=== PATIENT | female | born 1960 | race Caucasian/White ===

== ENCOUNTER 2020-02-14 14:48 | Outpatient (REF) | payer MEDICARE, MEDICAID, SELFPAY | END 2020-02-14 14:49 | disposition home or self-care (01) | LOC: HO.LAB 14:48 | PROVIDERS: PCP Internal Medicine; Visit Provider Internal Medicine | DX: Z20.828 Contact with and (suspected) exposure to other viral communicable diseases (principal) | CPT/HCPCS: C9803; U0003 ==

== ENCOUNTER 2020-03-26 11:23 | Outpatient (REF) | payer MEDICARE, MEDICAID, SELFPAY | END 2020-03-26 11:24 | disposition home or self-care (01) | LOC: HO.CT 11:23 | PROVIDERS: PCP Internal Medicine; Visit Provider Physician Assistant Medical | DX: Z13.89 Encounter for screening for other disorder (principal) ==

== ENCOUNTER 2020-04-05 12:55 | Outpatient (REF) | payer OTHER, SELFPAY ==
[2020-04-05 14:00] LABS: MANUAL DIFF FLAG NO
[2020-04-05 14:08] LABS: Basophils Percent Auto 0.9 % (0-2); Eosinophils Absolute Auto 0.2 X10*3/uL (0.0-0.4); Eosinophils Percent Auto 3.5 % (0-4); Hematocrit 41.8 % (37-47); Hemoglobin 13.7 g/dl (12.0-16.0); Imm Gran Abs Auto 0.02 X10*3/uL (0.00-0.03); Imm Gran Pct Auto 0.4 % (0.0-0.4); Lymphocytes Absolute Auto 1.9 X10*3/uL (1.2-4.9); Lymphocytes Percent Auto 42.1 % (20-40); Mean Corpuscular HGB Conc 32.8 g/dl (31.0-35.0); Mean Corpuscular Hemoglobin 30.5 pg (27.0-33.0); Mean Corpuscular Volume 93.1 fL (80-98); Mean Platelet Volume 9.4 fL (9.4-12.3); Monocytes Absolute Auto 0.3 X10*3/uL (0.1-1.2); Monocytes Percent Auto 6.6 % (2-11); Neutrophils Absolute Auto 2.1 X10*3/uL (2.0-8.3); Neutrophils Percent Auto 46.5 % (45-73); Platelet Count 302 X10*3/uL (160-400); Red Blood Count 4.49 X10*6/uL (4.20-5.50); Red Cell Distribution Width 12.2 % (11.0-16.0); White Blood Count 4.5 X10*3/uL (4.8-10.8)
[2020-04-05 14:20] LABS: Glucose Urine UA NEG (NEG); Leukocyte Esterase Urine NEG (NEG); Nitrite Urine NEG (NEG); Specific Gravity - Urine 1.015 (1.005-1.025); Urine Blood NEG (NEG); Urine Ketones NEG (NEG); Urine Protein NEG (NEG-TRACE)
[2020-04-05 14:22] LABS: Appearance Urine CLEAR; Color Urine YELLOW
[2020-04-05 14:37] LABS: Alanine Aminotransferase 24 U/L (0-31); Albumin Level 4.1 g/dL (3.5-5.0); Alkaline Phosphatase 58 U/L (39-117); Anion Gap 9 (12-20); Aspartate Amino Transferase 15 U/L (5-31); Bilirubin Direct 0.2 mg/dL (0.0-0.5); Bilirubin Total 0.4 mg/dL (0.0-1.0); Blood Urea Nitrogen 14 mg/dL (9-16); Calcium 9.3 mg/dL (8.4-10.2); Carbon Dioxide 36 mmol/L (22-29); Chloride 101 mmol/L (96-108); Estimated Glomerular Filt Rate > 60; Glucose Random 80 mg/dL (60-115); Potassium 4.3 mmol/l (3.3-5.1); Sodium 142 mmol/L (135-145); Total Protein 6.6 g/dL (6.5-8.0)
[2020-04-05 14:54] LABS: SARS COV2 IgG Negative (Negative)
[2020-04-05 14:58] LABS: Ferritin 34 ng/mL (10-250); TSH reflex Free T4 1.69 mIU/mL (0.32-4.0)
[2020-04-05 15:10] LABS: Erythrocyte Sedimentation Rate 3 MM/HR (0-20)
[2020-04-06 14:43] LABS: LDL Cholesterol Direct 155 mg/dL (<100)
== END 2020-04-05 12:56 | disposition home or self-care (01) ==
LOC: HO.HMGCLDS 12:55
PROVIDERS: PCP Internal Medicine; Visit Provider Internal Medicine
DX: R53.83 Other fatigue (principal); M25.50 Pain in unspecified joint; E03.2 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 exogenous substances; T50.905A Adverse effect of unspecified drugs, medicaments and biological substances, initial encounter; Y92.9 Unspecified place or not applicable; N32.9 Bladder disorder, unspecified; J44.9 Chronic obstructive pulmonary disease, unspecified; Z01.84 Encounter for antibody response examination
CPT/HCPCS: 36415; 80048; 80076; 81003; 82728; 83721; 84443; 85025; 85652; 86769

== ENCOUNTER 2020-05-01 14:22 | Outpatient (REF) | payer OTHER, SELFPAY ==
--- NOTE | ~2020-05-01 | CT_ITS ---
EXAMINATION: CT CHEST SCREENING CLINICAL INFORMATION: Nicotine dependence. COMPARISON: CT chest of March 30, 2019 TECHNIQUE: Multidetector volumetric CT imaging of the chest is performed without contrast using low dose technique. Additional 2D coronal and sagittal reformatted images and axial 3D maximum intensity projection (MIP) images are generated on the CT workstation. This CT examination was performed using dose optimization techniques as appropriate, variously including the following: *Automated exposure control *Adjustment of mA and/or kV according to patient size (this includes techniques or standardized protocols for targeted exams where dose is matched to indication/reason for exam; i.e. extremities or head) *Use of iterative reconstruction technique DLP: 50 mGy-cm FINDINGS: LUNGS: Central airways are patent. No significant bronchial wall thickening is seen. No bronchiectasis. No confluent parenchymal disease. No significant changes of emphysema appreciated. There are a few scattered sub-4 mm densities seen bilaterally. Within the right lower lobe there is a subpleural noncalcified 5 mm density on image 193 of 501. This is stable Within the lingula abutting the major fissure there is a noncalcified 5 mm nodule on image 291 of 501. This is stable. Within the left lower lobe there is a subpleural 4 mm noncalcified density on image 354 of 501. This is stable. Within the right upper lobe there is a 4 mm noncalcified density on image 283 of 501. This is stable. MEDIASTINUM: Heart normal size. Coronary artery calcification present. No significant pericardial effusion. No thoracic aortic aneurysm. No mediastinal or hilar lymphadenopathy. Thyroid gland is not well evaluated. PLEURA: There is no pleural effusion. No pleural mass or thickening. AXILLA: No lymphadenopathy. UPPER ABDOMEN: Unremarkable OSSEOUS STRUCTURES: No destructive bony lesions identified. CT/CT lung screening IMPRESSION: Stable appearance of the chest as described above. ASSESSMENT: Lung-RADS category 2: Benign RECOMMENDATION: Routine annual low-dose CT screening in 12 months.
== END 2020-05-01 14:23 | disposition home or self-care (01) ==
LOC: HO.CT 14:22
PROVIDERS: Visit Provider Physician Assistant Medical
DX: Z12.2 Encounter for screening for malignant neoplasm of respiratory organs (principal); F17.210 Nicotine dependence, cigarettes, uncomplicated
CPT/HCPCS: 71271

== ENCOUNTER 2020-08-30 12:18 | Outpatient (REF) | payer OTHER, SELFPAY ==
[2020-08-30 13:48] LABS: MANUAL DIFF FLAG NO
[2020-08-30 13:53] LABS: Basophils Percent Auto 0.5 % (0-2); Eosinophils Absolute Auto 0.1 X10*3/uL (0.0-0.4); Eosinophils Percent Auto 1.9 % (0-4); Imm Gran Abs Auto 0.04 X10*3/uL (0.00-0.03); Imm Gran Pct Auto 0.6 % (0.0-0.4); Lymphocytes Absolute Auto 2.3 X10*3/uL (1.2-4.9); Lymphocytes Percent Auto 36.1 % (20-40); Mean Corpuscular HGB Conc 32.6 g/dl (31.0-35.0); Mean Corpuscular Hemoglobin 29.4 pg (27.0-33.0); Mean Corpuscular Volume 90.3 fL (80-98); Mean Platelet Volume 9.9 fL (9.4-12.3); Monocytes Absolute Auto 0.6 X10*3/uL (0.1-1.2); Monocytes Percent Auto 8.6 % (2-11); Neutrophils Absolute Auto 3.3 X10*3/uL (2.0-8.3); Neutrophils Percent Auto 52.3 % (45-73); Platelet Count 294 X10*3/uL (160-400); Red Blood Count 4.76 X10*6/uL (4.20-5.50); Red Cell Distribution Width 13.2 % (11.0-16.0); White Blood Count 6.4 X10*3/uL (4.8-10.8)
[2020-08-30 14:23] LABS: Alanine Aminotransferase 43 U/L (0-31); Albumin Level 4.1 g/dL (3.5-5.0); Alkaline Phosphatase 63 U/L (39-117); Anion Gap 12 (12-20); Aspartate Amino Transferase 26 U/L (5-31); Bilirubin Total 0.6 mg/dL (0.0-1.0); Blood Urea Nitrogen 16 mg/dL (9-16); Calcium 9.8 mg/dL (8.4-10.2); Carbon Dioxide 31 mmol/L (22-29); Chloride 106 mmol/L (96-108); Estimated Glomerular Filt Rate > 60; Glucose Random 87 mg/dL (60-115); Potassium 4.4 mmol/L (3.3-5.1); Sodium 145 mmol/L (135-145); Total Protein 6.4 g/dL (6.5-8.0)
[2020-08-30 14:37] LABS: Valproate 78.5 mcg/mL (50.0-100.0)
== END 2020-08-30 12:19 | disposition home or self-care (01) ==
LOC: HO.HMGCLDS 12:18
PROVIDERS: PCP Internal Medicine; Visit Provider Psychiatry & Neurology Psychiatry
DX: F31.9 Bipolar disorder, unspecified (principal); Z79.899 Other long term (current) drug therapy
CPT/HCPCS: 36415; 80053; 80164; 85025

== ENCOUNTER 2020-08-31 11:48 | Outpatient (REF) | payer OTHER, SELFPAY ==
--- NOTE | ~2020-08-31 | MM_ITS ---
EXAMINATION: MM SCREENING DIGITAL BREAST TOMOSYNTHESIS, BILATERAL CLINICAL INFORMATION: Screening. Asymptomatic. The lifetime risk of breast cancer based on the Tyrer-Cuzick Model is 18%. COMPARISON: Mammography: 05/25/2018, 03/25/2017, 12/18/2015 TECHNIQUE: Digital breast tomosynthesis is performed in both the craniocaudal and mediolateral oblique views along with computer-aided detection (CAD). Synthesized 2D images are generated from the tomosynthesis. Additional right MLO view is provided. FINDINGS: There are scattered areas of fibroglandular density (ACR BI-RADS breast composition Category b). There are no significant masses, abnormal calcifications, or other abnormalities. Parenchymal pattern is similar to prior studies. The axilla and skin contours are unremarkable. MM/MM tomosynthesis screening BI IMPRESSION: No mammographic evidence of malignancy. ASSESSMENT: BI-RADS 1: Negative RECOMMENDATION: Routine annual mammography screening. This patient's information was entered into a reminder system with a target due date for their next mammogram.
== END 2020-08-31 11:49 | disposition home or self-care (01) ==
LOC: HO.MAMMO 11:48
PROVIDERS: PCP Internal Medicine; Visit Provider Internal Medicine
DX: Z12.31 Encounter for screening mammogram for malignant neoplasm of breast (principal)
CPT/HCPCS: 77063; 77067

== ENCOUNTER 2020-12-12 16:42 | Outpatient (REF) | payer OTHER, SELFPAY | END 2020-12-12 16:43 | disposition home or self-care (01) | LOC: HO.LNP 16:42 | PROVIDERS: Visit Provider Internal Medicine | DX: R21 Rash and other nonspecific skin eruption (principal) | CPT/HCPCS: 87101; 87106 ==

== ENCOUNTER 2021-01-18 13:55 | Outpatient (REF) | payer OTHER, SELFPAY ==
[2021-01-18 16:04] LABS: Alanine Aminotransferase 30 U/L (0-31); Alkaline Phosphatase 69 U/L (39-117); Aspartate Amino Transferase 23 U/L (5-31); Bilirubin Direct < 0.2 mg/dL (0.0-0.5); Bilirubin Total 0.4 mg/dL (0.0-1.0); Total Protein 6.2 g/dL (6.5-8.0)
[2021-01-18 16:23] LABS: Vitamin B12 602 pg/mL (200-900)
[2021-01-18 16:24] LABS: TSH reflex Free T4 2.37 uIU/mL (0.32-4.0)
[2021-01-22 16:21] LABS: Vitamin D 25-OH, D2 <4 ng/mL; Vitamin D 25-OH, D3 46 ng/mL; Vitamin D 25-OH, Total 46 ng/mL (30-100)
== END 2021-01-18 13:56 | disposition home or self-care (01) ==
LOC: HO.HMGCLDS 13:55
PROVIDERS: PCP Internal Medicine; Visit Provider Internal Medicine
DX: B35.3 Tinea pedis (principal); E03.8 Other specified hypothyroidism; R53.83 Other fatigue
CPT/HCPCS: 36415; 80076; 82306; 82607; 84443

== ENCOUNTER 2021-02-13 18:05 | Emergency (ER) | payer OTHER, SELFPAY ==
--- NOTE | ~2021-02-13 | XR_ITS ---
EXAMINATION: XR CHEST CLINICAL INFORMATION: Palpitations COMPARISON: Chest CT on 03/30/2019 TECHNIQUE: Frontal view of the chest was obtained. FINDINGS: No significant abnormality is noted involving the heart, lungs, mediastinum, bony thorax or soft tissues. XR/XR chest 1V IMPRESSION: Unremarkable examination.
--- NOTE | 2021-02-13 18:08 | ECG_ITS ---
Test Reason : PALPITATIONS Blood Pressure : / mmHG Vent. Rate : 100 BPM Atrial Rate : 100 BPM P-R Int : 176 ms QRS Dur : 070 ms QT Int : 328 ms P-R-T Axes : 079 063 065 degrees QTc Int : 423 ms Normal sinus rhythm Possible Left atrial enlargement Borderline ECG When compared with ECG of 12-APR-2018 21:37, No significant change was found Referred By: Generic ED Physician Electronically Signed By:TRINA CASANOVA
[2021-02-13 18:32] VITALS: BP 155/88; PULSE 100; RESP 18; TEMP 36.9; O2SAT 94; BMI 27.4
[2021-02-13 19:59] LABS: Hematocrit 41.5 % (37.0-47.0); Hemoglobin 13.9 g/dl (12.0-16.0); Mean Corpuscular HGB Conc 33.5 g/dl (31.0-35.0); Mean Corpuscular Hemoglobin 30.5 pg (27.0-33.0); Mean Corpuscular Volume 91.2 fL (80.0-98.0); Mean Platelet Volume 9.4 fL (9.4-12.3); Platelet Count 235 X10*3/uL (160-400); Red Blood Count 4.55 X10*6/uL (4.20-5.50); Red Cell Distribution Width 13.4 % (11.0-16.0); White Blood Count 5.5 X10*3/uL (4.8-10.8)
[2021-02-13 20:16] LABS: Anion Gap 12 (12-20); Blood Urea Nitrogen 14 mg/dL (9-16); Calcium 9.7 mg/dL (8.4-10.2); Carbon Dioxide 29 mmol/L (22-29); Chloride 107 mmol/L (96-108); Creatinine Clr Calc Pharmacy 67.6; Estimated Glomerular Filt Rate > 60; Glucose Random 102 mg/dL (60-115); Potassium 4.4 mmol/L (3.3-5.1); Sodium 144 mmol/L (135-145)
[2021-02-13 20:22] LABS: Troponin-I High Sensitivity < 3.5 ng/L (<3.5-17.0)
--- NOTE | 2021-02-13 20:24 | ED.ARRPALP ---
HPI - Arrhythmia/Palpitations General Chief Complaint: Arrhythmia/Palpitations Stated Complaint: cough, palpitations Time Seen by Provider: 02/13/21 20:15 Source: patient Mode of arrival: ambulatory Limitations: no limitations History of Present Illness HPI narrative: Patient comes to the emergency room complaining of palpitations and coughing for 1 month. Patient denies any fever, complaining of occasional chills. Patient states that she stop taking her levothyroxine about a month ago because she did not like taking it on an empty stomach. Then she started retaking her medication 1 week ago. Patient also reports productive cough for 1 month. Patient known to be a COPD patient, non O2 dependent. Related Data Home Medications Medication Instructions Recorded Confirmed albuterol sulfate 90 mcg/actuation 2 puff INHALATION Q4-6H PRN 03/29/20 01/15/21 aerosol inhaler (ProAir HFA) bupropion HCl 150 mg tablet,12 hr 300 mg PO QAM tab 03/29/20 01/15/21 sustained-release (Wellbutrin SR) clonazepam 0.5 mg tablet 0.5 mg PO DAILY 03/29/20 01/15/21 divalproex 500 mg tablet,delayed 1,000 mg PO BID tab 11/09/20 01/15/21 release (Depakote) Previous Rx's Medication Instructions Recorded tiotropium bromide 18 mcg capsule 1 cap INHALATION DAILY 30 Days #30 11/09/20 with inhalation device (Spiriva inh with HandiHaler) Poies Pads # 3 #90 ea 11/16/20 oxybutynin chloride 15 mg 15 mg PO DAILY 90 Days #90 tab 01/15/21 tablet,extended release 24 hr terbinafine HCl 250 mg tablet 250 mg PO DAILY 15 Days #15 tab 01/25/21 levothyroxine 50 mcg tablet 50 mcg PO DAILY #90 tab 02/04/21 albuterol sulfate 90 mcg/actuation 1 inh INHALATION QID PRN 30 Days 02/13/21 aerosol inhaler (ProAir HFA) #18 g azithromycin 250 mg tablet 250 mg PO DAILY 4 Days #4 tab 02/13/21 dextromethorphan-guaifenesin 20 1 tab PO Q4-6H PRN #14 tab 02/13/21 mg-400 mg tablet prednisone 50 mg tablet 50 mg PO DAILY #4 tab 02/13/21 Allergies Allergy/AdvReac Type Severity Reaction Status Date / Time codeine [CODEINE] Allergy Unknown ITCH Verified 01/15/21 14:40 epinephrine [EPINEPHRINE] Allergy Unknown PALPATATIONS Verified 01/15/21 14:40 FROM DENTAL WORK Review of Systems Review of Systems: Constitutional : No Weight loss, No Fever, complaining of Chills, No Night Sweats, No Fatigue, No Malaise ENT/Mouth : No Hearing loss, No Ear Pain, No Nasal Congestion, No Sinus Pain, No Hoarseness, No sore throat, No Rhinorrhea, No Swallowing Difficulty Eyes: No Eye Pain, No Swelling, No Redness, No Foreign Body, No Discharge, No Vision Changes Cardiovascular : No Chest Pain, No SOB, No Dyspnea on Exertion, No Orthopnea, No Edema, complaining of intermittent Palpitations Respiratory : Complaining of productive Cough, No Sputum, No Wheezing, No Smoke Exposure, No Dyspnea Gastrointestinal : No Nausea, No Vomiting, No Diarrhea, No Constipation, No abdominal Pain, No Hematochezia, No Melena Genitourinary : no irregular bleeding, No Dysuria, No Urinary Frequency, No Hematuria, No Urinary Incontinence, No Urgency, No Flank Pain, No Urinary Flow Changes, No Hesitancy Musculoskeletal : No joint pain, No Myalgias, No Joint Swelling Skin : No Skin Lesions, No rash Neuro : No Weakness, No Numbness, No Paresthesias, No Loss of Consciousness, No Dizziness, No Headache Psych : No Anxiety/Panic, No Depression, No SI/HI/AH/VH, No Social Issues, Heme/Lymph: No Bruising, No Bleeding,No Lymphadenopathy Endocrine : No Polyuria, No Polydipsia, No Temperature Intolerance [facility] Past Medical History Surgical History No pertinent past surgical history Family History Family History Other Mental health disorder Substance use disorder Social History Social History Housing: House Patient Tobacco Use Status: Current everyday Tobacco user Tobacco use type: Cigarette Cigarettes Per Day: 10 e-Cigarette/Vaping Use: Currently Using Advance Directives: No Advance Directives Information Provided: Yes Patient : No Current occupational status: disabled Physical Exam Vital Signs: Vital Signs: Last Vital Signs Temp 98.5 F 02/13/21 18:32 Pulse 100 02/13/21 18:32 Resp 18 02/13/21 18:32 BP 155/88 H 02/13/21 18:32 Pulse Ox 94 02/13/21 18:32 BMI result Body Mass Index 27.4 Const: Other: Appearance: Alert. Oriented X3. No acute distress. Eyes: Pupils equal, round and reactive to light. ENT: Pharynx normal. Neck: Normal inspection. Neck supple. No lymph nodes noted. No crepitus CVS: Normal heart rate and rhythm. Pulses normal. Normal S1 and S2 Respiratory: No respiratory distress. Mild occasional bilateral wheezing, good air movement Abdomen: Soft and nontender. No rigidity. No distention Skin: Skin warm and dry. Normal skin color. Normal skin turgor. Extremities: No lower extremity edema. No Lacerations. No Rash Neuro: Oriented X 3. No motor deficit. No sensory deficit. Moving all extermities. No slurred speech. Course Course Course Narrative: Patient tested positive for COVID-19. Reason why patient is coughing. Patient has no shortness of breath, no chest pain. Patient's oxygen saturation 94% on room air. Chest x-ray do not show any signs of pneumonia. Patient will be discharged home. Given the patient's COPD history, she would likely benefit from antibiotics. MDM - Arrhythmia/Palpitations Lab Data Result diagrams: 02/13/21 19:53 02/13/21 19:53 Labs: Lab Results 02/13/21 02/13/21 02/13/21 Range/Units 19:53 19:53 19:53 WBC 5.5 (4.8-10.8) X10*3/uL RBC 4.55 (4.20-5.50) X10*6/uL Hgb 13.9 (12.0-16.0) g/dl Hct 41.5 (37.0-47.0) % MCV 91.2 (80.0-98.0) fL MCH 30.5 (27.0-33.0) pg MCHC 33.5 (31.0-35.0) g/dl RDW 13.4 (11.0-16.0) % Plt Count 235 (160-400) X10*3/uL MPV 9.4 (9.4-12.3) fL Absolute Nucleated RBC 0.000 (0.0-0.012) X10*3/uL Nucleated RBC % (auto) 0.0 (0.0-0.2) /100WBC Sodium 144 (135-145) mmol/L Potassium 4.4 (3.3-5.1) mmol/L Chloride 107 (96-108) mmol/L Carbon Dioxide 29 (22-29) mmol/L Anion Gap 12 (12-20) BUN 14 (9-16) mg/dL Creatinine 0.78 (0.5-1.4) mg/dL Estim Creat Clear Calc 67.6 Estimated GFR > 60 Random Glucose 102 (60-115) mg/dL Calcium 9.7 (8.4-10.2) mg/dL Troponin I High Sens < 3.5 (<3.5-17.0) ng/L TSH 1.32 (0.32-4.0) uIU/mL COVID-19 ([facility]) (Negative) COVID-19 Clin Com 02/13/21 Range/Units 20:08 WBC (4.8-10.8) X10*3/uL RBC (4.20-5.50) X10*6/uL Hgb (12.0-16.0) g/dl Hct (37.0-47.0) % MCV (80.0-98.0) fL MCH (27.0-33.0) pg MCHC (31.0-35.0) g/dl RDW (11.0-16.0) % Plt Count (160-400) X10*3/uL MPV (9.4-12.3) fL Absolute Nucleated RBC (0.0-0.012) X10*3/uL Nucleated RBC % (auto) (0.0-0.2) /100WBC Sodium (135-145) mmol/L Potassium (3.3-5.1) mmol/L Chloride (96-108) mmol/L Carbon Dioxide (22-29) mmol/L Anion Gap (12-20) BUN (9-16) mg/dL Creatinine (0.5-1.4) mg/dL Estim Creat Clear Calc Estimated GFR Random Glucose (60-115) mg/dL Calcium (8.4-10.2) mg/dL Troponin I High Sens (<3.5-17.0) ng/L TSH (0.32-4.0) uIU/mL COVID-19 ([facility]) Positive A (Negative) COVID-19 Clin Com See Note Imaging Data Chest x-ray: Radiologist's impression: No significant abnormality is noted involving the heart, lungs, mediastinum, bony thorax or soft tissues. XR/XR chest 1V IMPRESSION: Unremarkable examination. Discharge Plan Discharge Clinical Impression: COPD (chronic obstructive pulmonary disease), COVID-19 Patient Disposition: Home, Self-Care Instructions: COVID-19 (Coronavirus Disease 2019) (ED) Additional Instructions: Please follow-up with your primary care physician tomorrow. If you have any worsening or new symptoms, please return to the emergency room or call 911 Prescriptions: New azithromycin 250 mg tablet 250 mg PO DAILY 4 Days Qty: 4 RF: 0 prednisone 50 mg tablet 50 mg PO DAILY Qty: 4 RF: 0 dextromethorphan-guaifenesin 20-400 mg tablet 1 tab PO Q4-6H PRN (Reason: cough) Qty: 14 RF: 0 No Action (DME) Poies Pads # 3 Long See Rx Instructions .Route .MEDSUPPLY Qty: 90 RF: 11 terbinafine HCl 250 mg tablet 250 mg PO DAILY 15 Days Qty: 15 RF: 0 levothyroxine 50 mcg tablet 50 mcg PO DAILY Qty: 90 RF: 0 albuterol sulfate [ProAir HFA] 90 mcg/actuation HFA aerosol inhaler 1 inh inhalation QID PRN (Reason: shortness of breath or wheezing) 30 Days Qty: 18 RF: 4 clonazepam 0.5 mg tablet 0.5 mg PO DAILY RF: 0 bupropion HCl [Wellbutrin SR] 150 mg tablet sustained-release 12 hr 300 mg PO QAM RF: 0 albuterol sulfate [ProAir HFA] 90 mcg/actuation HFA aerosol inhaler 2 puff inhalation Q4-6H PRNRF: 0 divalproex [Depakote] 500 mg tablet,delayed release (DR/EC) 1,000 mg PO BID RF: 0 Spiriva with HandiHaler 18 mcg capsule, w/inhalation device 1 cap inhalation DAILY 30 Days Qty: 30 RF: 5 oxybutynin chloride 15 mg tablet extended release 24hr 15 mg PO DAILY 90 Days Qty: 90 RF: 0
[2021-02-13 20:31] LABS: COVID-19 Test Positive (Negative)
[2021-02-13 20:49] LABS: Thyroid Stimulating Hormone 1.32 uIU/mL (0.32-4.0)
[2021-02-13] MEDS: Azithromycin 500 MG TABLET PO (21:45)
[2021-02-13] MEDS: predniSONE 20 MG TABLET 60 MG PO (21:45)
== END 2021-02-13 21:52 | disposition home or self-care (01) ==
PROVIDERS: Emergency Provider Emergency Medicine; PCP Internal Medicine
DX: U07.1 COVID-19 (principal); J44.9 Chronic obstructive pulmonary disease, unspecified; I49.9 Cardiac arrhythmia, unspecified; R05.9 Cough, unspecified; R00.2 Palpitations; F17.210 Nicotine dependence, cigarettes, uncomplicated; Z79.899 Other long term (current) drug therapy; Z71.6 Tobacco abuse counseling
CPT/HCPCS: 36415; 71045; 80048; 84443; 84484; 85027; 87635; 93005; 99283

== ENCOUNTER 2021-09-02 12:20 | Outpatient (REF) | payer OTHER, SELFPAY ==
--- NOTE | ~2021-09-02 | MM_ITS ---
EXAMINATION: MM SCREENING DIGITAL BREAST TOMOSYNTHESIS, BILATERAL CLINICAL INFORMATION: Screening. Asymptomatic. Family history breast cancer mother, age 80 and sister, age 50. The lifetime risk of breast cancer based on the Tyrer-Cuzick Model is 19%. COMPARISON: Mammography: 08/31/2020, 07/25/2018, 03/25/2017 TECHNIQUE: Digital breast tomosynthesis is performed in both the craniocaudal and mediolateral oblique views along with computer-aided detection (CAD). Synthesized 2D images are generated from the tomosynthesis. Additional right MLO view is provided. FINDINGS: There are scattered areas of fibroglandular density (ACR BI-RADS breast composition Category b). There are no significant masses, abnormal calcifications, or other abnormalities. Parenchymal pattern is similar to prior exams and there is no architectural abnormality or developing density. No significant changes. MM/MM tomosynthesis screening BI IMPRESSION: No mammographic evidence of malignancy. ASSESSMENT: BI-RADS 1: Negative RECOMMENDATION: Routine annual mammography screening. This patient's information was entered into a reminder system with a target due date for their next mammogram.
== END 2021-09-02 12:21 | disposition home or self-care (01) ==
LOC: HO.MAMMO 12:20
PROVIDERS: Visit Provider Internal Medicine
DX: Z12.31 Encounter for screening mammogram for malignant neoplasm of breast (principal)
CPT/HCPCS: 77063; 77067

== ENCOUNTER 2021-10-17 05:53 | Outpatient (REF) | payer OTHER, SELFPAY ==
--- NOTE | ~2021-10-17 | XR_ITS ---
EXAMINATION: XR HIP, LEFT CLINICAL INFORMATION: Pain COMPARISON: Right hip x-ray August 2019 TECHNIQUE: Two views of the left hip and 1 view of the pelvis. FINDINGS: Bone alignment is normal. No fracture or dislocation is seen. There is mild degenerative change of the left hip joint with small osteophytes. There is a sclerotic density that projects over the left acetabulum measuring 7 mm. This may represent a bone island. There is soft tissue ossification adjacent to the left greater trochanter. There is soft tissue calcification or ossification adjacent to the right greater trochanter and the right inferior pubic ramus. Bones of the pelvis are otherwise unremarkable. There are degenerative changes of the lower lumbar spine. XR/XR hip LT w PEL1V IMPRESSION: Small osteophytes at the left hip joint. Soft tissue calcification or ossification adjacent to the greater trochanter probably representing trochanteric tendinitis or bursitis. 7 mm sclerotic density that projects over the left acetabulum, question representing a bone island.
== END 2021-10-17 05:54 | disposition home or self-care (01) ==
LOC: HO.HOSX 05:53
PROVIDERS: Visit Provider Physician Assistant
DX: M53.3 Sacrococcygeal disorders, not elsewhere classified (principal)
CPT/HCPCS: 73502; 99202

== ENCOUNTER 2022-01-29 14:44 | Outpatient (REF) | payer OTHER, SELFPAY ==
[2022-01-29 16:34] LABS: MANUAL DIFF FLAG NO
[2022-01-29 16:42] LABS: Basophils Absolute Auto 0.1 X10*3/uL (0.0-0.2); Basophils Percent Auto 0.8 % (0-2); Eosinophils Absolute Auto 0.1 X10*3/uL (0.0-0.4); Eosinophils Percent Auto 1.8 % (0-4); Hemoglobin 14.2 g/dl (12.0-16.0); Imm Gran Abs Auto 0.03 X10*3/uL (0.00-0.03); Imm Gran Pct Auto 0.4 % (0.0-0.4); Lymphocytes Absolute Auto 2.4 X10*3/uL (1.2-4.9); Lymphocytes Percent Auto 32.8 % (20-40); Mean Corpuscular Hemoglobin 30.5 pg (27.0-33.0); Mean Corpuscular Volume 92.3 fL (80.0-98.0); Mean Platelet Volume 10.2 fL (9.4-12.3); Monocytes Absolute Auto 0.5 X10*3/uL (0.1-1.2); Neutrophils Absolute Auto 4.2 x10*3/uL (2.0-8.3); Neutrophils Percent Auto 57.2 % (45-73); Platelet Count 303 X10*3/uL (160-400); Red Blood Count 4.66 X10*6/uL (4.20-5.50); Red Cell Distribution Width 13.6 % (11.0-16.0); White Blood Count 7.4 X10*3/uL (4.8-10.8)
[2022-01-29 17:25] LABS: Alanine Aminotransferase 13 U/L (0-31); Albumin Level 4.1 g/dL (3.5-5.0); Alkaline Phosphatase 58 U/L (39-117); Anion Gap 12 (12-20); Aspartate Amino Transferase 12 U/L (5-31); Bilirubin Total 0.3 mg/dL (0.0-1.0); Blood Urea Nitrogen 12 mg/dL (9-16); Calcium 9.6 mg/dL (8.4-10.2); Carbon Dioxide 30 mmol/L (22-29); Chloride 104 mmol/L (96-108); Estimated Glomerular Filt Rate > 60; Ferritin 55 ng/mL (10-250); Glucose Random 86 mg/dL (60-115); Potassium 4.5 mmol/L (3.3-5.1); Sodium 141 mmol/L (135-145); TSH reflex Free T4 2.66 uIU/mL (0.32-4.0); Total Protein 6.2 g/dL (6.5-8.0)
[2022-01-29 17:38] LABS: Folate 19.1 ng/mL (> or = 4.0); Vitamin B12 608 pg/mL (200-900)
[2022-01-31 01:26] LABS: LDL Cholesterol Direct 151 mg/dL (<100)
[2022-02-03 16:36] LABS: Vitamin D 25-OH, D2 <4 ng/mL; Vitamin D 25-OH, D3 54 ng/mL; Vitamin D 25-OH, Total 54 ng/mL (30-100)
== END 2022-01-29 14:45 | disposition home or self-care (01) ==
LOC: HO.HMGCLDS 14:44
PROVIDERS: PCP Internal Medicine; Visit Provider Internal Medicine
DX: E03.8 Other specified hypothyroidism (principal); F33.9 Major depressive disorder, recurrent, unspecified; J44.9 Chronic obstructive pulmonary disease, unspecified; Z72.0 Tobacco use
CPT/HCPCS: 36415; 80053; 82306; 82607; 82728; 82746; 83721; 84443; 85025

== ENCOUNTER 2022-03-19 15:00 | Outpatient (RCR) | payer OTHER, SELFPAY ==
--- NOTE | 2022-02-20 15:22 | MHC.PT.EP ---
[facility] [place] [facility] [place] [facility] [place] [facility] [address] [phone] F: [phone] F: [phone] F: [phone] F: [phone] Physical Therapy Plan of Care Date of Evaluation: Date of Surgery: Diagnosis: L shoulder pain Assessment: Pt is a 61 y/o RHD female referred to PT for eval and treat of L shoulder pain which results in decreased tolerance and ability for dressing pullovers, reaching high shelves, Reaching her back and neck for hygiene and dressing, and lifting objects of weight as well as laying on her L side secondary to decreased L shoulder ROM and strength, TTP of lateral and superior shoulder, decreased scapular posture, and pain. Pt is deemed an appropriate candidate to receive skilled PT services to address their physical impairments in order to improve their functional ability. Frequency and Duration: The patient will be seen 2 x / wk x 4 wks Short Term Goals: Initiate HEP. Symmetrical shoulder flexion AROM achieved. Jail Goals: I with HEP. Pt will be able to reach high shelves with managed Sx. Pt will be able to reach her neck and back for hygiene and dressing with managed Sx. Improve L shoulder ER strength by at least 1/2 MMT. Treatment Plan: Modalities to reduce pain, spasms and effusion. Manual therapy to restore motion and function. Therapeutic exercise to improve strength and flexibility. Neuromuscular re-education for posture and balance. Therapeutic activities to return to functional activities of daily living. Electronically signed by: Zach Griffin PT Please sign and return to therapist. Thank you for your referral.
--- NOTE | 2022-03-19 16:23 | MHC.PT.DC ---
[facility] [place] [facility] [place] [facility] [place] [facility] [address] Schilling 140 [facility] [phone] F: [phone] F: [phone] F: [phone] F: [phone] Physical Therapy Discharge Report Diagnosis: L shoulder pain Date of Surgery: Date of Evaluation: 02/20/22 Date of Discharge: 03/19/22 Treatments to Date: 7 Cancellations to Date: No Shows to Date: Discharge Status: Achieved Goals Improved Function Independent with HEP Discharge Summary: Lela has been an active and motivated participant in her therapy in and out of the clinic, she is manage of her Sx, I with her home program, she has met her therapeutic goals and she is in agreement with DC at this time. Electronically signed by: Zach Griffin PT Please sign and return to therapist. Thank you for your referral.
== END 2022-03-19 16:24 | disposition home or self-care (01) ==
LOC: HO.PTCHIC 15:00
PROVIDERS: PCP Internal Medicine; Visit Provider Internal Medicine
DX: M67.912 Unspecified disorder of synovium and tendon, left shoulder (principal)
CPT/HCPCS: 97110; 97140; 97161

== ENCOUNTER 2022-05-21 14:36 | Outpatient (REF) | payer OTHER, SELFPAY ==
[2022-05-21 16:27] LABS: MANUAL DIFF FLAG NO
[2022-05-21 16:30] LABS: Basophils Absolute Auto 0.1 X10*3/uL (0.0-0.2); Basophils Percent Auto 0.8 % (0-2); Eosinophils Absolute Auto 0.1 X10*3/uL (0.0-0.4); Eosinophils Percent Auto 1.6 % (0-4); Hematocrit 44.2 % (37.0-47.0); Hemoglobin 14.7 g/dl (12.0-16.0); Imm Gran Abs Auto 0.07 X10*3/uL (0.00-0.03); Imm Gran Pct Auto 0.9 % (0.0-0.4); Lymphocytes Absolute Auto 2.6 X10*3/uL (1.2-4.9); Lymphocytes Percent Auto 34.4 % (20-40); Mean Corpuscular HGB Conc 33.3 g/dl (31.0-35.0); Mean Corpuscular Hemoglobin 30.4 pg (27.0-33.0); Mean Corpuscular Volume 91.5 fL (80.0-98.0); Mean Platelet Volume 10.5 fL (9.4-12.3); Monocytes Absolute Auto 0.5 X10*3/uL (0.1-1.2); Neutrophils Absolute Auto 4.2 x10*3/uL (2.0-8.3); Neutrophils Percent Auto 56.3 % (45-73); Platelet Count 279 X10*3/uL (160-400); Red Blood Count 4.83 X10*6/uL (4.20-5.50); Red Cell Distribution Width 12.9 % (11.0-16.0); White Blood Count 7.4 X10*3/uL (4.8-10.8)
[2022-05-21 16:59] LABS: Alanine Aminotransferase 10 U/L (0-31); Albumin Level 3.9 g/dL (3.5-5.0); Alkaline Phosphatase 53 U/L (39-117); Anion Gap 9 (12-20); Aspartate Amino Transferase 11 U/L (5-31); Bilirubin Total 0.4 mg/dL (0.0-1.0); Blood Urea Nitrogen 12 mg/dL (9-16); Calcium 9.6 mg/dL (8.4-10.2); Carbon Dioxide 35 mmol/L (22-29); Chloride 103 mmol/L (96-108); Estimated Glomerular Filt Rate > 60; Glucose Random 87 mg/dL (60-115); Potassium 4.7 mmol/L (3.3-5.1); Sodium 142 mmol/L (135-145)
[2022-05-21 19:30] LABS: Valproate 83.4 mcg/mL (50.0-100.0)
== END 2022-05-21 14:37 | disposition home or self-care (01) ==
LOC: HO.HMGCLDS 14:36
PROVIDERS: PCP Internal Medicine; Visit Provider Psychiatry & Neurology Psychiatry
DX: F31.9 Bipolar disorder, unspecified (principal); Z79.899 Other long term (current) drug therapy
CPT/HCPCS: 36415; 80053; 80164; 85025

== ENCOUNTER → 2022-07-29 08:57 | Outpatient (BNVA) | payer OTHER, SELFPAY | PROVIDERS: PCP Internal Medicine; Visit Provider Nurse Practitioner Family | DX: G47.10 Hypersomnia, unspecified (principal); R06.83 Snoring; R53.83 Other fatigue | CPT/HCPCS: 99202 ==

== ENCOUNTER 2022-08-04 16:25 | Emergency (ER) | payer OTHER, SELFPAY ==
--- NOTE | ~2022-08-04 | XR_ITS ---
EXAMINATION: XR CHEST CLINICAL INFORMATION: Chest pain COMPARISON: Chest radiograph 02/13/2021 TECHNIQUE: 2 views of the chest were obtained. FINDINGS: No significant abnormality is noted involving the heart, lungs, mediastinum, bony thorax or soft tissues. XR/XR chest 2V IMPRESSION: Unremarkable examination.
--- NOTE | 2022-08-04 16:27 | ECG_ITS ---
Test Reason : chest pain Blood Pressure : / mmHG Vent. Rate : 111 BPM Atrial Rate : 111 BPM P-R Int : 168 ms QRS Dur : 080 ms QT Int : 334 ms P-R-T Axes : 073 041 072 degrees QTc Int : 454 ms Sinus tachycardia Possible Left atrial enlargement Borderline ECG When compared with ECG of 13-FEB-2021 18:10, No significant change was found Referred By: Generic ED Physician Electronically Signed By:TRINA CASANOVA
[2022-08-04 17:03] VITALS: BP 149/81; PULSE 103; RESP 20; TEMP 36.9; O2SAT 97; BMI 31.1
--- NOTE | 2022-08-04 17:03 | ED_ITS ---
HPI - Arrhythmia/Palpitations General Chief Complaint: General Medical Stated Complaint: body tremors, heart racing Time Seen by Provider: 08/04/22 20:35 Source: patient Mode of arrival: ambulatory History of Present Illness HPI narrative: 62-year-old female who reports that she has baseline tremors and developed some chest tightness yesterday and then again today. Patient states that she was seen at urgent care for increased tremors over the past couple of days and that they instructed her to come to the emergency room. She denies any visual/auditory/speech difficulties but states that she has been having more tremors than usual and denies any recent changes to her home medications. At this time she denies any chest pain or difficulty breathing. Related Data Home Medications Medication Instructions Recorded Confirmed bupropion HCl 150 mg tablet,12 hr 300 mg PO QAM 03/29/20 07/30/22 sustained-release (Wellbutrin SR) clonazepam 0.5 mg tablet 0.5 mg PO DAILY 03/29/20 07/30/22 divalproex 500 mg tablet,delayed 1,000 mg PO BID 11/09/20 07/30/22 release (Depakote) aspirin 81 mg tablet,delayed 81 mg PO DAILY 05/07/21 07/30/22 release (Adult Aspirin Regimen) citalopram 40 mg tablet 40 mg PO QAM 05/07/21 07/30/22 melatonin 10 mg tablet 10 mg PO BEDTIME PRN Insomnia 05/07/21 07/30/22 Previous Rx's Medication Instructions Recorded albuterol sulfate 90 mcg/actuation 1 inh inhalation QID PRN shortness 02/13/21 aerosol inhaler (ProAir HFA) of breath or wheezing 30 days #18 grams diclofenac sodium 75 mg 75 mg PO BID pain 10 days #20 tabs 01/02/22 tablet,delayed release levothyroxine 50 mcg tablet 50 mcg PO DAILY #90 tabs 02/04/22 oxybutynin chloride 15 mg 15 mg PO DAILY 90 days #90 tabs 07/14/22 tablet,extended release 24 hr nitrofurantoin 100 mg PO Q12H 5 days #10 caps 08/04/22 monohydrate/macrocrystals 100 mg capsule (Macrobid) Allergies Allergy/AdvReac Type Severity Reaction Status Date / Time codeine [CODEINE] Allergy Unknown ITCH Verified 08/04/22 15:47 epinephrine [EPINEPHRINE] Allergy Unknown PALPATATIONS Verified 08/04/22 15:47 FROM DENTAL WORK Review of Systems 2 Review of Systems: Pertinent positives and negative as stated in HPI [facility] Past Medical History Source: nursing notes reviewed Surgical History H/O brain surgery No pertinent past surgical history Family History Family History Maternal Grandmother Breast cancer Mother Breast cancer Sister Breast cancer Family/Other Breast cancer Father Bladder cancer Other Mental health disorder Substance use disorder Social History Social History Household Members: Friend(s) Housing: House Alcohol intake: current Alcohol intake frequency: holidays/special occasions only Patient Tobacco Use Status: Current everyday Tobacco user Tobacco use type: Cigarette Smoked in Last 30 Days: Yes e-Cigarette/Vaping Use: Currently Using Second Hand Smoke Exposure: Yes Use of substances other than those prescribed or required for medical reasons: Yes Substance Use Type: Marijuana Substance Use Frequency: Socially Any prior treatment program specific to substance use: No Advance Directives: No Advance Directives Information Provided: Yes service: No Current occupational status: disabled Cognitive needs: No Hearing needs: No Vision needs: Yes Physical Exam Vital Signs: Vital Signs: Last Vital Signs Temp 98.6 F 08/04/22 21:12 Pulse 88 08/04/22 21:12 Resp 18 08/04/22 21:12 BP 140/78 H 08/04/22 21:12 Pulse Ox 100 08/04/22 21:12 O2 Del Method Room Air 08/04/22 21:12 BMI result Body Mass Index 31.1 VITAL SIGNS: Reviewed. GENERAL: Well developed, well nourished, in no acute distress. HEAD: Normocephalic/atraumatic EYES: PERRLA, EOMI EARS: Ext canals without abnormality NOSE: Nares patent bilateral OROPHARYNX: no oral lesions noted, posterior pharynx clear NECK: Supple, no adenopathy LUNGS: Normal breath sounds. No adventitious sounds or accessory muscle use. SpO2<100> CARDIOVASCULAR: Regular rate and rhythm without noted murmurs ABDOMEN: Soft, non-tender, non-distended with bowel sounds. MUSCULOSKELETAL: No tenderness, deformities, or effusions noted on gross inspection. EXTREMITIES: No cyanosis, clubbing or edema. SKIN: Inspection of the skin reveals no rashes NEUROLOGIC: Alert and oriented x 4. Strength and sensation to light touch were grossly intact x 4, significant tremulousness. Course Course Course Narrative: This is a rapid medical exam. deferred additional HPI, ROS, PE to primary provider. 62 yo female with a history of asthma, hypothyroidism, tobacco dependence and anxiety here with complaints of intermittent chest pain since last evening with tremors. Seen at walk in clinic and referred here to the ER. VSS Will obtain ekg, labs, CXR Medications Administered Discontinued Medications Generic Name Dose Route Start Last Admin Trade Name Freq PRN Reason Stop Dose Admin Propranolol HCl 5 mg 08/04/22 21:19 08/04/22 21:37 Propranolol Hcl 10 Mg Tablet PO 08/04/22 21:20 5 mg ONCE ONE Administration Protocol Medical Decision Making Medical Decision Making MDM Narrative: 62-year-old female with complaints of chest discomfort since yesterday, troponins are negative today and EKG demonstrates mild tachycardia -111 but on my interview patient's heart rate is in the 80s. D-dimer-152 no acute findings on chest x-ray. I reviewed all investigations, my interpretation is patient has a UTI, there is blood noted in the urinalysis however there is no history or clinical findings to suggest renal colic. Will provide a referral for Urology for hematuria Differential Diagnosis Please see the discussion above Lab Data Please see the discussion above 08/04/22 17:44 08/04/22 17:44 Labs: Lab Results 08/04/22 08/04/22 08/04/22 Range/Units 17:44 17:44 17:44 WBC 7.9 (4.8-10.8) X10*3/uL RBC 4.90 (4.20-5.50) X10*6/uL Hgb 14.8 (12.0-16.0) g/dl Hct 44.6 (37.0-47.0) % MCV 91.0 (80.0-98.0) fL MCH 30.2 (27.0-33.0) pg MCHC 33.2 (31.0-35.0) g/dl RDW 13.2 (11.0-16.0) % Plt Count 248 (160-400) X10*3/uL MPV 9.2 L (9.4-12.3) fL Immature Gran % (Auto) 0.5 H (0.0-0.4) % Neut % (Auto) 57.0 (45-73) % Lymph % (Auto) 31.9 (20-40) % [place]oca % (Auto) 8.5 (2-11) % Eos % (Auto) 1.3 (0-4) % Baso % (Auto) 0.8 (0-2) % Lymph # (Auto) 2.5 (1.2-4.9) X10*3/uL [place]oca # (Auto) 0.7 (0.1-1.2) X10*3/uL Eos # (Auto) 0.1 (0.0-0.4) X10*3/uL Baso # (Auto) 0.1 (0.0-0.2) X10*3/uL Abs Immat Gran (auto) 0.04 H (0.00-0.03) X10*3/uL Absolute Neuts (auto) 4.5 (2.0-8.3) x10*3/uL Absolute Nucleated RBC 0.000 (0.0-0.012) X10*3/uL Nucleated RBC % (auto) 0.0 (0.0-0.2) /100WBC PT 10.6 (10.0-13.1) SEC INR 0.9 (0.9-1.1) D-Dimer High Sensitivty 152 NG/ML Sodium 141 (135-145) mmol/L Potassium 4.1 (3.3-5.1) mmol/L Chloride 105 (96-108) mmol/L Carbon Dioxide 28 (22-29) mmol/L Anion Gap 12 (12-20) BUN 16 (9-16) mg/dL Creatinine 0.75 (0.5-1.4) mg/dL Estim Creat Clear Calc 72.8 Estimated GFR > 60 Random Glucose 104 (60-115) mg/dL Calcium 9.6 (8.4-10.2) mg/dL Magnesium 1.8 (1.6-2.6) mg/dL Total Bilirubin 0.3 (0.0-1.0) mg/dL Direct Bilirubin 0.1 (0.0-0.5) mg/dL AST 13 (5-31) U/L ALT 16 (0-31) U/L Alkaline Phosphatase 68 (39-117) U/L Troponin I High Sens (<3.5-17.0) ng/L Total Protein 6.6 (6.5-8.0) g/dL Albumin 4.1 (3.5-5.0) g/dL TSH 1.19 (0.32-4.0) uIU/mL Urine Color Urine Appearance Urine pH (5.0-9.0) Ur Specific [place] (1.005-1.025) Urine Protein (Neg-Trace) mg/dL Urine Glucose (UA) (Negative) mg/dL Urine Ketones (Negative) mg/dL Urine Blood (Negative) Urine Nitrite (Negative) Ur Leukocyte Esterase (Negative) Urine RBC (0-2) /HPF Urine WBC (0-5) /HPF Ur Squamous Epith Cells (0-2) /HPF Urine Bacteria (None Seen) Hyaline Casts (0-2) /LPF Urine Yeast 08/04/22 08/04/22 Range/Units 17:44 21:25 WBC (4.8-10.8) X10*3/uL RBC (4.20-5.50) X10*6/uL Hgb (12.0-16.0) g/dl Hct (37.0-47.0) % MCV (80.0-98.0) fL MCH (27.0-33.0) pg MCHC (31.0-35.0) g/dl RDW (11.0-16.0) % Plt Count (160-400) X10*3/uL MPV (9.4-12.3) fL Immature Gran % (Auto) (0.0-0.4) % Neut % (Auto) (45-73) % Lymph % (Auto) (20-40) % Moca % (Auto) (2-11) % Eos % (Auto) (0-4) % Baso % (Auto) (0-2) % Lymph # (Auto) (1.2-4.9) X10*3/uL [place]oca # (Auto) (0.1-1.2) X10*3/uL Eos # (Auto) (0.0-0.4) X10*3/uL Baso # (Auto) (0.0-0.2) X10*3/uL Abs Immat Gran (auto) (0.00-0.03) X10*3/uL Absolute Neuts (auto) (2.0-8.3) x10*3/uL Absolute Nucleated RBC (0.0-0.012) X10*3/uL Nucleated RBC % (auto) (0.0-0.2) /100WBC PT (10.0-13.1) SEC INR (0.9-1.1) D-Dimer High Sensitivty NG/ML Sodium (135-145) mmol/L Potassium (3.3-5.1) mmol/L Chloride (96-108) mmol/L Carbon Dioxide (22-29) mmol/L Anion Gap (12-20) BUN (9-16) mg/dL Creatinine (0.5-1.4) mg/dL Estim Creat Clear Calc Estimated GFR Random Glucose (60-115) mg/dL Calcium (8.4-10.2) mg/dL Magnesium (1.6-2.6) mg/dL Total Bilirubin (0.0-1.0) mg/dL Direct Bilirubin (0.0-0.5) mg/dL AST (5-31) U/L ALT (0-31) U/L Alkaline Phosphatase (39-117) U/L Troponin I High Sens < 2.7 (<3.5-17.0) ng/L Total Protein (6.5-8.0) g/dL Albumin (3.5-5.0) g/dL TSH (0.32-4.0) uIU/mL Urine Color Yellow Urine Appearance Clear Urine pH 6.5 (5.0-9.0) Ur Specific [place] 1.015 (1.005-1.025) Urine Protein Negative (Neg-Trace) mg/dL Urine Glucose (UA) Negative (Negative) mg/dL Urine Ketones Negative (Negative) mg/dL Urine Blood Negative (Negative) Urine Nitrite Negative (Negative) Ur Leukocyte Esterase Moderate (2+) H (Negative) Urine RBC >20 H (0-2) /HPF Urine WBC 11-20 H (0-5) /HPF Ur Squamous Epith Cells 0-2 (0-2) /HPF Urine Bacteria 1+ (None Seen) Hyaline Casts 0-2 (0-2) /LPF Urine Yeast Present Independent Interpretation I performed an independent interpretation of an: EKG Interpretation: Sinus tachycardia, HR-111, no STEMI, CT/QRS/QTC are within normal limits. Radiology Impression Radiologist Impression: My interpretation is in agreement with radiology's impression of the imaging studies. External Record Review External record reviewed: Prior outpatient labs Discharge Plan Discharge Clinical Impression: Heart palpitations, Atypical chest pain, Hematuria Patient Disposition: Home, Self-Care Instructions: Chest Pain (ED), Heart Palpitations (ED), Hematuria (ED) Additional Instructions: 1. Resume all home medications as prescribed. 2. I have provided you with a referral to see Urology regarding blood in your urine, please call the office in the morning to set up an appointment for evaluation. 3. You also appear to have an infection in your urine and will be prescribed antibiotics. 4. Please follow-up with primary care provider by calling the office in the morning. Return to the ER for any worsening symptoms. Prescriptions: New nitrofurantoin monohyd/m-cryst [Macrobid] 100 mg capsule 100 mg PO Q12H 5 Days Qty: 10 0RF Rx Instructions: must administer with a meal/food No Action albuterol sulfate [ProAir HFA] 90 mcg/actuation HFA aerosol inhaler 1 inh inhalation QID PRN (Reason: shortness of breath or wheezing) 30 Days Qty: 18 4RF levothyroxine 50 mcg tablet 50 mcg PO DAILY Qty: 90 1RF oxybutynin chloride 15 mg tablet extended release 24hr 15 mg PO DAILY 90 Days Qty: 90 0RF clonazepam 0.5 mg tablet 0.5 mg PO DAILY bupropion HCl [Wellbutrin SR] 150 mg tablet sustained-release 12 hr 300 mg PO QAM divalproex [Depakote] 500 mg tablet,delayed release (DR/EC) 1,000 mg PO BID citalopram 40 mg tablet 40 mg PO QAM aspirin [Adult Aspirin Regimen] 81 mg tablet,delayed release (DR/EC) 81 mg PO DAILY melatonin 10 mg tablet 10 mg PO BEDTIME PRN (Reason: Insomnia) diclofenac sodium 75 mg tablet,delayed release (DR/EC) 75 mg PO BID 10 Days Qty: 20 0RF Referrals: Go Tapia MD [Physician] - (Hematuria) Brian Zamora MD [Primary Care Provider] -
[2022-08-04 17:49] LABS: MANUAL DIFF FLAG NO
[2022-08-04 17:50] LABS: Basophils Absolute Auto 0.1 X10*3/uL (0.0-0.2); Basophils Percent Auto 0.8 % (0-2); Eosinophils Absolute Auto 0.1 X10*3/uL (0.0-0.4); Eosinophils Percent Auto 1.3 % (0-4); Hematocrit 44.6 % (37.0-47.0); Hemoglobin 14.8 g/dl (12.0-16.0); Imm Gran Abs Auto 0.04 X10*3/uL (0.00-0.03); Imm Gran Pct Auto 0.5 % (0.0-0.4); Lymphocytes Absolute Auto 2.5 X10*3/uL (1.2-4.9); Lymphocytes Percent Auto 31.9 % (20-40); Mean Corpuscular HGB Conc 33.2 g/dl (31.0-35.0); Mean Corpuscular Hemoglobin 30.2 pg (27.0-33.0); Mean Platelet Volume 9.2 fL (9.4-12.3); Monocytes Absolute Auto 0.7 X10*3/uL (0.1-1.2); Monocytes Percent Auto 8.5 % (2-11); Neutrophils Absolute Auto 4.5 x10*3/uL (2.0-8.3); Platelet Count 248 X10*3/uL (160-400); Red Cell Distribution Width 13.2 % (11.0-16.0); White Blood Count 7.9 X10*3/uL (4.8-10.8)
[2022-08-04 17:56] LABS: INTERNATIONAL NORM RATIO 0.9 (0.9-1.1); Prothrombin Time 10.6 SEC (10.0-13.1)
[2022-08-04 18:11] LABS: Alanine Aminotransferase 16 U/L (0-31); Albumin Level 4.1 g/dL (3.5-5.0); Alkaline Phosphatase 68 U/L (39-117); Anion Gap 12 (12-20); Aspartate Amino Transferase 13 U/L (5-31); Bilirubin Direct 0.1 mg/dL (0.0-0.5); Bilirubin Total 0.3 mg/dL (0.0-1.0); Blood Urea Nitrogen 16 mg/dL (9-16); Calcium 9.6 mg/dL (8.4-10.2); Carbon Dioxide 28 mmol/L (22-29); Chloride 105 mmol/L (96-108); Creatinine Clr Calc Pharmacy 72.8; Estimated Glomerular Filt Rate > 60; Glucose Random 104 mg/dL (60-115); Magnesium 1.8 mg/dL (1.6-2.6); Potassium 4.1 mmol/L (3.3-5.1); Sodium 141 mmol/L (135-145); Total Protein 6.6 g/dL (6.5-8.0)
[2022-08-04 18:14] LABS: Troponin-I High Sensitivity < 2.7 ng/L (<3.5-17.0)
[2022-08-04 18:26] LABS: Thyroid Stimulating Hormone 1.19 uIU/mL (0.32-4.0)
[2022-08-04 20:32] VITALS: BP 155/75; PULSE 88; RESP 20; TEMP 36.9; O2SAT 97
[2022-08-04 21:06] LABS: D Dimer High Sensitivity 152 NG/ML
[2022-08-04 21:12] VITALS: BP 140/78; PULSE 88; RESP 18; TEMP 37; O2SAT 100
[2022-08-04 21:31] LABS: Appearance Urine Clear; Color Urine Yellow; Glucose Urine UA Negative (Negative); Leukocyte Esterase Urine Moderate (2+) (Negative); Nitrite Urine Negative (Negative); PH 6.5 (5.0-9.0); Specific Gravity - Urine 1.015 (1.005-1.025); UMIC TRIGGER UACC YES; Urine Blood Negative (Negative); Urine Ketones Negative (Negative); Urine Protein Negative (Neg-Trace)
[2022-08-04] MEDS: Propranolol HCL 10 MG TABLET 5 MG PO (21:37)
[2022-08-04 21:43] LABS: Bacteria Urine 1+ (None Seen); Hyaline Casts Urine 0-2 /LPF (0-2); RBC Urine >20 /HPF (0-2); Squamous Epithelial Cell Urine 0-2 /HPF (0-2); UACC Culture Trigger YES
[2022-08-04] MEDS: Nitrofurantoin Monohyd/M-Cryst 100 MG CAPSULE PO (22:19)
== END 2022-08-04 22:20 | disposition home or self-care (01) ==
PROVIDERS: Nurse Practitioner Family; Emergency Provider Student in an Organized Health Care Education/Training Program; PCP Internal Medicine
DX: R00.2 Palpitations (principal); R07.89 Other chest pain; R31.9 Hematuria, unspecified
CPT/HCPCS: 36415; 71046; 80048; 80076; 81001; 83735; 84443; 84484; 85025; 85379; 85610; 87086; 93005; 99284

== ENCOUNTER 2022-08-05 15:06 | Outpatient (REF) | payer OTHER, SELFPAY ==
--- NOTE | ~2022-08-05 | XR_ITS ---
EXAMINATION: XR LUMBAR SPINE XR SACROILIAC JOINTS CLINICAL INFORMATION: Sacroiliitis. COMPARISON: Pelvis and hip study of 10/17/2021. TECHNIQUE: Three-view lumbosacral spine. Three-view sacroiliac joints. FINDINGS: SACROILIAC JOINTS: AP and oblique views of the sacroiliac joints demonstrate some sclerosis of the joints bilaterally with what appears to be some narrowing and regions and possible ankylosis. No destructive bony lesion is appreciated. There is degenerative disc disease seen at the L5-S1 level with facet arthropathy. The hip joint spaces appear maintained. LUMBAR SPINE: Three views of the lumbar spine do not demonstrate any evidence of acute fracture, spondylolisthesis, or spondylolysis. Pedicles appear intact. There is some mild narrowing of the L5-S1 disc space with facet arthropathy at L5-S1. XR/XR sacroiliac joint 1-2V IMPRESSION: Lumbar Spine: No acute lumbar spine fracture, spondylolisthesis, or spondylolysis. Degenerative disc disease and facet arthropathy at L5-S1. Sacroiliac Joints: Sclerosis with some degree of ankylosis of the sacroiliac joints bilaterally. This could be seen with sacroiliitis due to ankylosing spondylitis, seronegative spondylarthritis, or Crohn's disease.
--- NOTE | ~2022-08-05 | XR_ITS ---
EXAMINATION: XR LUMBAR SPINE XR SACROILIAC JOINTS CLINICAL INFORMATION: Sacroiliitis. COMPARISON: Pelvis and hip study of 10/17/2021. TECHNIQUE: Three-view lumbosacral spine. Three-view sacroiliac joints. FINDINGS: SACROILIAC JOINTS: AP and oblique views of the sacroiliac joints demonstrate some sclerosis of the joints bilaterally with what appears to be some narrowing and regions and possible ankylosis. No destructive bony lesion is appreciated. There is degenerative disc disease seen at the L5-S1 level with facet arthropathy. The hip joint spaces appear maintained. LUMBAR SPINE: Three views of the lumbar spine do not demonstrate any evidence of acute fracture, spondylolisthesis, or spondylolysis. Pedicles appear intact. There is some mild narrowing of the L5-S1 disc space with facet arthropathy at L5-S1. XR/XR lumbar spine 2-3V IMPRESSION: Lumbar Spine: No acute lumbar spine fracture, spondylolisthesis, or spondylolysis. Degenerative disc disease and facet arthropathy at L5-S1. Sacroiliac Joints: Sclerosis with some degree of ankylosis of the sacroiliac joints bilaterally. This could be seen with sacroiliitis due to ankylosing spondylitis, seronegative spondylarthritis, or Crohn's disease.
[2022-08-05 16:59] LABS: Alanine Aminotransferase 19 U/L (0-31); Alkaline Phosphatase 66 U/L (39-117); Anion Gap 11 (12-20); Aspartate Amino Transferase 14 U/L (5-31); Bilirubin Total 0.5 mg/dL (0.0-1.0); Blood Urea Nitrogen 13 mg/dL (9-16); Calcium 9.5 mg/dL (8.4-10.2); Carbon Dioxide 29 mmol/L (22-29); Chloride 104 mmol/L (96-108); Estimated Glomerular Filt Rate > 60; Glucose Random 87 mg/dL (60-115); Potassium 4.3 mmol/L (3.3-5.1); Sodium 140 mmol/L (135-145); Total Protein 6.3 g/dL (6.5-8.0)
[2022-08-05 17:13] LABS: TSH reflex Free T4 1.58 uIU/mL (0.32-4.0)
== END 2022-08-05 15:07 | disposition home or self-care (01) ==
LOC: HO.HMGCX 15:06
PROVIDERS: PCP Internal Medicine; Visit Provider Internal Medicine
DX: M54.50 Low back pain, unspecified (principal); M46.1 Sacroiliitis, not elsewhere classified; E03.8 Other specified hypothyroidism; N32.9 Bladder disorder, unspecified; Z72.0 Tobacco use
CPT/HCPCS: 36415; 72100; 72200; 80053; 84443

== ENCOUNTER 2022-08-13 13:28 | Outpatient (REF) | payer OTHER, SELFPAY ==
[2022-08-16 07:22] LABS: HPV mRNA E6/E7 rflx Not Detected (Not Detected)
== END 2022-08-13 13:29 | disposition home or self-care (01) ==
LOC: HO.LNP 13:28
PROVIDERS: Obstetrics & Gynecology; PCP Internal Medicine; Visit Provider Advanced Practice Midwife
DX: Z01.419 Encounter for gynecological examination (general) (routine) without abnormal findings (principal); Z11.51 Encounter for screening for human papillomavirus (HPV)
CPT/HCPCS: 87624; 88142

== ENCOUNTER 2022-09-03 13:08 | Outpatient (REF) | payer OTHER, SELFPAY ==
--- NOTE | ~2022-09-03 | MM_ITS ---
EXAMINATION: MM SCREENING DIGITAL BREAST TOMOSYNTHESIS, BILATERAL CLINICAL INFORMATION: Screening. Asymptomatic. Family history breast cancer, including mother and sister. The lifetime risk of breast cancer based on the Tyrer-Cuzick Model is 17%. COMPARISON: Mammography: 09/02/2021, 08/31/2020, 05/25/2018 TECHNIQUE: Digital breast tomosynthesis is performed in both the craniocaudal and mediolateral oblique views along with computer-aided detection (CAD). Synthesized 2D images are generated from the tomosynthesis. FINDINGS: There are scattered areas of fibroglandular density (ACR BI-RADS breast composition Category b). There are no significant masses, abnormal calcifications, or other abnormalities. Breast tissue composition borders on predominantly fatty. There is no developing density or architectural abnormality. There are scattered benign predominantly ductal secretory calcifications. The axilla and skin contours are unremarkable. MM/MM tomosynthesis screening BI IMPRESSION: No mammographic evidence of malignancy. ASSESSMENT: BI-RADS 2: Benign RECOMMENDATION: Routine annual mammography screening. This patient's information was entered into a reminder system with a target due date for their next mammogram.
== END 2022-09-03 13:09 | disposition home or self-care (01) ==
LOC: HO.MAMMO 13:08
PROVIDERS: PCP Internal Medicine; Visit Provider Internal Medicine
DX: Z12.31 Encounter for screening mammogram for malignant neoplasm of breast (principal)
CPT/HCPCS: 77063; 77067

== ENCOUNTER 2022-09-04 12:45 | Outpatient (REF) | payer OTHER, SELFPAY ==
[2022-09-04 14:32] LABS: Appearance Urine Clear; Color Urine Yellow; Glucose Urine UA Negative (Negative); Leukocyte Esterase Urine Trace (Negative); Nitrite Urine Negative (Negative); UMIC TRIGGER UACC YES; Urine Blood Trace (Negative); Urine Ketones Trace mg/dL (Negative); Urine Protein Negative (Neg-Trace)
[2022-09-04 14:37] LABS: Bacteria Urine None Seen (None Seen); Hyaline Casts Urine 0-2 /LPF (0-2); Squamous Epithelial Cell Urine 0-2 /HPF (0-2); WBC Urine 0-5 /HPF (0-5)
[2022-09-09 20:29] LABS: HLA B27 Negative (Negative)
== END 2022-09-04 12:46 | disposition home or self-care (01) ==
LOC: HO.HMGCLDS 12:45
PROVIDERS: PCP Internal Medicine; Visit Provider Internal Medicine
DX: M46.1 Sacroiliitis, not elsewhere classified (principal)
CPT/HCPCS: 36415; 81001; 86812

== ENCOUNTER → 2022-09-15 15:53 | Outpatient (REF) | payer OTHER, SELFPAY | LOC: HO.SL 15:53 | PROVIDERS: PCP Internal Medicine; Visit Provider Nurse Practitioner Family | DX: G47.33 Obstructive sleep apnea (adult) (pediatric) (principal); R06.83 Snoring | CPT/HCPCS: 95806 ==

== ENCOUNTER 2022-10-14 14:04 | Outpatient (AMB) | payer OTHER, SELFPAY ==
--- NOTE | 2022-10-14 14:06 | MHC.OFFVIS ---
Intake Vital Signs 10/14/22 14:09 BP 144/74 H Blood Pressure Location Rt brachial Position Sitting Pulse 93 Pulse Source Pulse Oximeter Pulse Oximetry (%) 96 Oxygen Delivery Method Room Air Intake Visit Reasons: 2 mnts f/u for sleep - Confirmed Intake Note: Patient presents for 2 month follow up.Patient states I havn't used it yet, I got it . Allergies codeine [CODEINE] Allergy (Unknown, Verified 10/14/22 14:08) ITCH epinephrine [EPINEPHRINE] Allergy (Unknown, Verified 10/14/22 14:08) PALPATATIONS FROM DENTAL WORK HPI HPI Comments History of Present Illness Details 62 y/o female patient presents for follow up of sleep study. The home sleep study result was significant for mild degree of sleep apnea. The AHI was 8/hr and oxygen abdon was 72%. The total duration of O2 <88% was 21 min. APAP [id number] ordered and patient had a CPAP. Pt reports that she did not start yet, having difficulty with mask. She still smokes cigarette 1 pack a day. [facility] Medical History Arthralgia Bipolar disorder COPD (chronic obstructive pulmonary disease) Depression, major, recurrent 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 exogenous substances Other specified hypothyroidism Tremors of nervous system Surgical History H/O brain surgery Hx of tonsillectomy Hx of tubal ligation Family History Maternal Grandmother Breast cancer Mother Breast cancer Sister Breast cancer Family/Other Breast cancer Father Bladder cancer Other Mental health disorder Substance use disorder Social History Household Members: Friend(s) Housing: House Alcohol intake: current Alcohol intake frequency: holidays/special occasions only Patient Tobacco Use Status: Current everyday Tobacco user Tobacco use type: Cigarette Cigarettes Per Day: 15 e-Cigarette/Vaping Use: Currently Using Second Hand Smoke Exposure: Yes Substance Use Type: Marijuana service: No Current occupational status: disabled Cognitive needs: No Hearing needs: No Vision needs: Yes Review of Systems Const All systems reviewed & are unremarkable except as noted in HPI and below ENT Reports Normal hearing present Neuro Reports Normal hearing present Physical Exam Vital Signs: Last Vital Signs Pulse 93 10/14/22 14:09 BP 144/74 H 10/14/22 14:09 Pulse Ox 96 10/14/22 14:09 Oxygen Delivery Method Room Air 10/14/22 14:09 Const General: cooperative Nutritional Appearance: obese Orientation/consciousness: patient oriented x3 Neck Neck: Yes full ROM and Yes supple Resp Effort & Inspection: normal respiratory effort and able to speak in complete sentences Neuro General: patient oriented x3, gait normal, moves all extremities and no focal motor deficits Cranial nerves: Yes Bilaterally intact EOM present, Yes Normal facial strength present, Yes Midline tongue present, Yes Symmetric palate elevation present, Yes Normal hearing present, Yes Ability to bilaterally rotate head present and Yes Ability to bilaterally elevate shoulders present Gait exam (Neuro): Normal gait present Motor exam (neuro): 5/5 motor strength present throughout, Pronator motor function not present and no tremor noted Psych Appearance: grossly normal Mental Status: mental status grossly normal Affect: normal affect Assessment & Plan Assessment & Plan (1) EMELIA (obstructive sleep apnea): Comment: Mild degree of sleep apnea. The AHI was 8/hr and oxygen abdon was 72%. Code(s): G47.33 - Obstructive sleep apnea (adult) (pediatric) Plan Start APAP [id number]. Stressed compliance, use CPAP nightly and more than 4 hours. Education regarding CPAP mask provided. Coding Level of Care Code Est Pt Level 3 (81261) Diagnoses EMELIA (obstructive sleep apnea) G47.33
[2022-10-14 14:09] VITALS: BP 144/74; PULSE 93; O2SAT 96
== END 2022-10-14 14:26 | disposition home or self-care (01) ==
LOC: HO.HSMC 14:04
PROVIDERS: PCP Internal Medicine; Visit Provider Nurse Practitioner Family
DX: G47.33 Obstructive sleep apnea (adult) (pediatric) (principal)
CPT/HCPCS: 99213

== ENCOUNTER → 2022-10-14 14:04 | Outpatient (BNVA) | payer OTHER, SELFPAY | PROVIDERS: PCP Internal Medicine; Visit Provider Nurse Practitioner Family | DX: G47.33 Obstructive sleep apnea (adult) (pediatric) (principal) | CPT/HCPCS: 99212 ==

== ENCOUNTER 2022-12-03 13:56 | Outpatient (AMB) | payer OTHER, SELFPAY ==
[2022-12-03 13:59] VITALS: BP 136/72; PULSE 85; O2SAT 95; BMI 30.6
--- NOTE | 2022-12-03 13:59 | MHC.PC.OV ---
Vital Signs 12/03/22 13:59 Height 5 ft 2 in Weight 167 lb 2 oz BMI 30.6 BP 136/72 Blood Pressure Location Lt brachial Position Sitting Pulse 85 Pulse Source Pulse Oximeter Pulse Oximetry (%) 95 Oxygen Delivery Method Room Air Intake Visit Reasons: 4m follow up Allergies codeine [CODEINE] Allergy (Unknown, Verified 10/14/22 14:08) ITCH epinephrine [EPINEPHRINE] Allergy (Unknown, Verified 10/14/22 14:08) PALPATATIONS FROM DENTAL WORK Medication List - Last Reconciled 12/03/22 by Brian Zamora MD albuterol sulfate 90 mcg/actuation (ProAir HFA) 1 inh inhalation QID PRN 30 days aspirin (Adult Aspirin Regimen) 81 mg PO DAILY bupropion HCl (Wellbutrin SR) 300 mg PO QAM citalopram 40 mg PO QAM clonazepam 0.5 mg PO DAILY diclofenac sodium 75 mg PO BID 10 days divalproex (Depakote) 1,000 mg PO BID levothyroxine 50 mcg PO DAILY lisinopril 5 mg PO DAILY melatonin 10 mg PO BEDTIME PRN oxybutynin chloride ER 15 mg PO DAILY 90 days [Poise Pads # 3 Change pad 3 times a day or as needed for urinary incontinence.] Tobacco use date assessed: 12/03/22 Fall risk assessment: 2 + Falls in past year Last assessed Fall Risk: 12/03/22 Dental Screening Dental Screen Date: 12/03/22 Did you have a dental visit in the last 12 months?: Yes Did you have a dental problem in the last 6 months where you did not have access to dental care?: No Was dental information given to patient?: Patient has dentist HPI 4m follow up HPI Details Patient is a 62-year-old female came in today for her regular follow-up appointment Tobacco abuse: Continue to smoke, she is wheezing today Patient says that she had a cold few days ago but she has recovered from it, she still have residual cough. Only inhaler she is using right now is ProAir, I wanted to prescribe maintenance inhaler which patient does not want at this time. She has developed dizziness since sent to cold I have sent meclizine for the patient she may take 1 every 8 hour as needed. She is due for labs She is complaining of back pain which is over the SI joints I have placed a referral for her to see [facility] for evaluation meanwhile I have ordered x-ray for her. Her blood pressure is elevated today at 154/88 it was 134/82 earlier this month. We will continue to observe. Meanwhile patient is to stop taking extra salt in the diet and stop drinking alcohol. The only medication coming from PCP office is levothyroxine for hypothyroidism and bladder medication for hyperactive bladder. As well as albuterol inhaler. Follow-up 4 months [facility] Medical History Tremors of nervous system Other specified hypothyroidism Arthralgia Bipolar disorder 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 exogenous substances Depression, major, recurrent COPD (chronic obstructive pulmonary disease) Surgical History Hx of tubal ligation Hx of tonsillectomy H/O brain surgery Family History Maternal Grandmother Breast cancer Mother Breast cancer Sister Breast cancer Family/Other Breast cancer Father Bladder cancer Other Mental health disorder Substance use disorder Social History Household Members: Friend(s) Housing: House Alcohol intake: current Alcohol intake frequency: holidays/special occasions only Patient Tobacco Use Status: Current everyday Tobacco user Tobacco use type: Cigarette Cigarettes Per Day: 15 e-Cigarette/Vaping Use: Currently Using Second Hand Smoke Exposure: Yes Substance Use Type: Marijuana service: No Current occupational status: disabled Cognitive needs: No Hearing needs: No Vision needs: Yes Questionnaire PHQ-9 Over the last 2 weeks, how often have you been bothered by any of the following problems? 1. Little interest or pleasure in doing things: more than half the days 2. Feeling down, depressed, or hopeless: more than half the days 3. Trouble falling or staying asleep, or sleeping too much: more than half the days 4. Feeling tired or having little energy: more than half the days 5. Poor appetite or overeating: several days 6. Feeling bad about yourself - or that you are a failure or have let yourself or your family down: several days 7. Trouble concentrating on things, such as reading the newspaper or watching television: not at all 8. Moving or speaking so slowly that other people could have noticed. Or the opposite - being so fidgety or restless that you have been moving around a lot more than usual: not at all 9. Thoughts that you would be better off or of hurting yourself in some way: several days Total score: 11 Depression Screening Interpretation: Negative 61575 - PHQ-9 Billing: Yes Source: Developed by Drs. Osmel Valdes, Naa Smith, Ze Garner and colleagues, with an educational amanda from [employer]. Thrive Questionnaire Date Thrive assessed: 05/07/21 I am a: Patient What is your living situation today?: I have a place to live, but I am worried about losing it in the future Within the past 12 months, did the food you bought not last and you didn't have the money to get more?: Sometimes True Within the past 12 months, did you worry whether your food would run out before you got money to buy more?: Sometimes True Do you have trouble paying for medicines?: No Do you have trouble getting transportation to medical appointments?: No Do you have trouble paying your heating and electricity bill?: No Do you have trouble taking care of your child, family member or friend?: No Do you have trouble with day-to-day activities such as bathing, preparing meals, shopping, managing finances, etc.?: No Are you currently unemployed and looking for a job?: No Are you interested in more education?: No Please select the resources that you would like help with: Housing/Halfway and Food AUDIT C Alcohol Use Questionnaire (AUDIT-C) 1. How often do you have a drink containing alcohol?: 2-4 times a month 2. How many drinks containing alcohol do you have on a typical day when you are drinking?: 1 or 2 3. How often do you have six or more drinks on one occasion?: Never Total Score: 2 GURWINDER-7 AMB Questionnaire GURWINDER-7 Date GURWINDER - 7 assessed: 12/03/22 Feeling nervous, anxious, or on edge: 2 = More than half the days Not being able to stop or control worryin = More than half the days Worrying too much about different things: 1 = Several days Trouble relaxin = Several days Being so restless that it is hard to sit still: 0 = Not at all Becoming easily annoyed or irritable: 1 = Several days Feeling afraid as if something awful might happen: 0 = Not at all Total GURWINDER-7 score (0-4 normal; 5-9 mild; 10-14 moderate; 15-21 severe): 7 Source: Developed by Drs. Osmel Valdes, Naa Smith, Ze Garner and colleagues, with an educational amanda from [employer]. GURWINDER-7 Assessment Billing GURWINDER-7 Assessment Tool: GURWINDER-7 Assessment 80629 Review of Systems Const Denies chills and Denies fever(s) ENT Denies epistaxis and Denies nasal discharge Card Denies chest pain Resp Denies chest congestion, Denies cough and Denies hemoptysis GI Denies diarrhea and Denies nausea Skin/Breast Denies rash Neuro Reports no additional complaints Psych Reports no additional complaints Endo Reports no additional complaints Physical exam (Primary Care) Vital Signs: Last Vital Signs Pulse 85 12/03/22 13:59 BP 136/72 12/03/22 13:59 Pulse Ox 95 12/03/22 13:59 Oxygen Delivery Method Room Air 12/03/22 13:59 BMI result Body Mass Index 30.6 Tobacco/Smoking Status: Tobacco use Status Tobacco use date assessed 12/03/22 12/03/22 14:02 Patient Tobacco Use Status Current everyday Tobacco 12/03/22 14:02 Tobacco use type Cigarette 12/03/22 14:02 e-Cigarette/Vaping Use Currently Using 12/03/22 14:02 PHQ-9: PHQ-9 Score PHQ-9: Total score 11 12/03/22 15:02 Depression Screening Interpretation: Negative Thrive Assessment: Date of Thrive Assessment Date Thrive assessed 05/07/21 12/03/22 14:02 Const General: cooperative, comfortable and no acute distress Orientation/consciousness: patient oriented x3 HENMT Head: Yes normocephalic Eyes General: appearance normal, both eyes and all related structures Neck Neck: Yes supple Resp Other: wheezing at the bases bilateral Effort & Inspection: normal respiratory effort, no cough and no stridor Cardio Rhythm: regular rhythm Heart sounds: S1 normal heart sound present and S2 normal heart sound present Skin General skin exam: turgor normal Neuro General: patient oriented x3, tone normal and moves all extremities Extrem Right lower extremity: no edema Left lower extremity: no edema Assessment and Plan Assessment & Plan (1) Wheezing: Code(s): R06.2 - Wheezing (2) COPD (chronic obstructive pulmonary disease): Code(s): J44.9 - Chronic obstructive pulmonary disease, unspecified Qualifiers: COPD type: emphysema Emphysema type: other Qualified Code(s): J43.8 - Other emphysema (3) Bladder disorder: Code(s): N32.9 - Bladder disorder, unspecified (4) Tobacco abuse: Code(s): Z72.0 - Tobacco use (5) Other specified hypothyroidism: Code(s): E03.8 - Other specified hypothyroidism (6) Bipolar disorder: Code(s): F31.9 - Bipolar disorder, unspecified Qualifiers: Active/Remission status: in full remission Most recent bipolar episode type: mixed Qualified Code(s): F31.78 - Bipolar disorder, in full remission, most recent episode mixed (7) Depression, major, recurrent: Code(s): F33.9 - Major depressive disorder, recurrent, unspecified Qualifiers: Active/Remission status: in partial remission Qualified Code(s): F33.41 - Major depressive disorder, recurrent, in partial remission (8) Vertigo: Code(s): R42 - Dizziness and giddiness Plan Patient is a 62-year-old female came in today for her regular follow-up appointment Tobacco abuse: Continue to smoke, she is wheezing today Patient says that she had a cold few days ago but she has recovered from it, she still have residual cough. Only inhaler she is using right now is ProAir, I wanted to prescribe maintenance inhaler which patient does not want at this time. She has developed dizziness since sent to cold I have sent meclizine for the patient she may take 1 every 8 hour as needed. She is due for labs She is complaining of back pain which is over the SI joints I have placed a referral for her to see [facility] for evaluation meanwhile I have ordered x-ray for her. Her blood pressure is elevated today at 154/88 it was 134/82 earlier this month. We will continue to observe. Meanwhile patient is to stop taking extra salt in the diet and stop drinking alcohol. The only medication coming from PCP office is levothyroxine for hypothyroidism and bladder medication for hyperactive bladder. As well as albuterol inhaler. Follow-up 4 months Coding Level of Care Code Est Pt Prev Care 40-64y(32071) Diagnoses Wheezing R06.2 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 Emphysema type: other Bladder disorder N32.9 Tobacco abuse Z72.0 Other specified hypothyroidism E03.8 Bipolar disorder, in full remission, most recent episode mixed F31.78 Active/Remission status: in full remission Most recent bipolar episode type: mixed Recurrent major depressive disorder, in partial remission F33.41 Active/Remission status: in partial remission Vertigo R42 Additional Codes GURWINDER-7 Assessment Billing - GURWINDER-7 Assessment Tool: GURWINDER-7 Assessment [id number] ([id number])
== END 2022-12-03 14:44 | disposition home or self-care (01) ==
PROVIDERS: PCP Internal Medicine; Visit Provider Internal Medicine
DX: R06.2 Wheezing (principal); J43.8 Other emphysema; E03.8 Other specified hypothyroidism; F31.78 Bipolar disorder, in full remission, most recent episode mixed; F33.41 Major depressive disorder, recurrent, in partial remission; N32.9 Bladder disorder, unspecified; Z72.0 Tobacco use; R42 Dizziness and giddiness
CPT/HCPCS: 99214

== ENCOUNTER 2022-12-10 13:11 | Outpatient (REF) | payer OTHER, SELFPAY ==
[2022-12-10 16:19] LABS: Appearance Urine Clear; Color Urine Yellow; Glucose Urine UA Negative (Negative); Leukocyte Esterase Urine Moderate (2+) (Negative); Nitrite Urine Negative (Negative); Specific Gravity - Urine 1.015 (1.005-1.025); UMIC TRIGGER UACC YES; Urine Blood Trace (Negative); Urine Ketones Trace mg/dL (Negative); Urine Protein Negative (Neg-Trace)
[2022-12-10 16:38] LABS: Bacteria Urine None Seen (None Seen); Hyaline Casts Urine 0-2 /LPF (0-2); Squamous Epithelial Cell Urine 0-2 /HPF (0-2); UACC Culture Trigger YES
== END 2022-12-10 13:12 | disposition home or self-care (01) ==
LOC: HO.HMGCLDS 13:11
PROVIDERS: PCP Internal Medicine; Visit Provider Internal Medicine
DX: R35.0 Frequency of micturition (principal)
CPT/HCPCS: 81001; 87086

== ENCOUNTER 2023-01-20 13:54 | Outpatient (AMB) | payer OTHER, SELFPAY ==
--- NOTE | 2023-01-20 14:00 | MHC.OFFVIS ---
Intake Vital Signs 01/20/23 14:02 Respiration 16 Pulse 78 Pulse Source Pulse Oximeter Pulse Oximetry (%) 96 Oxygen Delivery Method Room Air Intake Visit Reasons: 3 mnts f/u for sleep-LVM Intake Note: Pt presents to the office for a 3 month follow up for EMELIA. She reports she has been compliant with CPAP use and has noticed slight improvement in her symptoms. SHe c/o occasional daytime somnolence. Glass Products Inspector Required: No Allergies codeine [CODEINE] Allergy (Unknown, Verified 01/20/23 14:01) ITCH epinephrine [EPINEPHRINE] Allergy (Unknown, Verified 01/20/23 14:01) PALPATATIONS FROM DENTAL WORK HPI HPI Comments History of Present Illness Details 62 y/o female patient presents for follow up of EMELIA on CPAP. The home sleep study result was significant for mild degree of sleep apnea. The AHI was 8/hr and oxygen abdon was 72%. The total duration of O2 <88% was 21 min. Pt's CPAP had problem with the battery and had a new CPAP. She has been using CPAP since she had a new CPAP. She sleeps better with melatonin 10 mg, but still wakes up in the middle of night and smokes couple times at night. The CPAP compliance and therapy response (10/06/22-01/03/23) The usage days 35.6% and the average usage hours 4 hrs and 10 min. The max pressures was 9 and AHI was 2.5/hr. [facility] Medical History Tremors of nervous system Other specified hypothyroidism Arthralgia Bipolar disorder 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 exogenous substances Depression, major, recurrent COPD (chronic obstructive pulmonary disease) Surgical History Hx of tubal ligation Hx of tonsillectomy H/O brain surgery Family History Maternal Grandmother Breast cancer Mother Breast cancer Sister Breast cancer Family/Other Breast cancer Father Bladder cancer Other Mental health disorder Substance use disorder Social History Household Members: Friend(s) Housing: House Alcohol intake: current Alcohol intake frequency: holidays/special occasions only Patient Tobacco Use Status: Current everyday Tobacco user Tobacco use type: Cigarette Cigarettes Per Day: 15 e-Cigarette/Vaping Use: Currently Using Second Hand Smoke Exposure: Yes Substance Use Type: Marijuana service: No Current occupational status: disabled Cognitive needs: No Hearing needs: No Vision needs: Yes Review of Systems Const All systems reviewed & are unremarkable except as noted in HPI and below ENT Reports Normal hearing present Neuro Reports Normal hearing present Physical Exam Vital Signs: Last Vital Signs Pulse 78 01/20/23 14:02 Resp 16 01/20/23 14:02 Pulse Ox 96 01/20/23 14:02 Oxygen Delivery Method Room Air 01/20/23 14:02 Const General: cooperative Nutritional Appearance: obese Orientation/consciousness: patient oriented x3 Neck Neck: Yes full ROM and Yes supple Resp Effort & Inspection: normal respiratory effort and able to speak in complete sentences Neuro General: patient oriented x3, gait normal, moves all extremities and no focal motor deficits Cranial nerves: Yes Bilaterally intact EOM present, Yes Normal facial strength present, Yes Midline tongue present, Yes Symmetric palate elevation present, Yes Normal hearing present, Yes Ability to bilaterally rotate head present and Yes Ability to bilaterally elevate shoulders present Gait exam (Neuro): Normal gait present Motor exam (neuro): 5/5 motor strength present throughout, Pronator motor function not present and no tremor noted Psych Appearance: grossly normal Mental Status: mental status grossly normal Affect: normal affect Assessment & Plan Assessment & Plan (1) EMELIA (obstructive sleep apnea): Comment: Mild degree of sleep apnea. The AHI was 8/hr and oxygen abdon was 72%. Code(s): G47.33 - Obstructive sleep apnea (adult) (pediatric) Plan Continue to use APAP [id number]. Stressed compliance, use CPAP nightly and more than 4 hours. Continue to take melatonin 10 mg QHS and reduce smoking to have better quality sleep. Coding Level of Care Code Est Pt Level 3 (96016) Diagnoses EMELIA (obstructive sleep apnea) G47.33
[2023-01-20 14:02] VITALS: PULSE 78; RESP 16; O2SAT 96
== END 2023-01-20 14:21 | disposition home or self-care (01) ==
PROVIDERS: PCP Internal Medicine; Visit Provider Nurse Practitioner Family
DX: G47.33 Obstructive sleep apnea (adult) (pediatric) (principal)
CPT/HCPCS: 99213

== ENCOUNTER → 2023-01-20 13:54 | Outpatient (BNVA) | payer OTHER, SELFPAY | PROVIDERS: PCP Internal Medicine; Visit Provider Nurse Practitioner Family | DX: J44.9 Chronic obstructive pulmonary disease, unspecified (principal); G47.33 Obstructive sleep apnea (adult) (pediatric); R40.0 Somnolence; F17.210 Nicotine dependence, cigarettes, uncomplicated; Z99.89 Dependence on other enabling machines and devices | CPT/HCPCS: 99212 ==

== ENCOUNTER 2023-02-09 13:50 | Outpatient (AMB) | payer OTHER, SELFPAY ==
--- NOTE | 2023-02-09 13:56 | A.OFFVIS_ITS ---
Intake Intake Visit Reasons: Unspecified urinary incontinence Intake Note: New Patient presents for initial visit for urinary incontinence Urology Medications: oxybutynin Blood Thinner: aspirin PVR: 70ml's Head Doffer Required: No Accompanied by: Self / Same As Patient Allergies codeine [CODEINE] Allergy (Unknown, Verified 02/09/23 20:29) ITCH epinephrine [EPINEPHRINE] Allergy (Unknown, Verified 02/09/23 20:29) PALPATATIONS FROM DENTAL WORK Medication List - Last Reconciled 02/09/23 by KESHAWN Helm albuterol sulfate 90 mcg/actuation (ProAir HFA) 1 inh inhalation QID PRN 30 days aspirin (Adult Aspirin Regimen) 81 mg PO DAILY bupropion HCl 300 mg PO DAILY citalopram 40 mg PO QAM clonazepam 0.5 mg PO DAILY diclofenac sodium 75 mg PO BID 10 days divalproex (Depakote) 1,000 mg PO BID levothyroxine 50 mcg PO DAILY lisinopril 5 mg PO DAILY melatonin 10 mg PO BEDTIME PRN oxybutynin chloride ER 15 mg PO DAILY 90 days [Poise Pads # 3 Change pad 3 times a day or as needed for urinary incontinence.] HPI HPI Comments History of Present Illness Details Lela is a very pleasant 62-year-old female patient of . She has a past medical history of tremors, hypothyroidism, arthralgia, bipolar disorder, depression, and COPD. She presents to the office today as a new patient for lower urinary tract symptoms and microscopic hematuria. In discussion with the patient today she reports a longstanding history of lower urinary tract symptoms (urinary urgency, urinary frequency, and mixed urinary incontinence). She he otherwise denies dysuria, foul smelling urine, changes to urinary stream, flank pain, fever, and or chills. She reports to have been on oxybutynin 15 mg extended release for over 20 years however does not feel this is working for her anymore as she feels lower urinary tract symptoms are worsening. She reports a longstanding family history of prostate cancer, bladder cancer, and breast cancer. 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 In office urinalysis results with 2+ microscopic hematuria. When asked she does report a 40 plus year smoking history. She reports smoking approximately 1-1.5 packs of cigarettes per day. She denies any previous workplace chemical exposure. Discussed at length potential causes of microscopic hematuria and further microscopic hematuria workup with urine cytology, CT urogram, and in office cystoscopy for further assessment evaluation. Discussed at length potential causes for lower urinary tract symptoms patient is experiencing. PVR 70 mL. [facility] Medical History Tremors of nervous system Other specified hypothyroidism Arthralgia Bipolar disorder 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 exogenous substances Depression, major, recurrent COPD (chronic obstructive pulmonary disease) Surgical History Hx of tubal ligation Hx of tonsillectomy H/O brain surgery Family History Maternal Grandmother Breast cancer Mother Breast cancer Sister Breast cancer Family/Other Breast cancer Father Bladder cancer Other Mental health disorder Substance use disorder Household Members: Friend(s) Housing: House Alcohol intake: current Alcohol intake frequency: holidays/special occasions only Patient Tobacco Use Status: Current everyday Tobacco user Tobacco use type: Cigarette Cigarettes Per Day: 15 e-Cigarette/Vaping Use: Currently Using Second Hand Smoke Exposure: Yes Substance Use Type: Marijuana service: No Current occupational status: disabled Cognitive needs: No Hearing needs: No Vision needs: Yes Review of Systems Const Reports as per HPI Eyes Reports no additional complaints ENT Reports no additional complaints Card Reports as per [facility] Resp Reports as per HPI GI Reports no additional complaints Reports as per [facility] Musc Reports as per [facility] Neuro Reports as per [facility] Psych Reports as per [facility] Endo Reports as per HPI Valente/Lymph Reports no additional complaints Aller/Immun Reports no additional complaints Physical Exam Const General: cooperative, comfortable, no acute distress, well developed, alert and awake Orientation/consciousness: patient oriented x3 Limitations: no limitations HEENT Head: Yes normal to inspection, Yes normocephalic and Yes atraumatic Ears: hearing grossly normal bilaterally Eyes General: appearance normal, both eyes and all related structures Neck Neck: Yes normal visual inspection and Yes trachea midline Chest Chest palpation & inspection: normal inspection of the chest Resp Effort & Inspection: normal respiratory effort and able to speak in complete sentences Cardio Rate: regular rate GI Inspection: Yes normal to inspection General: Yes no CVA tenderness Back/Spine/Pelvis Back: no CVA tenderness Skin General skin exam: no rashes or lesions noted Neuro Other: tremors to Bilateral upper extremities General: patient oriented x3 Extrem General: Yes normal to inspection Psych Appearance: grossly normal and well kempt Mental Status: mental status grossly normal Speech and movement: Normal speech and movement present and Clear speech present Affect: normal affect Attitude: cooperative Thought process: Normal thought process present Thought content: Normal thought content present Insight: Fair insight present (Psych) Judgement: Fair judgement present (Psych) Office Procedures Post Void Residual Post Residual Void Post Void Residual (PVR): 70 [id number] Void Residual by ultrasound Results AMB Urinalysis, Automated UA Leukoctes 15 Ruby/uL Last Edit by [employer] on 02/09/23 14:17 UA Nitrite Negative Last Edit by [employer] on 02/09/23 14:17 UA Urobilinogen 0.2 mg/dL Last Edit by [employer] on 02/09/23 14:17 UA Protein 15 mg/dL Last Edit by [employer] on 02/09/23 14:17 UA pH 7.0 Last Edit by [employer] on 02/09/23 14:17 UA Blood 80 Thierry/uL Last Edit by [employer] on 02/09/23 14:17 UA Specific [place] 1.015 Last Edit by [employer] on 02/09/23 14:17 UA Ketone Negative Last Edit by [employer] on 02/09/23 14:17 UA Bilirubin 0 mg/dL Last Edit by [employer] on 02/09/23 14:17 UA Glucose 0 mg/dL Last Edit by [employer] on 02/09/23 14:17 Results Reviewed Results Reviewed: Laboratory Last Values Urine pH (Auto) 7.0 02/09/23 13:59 Specific [place] (Auto) 1.015 02/09/23 13:59 Urine Protein (Auto) 15 mg/dL 02/09/23 13:59 Glucose (UA)(Auto) 0 mg/dL 02/09/23 13:59 Urine Ketones (Auto) Negative 02/09/23 13:59 Urine Blood (Auto) 80 Thierry/uL 02/09/23 13:59 Urine Nitrite (Auto) Negative 02/09/23 13:59 Urine Bilirubin (Auto) 0 mg/dL 02/09/23 13:59 Urine Urobilinogen (Auto) 0.2 mg/dL 02/09/23 13:59 Leukocyte Esterase (Auto) 15 Ruby/uL 02/09/23 13:59 Assessment & Plan Assessment & Plan (1) Urine incontinence: Code(s): R32 - Unspecified urinary incontinence (2) Lower urinary tract symptoms: Code(s): R39.9 - Unspecified symptoms and signs involving the genitourinary system (3) Microhematuria: Code(s): R31.29 - Other microscopic hematuria (4) Nicotine dependence: Code(s): F17.200 - Nicotine dependence, unspecified, uncomplicated (5) Mixed stress and urge urinary incontinence: Code(s): N39.46 - Mixed incontinence Plan In office urinalysis results reviewed with the patient today; as noted above; will send for urine cytology. Discussed at length potential causes of microscopic hematuria. Discussed at length potential causes of lower urinary tract symptoms patient is experiencing. Stop oxybutynin. Start Myrbetriq 25 mg daily. Discussed further microscopic hematuria workup versus surveillance monitoring. Will obtain CT urogram for further assessment evaluation. BUN and creatinine ordered for imaging. Discussed and stressed the importance of limiting/quitting cigarette smoking for overall health and well-being. Follow-up in office cystoscopy with imaging to be completed prior; or sooner with any issues, concerns, and or questions. Orders: Orders AMB Urinalysis Automated Today Z13.9 - Encounter for screening, unspecified AMB Post Void Residual by ultrasound Today R32 - Unspecified urinary incontinence CT urogram Today R31.0 - Gross hematuria Blood Urea Nitrogen Today R39.15 - Urgency of urination Creatinine Today R39.15 - Urgency of urination Urine Cytology Today R35.0 - Frequency of micturition Medications: Discontinued oxybutynin chloride ER Discontinued Reason: Doctor's Order 15 mg PO DAILY 90 days 90 tabs 0RF Patient Instructions: The patient had an opportunity to ask questions regarding the treatment plan. All questions were answered. Physical exam, labs, and imaging were discussed and reviewed in detail. As well as risks, benefits, and discussion of treatment choices. No major barriers to understanding were identified. The patient expre ssed understanding and agreement with the above treatment plan. The patient was made aware they should contact our office by phone for worsening of their current condition, the appearance of new symptoms, or with any questions or concerns. Compliance is encouraged with any medications and follow up testing that is ordered. It is a privilege to be allowed the opportunity to participate in? your urological care.? Again, if you have any questions or concerns If you have any questions or concerns please do not hesitate to contact me. The office is [phone]. This note is constructed using voice recognition software. While every effort has been made to ensure accuracy community product specialist errors may have been included. Yours sincerely, KESHAWN Helm Coding Level of Care Code New Pt Level 4 (56631) Diagnoses Urine incontinence R32 Lower urinary tract symptoms R39.9 Microhematuria R31.29 Nicotine dependence F17.200 Mixed stress and urge urinary incontinence N39.46 CPT Codes Post Residual Void - PVR CPT Code: 83539-Hhwc Void Residual by ultrasound ([id number])
== END 2023-02-09 14:33 | disposition home or self-care (01) ==
PROVIDERS: PCP Internal Medicine; Referring Provider Internal Medicine; Visit Provider Nurse Practitioner Family
DX: R32 Unspecified urinary incontinence (principal); R39.9 Unspecified symptoms and signs involving the genitourinary system; R31.29 Other microscopic hematuria; F17.200 Nicotine dependence, unspecified, uncomplicated; N39.46 Mixed incontinence
CPT/HCPCS: 99204

== ENCOUNTER 2023-02-09 13:50 | Outpatient (REF) | payer OTHER, SELFPAY ==
[2023-02-09 16:06] LABS: Urine Cytology See Pathology rpt
== END 2023-02-09 13:51 | disposition home or self-care (01) ==
LOC: HO.LNP 13:50
PROVIDERS: PCP Internal Medicine; Referring Provider Internal Medicine; Visit Provider Nurse Practitioner Family
DX: R35.0 Frequency of micturition (principal); R31.29 Other microscopic hematuria; R31.0 Gross hematuria; R39.9 Unspecified symptoms and signs involving the genitourinary system; N39.46 Mixed incontinence; F17.210 Nicotine dependence, cigarettes, uncomplicated; Z79.899 Other long term (current) drug therapy
CPT/HCPCS: 51798; 81003; 88112; 99202

== ENCOUNTER 2023-02-11 13:53 | Outpatient (AMB) | payer OTHER, SELFPAY ==
--- NOTE | 2023-02-11 13:54 | MHC.PC.OV ---
Vital Signs 02/11/23 13:55 Height 5 ft 2 in Weight 166 lb 6 oz BMI 30.4 BP 130/60 Blood Pressure Location Rt brachial Position Sitting Pulse 94 Pulse Source Pulse Oximeter Pulse Oximetry (%) 96 Oxygen Delivery Method Room Air Intake Visit Reasons: 2m follow up/last seen 12/03 Allergies codeine [CODEINE] Allergy (Unknown, Verified 02/11/23 13:55) ITCH epinephrine [EPINEPHRINE] Allergy (Unknown, Verified 02/11/23 13:55) PALPATATIONS FROM DENTAL WORK Medication List - Last Reconciled 02/11/23 by Brian Zamora MD albuterol sulfate 90 mcg/actuation (ProAir HFA) 1 inh inhalation QID PRN 30 days aspirin (Adult Aspirin Regimen) 81 mg PO DAILY bupropion HCl 300 mg PO DAILY citalopram 40 mg PO QAM clonazepam 0.5 mg PO DAILY diclofenac sodium 75 mg PO BID 10 days divalproex (Depakote) 1,000 mg PO BID levothyroxine 50 mcg PO DAILY lisinopril 5 mg PO DAILY melatonin 10 mg PO BEDTIME PRN [Poise Pads # 3 Change pad 3 times a day or as needed for urinary incontinence.] Tobacco use date assessed: 02/11/23 Fall risk assessment: No Falls in past year Last assessed Fall Risk: 02/11/23 Dental Screening Dental Screen Date: 02/11/23 Did you have a dental visit in the last 12 months?: Yes Did you have a dental problem in the last 6 months where you did not have access to dental care?: No Was dental information given to patient?: Patient has dentist HPI 2m follow up/last seen 12/03 HPI Details Patient is a 62-year-old female came in today for her regular follow-up appointment Tobacco abuse: Continue to smoke, she is wheezing today again, patient says that she is always wheezing. Currently she is smoking 1 and half pack per day, patient is requesting help today that she would like to stop smoking She will meet with our behavioral health coordinator for assistance, meanwhile I have sent Nicoderm patch 21 mg for the patient. COPD: Patient have COPD but has not had any pulmonary function test recently. [place] here she is using is ProAir she does not want to take maintenance inhaler as well Currently patient is seeing urologist as well as psychiatrist Urology for bladder disorder and incontinence, patient says that CT scan was ordered for her she is still waiting for appointment She is taking number of medications through Psychiatry patient have a diagnosis of bipolar disorder and severe depression Currently she does not have her own place to stay, she is staying with friends. She is due for labs Hypertension: Continue lisinopril 5 mg blood pressure is 130/60 today The only medication coming from PCP office is levothyroxine for hypothyroidism and lisinopril 5 mg As well as albuterol inhaler. She has lost 9 lb since July, still have BMI 30.4 need to lose more Follow-up 6 months or earlier if needed [facility] Medical History Tremors of nervous system Other specified hypothyroidism Arthralgia Bipolar disorder 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 exogenous substances Depression, major, recurrent COPD (chronic obstructive pulmonary disease) Surgical History Hx of tubal ligation Hx of tonsillectomy H/O brain surgery Family History Maternal Grandmother Breast cancer Mother Breast cancer Sister Breast cancer Family/Other Breast cancer Father Bladder cancer Other Mental health disorder Substance use disorder Social History Household Members: Friend(s) Housing: House Alcohol intake: current Alcohol intake frequency: holidays/special occasions only Patient Tobacco Use Status: Current everyday Tobacco user Tobacco use type: Cigarette Cigarettes Per Day: 15 e-Cigarette/Vaping Use: Currently Using Second Hand Smoke Exposure: Yes Substance Use Type: Marijuana service: No Current occupational status: disabled Cognitive needs: No Hearing needs: No Vision needs: Yes Questionnaire PHQ-9 Over the last 2 weeks, how often have you been bothered by any of the following problems? 1. Little interest or pleasure in doing things: several days 2. Feeling down, depressed, or hopeless: several days 3. Trouble falling or staying asleep, or sleeping too much: several days 4. Feeling tired or having little energy: several days 5. Poor appetite or overeating: not at all 6. Feeling bad about yourself - or that you are a failure or have let yourself or your family down: not at all 7. Trouble concentrating on things, such as reading the newspaper or watching television: not at all 8. Moving or speaking so slowly that other people could have noticed. Or the opposite - being so fidgety or restless that you have been moving around a lot more than usual: not at all 9. Thoughts that you would be better off or of hurting yourself in some way: not at all Total score: 4 Depression Screening Interpretation: Negative Depression Screening Done: Yes 17658 - PHQ-9 Billing: Yes Source: Developed by Drs. Osmel Valdes, Naa Smith, Ze Garner and colleagues, with an educational amanda from [employer]. Thrive Questionnaire Date Thrive assessed: 05/07/21 GURWINDER-7 AMB Questionnaire GURWINDER-7 Date GURWINDER - 7 assessed: 12/03/22 Source: Developed by Drs. Osmel Valdes, Naa Smith, Ze Garner and colleagues, with an educational amanda from [employer]. Review of Systems Const Denies chills and Denies fever(s) ENT Denies epistaxis and Denies nasal discharge Card Denies chest pain Resp Denies chest congestion and Denies hemoptysis GI Denies diarrhea and Denies nausea Skin/Breast Denies rash Neuro Reports no additional complaints Psych Reports no additional complaints Endo Reports no additional complaints Physical exam (Primary Care) Vital Signs: Last Vital Signs Pulse 94 02/11/23 13:55 BP 130/60 02/11/23 13:55 Pulse Ox 96 02/11/23 13:55 Oxygen Delivery Method Room Air 02/11/23 13:55 BMI result Body Mass Index 30.4 Tobacco/Smoking Status: Tobacco use Status Tobacco use date assessed 02/11/23 02/11/23 13:57 Patient Tobacco Use Status Current everyday Tobacco 02/11/23 13:57 Tobacco use type Cigarette 02/11/23 13:57 e-Cigarette/Vaping Use Currently Using 02/11/23 13:57 Are you ready to quit: Yes Tobacco cessation counseling provided: Yes Relapse Prevention: discussed the importance of a supportive environment CPT code: 00298 - 4-10 Minutes PHQ-9: PHQ-9 Score PHQ-9: Total score 4 02/11/23 14:20 Depression Screening Interpretation: Negative Thrive Assessment: Date of Thrive Assessment Date Thrive assessed 05/07/21 02/11/23 13:57 Const General: cooperative, comfortable and no acute distress Orientation/consciousness: patient oriented x3 HENMT Head: Yes normocephalic Eyes General: appearance normal, both eyes and all related structures Neck Neck: Yes supple Resp Other: Mild wheezing right lower lung Effort & Inspection: normal respiratory effort, no cough and no stridor Cardio Rhythm: regular rhythm Heart sounds: S1 normal heart sound present and S2 normal heart sound present Skin General skin exam: turgor normal Neuro General: patient oriented x3, tone normal and moves all extremities Extrem Right lower extremity: no edema Left lower extremity: no edema Assessment and Plan Assessment & Plan (1) COPD (chronic obstructive pulmonary disease): Code(s): J44.9 - Chronic obstructive pulmonary disease, unspecified Qualifiers: COPD type: emphysema Emphysema type: other Qualified Code(s): J43.8 - Other emphysema (2) Depression, major, recurrent: Code(s): F33.9 - Major depressive disorder, recurrent, unspecified Qualifiers: Active/Remission status: in partial remission Qualified Code(s): F33.41 - Major depressive disorder, recurrent, in partial remission (3) 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 exogenous substances: Code(s): E03.2 - 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 exogenous substances (4) Homelessness: Code(s): Z59.00 - Homelessness unspecified (5) Bipolar disorder: Code(s): F31.9 - Bipolar disorder, unspecified Qualifiers: Active/Remission status: in full remission Most recent bipolar episode type: mixed Qualified Code(s): F31.78 - Bipolar disorder, in full remission, most recent episode mixed (6) Tobacco abuse: Code(s): Z72.0 - Tobacco use (7) Bladder disorder: Code(s): N32.9 - Bladder disorder, unspecified (8) Mixed stress and urge urinary incontinence: Code(s): N39.46 - Mixed incontinence (9) Wheezing: Code(s): R06.2 - Wheezing Plan Patient is a 62-year-old female came in today for her regular follow-up appointment Tobacco abuse: Continue to smoke, she is wheezing today again, patient says that she is always wheezing. Currently she is smoking 1 and half pack per day, patient is requesting help today that she would like to stop smoking She will meet with our behavioral health coordinator for assistance, meanwhile I have sent Nicoderm patch 21 mg for the patient. COPD: Patient have COPD but has not had any pulmonary function test recently. [place] here she is using is ProAir she does not want to take maintenance inhaler as well Currently patient is seeing urologist as well as psychiatrist Urology for bladder disorder and incontinence, patient says that CT scan was ordered for her she is still waiting for appointment She is taking number of medications through Psychiatry patient have a diagnosis of bipolar disorder and severe depression Currently she does not have her own place to stay, she is staying with friends. She is due for labs Hypertension: Continue lisinopril 5 mg blood pressure is 130/60 today The only medication coming from PCP office is levothyroxine for hypothyroidism and lisinopril 5 mg As well as albuterol inhaler. She has lost 9 lb since July, still have BMI 30.4 need to lose more Follow-up 6 months or earlier if needed Orders: Orders Comprehensive Met. Panel Today E03.2 - 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 exogenous substances, F31.9 - Bipolar disorder, unspecified, F33.9 - Major depressive disorder, recurrent, unspecified, J44.9 - Chronic obstructive pulmonary disease, unspecified, N32.9 - Bladder disorder, unspecified, Z72.0 - Tobacco use TSH reflex Free T4 Today E03.2 - 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 exogenous substances, F31.9 - Bipolar disorder, unspecified, F33.9 - Major depressive disorder, recurrent, unspecified, J44.9 - Chronic obstructive pulmonary disease, unspecified, N32.9 - Bladder disorder, unspecified, Z72.0 - Tobacco use Complete Blood Count Auto Diff Today E03.2 - 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 exogenous substances, F31.9 - Bipolar disorder, unspecified, F33.9 - Major depressive disorder, recurrent, unspecified, J44.9 - Chronic obstructive pulmonary disease, unspecified, N32.9 - Bladder disorder, unspecified, Z72.0 - Tobacco use LDL Cholesterol Direct Today E03.2 - 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 exogenous substances, F31.9 - Bipolar disorder, unspecified, F33.9 - Major depressive disorder, recurrent, unspecified, J44.9 - Chronic obstructive pulmonary disease, unspecified, N32.9 - Bladder disorder, unspecified, Z72.0 - Tobacco use Medications: New nicotine (Nicoderm CQ) 1 patch transdermal DAILY 28 ea 2RF Discontinued diclofenac sodium Discontinued Reason: Doctor's Order 75 mg PO BID 10 days 20 tabs 0RF pain Coding Level of Care Code Est Pt Level 4 (85183) Diagnoses 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 Emphysema type: other Recurrent major depressive disorder, in partial remission F33.41 Active/Remission status: in partial remission 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 exogenous substances E03.2 Homelessness Z59.00 Bipolar disorder, in full remission, most recent episode mixed F31.78 Active/Remission status: in full remission Most recent bipolar episode type: mixed Tobacco abuse Z72.0 Bladder disorder N32.9 Mixed stress and urge urinary incontinence N39.46 Wheezing R06.2 Additional Codes Vital Signs *Quality* - CPT code: 81014 - 4-10 Minutes ([id number])
[2023-02-11 13:55] VITALS: BP 130/60; PULSE 94; O2SAT 96; BMI 30.4
== END 2023-02-11 14:36 | disposition home or self-care (01) ==
PROVIDERS: PCP Internal Medicine; Visit Provider Internal Medicine
DX: J43.8 Other emphysema (principal); F31.78 Bipolar disorder, in full remission, most recent episode mixed; E03.2 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 exogenous substances; Z59.00 Homelessness unspecified; Z72.0 Tobacco use; N32.9 Bladder disorder, unspecified; N39.46 Mixed incontinence; R06.2 Wheezing
CPT/HCPCS: 99214

== ENCOUNTER 2023-02-11 14:47 | Outpatient (REF) | payer OTHER, SELFPAY ==
[2023-02-11 16:07] LABS: MANUAL DIFF FLAG NO
[2023-02-11 16:22] LABS: Basophils Absolute Auto 0.1 X10*3/uL (0.0-0.2); Basophils Percent Auto 1.1 % (0-2); Eosinophils Absolute Auto 0.1 X10*3/uL (0.0-0.4); Eosinophils Percent Auto 2.1 % (0-4); Hematocrit 44.5 % (37.0-47.0); Hemoglobin 14.9 g/dl (12.0-16.0); Imm Gran Abs Auto 0.05 X10*3/uL (0.00-0.03); Imm Gran Pct Auto 0.8 % (0.0-0.4); Lymphocytes Absolute Auto 2.2 X10*3/uL (1.2-4.9); Lymphocytes Percent Auto 35.1 % (20-40); Mean Corpuscular HGB Conc 33.5 g/dl (31.0-35.0); Mean Corpuscular Hemoglobin 30.9 pg (27.0-33.0); Mean Corpuscular Volume 92.3 fL (80.0-98.0); Monocytes Absolute Auto 0.5 X10*3/uL (0.1-1.2); Neutrophils Absolute Auto 3.3 x10*3/uL (2.0-8.3); Neutrophils Percent Auto 52.9 % (45-73); Platelet Count 300 X10*3/uL (160-400); Red Blood Count 4.82 X10*6/uL (4.20-5.50); Red Cell Distribution Width 13.1 % (11.0-16.0); White Blood Count 6.2 X10*3/uL (4.8-10.8)
[2023-02-11 16:50] LABS: Alanine Aminotransferase 16 U/L (0-31); Albumin Level 4.1 g/dL (3.5-5.0); Alkaline Phosphatase 52 U/L (39-117); Anion Gap 10 (12-20); Aspartate Amino Transferase 14 U/L (5-31); Bilirubin Total 0.5 mg/dL (0.0-1.0); Blood Urea Nitrogen 15 mg/dL (9-16); Calcium 9.7 mg/dL (8.4-10.2); Carbon Dioxide 32 mmol/L (22-29); Chloride 105 mmol/L (96-108); Estimated Glomerular Filt Rate > 60; Glucose Random 86 mg/dL (60-115); Potassium 4.4 mmol/L (3.3-5.1); Sodium 143 mmol/L (135-145); Total Protein 6.6 g/dL (6.5-8.0)
[2023-02-11 17:08] LABS: TSH reflex Free T4 1.62 uIU/mL (0.32-4.0)
[2023-02-13 08:49] LABS: LDL Cholesterol Direct 130 mg/dL (<100)
== END 2023-02-11 14:48 | disposition home or self-care (01) ==
LOC: HO.HMGCLDS 14:47
PROVIDERS: PCP Internal Medicine; Visit Provider Internal Medicine
DX: J44.9 Chronic obstructive pulmonary disease, unspecified (principal); F33.9 Major depressive disorder, recurrent, unspecified; E03.2 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 exogenous substances; N32.9 Bladder disorder, unspecified; Z72.0 Tobacco use
CPT/HCPCS: 36415; 80053; 83721; 84443; 85025

== ENCOUNTER 2023-03-13 13:59 | Outpatient (REF) | payer OTHER, SELFPAY ==
[2023-03-13] MEDS: iohexoL 350 MG/ML 75 ML INFUS..BTL 85 ML IV (14:55)
== END 2023-03-13 14:00 | disposition home or self-care (01) ==
LOC: HO.CT 13:59
PROVIDERS: PCP Internal Medicine; Visit Provider Nurse Practitioner Family
DX: R31.0 Gross hematuria (principal)
CPT/HCPCS: 74178; Q9967

== ENCOUNTER 2023-04-27 14:27 | Outpatient (AMB) | payer OTHER, SELFPAY ==
--- NOTE | 2023-04-27 14:27 | A.OFFVIS_ITS ---
Intake Intake Visit Reasons: cysto/CT/labs Intake Note: Patient presents today for a CYSTOSCOPY Procedure: Meds: None Allergies to Antibiotic: No Known Allergies Blood Thinner: Aspirin Urinalysis test clear for Cysto? 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: No Accompanied by: Self / Same As Patient Allergies codeine [CODEINE] Allergy (Unknown, Verified 04/28/23 11:19) ITCH epinephrine [EPINEPHRINE] Allergy (Unknown, Verified 04/28/23 11:19) PALPATATIONS FROM DENTAL WORK Medication List - Last Reconciled 04/27/23 by Betsy Patel MD albuterol sulfate 90 mcg/actuation (ProAir HFA) 1 inh inhalation QID PRN 30 days aspirin (Adult Aspirin Regimen) 81 mg PO DAILY bupropion HCl 300 mg PO DAILY citalopram 40 mg PO QAM clonazepam 0.5 mg PO DAILY divalproex (Depakote) 1,000 mg PO BID levothyroxine 50 mcg PO DAILY lisinopril 5 mg PO DAILY melatonin 10 mg PO BEDTIME PRN mirabegron ER (Myrbetriq) 50 mg PO DAILY nicotine 1 patch transdermal DAILY [Poise Pads # 3 Change pad 3 times a day or as needed for urinary incontinence.] HPI HPI Comments History of Present Illness Details 04/27/23--Lela is a 63 year old female who was initially evaluated by KASSANDRA Nassar on 02/10/23 and is here for office cystoscopy for evaluation for hematuria. CoMorbidity Nicotine dependency The patient was sent for CT UROgram and I have reviewed results with the patient. B/L non-enhancing renal cysts, irregular thickening in bladder which is not clearly evaluated. Cystoscopy findings: mild bladder wall thickening, no suspicious bladder lesions visualized Review of chart: LV--02/10/23--past medical history of tremors, hypothyroidism, arthralgia, bipolar disorder, depression, and COPD. She presents to the office today as a new patient for lower urinary tract symptoms and microscopic hematuria. In discussion with the patient today she reports a longstanding history of lower urinary tract symptoms (urinary urgency, urinary frequency, and mixed urinary incontinence). denies dysuria, foul smelling urine, changes to urinary stream, flank pain, fever, and or chills. She reports to have been on oxybutynin 15 mg extended release for over 20 years however does not feel this is working for her anymore as she feels lower urinary tract symptoms are worsening. She reports a longstanding family history of prostate cancer, bladder cancer, and breast cancer. 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 In office urinalysis results with 2+ microscopic hematuria. she does report a 40 plus year smoking history. She reports smoking approximately 1-1.5 packs of cigarettes per day. PVR 70 mL. 04/27/23: Plan- Trial of Myrbetriq 50 mg daily, FU with KASSANDRA Jackson regarding OAB symptoms Pt had genetic testing and is at risk for urinary tract cancer, CoMorbidity nicotine use - pt states she stopped 2 months ago, repeat cysto in one year, renal US prior [facility] Medical History Tremors of nervous system Other specified hypothyroidism Arthralgia Bipolar disorder 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 exogenous substances Depression, major, recurrent COPD (chronic obstructive pulmonary disease) Surgical History Hx of tubal ligation Hx of tonsillectomy H/O brain surgery Family History Maternal Grandmother Breast cancer Mother Breast cancer Sister Breast cancer Family/Other Breast cancer Father Bladder cancer Other Mental health disorder Substance use disorder Social History Household Members: Friend(s) Housing: House Alcohol intake: current Alcohol intake frequency: holidays/special occasions only Patient Tobacco Use Status: Current everyday Tobacco user Tobacco use type: Cigarette Cigarettes Per Day: 15 e-Cigarette/Vaping Use: Currently Using Second Hand Smoke Exposure: Yes Substance Use Type: Marijuana service: No Current occupational status: disabled Cognitive needs: No Hearing needs: No Vision needs: Yes Review of Systems Const All systems reviewed & are unremarkable except as noted in HPI and below Reports no additional complaints Eyes Reports no additional complaints ENT Reports no additional complaints Card Denies dyspnea Resp Denies cough and Denies dyspnea GI Reports no additional complaints Reports no additional complaints Musc Reports no additional complaints Skin/Breast Denies rash and Denies unusual bruising Neuro Reports no additional complaints Psych Reports no additional complaints Endo Reports no additional complaints Valente/Lymph Reports no additional complaints Aller/Immun Reports no additional complaints Office Procedures Cystoscopy Consent Discussed risk and benefit or proposed procedure with the patient. Information consent for procedure given to the patient. Discussed technical aspects, risks, benefits and alternatives in full. Addressed all of the patient's questions and concerns regarding the procedure. The patient demonstrated knowledge and understanding. They wish to proceed with this procedure. Preparation The patient was prepped in the usual manner. A service center supervisor was present and in the room. Genitalia was prepped with betadine solution in a sterile manner. Lidocaine Jelly 2% was placed into the urethra and 16Fr flexible Olympus c ystoscope was inserted into the meatus after adequate lubrication. Procedure Time out per protocol performed. Bladder Inspection Bladder Inspection: The bladder was inspected in its entirety with utilization retroflexion displaying: Tumor(s): none visualized Trabeculation: mild Mucosal Erthema: N/A Orifices: normal shape and position Urethra: normal Cystoscopy findings: mild bladder wall thickening, no suspicious bladder lesions visualized [id number] DISPOSABLE SCOPE URO-G FLEXIBLE SCOPE Procedure code (CPT) selection complete Office Meds lidocaine HCl 2 % mucosal jelly in applicator Performing Provider: Betsy Patel MD [facility] Administered by: Gregory Iglesias LPN on 04/27/23 14:54 Dose Route Admin Location Dispensed Lot Number Expiration Date [facility] Solution Sales Senior Executive 10 mL intra-urethral 20 mL naproxen 500 mg tablet Performing Provider: Betsy Patel MD Performing Location[facility] Administered by: Gregory Iglesias LPN on 04/27/23 14:54 Dose Route Admin Location Dispensed Lot Number Expiration Date [facility] Solution Sales Senior Executive 500 mg PO 1 tab ciprofloxacin HCl 500 mg tablet Performing Provider: Betsy Patel MD Performing Location: [facility] Administered by: Gregory Iglesias LPN on 04/27/23 14:54 Dose Route Admin Location Dispensed Lot Number Expiration Date [facility] Solution Sales Senior Executive 500 mg PO 1 tab Results AMB Urinalysis, Automated UA Leukoctes 0 Ruby/uL Last Edit by KAIA Arguello on 04/27/23 14:45 UA Nitrite Negative Last Edit by KAIA Arguello on 04/27/23 14:45 UA Urobilinogen 0.2 mg/dL Last Edit by KAIA Arguello on 04/27/23 14:4 5 UA Protein 0 mg/dL Last Edit by KAIA Arguello on 04/27/23 14:45 UA pH 7.0 Last Edit by KAIA Arguello on 04/27/23 14:45 UA Blood 10 Thierry/uL Last Edit by KAIA Arguello on 04/27/23 14:45 UA Specific [place] 1.010 Last Edit by KAIA Arguello on 04/27/23 14: 45 UA Ketone Negative Last Edit by KAIA Arguello on 04/27/23 14:45 UA Bilirubin 0 mg/dL Last Edit by KAIA Arguello on 04/27/23 14:45 UA Glucose 0 mg/dL Last Edit by KAIA Arguello on 04/27/23 14:45 Results Reviewed Results Reviewed: Laboratory Last Values Urine pH (Auto) 7.0 04/27/23 14:44 Specific [place] (Auto) 1.010 04/27/23 14:44 Urine Protein (Auto) 0 mg/dL 04/27/23 14:44 Glucose (UA)(Auto) 0 mg/dL 04/27/23 14:44 Urine Ketones (Auto) Negative 04/27/23 14:44 Urine Blood (Auto) 10 Thierry/uL 04/27/23 14:44 Urine Nitrite (Auto) Negative 04/27/23 14:44 Urine Bilirubin (Auto) 0 mg/dL 04/27/23 14:44 Urine Urobilinogen (Auto) 0.2 mg/dL 04/27/23 14:44 Leukocyte Esterase (Auto) 0 Ruby/uL 04/27/23 14:44 Date of Service: 03/13/23 EXAMINATION: CT ABDOMEN AND PELVIS WITHOUT AND WITH CONTRAST CLINICAL INFORMATION: Gross hematuria. COMPARISON: Lung cancer screening CT 05/01/2020. DLP: 815 mGy-cm FINDINGS: LUNG BASES: No suspicious lung nodules at the lung bases. Stable micronodules compared to prior lung cancer screening CT scan. These nodules do not require specific follow-up. The patient should be considered for ongoing screening. LIVER, GALLBLADDER, AND BILIARY TREE: The liver is normal in size, shape, and attenuation. No focal hepatic lesion or biliary ductal dilatation is present. The gallbladder is unremarkable with no evidence of radiopaque gallstones, gallbladder wall thickening, or obvious pericholecystic inflammatory changes. PANCREAS: No discrete mass. No ductal dilatation. SPLEEN: Unremarkable. ADRENAL GLANDS: Unremarkable. KIDNEYS AND URETERS: No nephrolithiasis. Symmetric nephrograms. Hyperdense, nonenhancing Bosniak 2 cyst lower pole right kidney. Nonenhancing simple Bosniak 1 mid to lower left kidney. No follow-up imaging is recommended. No hydroureteronephrosis. No discrete ureteral abnormality. BLADDER: The bladder is not distended which limits evaluation. Trabeculated pattern may be related to underdistention. No discrete bladder mass. No bladder calculus. GASTROINTESTINAL TRACT: The small and large bowel are normal in caliber. No discrete bowel mass or focal bowel wall thickening. ABDOMINAL WALL: No significant hernia is appreciated. LYMPH NODES: Normal. VASCULAR: Moderate aortoiliac atherosclerosis. Mild narrowing of the left renal vein as it passes between the aorta and superior mesenteric artery however no collateral vessels or delay in the left nephrogram to suggest that this is hemodynamically significant. PELVIC VISCERA: Unremarkable. OSSEUS STRUCTURES: Sclerotic lesion in the left iliac bone suggestive of a bone island. Degenerative changes in the spine. IMPRESSION: No explanation for hematuria. No nephrolithiasis or suspicious renal mass. The urinary bladder is inadequately distended for evaluation. The bladder wall is mildly trabeculated which may be related to underdistention. No discrete bladder mass. Cystoscopy should be considered as no explanation for hematuria is evident on this study. Assessment & Plan Assessment & Plan (1) Urine incontinence: Code(s): R32 - Unspecified urinary incontinence (2) Microhematuria: Code(s): R31.29 - Other microscopic hematuria (3) Nicotine dependence: Code(s): F17.200 - Nicotine dependence, unspecified, uncomplicated (4) OAB (overactive bladder): Code(s): N32.81 - Overactive bladder Plan Trial of Myrbetriq 50 mg daily, FU with HORSE SHOW JUDGE Renetta regarding OAB symptoms Pt had genetic testing and is at risk for urinary tract cancer, CoMorbidity nicotine use - pt states she stopped 2 months ago, repeat cysto in one year, renal US prior Orders: Orders AMB Cystoscopy 04/27/23 N39.46 - Mixed incontinence, R39.9 - Unspecified symptoms and signs involving the genitourinary system, R32 - Unspecified urinary incontinence, N32.9 - Bladder disorder, unspecified AMB Urinalysis Automated 04/27/23 Z13.9 - Encounter for screening, unspecified Medications: New mirabegron ER (Myrbetriq) 50 mg PO DAILY 30 tabs 1RF Patient Instructions: The patient had an opportunity to ask questions regarding treatment plan. All questions were answered. Imaging, Laboratory studies and physical exam results were discussed and reviewed in detail. No major barriers to understanding were identified. The patient expressed understanding and agreement with the above treatment plan. The patient is aware they should contact our office by phone for worsening of their current condition or the appearance of new symptoms. Compliance is encouraged with any medications and followup testing that is ordered. It is a privilege to be allowed the opportunity to participate in the urologic care of your patient. If you have any questions or concerns regarding treatment for the above conditions please do not hesitate to contact me. The office telephone contact is [phone]. This note is constructed in part using voice recognition software. While every effort has been made to ensure accuracy community pharmacist errors may have been included. Yours sincerely, Betsy Patel MD Coding Level of Care Code Est Pt Level 3 (16425) Diagnoses Urine incontinence R32 Microhematuria R31.29 Nicotine dependence F17.200 OAB (overactive bladder) N32.81 CPT Codes Cystoscopy - CPT: 22652-[id number] ([id number])
== END 2023-04-27 15:51 | disposition home or self-care (01) ==
PROVIDERS: PCP Internal Medicine; Visit Provider Urology
DX: R32 Unspecified urinary incontinence (principal); R31.29 Other microscopic hematuria; F17.200 Nicotine dependence, unspecified, uncomplicated; N32.81 Overactive bladder
CPT/HCPCS: 52000; 99213

== ENCOUNTER → 2023-04-27 14:27 | Outpatient (BNVA) | payer OTHER, SELFPAY | PROVIDERS: PCP Internal Medicine; Visit Provider Urology | DX: R32 Unspecified urinary incontinence (principal); R31.29 Other microscopic hematuria; N32.81 Overactive bladder; F17.210 Nicotine dependence, cigarettes, uncomplicated | CPT/HCPCS: 52000; 81003; 99212 ==

== ENCOUNTER 2023-04-28 11:15 | Outpatient (AMB) | payer OTHER, SELFPAY ==
[2023-04-28 11:18] VITALS: BP 124/60; PULSE 108; TEMP 36.6; O2SAT 98; BMI 32.4
--- NOTE | 2023-04-28 11:18 | MHC.OFFWIV ---
Intake Vital Signs 04/28/23 11:18 Height 5 ft 2 in Weight 177 lb BMI 32.4 BP 124/60 Blood Pressure Location Lt brachial Position Sitting Pulse 108 H Pulse Source Pulse Oximeter Temp 97.8 F Temp Source Temporal Artery Scan Pulse Oximetry (%) 98 Oxygen Delivery Method Room Air Intake Visit Reasons: EST/sore throat and ear pain (lobby masked) Intake Note: pt is here today for sore throat and ear pain started 2 weeks ago Patient Tobacco Use Status: Current everyday Tobacco user Allergies codeine [CODEINE] Allergy (Unknown, Verified 04/28/23 11:19) ITCH epinephrine [EPINEPHRINE] Allergy (Unknown, Verified 04/28/23 11:19) PALPATATIONS FROM DENTAL WORK Do you need a note to return to daycare/school/sports/work: No HPI EST/sore throat and ear pain (lobby masked) HPI Details Patient presents for a sick visit. Reporting symptoms of sinus congestion, sore throat and difficulty swallowing. Low-grade fever. No family member is sick. No recent travel. Patient reports symptoms of malaise and fatigue. [facility] Medical History Tremors of nervous system Other specified hypothyroidism Arthralgia Bipolar disorder 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 exogenous substances Depression, major, recurrent COPD (chronic obstructive pulmonary disease) Surgical History Hx of tubal ligation Hx of tonsillectomy H/O brain surgery Family History Maternal Grandmother Breast cancer Mother Breast cancer Sister Breast cancer Family/Other Breast cancer Father Bladder cancer Other Mental health disorder Substance use disorder Social History Household Members: Friend(s) Housing: House Alcohol intake: current Alcohol intake frequency: holidays/special occasions only Patient Tobacco Use Status: Current everyday Tobacco user Tobacco use type: Cigarette Cigarettes Per Day: 15 e-Cigarette/Vaping Use: Currently Using Second Hand Smoke Exposure: Yes Substance Use Type: Marijuana service: No Current occupational status: disabled Cognitive needs: No Hearing needs: No Vision needs: Yes Physical Exam Vital Signs: Last Vital Signs Temp 97.8 F 04/28/23 11:18 Pulse 108 H 04/28/23 11:18 BP 124/60 04/28/23 11:18 Pulse Ox 98 04/28/23 11:18 Oxygen Delivery Method Room Air 04/28/23 11:18 BMI result Body Mass Index 32.4 Const General: cooperative and healthy appearing Nutritional Appearance: well nourished Orientation/consciousness: patient oriented x3 Limitations: no limitations HEENT Head: Yes normal to inspection Eyes General: appearance normal, both eyes and all related structures Neck Neck: Yes normal visual inspection Chest Chest palpation & inspection: normal palpation of entire chest wall Resp Effort & Inspection: normal respiratory effort Neuro General: patient oriented x3 Results AMB Rapid Strep AMB Rapid Strep Negative Last Edit by Adrianne Ricks CMA on 04/28/23 11:52 Results Reviewed Results Reviewed: Laboratory Last Values Strep Scn Rapid Clinic Negative 04/28/23 11:51 Assessment & Plan Assessment & Plan (1) Upper respiratory tract infection: Code(s): J06.9 - Acute upper respiratory infection, unspecified Plan: Antibiotics ordered. Increase fluid intake. Tylenol for aches and pains. If symptoms worsen, follow-up here for a recheck. Orders: Orders AMB Rapid Strep Screen Today Z13.9 - Encounter for screening, unspecified Coding Level of Care Code Est Pt Level 3 (57346) Diagnoses Upper respiratory tract infection J06.9
== END 2023-04-28 12:12 | disposition home or self-care (01) ==
PROVIDERS: PCP Internal Medicine; Visit Provider Internal Medicine
DX: J06.9 Acute upper respiratory infection, unspecified (principal); J02.9 Acute pharyngitis, unspecified
CPT/HCPCS: 87880; 99213

== ENCOUNTER 2023-07-27 14:12 | Outpatient (AMB) | payer MEDICARE, MEDICAID, SELFPAY ==
--- NOTE | 2023-07-27 14:21 | MHC.OFFVIS ---
Intake Visit Reasons: 3m follow up Intake Note: Patient presents for follow up visit for urinary incontinence Urology Medications: myrbetriq Blood Thinner: aspirin PVR: 0ml's Car Washer Required: No Accompanied by: Self / Same As Patient Allergies codeine [CODEINE] Allergy (Unknown, Verified 07/27/23 19:35) ITCH epinephrine [EPINEPHRINE] Allergy (Unknown, Verified 07/27/23 19:35) PALPATATIONS FROM DENTAL WORK Medication List - Last Reconciled 07/27/23 by JESSICA Helm albuterol sulfate 90 mcg/actuation (ProAir HFA) 1 inh inhalation QID PRN 30 days aspirin (Adult Aspirin Regimen) 81 mg PO DAILY citalopram 40 mg PO QAM clonazepam 0.5 mg PO DAILY divalproex (Depakote) 1,000 mg PO BID divalproex ER 500 mg PO TID levothyroxine 50 mcg PO DAILY lisinopril 5 mg PO DAILY melatonin 10 mg PO BEDTIME PRN mirabegron ER (Myrbetriq) 50 mg PO DAILY nicotine 1 patch transdermal DAILY nicotine 1 patch topical DAILY [Poise Pads # 3 Change pad 3 times a day or as needed for urinary incontinence.] HPI Comments Details: Lela is a very pleasant 63-year-old female patient of . She has a past medical history of tremors, hypothyroidism, arthralgia, bipolar disorder, depression, and COPD. She presents to the office today for follow-up. Of note, patient underwent an office cystoscopy during last office visit here approximately [address] West for further assessment evaluation of microscopic hematuria in the setting of nicotine dependence. Cystoscopy findings: mild bladder wall thickening, no suspicious bladder lesions visualized. During last office visit she was started on Myrbetriq for reports of urinary urgency, urinary frequency, and mixed urinary incontinence. In discussion with the patient today she reports to be happy with her current voiding parameters on 50 mg of Myrbetriq. She reports urinary symptoms are significantly improved. She currently denies any bothersome urinary issues or concerns. In office urinalysis results reviewed with the patient today. PVR 0 mL. She otherwise denies nocturia, hematuria, dysuria, foul smelling urine, changes to urinary stream, flank pain, fever, and or chills. She had previously been on 15 mg of oxybutynin for over 20 years however felt this was not helpful. She reports a longstanding family history of prostate cancer, bladder cancer, and breast cancer. 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 Previous workup has included a CT urogram noting B/L non-enhancing renal cysts, irregular thickening in bladder which is not clearly evaluated. Patient reports to be smoke free for proximally 5 months now. She otherwise offers no other issues or concerns at this time. [facility] Medical History Tremors of nervous system Other specified hypothyroidism Arthralgia Bipolar disorder 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 exogenous substances Depression, major, recurrent COPD (chronic obstructive pulmonary disease) Surgical History Hx of tubal ligation Hx of tonsillectomy H/O brain surgery Family History Maternal Grandmother Breast cancer Mother Breast cancer Sister Breast cancer Family/Other Breast cancer Father Bladder cancer Other Mental health disorder Substance use disorder Social History Household Members: Friend(s) Housing: House Alcohol intake: current Alcohol intake frequency: holidays/special occasions only Patient Tobacco Use Status: Current everyday Tobacco user Tobacco use type: Cigarette Cigarettes Per Day: 15 e-Cigarette/Vaping Use: Currently Using Second Hand Smoke Exposure: Yes Substance Use Type: Marijuana service: No Current occupational status: disabled Cognitive needs: No Hearing needs: No Vision needs: Yes Review of Systems Const Reports as per HPI Eyes Reports no additional complaints ENT Reports no additional complaints Card Reports as per HPI Resp Reports as per HPI GI Reports no additional complaints Reports as per HPI Musc Reports as per HPI Neuro Reports as per HPI Psych Reports as per HPI Endo Reports as per HPI Valente/Lymph Reports no additional complaints Aller/Immun Reports no additional complaints Physical Exam Const General: cooperative, comfortable, no acute distress, well developed, alert and awake Orientation/consciousness: patient oriented x3 Limitations: no limitations HEENT Head: Yes normal to inspection, Yes normocephalic and Yes atraumatic Ears: hearing grossly normal bilaterally Eyes General: appearance normal, both eyes and all related structures Neck Neck: Yes normal visual inspection and Yes trachea midline Chest Chest palpation & inspection: normal inspection of the chest Resp Effort & Inspection: normal respiratory effort and able to speak in complete sentences Cardio Rate: regular rate GI Inspection: Yes normal to inspection General: Yes no CVA tenderness Back/Spine/Pelvis Back: no CVA tenderness Skin General skin exam: no rashes or lesions noted Neuro Other: tremors to Bilateral upper extremities General: patient oriented x3 Extrem General: Yes normal to inspection Psych Appearance: grossly normal and well kempt Mental Status: mental status grossly normal Speech and movement: Normal speech and movement present and Clear speech present Affect: normal affect Attitude: cooperative Thought process: Normal thought process present Thought content: Normal thought content present Insight: Fair insight present (Psych) Judgement: Fair judgement present (Psych) Results AMB Urinalysis, Automated UA Leukoctes 0 Ruby/uL Last Edit by [employer] on 07/27/23 14:43 UA Nitrite Negative Last Edit by [employer] on 07/27/23 14:43 UA Urobilinogen 0.2 mg/dL Last Edit by [employer] on 07/27/23 14:43 UA Protein 0 mg/dL Last Edit by [employer] on 07/27/23 14:43 UA pH 8.0 Last Edit by [employer] on 07/27/23 14:43 UA Blood 10 Thierry/uL Last Edit by [employer] on 07/27/23 14:43 UA Specific [place] 1.010 Last Edit by [employer] on 07/27/23 14:43 UA Ketone Negative Last Edit by [employer] on 07/27/23 14:43 UA Bilirubin 0 mg/dL Last Edit by [employer] on 07/27/23 14:43 UA Glucose 0 mg/dL Last Edit by [employer] on 07/27/23 14:43 Results Reviewed Results Reviewed: Laboratory Last Values Urine pH (Auto) 8.0 07/27/23 14:23 Specific [place] (Auto) 1.010 07/27/23 14:23 Urine Protein (Auto) 0 mg/dL 07/27/23 14:23 Glucose (UA)(Auto) 0 mg/dL 07/27/23 14:23 Urine Ketones (Auto) Negative 07/27/23 14:23 Urine Blood (Auto) 10 Thierry/uL 07/27/23 14:23 Urine Nitrite (Auto) Negative 07/27/23 14:23 Urine Bilirubin (Auto) 0 mg/dL 07/27/23 14:23 Urine Urobilinogen (Auto) 0.2 mg/dL 07/27/23 14:23 Leukocyte Esterase (Auto) 0 Ruby/uL 07/27/23 14:23 Assessment & Plan Assessment & Plan (1) Urine incontinence: Code(s): R32 - Unspecified urinary incontinence Category: Medical (2) Lower urinary tract symptoms: Code(s): R39.9 - Unspecified symptoms and signs involving the genitourinary system Category: Medical (3) Microhematuria: Code(s): R31.29 - Other microscopic hematuria Category: Medical (4) Nicotine dependence: Code(s): F17.200 - Nicotine dependence, unspecified, uncomplicated Category: Medical (5) Mixed stress and urge urinary incontinence: Code(s): N39.46 - Mixed incontinence Category: Medical Plan In office urinalysis results reviewed with the patient today; as noted above. PVR 0 mL. Continue Myrbetriq 50 mg daily as patient reports be happy with current voiding parameters. Patient currently denies any bothersome urinary issues or concerns. Discussed surveillance monitoring of microscopic hematuria in the setting of previous nicotine dependence; will obtain retroperitoneal ultrasound in 1 year as well as in office cystoscopy. 05/[address] West. Encouragement provided on continuing to maintain smoke-free environment. Follow-up in 6 months with PVR; or sooner with any issues, concerns, and or questions. Orders: Orders AMB Urinalysis Automated Today Z13.9 - Encounter for screening, unspecified Patient Instructions: The patient had an opportunity to ask questions regarding the treatment plan. All questions were answered. Physical exam, labs, and imaging were discussed and reviewed in detail. As well as risks, benefits, and discussion of treatment choices. No major barriers to understanding were identified. The patient expressed understanding and agreement with the above treatment plan. The patient was made aware they should contact our office by phone for worsening of their current condition, the appearance of new symptoms, or with any questions or concerns. Compliance is encouraged with any medications and follow up testing that is ordered. It is a privilege to be allowed the opportunity to participate in? your urological care.? Again, if you have any questions or concerns If you have any questions or concerns please do not hesitate to contact me. The office is [phone]. This note is constructed using voice recognition software. While every effort has been made to ensure accuracy glazing department supervisor errors may have been included. Yours sincerely, KESHAWN Helm Coding Level of Care Code Est Pt Level 3 (10064) Diagnoses Urine incontinence R32 Lower urinary tract symptoms R39.9 Microhematuria R31.29 Nicotine dependence F17.200 Mixed stress and urge urinary incontinence N39.46
== END 2023-07-27 15:05 | disposition home or self-care (01) ==
PROVIDERS: PCP Internal Medicine; Visit Provider Nurse Practitioner Family
DX: R32 Unspecified urinary incontinence (principal); R39.9 Unspecified symptoms and signs involving the genitourinary system; R31.29 Other microscopic hematuria; F17.200 Nicotine dependence, unspecified, uncomplicated; N39.46 Mixed incontinence; Z13.9 Encounter for screening, unspecified
CPT/HCPCS: 99213

== ENCOUNTER → 2023-07-27 14:12 | Outpatient (BNVA) | payer MEDICARE, MEDICAID, SELFPAY | PROVIDERS: PCP Internal Medicine; Visit Provider Nurse Practitioner Family | DX: N39.46 Mixed incontinence (principal); R39.9 Unspecified symptoms and signs involving the genitourinary system; R31.29 Other microscopic hematuria; F17.210 Nicotine dependence, cigarettes, uncomplicated | CPT/HCPCS: 81003; 99212 ==

== ENCOUNTER 2023-08-18 13:50 | Outpatient (AMB) | payer MEDICARE, MEDICAID, SELFPAY ==
--- NOTE | 2023-08-18 14:09 | A.OFFVIS_ITS ---
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 She is doing well with no concerns. Not eating a balanced diet, no exercise. Currently sexually active. Denies any vaginal dryness or irritation. STI testing offered; she declines. Last pap smear; 2022. Last mammogram; 2022. Colonoscopy not UTD. FH breast cancer-multiple relatives, she reports she and her family are positive for genetic screening, she is unsure of the name of it. She reports testing at [facility] two years ago, no results found today. [facility] Medical History Tremors of nervous system Other specified hypothyroidism Arthralgia Bipolar disorder 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 exogenous substances Depression, major, recurrent COPD (chronic obstructive pulmonary disease) Surgical History Hx of tubal ligation Hx of tonsillectomy H/O brain surgery Family History Maternal Grandmother Breast cancer Mother Breast cancer Sister Breast cancer Family/Other Breast cancer Father Bladder cancer Other Mental health disorder Substance use disorder Social History (Updated 08/18/23 @ 14:13 by KAIA Shepard) Household Members: Friend(s) Housing: House Alcohol intake: current Alcohol intake frequency: holidays/special occasions only Patient Tobacco Use Status: Current everyday Tobacco user Tobacco use type: Cigarette Cigarettes Per Day: 1 e-Cigarette/Vaping Use: Currently Using Second Hand Smoke Exposure: Yes Substance Use Type: Marijuana service: No Current occupational status: disabled Cognitive needs: No Hearing needs: No Vision needs: Yes Female Reproductive History Menstrual Age of Menarche: 8 control method: permanent sterilization Total pregnancies: 4 Full term: 2 Number of Living Children: 2 Ab induced: 2 Date of last pap smear: 08/14/22 (negative) History of abnormal pap smear: No Date of Mammogram: 09/03/22 Review of Systems Const All systems reviewed & are unremarkable except as noted in HPI and below Reports as per HPI Eyes Reports no additional complaints ENT Reports no additional complaints Card Reports no additional complaints Resp Reports no additional complaints GI Reports as per HPI and Reports no additional complaints Reports as per HPI Musc Reports no additional complaints Skin/Breast Reports as per HPI Neuro Reports no additional complaints Psych Reports no additional complaints Endo Reports no additional complaints Valente/Lymph Reports no additional complaints Aller/Immun Reports no additional complaints Physical Exam Vital Signs: BMI result Body Mass Index 32.2 Const General: cooperative, healthy appearing, no acute distress, well developed and alert Orientation/consciousness: patient oriented x3 HEENT Head: Yes normal to inspection Eyes General: appearance normal, both eyes and all related structures Neck Neck: Yes normal visual inspection Thyroid: Thyroid normal Chest Chest palpation & inspection: normal inspection of the chest and other (no puckering, dimpling, peau de orange, retraction, discharge, masses) Breast/axilla inspection: normal inspection of the breasts Breast/axilla palpation: normal palpation of the breasts Resp Effort & Inspection: normal respiratory effort GI Inspection: Yes normal to inspection Palpation (GI): Soft to palpation Rectal Exam - Female: deferred General: Yes bladder normal to palpation External Female Exam: normal external appearance and normal appearance of the urethra Speculum Exam - Vagina: normal appearance of the vagina, normal palpation, normal vaginal discharge and vagina atrophic Speculum Exam - Cervix: normal appearance of the cervix and normal palpation Bimanual exam- vagina & uterus: normal bimanual exam, normal palpation, uterine size normal, bladder normal to palpation, normal palpation and non-tender Bimanual Exam- Adnexa, other: no masses and Other (Fullness to the right side, nontender) Skin General skin exam: no rashes or lesions noted Rashes: no rashes Neuro General: patient oriented x3 Cognition (Neuro): normal cognition Extrem General: Yes normal to inspection Psych Attitude: cooperative Thought process: Normal thought process present Assessment & Plan Assessment & Plan (1) Encounter for well woman exam with routine gynecological exam: Code(s): Z01.419 - Encounter for gynecological examination (general) (routine) without abnormal findings Category: Medical (2) Pelvic fullness in female: Code(s): R19.00 - Intra-abdominal and pelvic swelling, mass and lump, unspecified site Category: Medical Plan Discussed: Current recommendations for pap smears per ASCCP guidelines. Breast awareness, periodic self breast exams and yearly mammogram. Maintain a healthy lifestyle, well balanced diet including Calcium 1,200 mg and Vitamin D 600 IU daily, and routine exercise. Use of condoms for STI if indicated. Contact the office with any postmenopausal bleeding. Advised to discuss plans for colonscopy or ColoGard w/her PCP. Encouraged tobacco cessation. Ultrasound planned to check the right adnexa, and a follow up in the office to discuss results. Orders placed. Sign a release of records for [facility] for genetic testing results. Patient verbalizes understanding and agrees to the plan of care. She was given opportunity to ask questions and all questions were answered to the best of my ability. RTO in 1 year for annual j2ee architect exam. This note is constructed using voice recognition software. While every effort has been made to ensure accuracy, biochemistry teacher errors may have been included. Orders: Orders US pelvic and transvaginal Today R19.00 - Intra-abdominal and pelvic swelling, mass and lump, unspecified site Coding Level of Care Code Est Pt Prev Care >65y(28731) Diagnoses Encounter for well woman exam with routine gynecological exam Z01.419 Pelvic fullness in female R19.00
[2023-08-18 14:10] VITALS: BP 140/78; BMI 32.2
== END 2023-08-18 14:46 | disposition home or self-care (01) ==
PROVIDERS: Visit Provider Advanced Practice Midwife
DX: R19.00 Intra-abdominal and pelvic swelling, mass and lump, unspecified site (principal); Z01.419 Encounter for gynecological examination (general) (routine) without abnormal findings
CPT/HCPCS: 99213; G0101

== ENCOUNTER → 2023-08-18 13:50 | Outpatient (BNVA) | payer MEDICARE, MEDICAID, SELFPAY | PROVIDERS: Visit Provider Advanced Practice Midwife | DX: Z01.411 Encounter for gynecological examination (general) (routine) with abnormal findings (principal); R19.00 Intra-abdominal and pelvic swelling, mass and lump, unspecified site | CPT/HCPCS: 99212; G0101 ==

== ENCOUNTER 2023-08-25 12:48 | Outpatient (REF) | payer MEDICARE, MEDICAID, SELFPAY ==
--- NOTE | ~2023-08-25 | US_ITS ---
EXAMINATION: US PELVIS CLINICAL INFORMATION: Intra-abdominal and pelvic swelling, mass, lump. Postmenopausal. COMPARISON: CT urogram of 03/13/2023. TECHNIQUE: Ultrasound of the pelvis is performed using both transabdominal and transvaginal transducers along with Doppler. Transvaginal imaging is performed due to inadequate visualization transabdominally. FINDINGS: The uterus is anteverted and measures 6.1 x 2.5 x 4.2 cm. Uterine volume is 33.5 mL. A small anechoic, cystic area measuring 0.6 x 0.3 x 0.7 cm is identified in the lower uterine segment. This is adjacent to a 0.5 x 0.4 x 0.5 cm hypoechoic lesion characteristic of a fibroid. Left fibroid measures 1.0 x 1.0 x 0.8 cm. Right echogenic lesion characteristic of a fibroid measures 1.2 x 1.0 x 0.9 cm. Trace amount of fluid within the endometrial cavity. Endometrial double wall thickness is approximately 2 mm exclusive of this fluid and 3 mm including fluid. Right ovary measures 1.9 x 1.0 x 1.1 cm, volume 1.1 mL. Left ovary measures 1.5 x 0.8 x 1.3 cm, volume 0.8 mL. Bilateral ovaries were seen only on transvaginal ultrasound images and are grossly unremarkable. Limited visualization due to bowel gas. No significant free fluid. US/US pelvic and transvaginal IMPRESSION: 1. Fibroid uterus. 0.7 cm anechoic, cystic collection in the lower uterine segment as detailed above. 2. Trace amount of fluid within the endometrial cavity. Endometrial double wall thickness is approximately 2 mm exclusive of this fluid and 3 mm including fluid. 3. Bilateral ovaries are grossly unremarkable, although visualization is limited.
== END 2023-08-25 12:49 | disposition home or self-care (01) ==
LOC: HO.US 12:48
PROVIDERS: PCP Internal Medicine; Visit Provider Advanced Practice Midwife
DX: R19.00 Intra-abdominal and pelvic swelling, mass and lump, unspecified site (principal)
CPT/HCPCS: 76830; 76856

== ENCOUNTER 2023-09-09 13:05 | Outpatient (REF) | payer MEDICARE, MEDICAID, SELFPAY | END 2023-09-09 13:06 | disposition home or self-care (01) | LOC: HO.MAMMO 13:05 | PROVIDERS: PCP Internal Medicine; Visit Provider Internal Medicine | DX: Z12.31 Encounter for screening mammogram for malignant neoplasm of breast (principal) | CPT/HCPCS: 77063; 77067 ==

== ENCOUNTER → 2023-09-09 13:15 | Outpatient (BNV) | payer MEDICARE, MEDICAID, SELFPAY | PROVIDERS: PCP Internal Medicine; Visit Provider Radiology Diagnostic Radiology | DX: Z12.31 Encounter for screening mammogram for malignant neoplasm of breast (principal) | CPT/HCPCS: 77063; 77067 ==

== ENCOUNTER 2023-09-30 10:31 | Outpatient (AMB) | payer MEDICARE, MEDICAID, SELFPAY ==
[2023-09-30 10:33] VITALS: BP 140/90; PULSE 72; O2SAT 97; BMI 32.2
--- NOTE | 2023-09-30 10:33 | AM.OFFVISMDC ---
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 Accompanied by: Self / Same As Patient Allergies codeine [CODEINE] Allergy (Unknown, Verified 09/30/23 10:34) ITCH epinephrine [EPINEPHRINE] Allergy (Unknown, Verified 09/30/23 10:34) PALPATATIONS FROM DENTAL WORK Medication List - Last Reconciled 09/30/23 by Brian Zamora MD albuterol sulfate 90 mcg/actuation 1 inh inhalation QID PRN 30 days aspirin (Adult Aspirin Regimen) 81 mg PO DAILY bupropion HCl XL 150 mg PO QAM citalopram 40 mg PO QAM clonazepam 0.5 mg PO DAILY divalproex ER 500 mg PO TID levothyroxine 50 mcg PO DAILY lisinopril 5 mg PO DAILY melatonin 10 mg PO BEDTIME PRN [Poise Pads # 3 Change pad 3 times a day or as needed for urinary incontinence.] vibegron (Gemtesa) 75 mg PO DAILY 30 days Do you need a note to return to daycare/school/sports/work: Yes HPI AWV G0438 HPI Details Patient is 63-year-old female came in today for her regular follow-up appointment and Medicare wellness visit She is due for labs order placed Due for colonoscopy referral created She also need an eye exam, I have placed a referral for that as well History of fall twice last year without any significant injuries Blood pressure is 140/90, she is currently taking lisinopril 5 mg I am increasing the dose to 10 mg Patient will continue to monitor her blood pressure at home. She needs script for urinary pads, patient have chronic urinary incontinence she has been evaluated by urologist She need 99 count box of pads per month. She also need a letter of necessity which was printed and handed to patient Continue levothyroxine 50 mcg due for labs She also sees psychiatrist for her psychiatric medications [facility] Mammogram and Pap smear up-to-date Follow-up 3 months HPI Comments History of Present Illness Details AWV Medical/social history reviewed Past medical history reviewed [place] of care / care team list updated Surgical/ hospitalization history reviewed Current medications including OTC and supplements reviewed Family history reviewed Tobacco controlled form updated Alcohol use form updated Illicit drug use in social history reviewed Current diagnosis of depression ?screening updated Appropriate PHQ 2/PHQ-9 completed . Vital signs reviewed Alcohol tobacco drug use reviewed and discussed . MMSE completed . ? Fall risk: ?Assessed Fall history: ?yes Have you had any falls with injury in the past year?? yes Have you had 2 or more falls in the past year?? yes Fall risk assessment completed Home safety discussed with the patient Functional ability assessed and discussed and documented Activities of daily living reviewed and appropriate actions taken . HRA filled out by the patient and reviewed by provider and scanned . Appropriate written screening schedule established . Any health advise needed provided . Advance care planning discussed with the patient , necessary paperwork filled Examination IPPE/AWE: Balance intact Romberg intact Tandem walk intact walk-in turn intact rise from sit to stand intact . ?Hearing ?whisper test failed . Medication list reviewed, patient is stable on medications All other providers patient is seeing discussed and noted . COUNT INCLUDES THE [facility] Medical History Tremors of nervous system Other specified hypothyroidism Arthralgia Bipolar disorder 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 exogenous substances Depression, major, recurrent COPD (chronic obstructive pulmonary disease) Surgical History Hx of tubal ligation Hx of tonsillectomy H/O brain surgery Family History Maternal Grandmother Breast cancer Mother Breast cancer Sister Breast cancer Family/Other Breast cancer Father Bladder cancer Other Mental health disorder Substance use disorder Social History Household Members: Friend(s) Housing: House Alcohol intake: current Alcohol intake frequency: holidays/special occasions only Patient Tobacco Use Status: Current everyday Tobacco user Tobacco use type: Cigarette Cigarettes Per Day: 1 e-Cigarette/Vaping Use: Currently Using Second Hand Smoke Exposure: Yes Substance Use Type: Marijuana service: No Current occupational status: disabled Cognitive needs: No Hearing needs: No Vision needs: Yes Female Reproductive History Menstrual Age of Menarche: 8 Questionnaire Medicare Wellness Checkup What [age] What gender do you identify with?: female During the past 4 weeks, how much have you been bothered by emotional problems such as feeling anxious, depressed, irritable, sad or downhearted, and blue?: moderately During the past 4 weeks, has your physical & emotional health limited your social activities with family, friends, neighbors, or groups?: moderately During the past 4 weeks, how much bodily pain have you generally had?: mild pain During the past 4 weeks, was someone available to help you if you needed & wanted help?: yes, as much as I wanted During the past 4 weeks, what was the hardest physical activity you could do for at least 2 minutes?: moderate Can you get to places out of walking distance without help? (For eg., can you travel alone on buses, taxis or drive your car?): Yes Can you go shopping for groceries or clothes without someone's help?: Yes Can you prepare your own meals?: Yes Can you do your housework without help?: Yes Because of any health problems, do you need the help of another person with your personal care needs such as eating, bathing, dressing or getting around the house?: No Can you handle your own money without help?: Yes During the past 4 weeks, how would you rate your health in general?: good During the past 4 weeks how have things been going for you?: good & bad parts about equal Are you having difficulties driving your car?: sometimes Do you always fasten your seat belt when you are in a car?: yes, usually During past 4 weeks, have you been bothered by the following: never: Sexual problems?, Teeth or denture problems? and Problems using the telephone?, sometimes: Falling or dizzy when standing up and Trouble eating well? and always: Tiredness or fatigue? Have you fallen 2 or more times in the past year?: Yes Are you afraid of falling?: No Are you a smoker?: yes, and I might quit During the past 4 weeks, how many drinks of wine, beer, or other alcoholic beverages did you have?: 1 drink or less per week Do you exercise for about 20 minutes 3 or more times a week?: no, I usually do not exercise this much Have you been given information to help with the following?: no: Hazards in your house that might hurt you? and no: Keeping track of your medications? How often do you have trouble taking medicines the way you have been told to take them?: I always take medicine as prescribed How confident are you that you can control & manage most of your health problems?: somewhat confident What is your race?: White Mini Mental State Exam (MMSE) Orientation What is the (year) (season) (date) (day) (month)?: year, season, date, day and month Where are we (state) (county) (town or city) (hospital) (floor)?: state, county, town or city, hospital/clinic and floor Score Score: 10 PHQ-9 Over the last 2 weeks, how often have you been bothered by any of the following problems? 1. Little interest or pleasure in doing things: more than half the days 2. Feeling down, depressed, or hopeless: several days 3. Trouble falling or staying asleep, or sleeping too much: more than half the days 4. Feeling tired or having little energy: more than half the days 5. Poor appetite or overeating: not at all 6. Feeling bad about yourself - or that you are a failure or have let yourself or your family down: not at all 7. Trouble concentrating on things, such as reading the newspaper or watching television: not at all 8. Moving or speaking so slowly that other people could have noticed. Or the opposite - being so fidgety or restless that you have been moving around a lot more than usual: not at all 9. Thoughts that you would be better off or of hurting yourself in some way: not at all Total score: 7 Depression Screening Interpretation: Negative Depression Screening Done: Yes 45174 - PHQ-9 Billing: Yes Source: Developed by Drs. Osmel Valdes, Naa Smith, Ze Garner and colleagues, with an educational amanda from [employer]. GURWINDER-7 AMB Questionnaire GURWINDER-7 Date GURWINDER - 7 assessed: 09/30/23 Feeling nervous, anxious, or on edge: 1 = Several days Not being able to stop or control worryin = Not at all Worrying too much about different things: 0 = Not at all Trouble relaxin = Not at all Being so restless that it is hard to sit still: 0 = Not at all Becoming easily annoyed or irritable: 1 = Several days Feeling afraid as if something awful might happen: 0 = Not at all Total GURWINDER-7 score (0-4 normal; 5-9 mild; 10-14 moderate; 15-21 severe): 2 Source: Developed by Drs. Osmel Valdes, Naa Smith, Ze Garner and colleagues, with an educational amanda from [employer] GURWINDER-7 Assessment Billing GURWINDER-7 Assessment Tool: GURWINDER-7 Assessment 37489 Review of Systems Const Denies chills and Denies fever(s) ENT Denies epistaxis and Denies nasal discharge Card Denies chest pain Resp Denies chest congestion, Denies cough and Denies hemoptysis GI Denies diarrhea and Denies nausea Skin/Breast Denies rash Neuro Reports no additional complaints Psych Reports no additional complaints Endo Reports no additional complaints Physical Exam Vital Signs: Last Vital Signs Pulse 72 09/30/23 10:33 BP 140/90 H 09/30/23 10:33 Pulse Ox 97 09/30/23 10:33 BMI result Body Mass Index 32.2 Const General: cooperative, comfortable and no acute distress Orientation/consciousness: patient oriented x3 HEENT Head: Yes normocephalic Eyes General: appearance normal, both eyes and all related structures Neck Other: Supple Neck: Yes supple Resp Effort & Inspection: normal respiratory effort, no cough and no stridor Cardio Rhythm: regular rhythm Heart sounds: S1 normal heart sound present and S2 normal heart sound present Skin General skin exam: turgor normal Neuro Other: Motor sensory intact General: patient oriented x3, tone normal and moves all extremities Extrem Other: No lower extremity swelling. Right lower extremity: no edema Left lower extremity: no edema Psych Other: Normal effect, speech clear Assessment & Plan Assessment & Plan (1) Medicare annual wellness visit, initial: Code(s): Z00.00 - Encounter for general adult medical examination without abnormal findings (2) Other specified hypothyroidism: Code(s): E03.8 - Other specified hypothyroidism (3) Hypertension, essential: Code(s): I10 - Essential (primary) hypertension (4) Vertigo: Code(s): R42 - Dizziness and giddiness (5) Colon cancer screening: Code(s): Z12.11 - Encounter for screening for malignant neoplasm of colon (6) Blurring of vision: Code(s): H53.8 - Other visual disturbances Plan Patient is 63-year-old female came in today for her regular follow-up appointment and Medicare wellness visit She is due for labs order placed Due for colonoscopy referral created She also need an eye exam, I have placed a referral for that as well History of fall twice last year without any significant injuries Blood pressure is 140/90, she is currently taking lisinopril 5 mg I am increasing the dose to 10 mg Patient will continue to monitor her blood pressure at home. She needs script for urinary pads, patient have chronic urinary incontinence she has been evaluated by urologist She need 99 count box of pads per month. She also need a letter of necessity which was printed and handed to patient Continue levothyroxine 50 mcg due for labs She also sees psychiatrist for her psychiatric medications [facility] Mammogram and Pap smear up-to-date Follow-up 3 months Orders: Orders Complete Blood Count Auto Diff Today E03.8 - Other specified hypothyroidism, I10 - Essential (primary) hypertension, R42 - Dizziness and giddiness Comprehensive Met. Panel Today E03.8 - Other specified hypothyroidism, I10 - Essential (primary) hypertension, R42 - Dizziness and giddiness TSH reflex Free T4 Today E03.8 - Other specified hypothyroidism, I10 - Essential (primary) hypertension, R42 - Dizziness and giddiness Referrals Ophthalmology Referral H53.8 - Other visual disturbances Gastroenterology Referral Z12.11 - Encounter for screening for malignant neoplasm of colon Medications: Changed From lisinopril 5 mg PO DAILY 90 tabs 0RF To lisinopril 10 mg PO DAILY 90 tabs 0RF Quality Reporting (2019) Depression/Bipolar (159/160/161/177) PHQ-9: Total score: 7 Coding Level of Care Code Medicare First (G0438) Est Pt Level 4 (18255) Diagnoses Medicare annual wellness visit, initial Z00.00 Other specified hypothyroidism E03.8 Hypertension, essential I10 Vertigo R42 Colon cancer screening Z12.11 Blurring of vision H53.8 Additional Codes GURWINDER-7 Assessment Billing - GURWINDER-7 Assessment Tool: GURWINDER-7 Assessment 42098 ([id number])
== END 2023-09-30 11:11 | disposition home or self-care (01) ==
PROVIDERS: PCP Internal Medicine; Visit Provider Internal Medicine
DX: Z00.00 Encounter for general adult medical examination without abnormal findings (principal); E03.8 Other specified hypothyroidism; I10 Essential (primary) hypertension; R42 Dizziness and giddiness; Z12.11 Encounter for screening for malignant neoplasm of colon; H53.8 Other visual disturbances
CPT/HCPCS: 99214; G0438

== ENCOUNTER 2023-09-30 11:13 | Outpatient (REF) | payer MEDICARE, MEDICAID, SELFPAY ==
[2023-09-30 13:02] LABS: MANUAL DIFF FLAG NO
[2023-09-30 13:07] LABS: Basophils Percent Auto 0.7 % (0-2); Eosinophils Absolute Auto 0.1 X10*3/uL (0.0-0.4); Eosinophils Percent Auto 1.4 % (0-4); Hematocrit 43.9 % (37.0-47.0); Hemoglobin 14.3 g/dl (12.0-16.0); Imm Gran Abs Auto 0.03 X10*3/uL (0.00-0.03); Imm Gran Pct Auto 0.5 % (0.0-0.4); Lymphocytes Absolute Auto 2.1 X10*3/uL (1.2-4.9); Lymphocytes Percent Auto 38.1 % (20-40); Mean Corpuscular HGB Conc 32.6 g/dl (31.0-35.0); Mean Corpuscular Hemoglobin 29.1 pg (27.0-33.0); Mean Corpuscular Volume 89.4 fL (80.0-98.0); Mean Platelet Volume 9.9 fL (9.4-12.3); Monocytes Absolute Auto 0.5 X10*3/uL (0.1-1.2); Monocytes Percent Auto 8.2 % (2-11); Neutrophils Absolute Auto 2.9 x10*3/uL (2.0-8.3); Neutrophils Percent Auto 51.1 % (45-73); Platelet Count 305 X10*3/uL (160-400); Red Blood Count 4.91 X10*6/uL (4.20-5.50); Red Cell Distribution Width 13.5 % (11.0-16.0); White Blood Count 5.6 X10*3/uL (4.8-10.8)
[2023-09-30 13:40] LABS: Alanine Aminotransferase 31 U/L (0-31); Albumin Level 4.3 g/dL (3.5-5.0); Alkaline Phosphatase 58 U/L (39-117); Anion Gap 11 (12-20); Aspartate Amino Transferase 20 U/L (5-31); Bilirubin Total 0.6 mg/dL (0.0-1.0); Blood Urea Nitrogen 12 mg/dL (9-16); Calcium 10.5 mg/dL (8.4-10.2); Carbon Dioxide 31 mmol/L (22-29); Chloride 104 mmol/L (96-108); Estimated Glomerular Filt Rate > 60; Glucose Random 99 mg/dL (60-115); Potassium 4.4 mmol/L (3.3-5.1); Sodium 142 mmol/L (135-145); Total Protein 6.7 g/dL (6.5-8.0)
[2023-09-30 14:34] LABS: TSH reflex Free T4 0.87 uIU/mL (0.32-4.0)
== END 2023-09-30 11:14 | disposition home or self-care (01) ==
LOC: HO.HMGCLDS 11:13
PROVIDERS: PCP Internal Medicine; Visit Provider Internal Medicine
DX: E03.8 Other specified hypothyroidism (principal); I10 Essential (primary) hypertension; R42 Dizziness and giddiness
CPT/HCPCS: 36415; 80053; 84443; 85025

== ENCOUNTER 2023-10-01 13:29 | Outpatient (AMB) | payer MEDICARE, MEDICAID, SELFPAY ==
--- NOTE | 2023-10-01 13:31 | A.OFFVIS_ITS ---
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 She denies any postmenopausal bleeding or any pelvic pain. [facility] Medical History (Updated 10/01/23 @ 14:02 by Daisha Daniel CNM) CHEK2 gene mutation positive Tremors of nervous system Other specified hypothyroidism Arthralgia Bipolar disorder 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 exogenous substances Depression, major, recurrent COPD (chronic obstructive pulmonary disease) Surgical History Hx of tubal ligation Hx of tonsillectomy H/O brain surgery Family History Maternal Grandmother Breast cancer Mother Breast cancer Sister Breast cancer Family/Other Breast cancer Father Bladder cancer Other Mental health disorder Substance use disorder Social History Household Members: Friend(s) Housing: House Alcohol intake: current Alcohol intake frequency: holidays/special occasions only Patient Tobacco Use Status: Current everyday Tobacco user Tobacco use type: Cigarette Cigarettes Per Day: 1 e-Cigarette/Vaping Use: Currently Using Second Hand Smoke Exposure: Yes Substance Use Type: Marijuana service: No Current occupational status: disabled Cognitive needs: No Hearing needs: No Vision needs: Yes Female Reproductive History Menstrual Age of Menarche: 8 Review of Systems Const All systems reviewed & are unremarkable except as noted in HPI and below Endo Reports no additional complaints Physical Exam Vital Signs: Last Vital Signs BP 128/62 10/01/23 13:32 BMI result Body Mass Index 32.2 Const General: cooperative, healthy appearing and no acute distress Psych Appearance: well kempt Attitude: cooperative Thought process: Normal thought process present Results Reviewed Results Reviewed: [address] [address] Ultrasound Report Signed Patient: Lela Long MR#: [id number] : 1960 Acct:[id number] Age/Sex: 63 / F ADM Date: 08/25/23 Loc: HO.US Attending Dr: Daisha Daniel CNM Ordering Physician: Daisha Daniel CNM Date of Service: 08/25/23 Procedure(s): US pelvic and transvaginal Accession Number(s): [id number] cc: Brian Zamora MD; Daisha Daniel CNM~ EXAMINATION: US PELVIS CLINICAL INFORMATION: Intra-abdominal and pelvic swelling, mass, lump. Postmenopausal. COMPARISON: CT urogram of 03/13/2023. TECHNIQUE: Ultrasound of the pelvis is performed using both transabdominal and transvaginal transducers along with Doppler. Transvaginal imaging is performed due to inadequate visualization transabdominally. FINDINGS: The uterus is anteverted and measures 6.1 x 2.5 x 4.2 cm. Uterine volume is 33.5 mL. A small anechoic, cystic area measuring 0.6 x 0.3 x 0.7 cm is identified in the lower uterine segment. This is adjacent to a 0.5 x 0.4 x 0.5 cm hypoechoic lesion characteristic of a fibroid. Left fibroid measures 1.0 x 1.0 x 0.8 cm. Right echogenic lesion characteristic of a fibroid measures 1.2 x 1.0 x 0.9 cm. Trace amount of fluid within the endometrial cavity. Endometrial double wall thickness is approximately 2 mm exclusive of this fluid and 3 mm including fluid. Right ovary measures 1.9 x 1.0 x 1.1 cm, volume 1.1 mL. Left ovary measures 1.5 x 0.8 x 1.3 cm, volume 0.8 mL. Bilateral ovaries were seen only on transvaginal ultrasound images and are grossly unremarkable. Limited visualization due to bowel gas. No significant free fluid. US/US pelvic and transvaginal IMPRESSION: 1. Fibroid uterus. 0.7 cm anechoic, cystic collection in the lower uterine segment as detailed above. 2. Trace amount of fluid within the endometrial cavity. Endometrial double wall thickness is approximately 2 mm exclusive of this fluid and 3 mm including fluid. 3. Bilateral ovaries are grossly unremarkable, although visualization is limited. 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 Counseled re: Leiomyoma: common pelvic neoplasm. Differential diagnosis-may include leiomyosarcoma which is a rare uterine sarcoma 3-7/100,000, difficult to distinguish from fibroids on ultrasound from uterine sarcoma's. Unlikely any single test will have a highly positive predictive value. Hysterectomy is not recommended for sole purpose of excluding malignant neoplasm. Report any PMB. Pelvic pressure, bloating, or pain. Expectant management follow up in 6 months, then yearly for stability. Referral to MD if indicated for level of care. [facility] records for genetic screening arrived and was reviewed today with patient. Patient has not done a follow up at [facility] or elsewhere for the CHEK2 positive results. I recommend that she see a specialist who can monitor and counseled her regarding the care plan of breast surveillance with MRI and mammogram, risk reduction surgery to be considered, she has unsure of the step and looks forward to talking to a specialist regarding surgery. Advised to report any breast lump or concerns with the breast soon as possible. All of her questions and concerns were addressed to the best of my ability and shared decision making. She is agreeable to the plan of care. This note is constructed using voice recognition software. While every effort has been made to ensure accuracy, bee worker errors may have been included. Orders: Orders US pelvic and transvaginal 5 Months D21.9 - Benign neoplasm of connective and other soft tissue, unspecified Referrals Breast Surgery Referral Z15.89 - Genetic susceptibility to other disease Coding Level of Care Code Est Pt Level 3 (90208) Diagnoses Leiomyoma D21.9 CHEK2 gene mutation positive Z. Encounter to discuss test results Z71.2
[2023-10-01 13:32] VITALS: BP 128/62; BMI 32.2
== END 2023-10-01 14:39 | disposition home or self-care (01) ==
LOC: HO.HWS 13:29
PROVIDERS: PCP Internal Medicine; Visit Provider Advanced Practice Midwife
DX: D21.9 Benign neoplasm of connective and other soft tissue, unspecified (principal); Z15.89 Genetic susceptibility to other disease; Z71.2 Person consulting for explanation of examination or test findings
CPT/HCPCS: 99213

== ENCOUNTER → 2023-10-01 13:29 | Outpatient (BNVA) | payer MEDICARE, MEDICAID, SELFPAY | PROVIDERS: PCP Internal Medicine; Visit Provider Advanced Practice Midwife | DX: D21.9 Benign neoplasm of connective and other soft tissue, unspecified (principal); Z15.89 Genetic susceptibility to other disease; Z71.2 Person consulting for explanation of examination or test findings | CPT/HCPCS: 99212 ==

== ENCOUNTER 2023-10-20 15:28 | Outpatient (AMB) | payer MEDICARE, SELFPAY ==
--- NOTE | 2023-10-20 15:37 | MHC.OFFVIS ---
Vital Signs 10/20/23 15:54 Height 5 ft 2 in Weight 168 lb BMI 30.7 BP 135/64 Blood Pressure Location Lt brachial Position Sitting Pulse 94 Intake Visit Reasons: Genetic susceptibility to other disease Intake Note: Patient is seen in office for genetic susceptibility to other disease. 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 Accompanied by: Self / Same As Patient Allergies codeine [CODEINE] Allergy (Unknown, Verified 10/20/23 15:40) ITCH epinephrine [EPINEPHRINE] Allergy (Unknown, Verified 10/20/23 15:40) PALPATATIONS FROM DENTAL WORK Medication List - Last Reconciled 10/22/23 by Timothy Christianson MD albuterol sulfate 90 mcg/actuation 1 inh inhalation QID PRN 30 days aspirin (Adult Aspirin Regimen) 81 mg PO DAILY bupropion HCl XL 150 mg PO QAM citalopram 40 mg PO QAM clonazepam 0.5 mg PO DAILY divalproex ER 500 mg PO TID levothyroxine 50 mcg PO DAILY lisinopril 10 mg PO DAILY melatonin 10 mg PO BEDTIME PRN [Poise Pads # 3 Change pad 3 times a day or as needed for urinary incontinence.] vibegron (Gemtesa) 75 mg PO DAILY 30 days HPI Comments Details: 63-year-old female patient presenting for a high risk breast examination. She reports a strong family history of breast cancer including her mother, maternal grandmother, sister and maternal cousin all with breast cancer. 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 She was determined to have a breast cancer risk of 15-40% she denies a previous history of breast problems or breast surgery. She is . Her daughter from a drug overdose but son is still alive. He has never been tested for genetic mutations. Her most recent mammogram of 09/09/2023 revealed no mammographic evidence of malignancy (BI-RADS 1). She is not previously undergone breast MRI evaluation. She denies any current breast symptoms, palpable lumps or nipple discharge. [facility] Medical History CHEK2 gene mutation positive Tremors of nervous system Other specified hypothyroidism Arthralgia Bipolar disorder 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 exogenous substances Depression, major, recurrent COPD (chronic obstructive pulmonary disease) Surgical History Hx of tubal ligation Hx of tonsillectomy H/O brain surgery Family History Maternal Grandmother Breast cancer Mother Breast cancer Sister Breast cancer Family/Other Breast cancer Father Bladder cancer Paternal Uncle Prostate CA Family/Other Breast cancer Family/Other Bladder cancer Other Mental health disorder Substance use disorder Social History Household Members: Friend(s) Housing: House Alcohol intake: current Alcohol intake frequency: holidays/special occasions only Patient Tobacco Use Status: Current everyday Tobacco user Tobacco use type: Cigarette Cigarettes Per Day: 1 e-Cigarette/Vaping Use: Currently Using Second Hand Smoke Exposure: Yes Substance Use Type: Marijuana service: No Current occupational status: disabled Cognitive needs: No Hearing needs: No Vision needs: Yes Female Reproductive History Menstrual Age of Menarche: 8 Total pregnancies: 2 Review of Systems Const All systems reviewed & are unremarkable except as noted in HPI and below Denies chills, Denies fever(s), Denies headache(s), Denies poor appetite and Denies weakness ENT Denies headache(s) Card Denies chest pain, Denies irregular heart rhythm, Denies palpitations and Denies dyspnea Resp Denies cough, Denies excessive phlegm production and Denies dyspnea GI Denies abdominal pain, Denies bloating, Denies change in bowel habits, Denies constipation, Denies heartburn, Denies diarrhea, Denies nausea and Denies vomiting Denies urinary frequency and Denies nipple discharge Musc Denies back pain, Denies muscle weakness and Denies numbness Skin/Breast Denies breast skin changes, Denies breast pain, Denies breast mass, Denies changing lesions, Denies nipple discharge and Denies unusual bruising Neuro Denies headache(s), Denies numbness, Denies paresthesias and Denies weakness Psych Denies anxiety and Denies depression Endo Denies palpitations Valente/Lymph Denies lymphadenopathy Physical Exam Vital Signs: Last Vital Signs Pulse 94 10/20/23 15:54 BP 135/64 10/20/23 15:54 BMI result Body Mass Index 30.7 Const General: cooperative and no acute distress Nutritional Appearance: well nourished Orientation/consciousness: patient oriented x3 Limitations: no limitations HEENT Head: Yes normocephalic and Yes atraumatic Ears: hearing grossly normal bilaterally Chest Other: Left breast: No skin change, no nipple retraction, no nipple discharge, no palpable mass, no enlarged lymph nodes. Right breast: No skin change, no nipple retraction, no nipple discharge, no palpable mass, no enlarged lymph nodes Resp Effort & Inspection: normal respiratory effort, no audible wheezes, no cough and no respiratory distress Cardio Jugular venous distension: no JVD GI Inspection: Yes normal to inspection Skin Other: Warm, dry, no rash Neuro General: patient oriented x3 Extrem General: Yes no clubbing, cyanosis or edema Assessment & Plan Assessment & Plan (1) At high risk for breast cancer: Code(s): Z91.89 - Other specified personal risk factors, not elsewhere classified Category: Medical (2) CHEK2 gene mutation positive: Code(s): Z15.89 - Genetic susceptibility to other disease Category: Medical (3) Family history of breast cancer in first degree relative: Code(s): Z80.3 - Family history of malignant neoplasm of breast Category: Medical Plan 63-year-old female patient with a strong family history of breast cancer as well as a genetic mutation which places her at high risk for breast cancer in the range of 15-45%. We discussed the options including prophylactic mastectomy versus close clinical follow-up. Close observation would include monthly self breast examinations, twice yearly clinical breast examination is, yearly mammograms alternating every 6 months with yearly breast MRI. As she has never undergone MRI evaluation, I have taken the liberty of ordering a baseline MRI. She agrees to the high risk evaluation and will follow-up in 6 months for clinical breast examination. She is welcome to call sooner for any new concerns. We discussed genetic testing for her family members as well. She expressed understanding and agrees with the plan. Orders: Orders MR christianson BI wo/w con 10/20/23 Z15.89 - Genetic susceptibility to other disease, Z80.3 - Family history of malignant neoplasm of breast, Z84.81 - Family history of carrier of genetic disease, Z91.89 - Other specified personal risk factors, not elsewhere classified Coding Level of Care Code New Pt Level 4 (27325) Diagnoses At high risk for breast cancer Z91.89 CHEK2 gene mutation positive Z15.89 Family history of breast cancer in first degree relative Z80.3
[2023-10-20 15:54] VITALS: BP 135/64; PULSE 94; BMI 30.7
== END 2023-10-20 15:57 | disposition home or self-care (01) ==
PROVIDERS: PCP Internal Medicine; Visit Provider Surgery
DX: Z80.3 Family history of malignant neoplasm of breast (principal); Z15.89 Genetic susceptibility to other disease; Z91.89 Other specified personal risk factors, not elsewhere classified
CPT/HCPCS: 99203

== ENCOUNTER → 2023-10-20 15:28 | Outpatient (BNVA) | payer MEDICARE, SELFPAY | PROVIDERS: PCP Internal Medicine; Visit Provider Surgery | DX: Z15.89 Genetic susceptibility to other disease (principal); Z80.3 Family history of malignant neoplasm of breast; Z91.89 Other specified personal risk factors, not elsewhere classified; Z84.81 Family history of carrier of genetic disease | CPT/HCPCS: 99202 ==

== ENCOUNTER 2023-12-29 12:15 | Outpatient (AMB) | payer MEDICARE, SELFPAY ==
[2023-12-29 12:20] VITALS: BP 128/66; PULSE 94; O2SAT 94
--- NOTE | 2023-12-29 12:20 | A.OFFPC_ITS ---
Vital Signs 12/29/23 12:20 Height 5 ft 2 in Weight 164 lb BMI 30.0 BP 128/66 Blood Pressure Location Rt brachial Position Sitting Pulse 94 Pulse Source Pulse Oximeter Pulse Oximetry (%) 94 Oxygen Delivery Method Room Air Intake Visit Reasons: 3 Month follow up Allergies codeine [CODEINE] Allergy (Unknown, Verified 12/29/23 12:23) ITCH epinephrine [EPINEPHRINE] Allergy (Unknown, Verified 12/29/23 12:23) PALPATATIONS FROM DENTAL WORK Medication List - Last Reconciled 12/29/23 by Brian Zamora MD albuterol sulfate 90 mcg/actuation 1 inh inhalation QID PRN 30 days aspirin (Adult Aspirin Regimen) 81 mg PO DAILY bupropion HCl XL 150 mg PO QAM citalopram 40 mg PO QAM clonazepam 0.5 mg PO DAILY divalproex ER 500 mg PO TID levothyroxine 50 mcg PO DAILY lisinopril 10 mg PO DAILY melatonin 10 mg PO BEDTIME PRN [Poise Pads # 3 Change pad 3 times a day or as needed for urinary incontinence.] vibegron (Gemtesa) 75 mg PO DAILY 30 days Tobacco use date assessed: 12/29/23 Fall risk assessment: 2 + Falls in past year Last assessed Fall Risk: 12/29/23 Dental Screening Dental Screen Date: 12/29/23 Did you have a dental visit in the last 12 months?: Yes Did you have a dental problem in the last 6 months where you did not have access to dental care?: No Was dental information given to patient?: Patient has dentist HPI 3 Month follow up HPI Details Patient is 63-year-old female came for her regular follow-up appointment Continued to smoke, half a pack per day, she also has lost some weight I have placed a referral for her to see a specialist for lung cancer screening Blood pressure is stable patient is on lisinopril 10 mg, tolerating medication no side effect Hypothyroidism: Continue levothyroxine 50 mcg Patient has physical exam appointment coming up in February Labs are needed before visit fasting order placed Psychiatric medication through Psychiatry patient have history of bipolar disorder Overactive bladder with urinary incontinence, failed medications. Uses urinary pads, she has been evaluated by urologist 99 count box of pads per month. [facility] Medical History CHEK2 gene mutation positive Tremors of nervous system Other specified hypothyroidism Arthralgia Bipolar disorder 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 exogenous substances Depression, major, recurrent COPD (chronic obstructive pulmonary disease) Surgical History Hx of tubal ligation Hx of tonsillectomy H/O brain surgery Family History Maternal Grandmother Breast cancer Mother Breast cancer Sister Breast cancer Family/Other Breast cancer Father Bladder cancer Paternal Uncle Prostate CA Family/Other Breast cancer Family/Other Bladder cancer Other Mental health disorder Substance use disorder Social History Household Members: Friend(s) Housing: House Alcohol intake: current Alcohol intake frequency: holidays/special occasions only Patient Tobacco Use Status: Current everyday Tobacco user Tobacco use type: Cigarette Cigarettes Per Day: 1 e-Cigarette/Vaping Use: Currently Using Second Hand Smoke Exposure: Yes Substance Use Type: Marijuana service: No Current occupational status: disabled Cognitive needs: No Hearing needs: No Vision needs: Yes Female Reproductive History Menstrual Age of Menarche: 8 Questionnaire Thrive Questionnaire Date Thrive assessed: 12/29/23 I am a: Patient What is your living situation today?: I have a place to live, but I am worried about losing it in the future Within the past 12 months, did the food you bought not last and you didn't have the money to get more?: Never true Within the past 12 months, did you worry whether your food would run out before you got money to buy more?: Never true Do you have trouble paying for medicines?: No Do you have trouble getting transportation to medical appointments?: No Do you have trouble paying your heating and electricity bill?: No Do you have trouble taking care of your child, family member or friend?: No Do you have trouble with day-to-day activities such as bathing, preparing meals, shopping, managing finances, etc.?: Yes Are you currently unemployed and looking for a job?: No Are you interested in more education?: No Please select the resources that you would like help with: None Currently or been in a relationship where the following occur: No concerns reported THRIVE Score: 1 AUDIT C Alcohol Use Questionnaire (AUDIT-C) 1. How often do you have a drink containing alcohol?: 2-4 times a month 2. How many drinks containing alcohol do you have on a typical day when you are drinking?: 1 or 2 3. How often do you have six or more drinks on one occasion?: Never Total Score: 2 Score Reviewed/Action Taken: Yes GURWINDER-7 AMB Questionnaire GURWINDER-7 Date GURWINDER - 7 assessed: 09/30/23 Source: Developed by Drs. Osmel Valdes, Naa Smith, Ze Garner and colleagues, with an educational amanda from [employer]. Review of Systems Const Denies chills and Denies fever(s) ENT Denies epistaxis and Denies nasal discharge Card Denies chest pain Resp Denies chest congestion, Denies cough and Denies hemoptysis GI Denies diarrhea and Denies nausea Skin/Breast Denies rash Neuro Reports no additional complaints Psych Reports no additional complaints Endo Reports no additional complaints Physical exam (Primary Care) Vital Signs: Last Vital Signs Pulse 94 12/29/23 12:20 BP 128/66 12/29/23 12:20 Pulse Ox 94 12/29/23 12:20 Oxygen Delivery Method Room Air 12/29/23 12:20 BMI result Body Mass Index 30.0 Tobacco/Smoking Status: Tobacco use Status Tobacco use date assessed 12/29/23 12/29/23 12:24 Patient Tobacco Use Status Current everyday Tobacco 12/29/23 12:20 Tobacco use type Cigarette 12/29/23 12:20 e-Cigarette/Vaping Use Currently Using 12/29/23 12:20 Thrive Assessment: Date of Thrive Assessment Date Thrive assessed 12/29/23 12/29/23 12:24 Currently or been in a relationship where the following occur: No concerns reported Const General: cooperative, comfortable and no acute distress Orientation/consciousness: patient oriented x3 HENMT Head: Yes normocephalic Eyes General: appearance normal, both eyes and all related structures Neck Neck: Yes supple Resp Effort & Inspection: normal respiratory effort, no cough and no stridor Cardio Rhythm: regular rhythm Heart sounds: S1 normal heart sound present and S2 normal heart sound present Skin General skin exam: turgor normal Neuro General: patient oriented x3, tone normal and moves all extremities Extrem Right lower extremity: no edema Left lower extremity: no edema Coding Level of Care Code Est Pt Level 4 (29697) Complex EM visit Add On G2211 Diagnoses Hypertension, essential I10 OAB (overactive bladder) N32.81 Cigarette nicotine dependence without complication F17.210 Nicotine product type: cigarettes Substance use status: uncomplicated Mixed stress and urge urinary incontinence N39.46 Urinary Incontinence type: mixed stress and urge incontinence Other specified hypothyroidism E03.8 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 Emphysema type: other Bipolar disorder, in full remission, most recent episode mixed F31.78 Active/Remission status: in full remission Most recent bipolar episode type: mixed Assessment & Plan Assessment & Plan (1) Hypertension, essential: Code(s): I10 - Essential (primary) hypertension Category: Medical (2) OAB (overactive bladder): Code(s): N32.81 - Overactive bladder Category: Medical (3) Nicotine dependence: Code(s): F17.200 - Nicotine dependence, unspecified, uncomplicated Category: Medical Qualifiers: Nicotine product type: cigarettes Substance use status: uncomplicated Qualified Code(s): F17.210 - Nicotine dependence, cigarettes, uncomplicated (4) Urine incontinence: Code(s): R32 - Unspecified urinary incontinence Category: Medical Qualifiers: Urinary Incontinence type: mixed stress and urge incontinence Qualified Code(s): N39.46 - Mixed incontinence (5) Other specified hypothyroidism: Code(s): E03.8 - Other specified hypothyroidism Category: Medical (6) COPD (chronic obstructive pulmonary disease): Code(s): J44.9 - Chronic obstructive pulmonary disease, unspecified Category: Medical Qualifiers: COPD type: emphysema Emphysema type: other Qualified Code(s): J43.8 - Other emphysema (7) Bipolar disorder: Code(s): F31.9 - Bipolar disorder, unspecified Category: Medical Qualifiers: Active/Remission status: in full remission Most recent bipolar episode type: mixed Qualified Code(s): F31.78 - Bipolar disorder, in full remission, most recent episode mixed Plan Patient is 63-year-old female came for her regular follow-up appointment Continued to smoke, half a pack per day, she also has lost some weight I have placed a referral for her to see a specialist for lung cancer screening Blood pressure is stable patient is on lisinopril 10 mg, tolerating medication no side effect Hypothyroidism: Continue levothyroxine 50 mcg Patient has physical exam appointment coming up in February Labs are needed before visit fasting order placed Psychiatric medication through Psychiatry patient have history of bipolar disorder Overactive bladder with urinary incontinence, failed medications. Uses urinary pads, she has been evaluated by urologist 99 count box of pads per month. Orders: Orders Complete Blood Count Auto Diff 2 Months E03.8 - Other specified hypothyroidism, F17.200 - Nicotine dependence, unspecified, uncomplicated, F31.78 - Bipolar disorder, in full remission, most recent episode mixed, J43.8 - Other emphysema, N32.81 - Overactive bladder, R32 - Unspecified urinary incontinence, Z72.0 - Tobacco use Comprehensive [place]. Panel Fast 2 Months E03.8 - Other specified hypothyroidism, F17.200 - Nicotine dependence, unspecified, uncomplicated, F31.78 - Bipolar disorder, in full remission, most recent episode mixed, J43.8 - Other emphysema, N32.81 - Overactive bladder, R32 - Unspecified urinary incontinence, Z72.0 - Tobacco use Lipid Panel 2 Months E03.8 - Other specified hypothyroidism, F17.200 - Nicotine dependence, unspecified, uncomplicated, F31.78 - Bipolar disorder, in full remission, most recent episode mixed, J43.8 - Other emphysema, N32.81 - Overactive bladder, R32 - Unspecified urinary incontinence, Z72.0 - Tobacco use TSH reflex Free T4 2 Months E03.8 - Other specified hypothyroidism, F17.200 - Nicotine dependence, unspecified, uncomplicated, F31.78 - Bipolar disorder, in full remission, most recent episode mixed, J43.8 - Other emphysema, N32.81 - Overactive bladder, R32 - Unspecified urinary incontinence, Z72.0 - Tobacco use Referrals Lung Cancer Screening Referral Z72.0 - Tobacco use Medications: New albuterol sulfate 90 mcg/actuation (Ventolin HFA) 2 inhalations inhalation QID 90 days PRN 3 multiple units 0RF shortness of breath or wheezing
== END 2023-12-29 13:03 | disposition home or self-care (01) ==
PROVIDERS: PCP Internal Medicine; Visit Provider Internal Medicine
DX: I10 Essential (primary) hypertension (principal); J43.8 Other emphysema; F31.78 Bipolar disorder, in full remission, most recent episode mixed; N32.81 Overactive bladder; F17.210 Nicotine dependence, cigarettes, uncomplicated; N39.46 Mixed incontinence; E03.8 Other specified hypothyroidism

== ENCOUNTER → 2023-12-29 12:15 | Outpatient (BNVA) | payer MEDICARE, SELFPAY | PROVIDERS: PCP Internal Medicine; Visit Provider Internal Medicine | DX: I10 Essential (primary) hypertension (principal); N32.81 Overactive bladder; N39.46 Mixed incontinence; E03.8 Other specified hypothyroidism; J43.8 Other emphysema; F31.78 Bipolar disorder, in full remission, most recent episode mixed; F17.210 Nicotine dependence, cigarettes, uncomplicated; Z71.6 Tobacco abuse counseling | CPT/HCPCS: 99212 ==

== ENCOUNTER 2024-01-06 11:23 | Outpatient (REF) | payer MEDICARE, SELFPAY ==
[2024-01-06 13:23] LABS: MANUAL DIFF FLAG NO
[2024-01-06 13:33] LABS: Basophils Absolute Auto 0.1 X10*3/uL (0.0-0.2); Basophils Percent Auto 0.8 % (0-2); Eosinophils Absolute Auto 0.1 X10*3/uL (0.0-0.4); Eosinophils Percent Auto 1.6 % (0-4); Hemoglobin 14.3 g/dl (12.0-16.0); Imm Gran Abs Auto 0.03 X10*3/uL (0.00-0.03); Imm Gran Pct Auto 0.5 % (0.0-0.4); Lymphocytes Absolute Auto 1.9 X10*3/uL (1.2-4.9); Lymphocytes Percent Auto 31.2 % (20-40); Mean Corpuscular HGB Conc 33.3 g/dl (31.0-35.0); Mean Corpuscular Hemoglobin 28.9 pg (27.0-33.0); Mean Corpuscular Volume 86.9 fL (80.0-98.0); Monocytes Absolute Auto 0.5 X10*3/uL (0.1-1.2); Monocytes Percent Auto 7.4 % (2-11); Neutrophils Absolute Auto 3.6 x10*3/uL (2.0-8.3); Neutrophils Percent Auto 58.5 % (45-73); Platelet Count 303 X10*3/uL (160-400); Red Blood Count 4.95 X10*6/uL (4.20-5.50); Red Cell Distribution Width 13.3 % (11.0-16.0); White Blood Count 6.2 X10*3/uL (4.8-10.8)
[2024-01-06 13:45] LABS: Alanine Aminotransferase 20 U/L (0-31); Alkaline Phosphatase 59 U/L (39-117); Anion Gap 12 (12-20); Aspartate Amino Transferase 21 U/L (5-31); Bilirubin Total 0.4 mg/dL (0.0-1.0); Blood Urea Nitrogen 17 mg/dL (9-16); Calcium 9.7 mg/dL (8.4-10.2); Carbon Dioxide 31 mmol/L (22-29); Chloride 104 mmol/L (96-108); Estimated Glomerular Filt Rate > 60; Glucose Random 104 mg/dL (60-115); Potassium 4.5 mmol/L (3.3-5.1); Sodium 142 mmol/L (135-145); Total Protein 6.5 g/dL (6.5-8.0)
[2024-01-06 14:12] LABS: Valproate 43.6 mcg/mL (50.0-100.0)
== END 2024-01-06 11:24 | disposition home or self-care (01) ==
LOC: HO.HMGCLDS 11:23
PROVIDERS: PCP Internal Medicine; Referring Provider Internal Medicine; Visit Provider Psychiatry & Neurology Psychiatry
DX: F31.9 Bipolar disorder, unspecified (principal)
CPT/HCPCS: 36415; 80053; 80164; 85025

== ENCOUNTER → 2024-01-08 12:46 | Outpatient (BNV) | payer MEDICARE, SELFPAY | PROVIDERS: PCP Internal Medicine; Visit Provider Internal Medicine | DX: Z80.3 Family history of malignant neoplasm of breast (principal) | CPT/HCPCS: 77049 ==

== ENCOUNTER 2024-01-08 12:47 | Outpatient (REF) | payer MEDICARE, SELFPAY ==
--- NOTE | ~2024-01-08 | MR_ITS ---
EXAMINATION: MR BREAST WITHOUT AND WITH CONTRAST, BILATERAL CLINICAL INFORMATION: Strong family history and family history of carrier of genetic disease. Breast MRI screening surveillance. COMPARISON: Mammography August 2023. TECHNIQUE: MR imaging of the breasts was performed using T1, T2 and fat saturated techniques. Dynamic multiphase imaging was also performed after administration of intravenous gadolinium contrast agent. Computer generated 3-D reconstruction was generated. FINDINGS: Motion artifact slightly obscures visualization of soft tissues. There is scattered fibroglandular breast tissue with minimal background enhancement. LEFT BREAST: No suspicious enhancing mass or nonmass enhancement. No axillary or internal mammary adenopathy. RIGHT BREAST: No suspicious enhancing mass or nonmass enhancement. No axillary or internal mammary adenopathy. Limited views of the chest and abdomen are unremarkable. MR/MR breast BI wo/w con IMPRESSION: No MRI evidence of malignancy bilateral breasts. ASSESSMENT: LEFT BREAST: BI-RADS 1-Negative RIGHT BREAST: BI-RADS 1-Negative RECOMMENDATIONS: Yearly MRI screening surveillance. Electronically signed by: Oxana Murray DO 01/26/2024 12:12 PM [facility]
[2024-01-08] MEDS: gadobutroL 7.5 ML VIAL IVPUSH (13:40)
== END 2024-01-08 12:48 | disposition home or self-care (01) ==
LOC: HO.MRI 12:47
PROVIDERS: PCP Internal Medicine; Visit Provider Surgery
DX: Z15.89 Genetic susceptibility to other disease (principal); Z91.89 Other specified personal risk factors, not elsewhere classified; Z84.81 Family history of carrier of genetic disease; Z80.3 Family history of malignant neoplasm of breast
CPT/HCPCS: 77049; A9585

== ENCOUNTER 2024-01-27 14:04 | Outpatient (AMB) | payer OTHER, SELFPAY ==
--- NOTE | 2024-01-27 14:26 | A.OFFVIS_ITS ---
Intake Visit Reasons: 6m follow up/PVR Intake Note: Patient presents today for follow up on: urinary incontinence Urology Medications: vesicare Blood Thinner: aspirin PVR: 0ml's Beam Warper Required: No Accompanied by: Self / Same As Patient Allergies codeine [CODEINE] Allergy (Unknown, Verified 01/27/24 23:43) ITCH epinephrine [EPINEPHRINE] Allergy (Unknown, Verified 01/27/24 23:43) PALPATATIONS FROM DENTAL WORK Medication List - Last Reconciled 01/27/24 by KESHAWN Helm albuterol sulfate 90 mcg/actuation 1 inh inhalation QID PRN 30 days albuterol sulfate 90 mcg/actuation (Ventolin HFA) 2 inhalations inhalation QID PRN 90 days aspirin (Adult Aspirin Regimen) 81 mg PO DAILY bupropion HCl XL 150 mg PO QAM citalopram 40 mg PO QAM clonazepam 0.5 mg PO DAILY divalproex ER 500 mg PO TID levothyroxine 50 mcg PO DAILY lisinopril 10 mg PO DAILY melatonin 10 mg PO BEDTIME PRN [Poise Pads # 3 Change pad 3 times a day or as needed for urinary incontinence.] solifenacin 10 mg PO DAILY HPI Comments Details: Lela is a very pleasant 63-year-old female patient of . She has a past medical history of tremors, hypothyroidism, arthralgia, bipolar disorder, depression, and COPD. She presents to the office today for follow-up of her microscopic hematuria in the setting of nicotine dependence as well as lower urinary tract symptoms. In discussion with the patient today she reports to be doing and feeling well. She reports no bothersome urinary issues or concerns since her last office visit here approximately 6 months ago. She reports feeling VESIcare has been helpful in episodes of urinary urgency and frequency she had been experiencing. Of note, patient underwent an office cystoscopy 08/[address] West for history of microscopic hematuria in the setting of nicotine dependence that noted mild bladder wall thickening, no suspicious bladder lesions visualized. She currently denies any bothersome urinary issues or concerns. In office urinalysis results reviewed with the patient today trace microscopic hematuria. She does continue to smoke approximately 1 pack of cigarettes per day. PVR 0 mL. She denies nocturia, hematuria, dysuria, foul smelling urine, changes to urinary stream, flank pain, fever, and or chills. She reports a longstanding family history of prostate cancer, bladder cancer, and breast cancer. 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 Previous workup has included a CT urogram noting B/L non-enhancing renal cysts, irregular thickening in bladder which is not clearly evaluated. She otherwise offers no other issues or concerns at this time. [facility] Medical History Nicotine dependence, cigarettes, uncomplicated CHEK2 gene mutation positive Tremors of nervous system Other specified hypothyroidism Arthralgia Bipolar disorder 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 exogenous substances Depression, major, recurrent COPD (chronic obstructive pulmonary disease) Surgical History Hx of tubal ligation Hx of tonsillectomy H/O brain surgery Family History Maternal Grandmother Breast cancer Mother Breast cancer Sister Breast cancer Family/Other Breast cancer Father Bladder cancer Paternal Uncle Prostate CA Family/Other Breast cancer Family/Other Bladder cancer Other Mental health disorder Substance use disorder Social History Household Members: Friend(s) Housing: House Alcohol intake: current Alcohol intake frequency: holidays/special occasions only Patient Tobacco Use Status: Current everyday Tobacco user Tobacco use type: Cigarette Cigarettes Per Day: 1 e-Cigarette/Vaping Use: Currently Using Second Hand Smoke Exposure: Yes Substance Use Type: Marijuana service: No Current occupational status: disabled Cognitive needs: No Hearing needs: No Vision needs: Yes Female Reproductive History Menstrual Age of Menarche: 8 Review of Systems Const Reports as per HPI Eyes Reports no additional complaints ENT Reports no additional complaints Card Reports as per HPI Resp Reports as per HPI GI Reports no additional complaints Reports as per HPI Musc Reports as per HPI Neuro Reports as per HPI Psych Reports as per HPI Endo Reports as per HPI Valente/Lymph Reports no additional complaints Aller/Immun Reports no additional complaints Physical Exam Const General: cooperative, healthy appearing, comfortable, no acute distress, well developed, alert and awake Orientation/consciousness: patient oriented x3 Limitations: no limitations HEENT Head: Yes normal to inspection, Yes normocephalic and Yes atraumatic Ears: hearing grossly normal bilaterally Eyes General: appearance normal, both eyes and all related structures Neck Neck: Yes normal visual inspection and Yes trachea midline Chest Chest palpation & inspection: normal inspection of the chest Resp Effort & Inspection: normal respiratory effort and able to speak in complete sentences Cardio Rate: regular rate GI Inspection: Yes normal to inspection General: Yes no CVA tenderness Back/Spine/Pelvis Back: no CVA tenderness Skin General skin exam: no rashes or lesions noted Neuro Other: tremors to Bilateral upper extremities General: patient oriented x3 Extrem General: Yes normal to inspection Psych Appearance: grossly normal and well kempt Mental Status: mental status grossly normal Speech and movement: Normal speech and movement present and Clear speech present Affect: normal affect Attitude: cooperative Thought process: Normal thought process present Thought content: Normal thought content present Insight: Fair insight present (Psych) Judgement: Fair judgement present (Psych) Office Procedures Post Void Residual Post Residual Void Post Void Residual (PVR): 0 79643-Igao Void Residual by ultrasound Results AMB Urinalysis, Automated UA Leukoctes 0 Ruby/uL Last Edit by [employer] on 01/27/24 14:53 UA Nitrite Last Edit by [employer] Meg on 01/27/24 14:53 UA Urobilinogen 0.2 mg/dL Last Edit by [employer] Meg on 01/27/24 14:53 UA Protein 30 mg/dL Last Edit by [employer] on 01/27/24 14:53 UA pH 6.0 Last Edit by [employer]irt[employer] Meg on 01/27/24 14:53 UA Blood 10 Thierry/uL Last Edit by Business Insiderpineda Weaver on 01/27/24 14:53 UA Specific Coram 1.025 Last Edit by [employer] on 01/27/24 14:53 UA Ketone Positive Last Edit by [employer] Insider[employer]a Weaver on 01/27/24 14:53 UA Bilirubin 0 mg/dL Last Edit by Harjinder Weaver on 01/27/24 14:53 UA Glucose 0 mg/dL Last Edit by Harjinder Weaver on 01/27/24 14:53 Results Reviewed Results Reviewed: Laboratory Last Values Urine pH (Auto) 6.0 01/27/24 14:52 Specific Coram (Auto) 1.025 01/27/24 14:52 Urine Protein (Auto) 30 mg/dL 01/27/24 14:52 Glucose (UA)(Auto) 0 mg/dL 01/27/24 14:52 Urine Ketones (Auto) Positive 01/27/24 14:52 Urine Blood (Auto) 10 Thierry/uL 01/27/24 14:52 Urine Bilirubin (Auto) 0 mg/dL 01/27/24 14:52 Urine Urobilinogen (Auto) 0.2 mg/dL 01/27/24 14:52 Leukocyte Esterase (Auto) 0 Ruby/uL 01/27/24 14:52 Assessment & Plan Assessment & Plan (1) Nicotine dependence, cigarettes, uncomplicated: Code(s): F17.210 - Nicotine dependence, cigarettes, uncomplicated Category: Medical (2) Mixed stress and urge urinary incontinence: Code(s): N39.46 - Mixed incontinence Category: Medical (3) Microhematuria: Code(s): R31.29 - Other microscopic hematuria Category: Medical (4) Lower urinary tract symptoms: Code(s): R39.9 - Unspecified symptoms and signs involving the genitourinary system Category: Medical (5) Urine incontinence: Code(s): R32 - Unspecified urinary incontinence Category: Medical Qualifiers: Urinary Incontinence type: mixed stress and urge incontinence Qualified Code(s): N39.46 - Mixed incontinence (6) Nicotine dependence: Code(s): F17.200 - Nicotine dependence, unspecified, uncomplicated Category: Medical Qualifiers: Nicotine product type: cigarettes Substance use status: uncomplicated Qualified Code(s): F17.210 - Nicotine dependence, cigarettes, uncomplicated Plan In office urinalysis results reviewed with the patient today; as noted above; will send for urine cytology. PVR 0 mL. Continue VESIcare 10 mg daily as patient reports be happy with current voiding parameters. Patient currently denies any bothersome urinary issues or concerns. Discussed surveillance monitoring of microscopic hematuria in the setting of previous nicotine dependence. Discussed, educated, and stressed the importance of limiting/quitting nicotine dependence for overall health and well-being. Follow-up in 6 months with PVR; or sooner with any issues, concerns, and or questions. Orders: Orders AMB Post Void Residual by ultrasound Today N39.46 - Mixed incontinence Urine Cytology Today R31.29 - Other microscopic hematuria AMB Urinalysis Automated Today Z13.9 - Encounter for screening, unspecified Patient Instructions: The patient had an opportunity to ask questions regarding the treatment plan. All questions were answered. Physical exam, labs, and imaging were discussed and reviewed in detail. As well as risks, benefits, and discussion of treatment choices. No major barriers to understanding were identified. The patient expressed understanding and agreement with the above treatment plan. The patient was made aware they should contact our office by phone for worsening of their current condition, the appearance of new symptoms, or with any questions or concerns. Compliance is encouraged with any medications and follow up testing that is ordered. It is a privilege to be allowed the opportunity to participate in? your urological care.? Again, if you have any questions or concerns If you have any questions or concerns please do not hesitate to contact me. The office is [phone]. This note is constructed using voice recognition software. While every effort has been made to ensure accuracy maintenance technician 3rd shift errors may have been included. Yours sincerely, KESHAWN Helm Coding Level of Care Code Est Pt Level 3 (55822) Complex EM visit Add On G2211 Diagnoses Nicotine dependence, cigarettes, uncomplicated F17.210 Mixed stress and urge urinary incontinence N39.46 Microhematuria R31.29 Lower urinary tract symptoms R39.9 Mixed stress and urge urinary incontinence N39.46 Urinary Incontinence type: mixed stress and urge incontinence Cigarette nicotine dependence without complication F17.210 Nicotine product type: cigarettes Substance use status: uncomplicated CPT Codes Post Residual Void - PVR CPT Code: 77268-Znps Void Residual by ultrasound ([id number])
== END 2024-01-27 14:59 | disposition home or self-care (01) ==
PROVIDERS: PCP Internal Medicine; Visit Provider Nurse Practitioner Family
DX: F17.210 Nicotine dependence, cigarettes, uncomplicated (principal); N39.46 Mixed incontinence; R31.29 Other microscopic hematuria; R39.9 Unspecified symptoms and signs involving the genitourinary system
CPT/HCPCS: 99213; G2211

== ENCOUNTER 2024-01-27 14:04 | Outpatient (REF) | payer MEDICARE, MEDICAID, SELFPAY ==
[2024-01-27 16:37] LABS: Urine Cytology See Pathology rpt
== END 2024-01-27 14:05 | disposition home or self-care (01) ==
LOC: HO.LNP 14:04
PROVIDERS: PCP Internal Medicine; Visit Provider Nurse Practitioner Family
DX: N39.46 Mixed incontinence (principal); R31.29 Other microscopic hematuria; F17.210 Nicotine dependence, cigarettes, uncomplicated; R39.9 Unspecified symptoms and signs involving the genitourinary system
CPT/HCPCS: 51798; 81003; 88112; 99212

== ENCOUNTER 2024-02-25 12:26 | Outpatient (AMB) | payer MEDICARE, SELFPAY ==
--- OUTSIDE RECORDS SUMMARY | 2024-02-25 12:28 | XMS_ITS | Data Portability ---
Author Organization [facility] Address [address] [place] [address] Assessment No assessment recorded. Plan of Treatment Reminders Order Date Submit Date Provider Last Modified By Organization Details Last Modified Time Details Appointments None recorded. Lab TSH + free T4, serum 2018 019 STEFAN Not available 9 08:10:37 CMP, serum or plasma 2018 STEFAN Not available 9 08:10:36 CBC 2018 019 STEFAN Not available 9 08:10:37 vitamin D, 25-hydroxy , total, serum 2018 019 STEFAN Not available 9 08:10:37 lipid panel, blood 2018 019 STEFAN Not available 9 08:10:36 hepatitis C panel, serum 2018 019 jvanasse Not available 9 11:17:45 Referral None recorded. Procedures None recorded. Surgeries None recorded. Imaging None recorded. Medication Orders oxybutynin chloride ER 10 mg tablet,ext ended release 24 hr 2018 019 INTERFACE [id number], [address] [facility], [place], [address], 9 11:33:37 Patient TargetsNo targets recorded. Patient Instructions Encounter Date Encounter Id Patient Instructions Last Modified By Organization Details Last Modified Time 06/08/2018 [id number] smoking cessatio n counseling, greater than 3 minutes up to 10 minutes* [email or web address] Not available 06/15/2018 08:20:51 Reason for Referral None Reported. Results Created Date Observation Date Name Description Value Unit Range Abnormal Flag Note LastModifiedBy Organization Detail LastModifiedTime 05/27/19 19 05/25/2018 MAMMO , nike yelena, bilat eral No observ ation record ed. [facility] (Medical Records) [address] [place], [address], 06/08/2018 11:03:24 Result Notes None recorded. Problems Name Problem SNOMED Code Status Onset Date Resolution Date Notes Provider Name and Address Organization Details Recorded Time Depressive disorder 24588392 Active 2018 Felicitas carbajal [facility] 9 16:08:22 Anxiety 33955042 Active 2018 Felicitas carbajal [facility] 9 16:08:29 Bladder muscle dysfunction - overactive Active 2018 Felicitas carbajal [facility] 9 16:08:40 [facility] 31221201 [facility] Chronic obstructive pulmonary disease 15403825 Active 2018 Felicitasmargo Ramachandran [facility] 9 16:11:28 Problem Notes None recorded. Procedures Surgical History None recorded. Imaging Results Imaging Date Name Status LastModified by Organiz ation Details LastModified Time 05/25/2018 MAMMO, screening, bilateral completed [facility] (Medical Records) [address] [place], [address], 06/08/2018 11:03:24 Procedure Notes None recorded. Medical Equipment None Reported. Allergies Allergen ID Allergen Name Allergen Category Reaction Reaction Severity Criticality Documentation Date Start Date Code Code System Note Provider Name and Address Organization Details Recorded Time 9392 codeine medicatio n Not available Not available Not available 05/18/2018 2670 RxNorm Felicitas carbajal [facility] 9 16:08:14 Medications Name Sig Start Date Stop Date Status Note LastModified by Organization Details LastModified Time prednisone 10 mg tablet active Not Available Not Available Not Available citalopram 40 mg tablet active Not Available Not Available Not Available oxybutynin chloride ER 10 mg tablet,exten ded release 24 hr Take 1 tablet every day by oral route. active Not Available Not Available No t Available azithromycin 250 mg tablet active Not Available Not Available Not Available tolterodine ER 4 mg capsule,exte nded release 24 hr 1 capsule daily 06/08 completed Not Available Not Available Not Available ondansetron HCl 4 mg tablet 06/08 completed Not Available Not Available Not Available clonazepam 0.5 mg tablet active Not Available Not Available Not Available methylpredni solone 4 mg tablet active Not Available Not Available Not Available triamcinolon e acetonide 0.1 % topical cream active Not Available Not Available Not Available meclizine 25 mg tablet active Not Available Not Available No t Available levothyroxin e 50 mcg tablet TAKE 1 TABLET BY MOUTH EVERY DAY- NEEDS OFFICE VISIT FOR FURTHER REFILLS active Not Available Not Available No t Available prednisone 50 mg tablet active Not Available Not Available Not Available divalproex ER 500 mg tablet,exten ded release 24 hr active Not Available Not Available Not Available levofloxacin 500 mg tablet active Not Available Not Available Not Available Ventolin HFA 90 mcg/actuatio n aerosol inhaler 2 puffs TID prn active Not Available Not Available No t Available bupropion HCl XL 300 mg 24 hr tablet, extended release active Not Available Not Available Not Available bupropion HCl XL 150 mg 24 hr tablet, extended release active Not Available Not Available Not Available Spiriva with HandiHaler 18 mcg and inhalation capsules active Not Available Not Available Not Available Narcan 4 mg/actuation nasal spray active Not Available Not Available Not Available Shingrix (PF) 50 mcg/0.5 mL intramuscula r suspension, kit active Not Available Not Available Not Available Vitals Date Recorded Body weight Heart rate Oxygen saturation Oxygen saturation in Arterial blood by Pulse oximetry Systolic blood pressure Diastolic blood pressure Provider Name and Address Organization Details Last Updated DateTime 9 94550.8 3 g 84 /min 94 % 94 % 120 mm[Hg] 78 mm[Hg] [facility] 9 11:00:12 Social History Question Answer Notes LastModified by Organizat ion Details LastModified Time Tobacco Smoking Status Current Every Day Smoker 1 ppd Not Available [facility] 01/17/2020 03:36:24 What Was The Date Of Your Most Recent Tobacco Screening? 06/08/2018 [id number] Information not available 01/17/2020 Sex: Unknown Functional Status None recorded. Mental Status None recorded. Family History Nothing Reported. Medical History No medical history recorded. Gynecological HistoryNo gynecological history recorded. Obstetrics History GPAL:G 0 P 0 0 0 0 Immunizations Vaccine Type Date Status Note Provider Nam e and Address Organization Details Recorded Time Influenza, split virus, quadrivalent, preservative 8 completed [facility] 06/08/2018 10:59:24 Past Encounters Encounter ID Performer Location Encounter Start Date Encounter Closed Date Diagnosis/Indication Diagnosis SNOMED-CT Code Diagnosis ICD10 Code [id number] Shilpa De Los Santos NP, [address] [facility] [address] [place] [address] 06/08/2018 10:47:08 06/08/2018 11:19:56 Chronic obstructive pulmonary disease 21526015 J44.9 Bladder mu scle dysfunction - overactive 654462641 N32.81 Depressive disorder 3548 9007 F33.8 Hypothyroidism 96006122 E03.9 Anxiety 20734137 F41.9 Screening procedure 2012 5006 Z13.9 Tobacco de pendence syndrome 63107282 F17.200 Health Concerns Section Related Observation LastModified by Organization Detai ls LastModified Time None Recorded Concern Status LastModified by Organization Details LastModified Time None Recorded Advance Directives Directive None Recorded Payers Encounter Date Sequence Insurance Name Policy Number Policy Bone Covered Member ID Bone Member ID Guarantor Name 06/08/2018 1 [place] [employer] Lela Long [id number] Lela Long 06/08/2018 2 [place] [facility] L[facility] Long [id number] Lela Long Notes Date Note Type Note Provider Name and Address Organization Details Recorded Time 06/08/2018 text/html Here per our request, recent med refill Overall feeling much better, life seems to be going well 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 had cortizone inj. right shoulder 1 week ago, much improved ROM, no further pain had MRI-f/u with [facility] next week Had quit smoking, reduced w/vape-then lots life stressors-restar pro-want to quit again Shilpa De Los Santos, KASSANDRA, [address] [facility] [place], [address], [facility] 06/08/2018 11:34:42 OBGyn Episode No OBEpisode recorded.
--- NOTE | 2024-02-25 12:29 | A.OFFVIS_ITS ---
Vital Signs 02/25/24 12:34 Height 5 ft 2 in Weight 167 lb 8.821 oz BMI 30.6 BP 118/56 L Blood Pressure Location Lt brachial Position Sitting Pulse 80 Pulse Source Pulse Oximeter Pulse Oximetry (%) 96 Oxygen Delivery Method Room Air Intake Visit Reasons: pre colonoscopy Intake Note: NEW PATIENT Lela presents in office today for a scheduled colo scrn Prior hx of colo/egd? 2012 w/ Dr. Noel Meds and Allergies reviewed? Y Any significant concerns or questions? No significant concerns or questions at this time. Pharmacy verified? [facility] [address] [facility] Required: No Allergies codeine [CODEINE] Allergy (Unknown, Verified 02/25/24 12:33) ITCH epinephrine [EPINEPHRINE] Allergy (Unknown, Verified 02/25/24 12:33) PALPATATIONS FROM DENTAL WORK HPI HPI pre colonoscopy: Details: 63-year-old female here for preprocedural meeting to discuss a screening colonoscopy. She is referred by Brian Zamora. PMX EMELIA COPD Smoker Hypertension Hypothyroid Overactive bladder Vertigo Depression/bipolar disorder Tremors * SURGICAL HISTORY TUBAL LIGATION TONSILLECTOMY BRAIN SURGERY * ALLERGIES Codeine Epinephrine * [employer] LABS: Laboratory Tests 01/06/24 11:30 WBC 6.2 Hgb 14.3 Hct 43.0 Plt Count 303 Estimated GFR > 60 Total Bilirubin 0.4 AST 21 ALT 20 Alkaline Phosphatase 59 2012 COLONOSCOPY DESCRIPTION OF PROCEDURE: The digital rectal exam revealed no specific lesion. The video colonoscope was introduced without difficulty. It was navigated into the rectosigmoid/sigmoid area, on up through descending, transverse, and ascending colon. In the region of the ascending colon, there was loop reduction. With extrinsic abdominal pressure, we were able to navigate down into the cecal cap. Appendiceal orifice was seen. Ileocecal valve was seen. Good mucosal detail was had throughout. The prep was excellent. The scope was withdrawn with good rotational views. No abnormalities were appreciated. Anorectal verge was clear. The patient tolerated the procedure well. ? GENERAL IMPRESSION: Normal colonoscopy. ? CURRENT RECOMMENDATIONS: Repeat asymptomatic colonoscopy in 7 to 10 years. ? Cammie Noel M.D. ? cc: Cory Syed M.D. ? Report #: [id number] Status: Signed Electronically Signed Dict: 06/15/12/ Trans: 06/16/12 /NTS TODAY'S VISIT She denies any bowel problems. She denies any cardiac or respiratory problems except for her COPD which she feels is well controlled. There are no infectious disease problems. She denies any trouble with anesthesia or sedation. She has never had colon polyps and she denies any knowledge of any family history of colon cancer or polyps. [facility] Medical History (Updated 02/25/24 @ 12:40 by CARLA Smith) Homelessness Bladder disorder Rash of foot Tinea pedis COVID-19 Trochanteric bursitis, left hip Snoring Pain of left sacroiliac joint Tendinopathy of left rotator cuff Fatigue Family history of breast cancer in first degree relative Excessive sleep Lumbar pain Chest pain Other specified hypothyroidism Arthralgia Frequency of urination Wheezing Urine incontinence Lower urinary tract symptoms Colon cancer screening At high risk for breast cancer Nicotine dependence, cigarettes, uncomplicated CHEK2 gene mutation positive Tremors of nervous system Bipolar disorder 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 exogenous substances Depression, major, recurrent COPD (chronic obstructive pulmonary disease) Surgical History Hx of tubal ligation Hx of tonsillectomy H/O brain surgery Family History Maternal Grandmother Breast cancer Mother Breast cancer Sister Breast cancer Family/Other Breast cancer Father Bladder cancer Paternal Uncle Prostate CA Family/Other Breast cancer Family/Other Bladder cancer Other Mental health disorder Substance use disorder Social History Household Members: Friend(s) Housing: House Alcohol intake: current Alcohol intake frequency: holidays/special occasions only Patient Tobacco Use Status: Current everyday Tobacco user Tobacco use type: Cigarette Cigarettes Per Day: 1 e-Cigarette/Vaping Use: Currently Using Second Hand Smoke Exposure: Yes Substance Use Type: Marijuana service: No Current occupational status: disabled Cognitive needs: No Hearing needs: No Vision needs: Yes Female Reproductive History Menstrual Age of Menarche: 8 Review of Systems Const Denies fatigue, Denies fever(s), Denies night sweats, Denies poor appetite and Denies weight loss ENT Reports Normal hearing present, Denies dental pain, Denies dysphagia, Denies hearing loss, Denies mouth pain, Denies odynophagia, Denies throat swelling, Denies tongue swelling and Reports other (Dentition adequate) Card Reports no additional complaints Resp Reports no additional complaints GI Details: Denies abdominal pain, Denies melena, Denies bloating, Denies hematochezia, Denies constipation, Denies GI cramping, Denies dysphagia, Denies excessive flatus, Denies early satiety, Denies heartburn, Denies diarrhea, Denies nausea, Denies odynophagia, Denies vomiting and Denies hematemesis Skin/Breast Denies pruritus, Denies lesions, Denies rash and Denies jaundice Neuro Reports Normal hearing present and Denies Abnormal speech present Endo Denies fatigue Aller/Immun Denies throat swelling and Denies tongue swelling Physical Exam Vital Signs: Last Vital Signs Pulse 80 02/25/24 12:34 BP 118/56 L 02/25/24 12:34 Pulse Ox 96 02/25/24 12:34 Oxygen Delivery Method Room Air 02/25/24 12:34 BMI result Body Mass Index 30.6 Const General: cooperative, no acute distress, well developed and well groomed Nutritional Appearance: well nourished and obese Orientation/consciousness: oriented to person, oriented to place and oriented to time Limitations: No language barrier HEENT Head: Yes normocephalic and Yes atraumatic Eyes General: appearance normal, both eyes and all related structures Pupils: Equal, round and reactive pupils present Neck Neck: Yes normal visual inspection and Yes no lymphadenopathy Thyroid: Thyroid normal Resp Effort & Inspection: normal respiratory effort and able to speak in complete sentences Auscultation: wheezes inspiratory wheezes and right lower Cardio Rate: regular rate Rhythm: regular rhythm Heart sounds: Normal, physiologic split S2 sound present Peripheral pulses: radial pulses present and posterior tibial pulses present GI Inspection: No distended, No Abdominal panniculus present and Yes obesity Palpation (GI): Soft to palpation, nontender, no guarding, not rigid and No hep atosplenomegaly present Percussion: Yes normal to percussion Auscultation: normal bowel sounds Rectal Exam - Female: deferred Skin General skin exam: no rashes or lesions noted, turgor normal, skin not dry, no jaundice, No spider nevi and no striae Rashes: no rashes Nails: normal Neuro General: oriented to person, oriented to place and oriented to time Cranial nerves: Yes Equal, round and reactive pupils present and Yes Normal hearing present Speech: No Abnormal speech present Extrem General: Yes normal to inspection, No clubbing, No cyanosis and No edema Psych Appearance: grossly normal and well kempt Mental Status: mental status grossly normal Speech and movement: Normal speech and movement present Affect: normal affect Attitude: cooperative Thought process: Normal thought process present and not confabulating Thought content: Normal thought content present Insight: Fair insight present (Psych) Judgement: Fair judgement present (Psych) Assessment & Plan Assessment & Plan (1) Pre-op examination: Code(s): Z01.818 - Encounter for other preprocedural examination Category: Medical (2) COPD (chronic obstructive pulmonary disease): Code(s): J44.9 - Chronic obstructive pulmonary disease, unspecified Category: Medical Qualifiers: COPD type: emphysema Emphysema type: other Qualified Code(s): J43.8 - Other emphysema (3) EMELIA (obstructive sleep apnea): Comment: Mild degree of sleep apnea. The AHI was 8/hr and oxygen abdon was 72%. Code(s): G47.33 - Obstructive sleep apnea (adult) (pediatric) Category: Medical (4) Nicotine dependence, cigarettes, uncomplicated: Code(s): F17.210 - Nicotine dependence, cigarettes, uncomplicated Category: Medical Plan She denies any bowel problems. She denies any cardiac or respiratory problems except for her COPD which she feels is well controlled. There are no infectious disease problems. She denies any trouble with anesthesia or sedation. She has never had colon polyps and she denies any knowledge of any family history of colon cancer or polyps. Orders: Orders Colonoscopy - GI Use Only Today F17.210 - Nicotine dependence, cigarettes, uncomplicated, G47.33 - Obstructive sleep apnea (adult) (pediatric), J43.8 - Other emphysema, Z01.818 - Encounter for other preprocedural examination Medications: New bisacodyl (Dulcolax (bisacodyl)) 10 mg (2 x 5 mg) PO BEDTIME 4 tabs 0RF 2 days peg 3350-electrolytes 236-22.74-6.74 -5.86 gram (Golytely) until fecal effluent is clear; do not exceed a total volume of 2,000 mL 240 mL PO Q10M 4,000 mL 0RF 1 day Z12.11 - Encounter for screening for malignant neoplasm of colon Coding Level of Care Code New Pt Level 3 (71015) Diagnoses Pre-op examination Z01.818 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 Emphysema type: other EMELIA (obstructive sleep apnea) G47.33 Nicotine dependence, cigarettes, uncomplicated F17.210
[2024-02-25 12:34] VITALS: BP 118/56; PULSE 80; O2SAT 96; BMI 30.6
== END 2024-02-25 13:09 | disposition home or self-care (01) ==
PROVIDERS: PCP Internal Medicine; Visit Provider Nurse Practitioner
DX: Z01.818 Encounter for other preprocedural examination (principal); Z12.11 Encounter for screening for malignant neoplasm of colon; J43.8 Other emphysema; G47.33 Obstructive sleep apnea (adult) (pediatric); F17.210 Nicotine dependence, cigarettes, uncomplicated
CPT/HCPCS: 99024

== ENCOUNTER → 2024-02-25 12:26 | Outpatient (BNVA) | payer MEDICARE, SELFPAY | PROVIDERS: PCP Internal Medicine; Visit Provider Nurse Practitioner | DX: Z01.818 Encounter for other preprocedural examination (principal); J43.8 Other emphysema; G47.33 Obstructive sleep apnea (adult) (pediatric); F17.210 Nicotine dependence, cigarettes, uncomplicated | CPT/HCPCS: 99212 ==

== ENCOUNTER 2024-02-26 11:00 | Outpatient (AMB) | payer MEDICARE, SELFPAY ==
--- NOTE | 2024-02-26 07:50 | MHC.OFFVIS ---
Intake Visit Reasons: Current Smoker Allergies codeine [CODEINE] Allergy (Unknown, Verified 02/25/24 12:33) ITCH epinephrine [EPINEPHRINE] Allergy (Unknown, Verified 02/25/24 12:33) PALPATATIONS FROM DENTAL WORK HPI HPI Current Smoker: Details: Initial visit for this 63yo smoker with a 50PYH. Patient started smoking at age 11 for 52 years at 1ppd. . Denies marijuana use. Denies second hand smoke exposure. Denies exposure to chemicals or substances like asbestos. . Denies known family history of lung cancer. Denies personal history of cancers. Denies chest CT in last year. . Denies recent travel outside the [place]. Denies recent respiratory illness or recent hospitalization for respiratory issues. Reports testing positive for COVID. Admits receiving COVID Vaccine. . Denies fever, chills, new/worsening cough, hemoptysis, hoarseness or dysphagia. Denies significant chest pain, significant dyspnea or unintentional weight loss. Patient Lung Cancer Screening Questionnaire reviewed with patient by provider. . Shared Decision Making Completed. Patient meets criteria. Discussed in detail with patient, the risk vs benefit of LDCT screening. Patient consents to proceed with scan. Discussed smoking cessation. [facility] Medical History (Updated 02/26/24 @ 11:15 by Valentina Carvajal PA-C) Homelessness Bladder disorder Rash of foot Tinea pedis COVID-19 Trochanteric bursitis, left hip Snoring Pain of left sacroiliac joint Tendinopathy of left rotator cuff Fatigue Family history of breast cancer in first degree relative Excessive sleep Lumbar pain Chest pain Other specified hypothyroidism Arthralgia Frequency of urination Wheezing Urine incontinence Lower urinary tract symptoms Colon cancer screening At high risk for breast cancer Nicotine dependence, cigarettes, uncomplicated CHEK2 gene mutation positive Tremors of nervous system Bipolar disorder 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 exogenous substances Depression, major, recurrent COPD (chronic obstructive pulmonary disease) Surgical History (Updated 02/26/24 @ 11:21 by Valentina Carvajal PA-C) Hx of tubal ligation Hx of tonsillectomy H/O brain surgery Family History Maternal Grandmother Breast cancer Mother Breast cancer Sister Breast cancer Family/Other Breast cancer Father Bladder cancer Paternal Uncle Prostate CA Family/Other Breast cancer Family/Other Bladder cancer Other Mental health disorder Substance use disorder Social History (Updated 02/26/24 @ 11:15 by Valentina Carvajal PA-C) Household Members: Friend(s) Housing: House Alcohol intake: current Alcohol intake frequency: holidays/special occasions only Patient Tobacco Use Status: Current everyday Tobacco user Tobacco use type: Cigarette Years Smoked: (onset 11yo, 1ppd x 52yrs, 50pyh) e-Cigarette/Vaping Use: Currently Using Second Hand Smoke Exposure: Yes Substance Use Type: Marijuana service: No Current occupational status: disabled Cognitive needs: No Hearing needs: No Vision needs: Yes Female Reproductive History Menstrual Age of Menarche: 8 Assessment & Plan Assessment & Plan (1) Nicotine dependence, cigarettes, uncomplicated: Comment: (onset 11yo, 1ppd x 52yrs, 50pyh) Code(s): F17.210 - Nicotine dependence, cigarettes, uncomplicated Category: Medical Plan: - SDM visit completed today in office. - Patient meets criteria for LDCT for lung cancer screening purposes and is asymptomatic. - Smoking cessation counseling offered. Patients can always call [phone]. - Will arrange for a LDCT scan of the chest for screening purposes at [facility]. - Risks, benefits, and alternatives were discussed in detail and the patient agrees to proceed. - Risks discussed include but are not limited to: radiation exposure, anxiety during testing and while awaiting results, false negatives, false positives and possibility of additional intervention such as further imaging or surgical procedures for benign disease. - Benefits are obviously detection of lung cancer at an early stage which can lead to improved outcomes. - Discussed the importance of screening program compliance with adherence to yearly LDCT scan as scheduled - or sooner interval scans for personalized screening regimen. - Discussed follow up plan. Our office will send a letter discussing results and if needed set up phone call and office visit based on CT findings. - Patient educated on results categorization and the management decisions for suspicious findings potentially found on the screening LDCT scan. Any patient with a Lung RADS score of 3 or 4 will be reviewed by a multidisciplinary team at [facility] to form a plan of action in regards to scan findings. - If further work up is warranted for a suspicious lung finding this will be followed by the Lung Cancer Screening program in conjunction with the Thoracic Surgery Department at [facility]. - A copy of the office note and LDCT will be sent to the patient's PCP - as well as documentation on any associated further plans of care. - Incidental findings on LDCT are the PCP's responsibility. These findings are indicated with an S finding on the LDCT Assessment. A note discussing the findings will be sent to the PCP who is then responsible for further management. - All questions answered.? Coding Level of Care Code Lung Cancer Screening G0296 Diagnoses Nicotine dependence, cigarettes, uncomplicated F17.210
== END 2024-02-26 12:55 | disposition home or self-care (01) ==
PROVIDERS: PCP Internal Medicine; Visit Provider Physician Assistant Medical
DX: F17.210 Nicotine dependence, cigarettes, uncomplicated (principal)
CPT/HCPCS: G0296

== ENCOUNTER 2024-02-26 11:22 | Outpatient (REF) | payer MEDICARE, SELFPAY | END 2024-02-26 11:23 | disposition home or self-care (01) | LOC: HO.CT 11:22 | PROVIDERS: PCP Internal Medicine; Visit Provider Physician Assistant Medical | DX: Z12.2 Encounter for screening for malignant neoplasm of respiratory organs (principal); F17.210 Nicotine dependence, cigarettes, uncomplicated | CPT/HCPCS: 71271; G0296 ==

== ENCOUNTER 2024-03-02 12:45 | Outpatient (REF) | payer MEDICARE, SELFPAY | END 2024-03-02 12:46 | disposition home or self-care (01) | LOC: HO.US 12:45 | PROVIDERS: PCP Internal Medicine; Visit Provider Advanced Practice Midwife | DX: D21.9 Benign neoplasm of connective and other soft tissue, unspecified (principal) | CPT/HCPCS: 76830; 76856 ==

== ENCOUNTER 2024-04-11 09:59 | Outpatient (REF) | payer MEDICARE, SELFPAY ==
[2024-04-11 13:14] LABS: MANUAL DIFF FLAG NO
[2024-04-11 13:28] LABS: Basophils Absolute Auto 0.1 X10*3/uL (0.0-0.2); Basophils Percent Auto 0.7 % (0-2); Eosinophils Absolute Auto 0.1 X10*3/uL (0.0-0.4); Eosinophils Percent Auto 1.9 % (0-4); Hemoglobin 14.3 g/dl (12.0-16.0); Imm Gran Abs Auto 0.03 X10*3/uL (0.00-0.03); Imm Gran Pct Auto 0.4 % (0.0-0.4); Lymphocytes Absolute Auto 2.4 X10*3/uL (1.2-4.9); Lymphocytes Percent Auto 32.4 % (20-40); Mean Corpuscular HGB Conc 32.5 g/dl (31.0-35.0); Mean Corpuscular Hemoglobin 29.2 pg (27.0-33.0); Mean Corpuscular Volume 89.8 fL (80.0-98.0); Monocytes Absolute Auto 0.6 X10*3/uL (0.1-1.2); Neutrophils Absolute Auto 4.2 x10*3/uL (2.0-8.3); Neutrophils Percent Auto 56.6 % (45-73); Platelet Count 310 X10*3/uL (160-400); Red Cell Distribution Width 13.3 % (11.0-16.0); White Blood Count 7.4 X10*3/uL (4.8-10.8)
[2024-04-11 13:48] LABS: Alanine Aminotransferase 16 U/L (0-31); Albumin Level 4.1 g/dL (3.5-5.0); Alkaline Phosphatase 57 U/L (39-117); Anion Gap 9 (12-20); Aspartate Amino Transferase 15 U/L (5-31); Bilirubin Total 0.5 mg/dL (0.0-1.0); Blood Urea Nitrogen 19 mg/dL (9-16); Calcium 9.5 mg/dL (8.4-10.2); Carbon Dioxide 30 mmol/L (22-29); Chloride 106 mmol/L (96-108); Cholesterol 210 mg/dL (<200); Estimated Glomerular Filt Rate > 60; Glucose Fasting 96 mg/dL (60-99); HDL Cholesterol 50 mg/dL (>40); LDL Cholesterol Calculated 133 mg/dL (<100); Potassium 4.1 mmol/L (3.3-5.1); Sodium 141 mmol/L (135-145); Total Protein 6.8 g/dL (6.5-8.0); Triglycerides 135 mg/dL (<150)
[2024-04-11 13:53] LABS: TSH reflex Free T4 2.05 uIU/mL (0.32-4.0)
--- OUTSIDE RECORDS SUMMARY | 2024-04-11 14:35 | XMS_ITS | Data Portability ---
Author Organization [facility] Service Address [address] [place] [address] Assessment No assessment recorded. Plan of Treatment [...] release 24 hr 2018 019 INTERFACE [id number], [id number], [place], [address], 9 11:33:37 Patient TargetsNo targets recorded. Patient Instructions Encounter Date Encounter Id Patient Instructions Last Modified By Organization Details Last Modified Time 06/08/2018 [id number] smoking cessatio n counseling, greater than 3 minutes up to 10 minutes* [email or web address] Not available 06/15/2018 08:20:51 Reason for Referral None Reported. Results Created Date Observation Date Name Description Value Unit Range Abnormal Flag Note LastModifiedBy Organization Detail LastModifiedTime 05/27/19 19 05/25/2018 MAMMO , nike yelena, bilat eral No observ ation record ed. [facility] (Medical Records) [address] [place], [address], 06/08/2018 11:03:24 Result Notes None recorded. Problems Name Problem SNOMED Code Status Onset Date Resolution Date Notes Provider Name and Address Organization Details Recorded Time Depressive disorder 84591568 Active 2018 Felicitas carbajal [facility] 9 16:08:22 Anxiety 04060747 Active 2018 Felicitas carbajal [facility] 9 16:08:29 Bladder muscle dysfunction - overactive Active 2018 Felicitas carbajal [facility] 9 16:08:40 [facility]2884722 [facility] Chronic obstructive pulmonary disease 06773326 Active 2018 Felicitasmargo Ramachandran [facility] 9 16:11:28 Problem Notes None recorded. Procedures Surgical History None recorded. Imaging Results Imaging Date Name Status LastModified by Organiz ation Details LastModified Time 05/25/2018 MAMMO, screening, bilateral completed [facility] (Medical Records) [address] [place], [address], 06/08/2018 11:03:24 Procedure Notes None recorded. Medical Equipment None Reported. Allergies Allergen ID Allergen Name Allergen Category Reaction Reaction Severity Criticality Documentation Date Start Date Code Code System Note Provider Name and Address Organization Details Recorded Time 6590 codeine medicatio n Not available Not available Not available 05/18/2018 2670 RxNorm Felicitas carbajal [facility] 9 16:08:14 Medications Name Sig Start [...] Address Organization Details Last Updated DateTime 9 41037.8 3 g 84 /min 94 % 94 % 120 mm[Hg] 78 mm[Hg] [facility] 9 11:00:12 Social History Question Answer Notes LastModified by Organizat ion Details LastModified Time Tobacco Smoking Status Current Every Day Smoker 1 ppd Not Available [facility]/17[facility]2020 03:36:24 What Was The Date Of Your Most Recent Tobacco Screening? 06/08/2018 [id number] Information not available 01/17/2020 Sex: Unknown Functional Status None recorded. Mental Status None recorded. Family History Nothing Reported. Medical History No medical history recorded. Gynecological HistoryNo gynecological history recorded. Obstetrics History GPAL:G 0 P 0 0 0 0 Immunizations Vaccine Type Date Status Note Provider Nam e and Address Organization Details Recorded Time Influenza, split virus, quadrivalent, preservative 8 completed Delma carbajal [facility] 06/08/2018 10:59:24 Past Encounters Encounter ID Performer Location Encounter Start Date Encounter Closed Date Diagnosis/Indication Diagnosis SNOMED-CT Code Diagnosis ICD10 Code Diagnosis Note [id number] Shilpa De Los Santos NP, S [facility] [address],[place] [address] 06/08/2018 10:47:08 06/08/2018 11:19:56 Chronic obstructive pulmonary disease 89235453 J44.9 defers inhaler, wants to decrease smoking ( had spiriva in past ) Bladder mu scle dysfunction - overactive 181409211 N32.81 Depressive disorder 3548 9007 F33.8 stable Hypothyroidism 61656500 E03.9 Anxiety 63855973 F41.9 Screening procedure 2012 5006 Z13.9 Tobacco de pendence syndrome 91476620 F17.200 to taper off again Health Concerns Section Related Observation LastModified by Organization Detai ls LastModified Time None Recorded Concern Status LastModified by Organization Details LastModified Time None Recorded Advance Directives Directive None Recorded Payers Encounter Date Sequence Insurance Name Policy Number Policy Bone Covered Member ID Bone Member ID Guarantor Name 06/08/2018 1 [place] [employer] Lela Long [id number] Lela Long 06/08/2018 2 [place] [facility] Lela Long [id number] Lela Long Notes Date Note Type Note Provider Name a nd Address Organization Details Recorded Time 06/08/2018 text/html Here per our request, recent med refill Overall feeling much better, life seems to be going well 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 had cortizone inj. right shoulder 1 week ago, much improved ROM, no further pain had MRI-f/u with [facility] next week Had quit smoking, reduced w/vape-then lots life stressors-resta rted-want to quit again Shilpa De Los Santos, KASSANDRA, [address] [facility], [place], [address], [facility] 06/08/2018 11:34:42 OBGyn Episode No OBEpisode recorded.
== END 2024-04-11 10:00 | disposition home or self-care (01) ==
LOC: HO.HMGCLDS 09:59
PROVIDERS: PCP Internal Medicine; Visit Provider Internal Medicine
DX: J43.8 Other emphysema (principal); F31.78 Bipolar disorder, in full remission, most recent episode mixed; R32 Unspecified urinary incontinence; N32.81 Overactive bladder; E03.8 Other specified hypothyroidism; Z72.0 Tobacco use
CPT/HCPCS: 36415; 80053; 80061; 84443; 85025

== ENCOUNTER 2024-04-19 09:57 | Outpatient (REF) | payer MEDICARE, SELFPAY ==
--- NOTE | ~2024-04-19 | US_ITS ---
CLINICAL HISTORY: N32.81 - Overactive bladder micro hematura mixed incontinence US Renal Comparison: None Findings: Right kidney normal size and echotexture, 10.7 cm length. Left kidney normal size and echotexture, 10.9 cm length. No hydronephrosis of either kidney. Small bilateral simple appearing cysts. Normal color Doppler. IMPRESSION: 1. Simple appearing renal cysts. Otherwise unremarkable renal ultrasound. This document has been electronically signed by: Melanie Wynne MD on 04/20/2024 06:07:37
--- OUTSIDE RECORDS SUMMARY | 2024-04-19 10:38 | XMS_ITS | Data Portability ---
Author Organization [facility] Address [address] [place] [address] Assessment No assessment recorded. Plan of Treatment [...] release 24 hr 2018 019 INTERFACE [id number], [address] [facility], [place], [address], 9 11:33:37 Patient TargetsNo targets recorded. Patient Instructions Encounter Date Encounter Id Patient Instructions Last Modified By Organization Details Last Modified Time 06/08/2018 [id number] smoking cessatio n counseling, greater than 3 minutes up to 10 minutes* hrubner Not available 06/15/2018 08:20:51 Reason for Referral None Reported. Results Created Date Observation Date Name Description Value Unit Range Abnormal Flag Note LastModifiedBy Organization Detail LastModifiedTime 05/27/19 19 05/25/2018 MAMMO , nike yelena, bilat eral No observ ation record ed. [facility] (Medical Records) [address] [place], [address], 06/08/2018 11:03:24 Result Notes None recorded. Problems Name Problem SNOMED Code Status Onset Date Resolution Date Notes Provider Name and Address Organization Details Recorded Time Depressive disorder 81629506 Active 2018 Felicitas carbajal [facility] 9 16:08:22 Anxiety 66495151 Active 2018 Felicitas carbajal [facility] 9 16:08:29 Bladder muscle dysfunction - overactive Active 2018 Felicitas carbajal [facility] 9 16:08:40 [facility] 10139892 [facility] 16:[facility] Chronic obstructive pulmonary disease 73839752 Active 2018 Felicitasmargo Ramachandran [facility] 9 16:11:28 Problem Notes None recorded. Procedures Surgical History None recorded. Imaging Results Imaging Date Name Status LastModified by Organiz ation Details LastModified Time 05/25/2018 MAMMO, screening, bilateral completed [facility] (Medical Records) [address] [place], [address], 06/08/2018 11:03:24 Procedure Notes None recorded. Medical Equipment None Reported. Allergies Allergen ID Allergen Name Allergen Category Reaction Reaction Severity Criticality Documentation Date Start Date Code Code System Note Provider Name and Address Organization Details Recorded Time 1553 codeine medicatio n Not available Not available Not available 05/18/2018 2670 RxNorm Felicitas carbajal [facility] 9 16:08:14 Medications Name Sig Start [...] Address Organization Details Last Updated DateTime 9 92969.8 3 g 84 /min 94 % 94 % 120 mm[Hg] 78 mm[Hg] [facility] 9 11:00:12 Social History Question Answer Notes LastModified by Organizat ion Details LastModified Time Tobacco Smoking Status Current Every Day Smoker 1 ppd Not Available [facility] 01/17/2020 03:36:24 What Was The Date Of Your Most Recent Tobacco Screening? 06/08/2018 [id number] Information not available 01/17/2020 Sex: Unknown Functional Status None recorded. Mental Status None recorded. Family History Nothing Reported. Medical History No medical history recorded. Gynecological HistoryNo gynecological history recorded. Obstetrics History GPAL:G 0 P 0 0 0 0 Immunizations Vaccine Type Date Status Note Provider Nam e and Address Organization Details Recorded Time Influenza, split virus, quadrivalent, preservative 8 completed Delma carbajal [facility] 06/08/2018 10:59:24 Past Encounters Encounter ID Performer Location Encounter Start Date Encounter Closed Date Diagnosis/Indication Diagnosis SNOMED-CT Code Diagnosis ICD10 Code Diagnosis Note [id number] Shilpa De Los Santos NP, S [facility] [address] [facility] [address] 06/08/2018 10:47:08 06/08/2018 11:19:56 Chronic obstructive pulmonary disease 84128718 J44.9 defers inhaler, wants to decrease smoking ( had spiriva in past ) Bladder mu scle dysfunction - overactive 925986189 N32.81 Depressive disorder 3548 9007 F33.8 stable Hypothyroidism 48130752 E03.9 Anxiety 70259745 F41.9 Screening procedure 2012 5006 Z13.9 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.200 to taper off again Health Concerns Section Related Observation LastModified by Organization Detai ls LastModified Time None Recorded Concern Status LastModified by Organization Details LastModified Time None Recorded Advance Directives Directive None Recorded Payers Encounter Date Sequence Insurance Name Policy Number Policy Bone Covered Member ID Bone Member ID Guarantor Name 06/08/2018 1 [place] [employer] Lela Long [id number] Lela Long 06/08/2018 2 [place] [facility] Lela Long [id number] Lela Long Notes Date Note Type Note Provider Name a nd Address Organization Details Recorded Time 06/08/2018 text/html Here per our request, recent med refill Overall feeling much better, life seems to be going well 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
== END 2024-04-19 09:58 | disposition home or self-care (01) ==
LOC: HO.HMGCX 09:57
PROVIDERS: PCP Internal Medicine; Visit Provider Urology
DX: N32.81 Overactive bladder (principal); N39.46 Mixed incontinence; R31.29 Other microscopic hematuria
CPT/HCPCS: 76775

== ENCOUNTER → 2024-04-19 10:02 | Outpatient (BNV) | payer MEDICARE, SELFPAY | PROVIDERS: PCP Internal Medicine; Visit Provider Radiology Diagnostic Radiology | DX: N32.81 Overactive bladder (principal) | CPT/HCPCS: 76775 ==

== ENCOUNTER 2024-04-27 11:24 | Outpatient (AMB) | payer MEDICARE, SELFPAY ==
--- NOTE | 2024-04-27 11:28 | MHC.OFFVIS ---
Intake Visit Reasons: US follow up Allergies codeine [CODEINE] Allergy (Unknown, Verified 04/27/24 11:28) ITCH epinephrine [EPINEPHRINE] Allergy (Unknown, Verified 04/27/24 11:28) PALPATATIONS FROM DENTAL WORK HPI Comments Details: Patient is here for follow up pelvic ultrasound history of fibroids. She denies any vaginal bleeding, no pelvic pain, bloating or pelvic pressure. [facility] Medical History (Updated 04/27/24 @ 12:01 by Daisha Daniel CNM) Fluid in endometrial cavity Homelessness Bladder disorder Rash of foot Tinea pedis COVID-19 Trochanteric bursitis, left hip Snoring Pain of left sacroiliac joint Tendinopathy of left rotator cuff Fatigue Family history of breast cancer in first degree relative Excessive sleep Lumbar pain Chest pain Other specified hypothyroidism Arthralgia Frequency of urination Wheezing Urine incontinence Lower urinary tract symptoms Colon cancer screening At high risk for breast cancer Nicotine dependence, cigarettes, uncomplicated CHEK2 gene mutation positive Tremors of nervous system Bipolar disorder 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 exogenous substances Depression, major, recurrent COPD (chronic obstructive pulmonary disease) Surgical History (Updated 02/26/24 @ 11:21 by Valentina Carvajal PA-C) Hx of tubal ligation Hx of tonsillectomy H/O brain surgery Family History (Reviewed 02/25/24 @ 12:33 by Quintin Castaneda [facility]) Maternal Grandmother Breast cancer Mother Breast cancer Sister Breast cancer Family/Other Breast cancer Father Bladder cancer Paternal Uncle Prostate CA Family/Other Breast cancer Family/Other Bladder cancer Other Mental health disorder Substance use disorder Social History (Updated 02/26/24 @ 11:15 by Valentina Carvajal PA-C) Household Members: Friend(s) Housing: House Alcohol intake: current Alcohol intake frequency: holidays/special occasions only Patient Tobacco Use Status: Current everyday Tobacco user Tobacco use type: Cigarette Years Smoked: (onset 11yo, 1ppd x 52yrs, 50pyh) e-Cigarette/Vaping Use: Currently Using Second Hand Smoke Exposure: Yes Substance Use Type: Marijuana service: No Current occupational status: disabled Cognitive needs: No Hearing needs: No Vision needs: Yes Female Reproductive History Menstrual Age of Menarche: 8 Results Reviewed Results Reviewed: [address] [address] Ultrasound Report Signed Patient: Lela Long MR#: [id number] : 1960 Acct:[id number] Age/Sex: 63 / F ADM Date: 03/02/24 Loc: HO.US Attending Dr: Daisha Daniel CNM Ordering Physician: Daisha Daniel CNM Date of Service: 03/02/24 Procedure(s): US pelvic and transvaginal Accession Number(s): [id number] cc: Brian Zamora MD; Daisha Daniel CNM~ EXAMINATION: US PELVIS CLINICAL INFORMATION: 6 month follow-up fibroids, postmenopausal. COMPARISON: Pelvic ultrasound of 08/25/2023. TECHNIQUE: Ultrasound of the pelvis is performed using both transabdominal and transvaginal transducers along with Doppler. Transvaginal imaging is performed due to inadequate visualization transabdominally. FINDINGS: The uterus is anteverted and measures 6.3 x 2.1 x 2.3 cm. Endometrial thickness of 3 mm. Redemonstration of small amount of fluid within the endometrial cavity. Right ovary measures 1.3 x 1.0 x 0.9 cm, volume of 0.6 mL. Left ovary not visualized. Limited visualization due to bowel gas. Myometrial echogenic focus characteristic of calcification. 0.7 x 0.6 x 0.7 cm echogenic right uterine mass, previously 1.2 x 1.0 x 0.9 cm. 0.7 x 0.5 x 0.6 cm right uterine mass. 1.1 x 1.0 x 0.9 cm uterine mass on the left, previously 1.0 x 1.0 x 0.8 cm. Nabothian cysts both simple and complex. US/US pelvic and transvaginal IMPRESSION: 1. Irregular masses as detailed above characteristic of fibroids. 2. Redemonstration of trace amount of fluid within the endometrial cavity. Endometrial thickness is 3 mm inclusive of fluid and double wall thickness is 2 mm exclusive of this fluid. 3. Left ovary not visualized. Right ovary is grossly unremarkable. 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 Option of hysteroscopy under anesthesia versus in office procedure patient prefers to have anesthesia. Appointment for consult with Dr. Pearce for hysteroscopy to be made. Advised to report any vaginal bleeding or other changes. (3) Encounter to discuss test results: Code(s): Z71.2 - Person consulting for explanation of examination or test findings Plan: Reviewed ultrasound findings. Plan Discussed ultrasound findings-3 fibroids. Reviewed findings with the use plastic models. Counseled re: Leiomyoma: common pelvic neoplasm. Differential diagnosis-may include but not limited to- leiomyosarcoma which is a rare uterine sarcoma 3-7/100,000, difficult to distinguish from fibroids on ultrasound from uterine sarcoma's. Unlikely any single test will have a highly positive predictive value. Hysterectomy is not recommended for sole purpose of excluding malignant neoplasm. Consult for surgical exploration, medical treatment, other treatments, verses expectant management, pros and cons, risks and benefits. Expectant management follow up in 6 months, then yearly for stability-August 2024 next scan for yearly. Patient prefers to proceed with expectant management. Report any PMB, pelvic pressure, bloating, or pain. Referral to MD if indicated for level of care if indicated. The patient expressed understanding and agreement with the plan of care. All of her questions and concerns were addressed to the best of my ability. This note is constructed using voice recognition software. While every effort has been made to ensure accuracy, certified social workers in health care errors may have been included. Orders: Orders US pelvic and transvaginal 09/05/24 D21.9 - Benign neoplasm of connective and other soft tissue, unspecified Coding Level of Care Code Est Pt Level 3 (75696) Diagnoses Fibroid D21.9 Fluid in endometrial cavity N85.9 Encounter to discuss test results Z71.2
--- OUTSIDE RECORDS SUMMARY | 2024-04-27 13:19 | XMS_ITS | Data Portability ---
Author Organization [facility] Address [address] [place] [address] Assessment No assessment recorded. Plan of Treatment [...] release 24 hr 2018 019 INTERFACE [id number], [address] [facility], [place], [address], 9 11:33:37 Patient TargetsNo targets recorded. Patient Instructions Encounter Date Encounter Id Patient Instructions Last Modified By Organization Details Last Modified Time 06/08/2018 [id number] smoking cessatio n counseling, greater than 3 minutes up to 10 minutes* hrubner Not available 06/15/2018 08:20:51 Reason for Referral None Reported. Results Created Date Observation Date Name Description Value Unit Range Abnormal Flag Note LastModifiedBy Organization Detail LastModifiedTime 05/27/19 19 05/25/2018 MAMMO , nike yelena, bilat eral No observ ation record ed. [facility] (Medical Records) [address] [place], [address], 06/08/2018 11:03:24 Result Notes None recorded. Problems Name Problem SNOMED Code Status Onset Date Resolution Date Notes Provider Name and Address Organization Details Recorded Time Depressive disorder 02617595 Active 2018 Felicitas carbajal [facility] 9 16:08:22 Anxiety 07854579 Active 2018 Felicitas carbajal [facility] 9 16:08:29 Bladder muscle dysfunction - overactive Active 2018 Felicitas carbajal [facility] 9 16:08:40 [facility]382805 [facility] 16:08[facility] Chronic obstructive pulmonary disease 62627888 Active 2018 Felicitasmargo Ramachandran [facility] 9 16:11:28 Problem Notes None recorded. Procedures Surgical History None recorded. Imaging Results Imaging Date Name Status LastModified by Organiz ation Details LastModified Time 05/25/2018 MAMMO, screening, bilateral completed [facility] (Medical Records) [address] [place], [address], 06/08/2018 11:03:24 Procedure Notes None recorded. Medical Equipment None Reported. Allergies Allergen ID Allergen Name Allergen Category Reaction Reaction Severity Criticality Documentation Date Start Date Code Code System Note Provider Name and Address Organization Details Recorded Time 4273 codeine medicatio n Not available Not available Not available 05/18/2018 2670 RxNorm Felicitas carbajal [facility] 9 16:08:14 Medications Name Sig Start Date [...] Address Organization Details Last Updated DateTime 9 39060.8 3 g 84 /min 94 % 94 % 120 mm[Hg] 78 mm[Hg] [facility] 9 11:00:12 Social History Question Answer Notes LastModified by Organizat ion Details LastModified Time Tobacco Smoking Status Current Every Day Smoker 1 ppd Not Available [facility] 01/17/2020 03:36:24 What Was The Date Of Your Most Recent Tobacco Screening? 06/08/2018 [id number] Information not available 01/17/2020 Sex: Unknown Functional Status None recorded. Mental Status None recorded. Family History Nothing Reported. Medical History No medical history recorded. Gynecological HistoryNo gynecological history recorded. Obstetrics History GPAL:G 0 P 0 0 0 0 Immunizations Vaccine Type Date Status Note Provider Nam e and Address Organization Details Recorded Time Influenza, split virus, quadrivalent, preservative 8 completed Delma carbajal [facility] 06/08/2018 10:59:24 Past Encounters Encounter ID Performer Location Encounter Start Date Encounter Closed Date Diagnosis/Indication Diagnosis SNOMED-CT Code Diagnosis ICD10 Code Diagnosis Note [id number] Shilpa De Los Santos NP, S [facility] [address] [facility] [address] 06/08/2018 10:47:08 06/08/2018 11:19:56 Chronic obstructive pulmonary disease 41445807 J44.9 defers inhaler, wants to decrease smoking ( had spiriva in past ) Bladder mu scle dysfunction - overactive 430485677 N32.81 Depressive disorder 3548 9007 F33.8 stable Hypothyroidism 39776862 E03.9 Anxiety 44137799 F41.9 Screening procedure 2012 5006 Z13.9 Tobacco de pendence syndrome 39419935 F17.200 to taper off again Health Concerns Section Related Observation LastModified by Organization Detai ls LastModified Time None Recorded Concern Status LastModified by Organization Details LastModified Time None Recorded Advance Directives Directive None Recorded Payers Encounter Date Sequence Insurance Name Policy Number Policy Bone Covered Member ID Bone Member ID Guarantor Name 06/08/2018 1 [place] [employer] [employer] Lela Long [id number] Lela Long 06/08/2018 2 [place] [facility] Lela Long [id number] Lela Long Notes Date Note Type Note Provider Name a nd Address Organization Details Recorded Time 06/08/2018 text/html Here per our request, recent med refill Overall feeling much better, life seems to be going well 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
== END 2024-04-27 12:10 | disposition home or self-care (01) ==
PROVIDERS: PCP Internal Medicine; Visit Provider Advanced Practice Midwife
DX: D21.9 Benign neoplasm of connective and other soft tissue, unspecified (principal); N85.9 Noninflammatory disorder of uterus, unspecified; Z71.2 Person consulting for explanation of examination or test findings
CPT/HCPCS: 99213

== ENCOUNTER → 2024-04-27 11:24 | Outpatient (BNVA) | payer MEDICARE, SELFPAY | PROVIDERS: PCP Internal Medicine; Visit Provider Advanced Practice Midwife | DX: Z71.2 Person consulting for explanation of examination or test findings (principal); D21.9 Benign neoplasm of connective and other soft tissue, unspecified; N85.9 Noninflammatory disorder of uterus, unspecified | CPT/HCPCS: 99212 ==

== ENCOUNTER 2024-05-03 14:51 | Outpatient (AMB) | payer MEDICARE, SELFPAY ==
--- NOTE | 2024-05-03 14:52 | MHC.OFFVIS ---
Vital Signs 05/03/24 14:58 Height 5 ft 2 in Weight 164 lb BMI 30.0 BP 152/68 H Blood Pressure Location Lt brachial Position Sitting Pulse 88 Intake Visit Reasons: 6 month follow up, breast exam Intake Note: Patient is seen in office for 6 month follow up visit, breast exam. Pt c/o: denies any concerns at the time of visit MRI:01/08/24 mm:09/09/23 Site Interpreter Required: No Accompanied by: Self / Same As Patient Allergies codeine [CODEINE] Allergy (Unknown, Verified 05/03/24 14:58) ITCH epinephrine [EPINEPHRINE] Allergy (Unknown, Verified 05/03/24 14:58) PALPATATIONS FROM DENTAL WORK Medication List - Last Reconciled 05/03/24 by Timothy Christianson MD albuterol sulfate 90 mcg/actuation (Ventolin HFA) 2 inhalations inhalation QID PRN 90 days aspirin (Adult Aspirin Regimen) 81 mg PO DAILY bisacodyl (Dulcolax (bisacodyl)) 10 mg (2 x 5 mg) PO BEDTIME 2 days bupropion HCl XL 150 mg PO QAM citalopram 40 mg PO QAM clonazepam 0.5 mg PO DAILY divalproex ER 500 mg PO TID levothyroxine 50 mcg PO DAILY lisinopril 10 mg PO DAILY melatonin 10 mg PO BEDTIME PRN peg 3350-electrolytes 236-22.74-6.74 -5.86 gram (Golytely) 240 mL PO Q10M 1 day [Poise Pads # 3 Change pad 3 times a day or as needed for urinary incontinence.] solifenacin 10 mg PO DAILY HPI Comments Details: 64-year-old female patient presenting for a high risk breast examination. She reports a strong family history of breast cancer including her mother, maternal grandmother, sister and maternal cousin all with breast cancer. 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 She was determined to have a breast cancer risk of 15-40% she denies a previous history of breast problems or breast surgery. She is . Her daughter from a drug overdose but son is still alive. Her most recent mammogram of 09/09/2023 revealed no mammographic evidence of malignancy (BI-RADS 1). She underwent breast MRI on 01/08/2024. This revealed no MR specific evidence of malignancy in either breast (BI-RADS 1 bilateral). She denies any current breast symptoms, palpable lumps or nipple discharge. [facility] Medical History Fluid in endometrial cavity Homelessness Bladder disorder Rash of foot Tinea pedis COVID-19 Trochanteric bursitis, left hip Snoring Pain of left sacroiliac joint Tendinopathy of left rotator cuff Fatigue Family history of breast cancer in first degree relative Excessive sleep Lumbar pain Chest pain Other specified hypothyroidism Arthralgia Frequency of urination Wheezing Urine incontinence Lower urinary tract symptoms Colon cancer screening At high risk for breast cancer Nicotine dependence, cigarettes, uncomplicated CHEK2 gene mutation positive Tremors of nervous system Bipolar disorder 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 exogenous substances Depression, major, recurrent COPD (chronic obstructive pulmonary disease) Surgical History Hx of tubal ligation Hx of tonsillectomy H/O brain surgery Family History Maternal Grandmother Breast cancer Mother Breast cancer Sister Breast cancer Family/Other Breast cancer Father Bladder cancer Paternal Uncle Prostate CA Family/Other Breast cancer Family/Other Bladder cancer Other Mental health disorder Substance use disorder Social History Household Members: Friend(s) Housing: House Alcohol intake: current Alcohol intake frequency: holidays/special occasions only Patient Tobacco Use Status: Current everyday Tobacco user Tobacco use type: Cigarette Years Smoked: (onset 11yo, 1ppd x 52yrs, 50pyh) e-Cigarette/Vaping Use: Currently Using Second Hand Smoke Exposure: Yes Substance Use Type: Marijuana service: No Current occupational status: disabled Cognitive needs: No Hearing needs: No Vision needs: Yes Female Reproductive History Menstrual Age of Menarche: 8 Review of Systems Const All systems reviewed & are unremarkable except as noted in HPI and below Denies chills, Denies fever(s), Denies headache(s), Denies poor appetite and Denies weakness ENT Denies headache(s) Card Denies chest pain, Denies irregular heart rhythm, Denies palpitations and Denies dyspnea Resp Denies cough, Denies excessive phlegm production and Denies dyspnea GI Denies abdominal pain, Denies bloating, Denies change in bowel habits, Denies constipation, Denies heartburn, Denies diarrhea, Denies nausea and Denies vomiting Denies urinary frequency and Denies nipple discharge Musc Denies back pain, Denies muscle weakness and Denies numbness Skin/Breast Denies breast skin changes, Denies breast pain, Denies breast mass, Denies changing lesions, Denies nipple discharge and Denies unusual bruising Neuro Denies headache(s), Denies numbness, Denies paresthesias and Denies weakness Psych Denies anxiety and Denies depression Endo Denies palpitations Valente/Lymph Denies lymphadenopathy Physical Exam Vital Signs: Last Vital Signs Pulse 88 05/03/24 14:58 BP 152/68 H 05/03/24 14:58 BMI result Body Mass Index 30.0 Const General: cooperative and no acute distress Nutritional Appearance: well nourished Orientation/consciousness: patient oriented x3 Limitations: no limitations HEENT Head: Yes normocephalic and Yes atraumatic Ears: hearing grossly normal bilaterally Chest Other: Left breast: No skin change, no nipple retraction, no nipple discharge, no palpable mass, no enlarged lymph nodes. Right breast: No skin change, no nipple retraction, no nipple discharge, no palpable mass, no enlarged lymph nodes Resp Effort & Inspection: normal respiratory effort, no audible wheezes, no cough and no respiratory distress Cardio Jugular venous distension: no JVD GI Inspection: Yes normal to inspection Skin Other: Warm, dry, no rash Neuro General: patient oriented x3 Extrem General: Yes no clubbing, cyanosis or edema Assessment & Plan Assessment & Plan (1) At high risk for breast cancer: Code(s): Z91.89 - Other specified personal risk factors, not elsewhere classified Category: Medical (2) CHEK2 gene mutation positive: Code(s): Z15.89 - Genetic susceptibility to other disease Category: Medical (3) Family history of breast cancer in first degree relative: Code(s): Z80.3 - Family history of malignant neoplasm of breast Category: Medical Plan 64-year-old female patient with a strong family history of breast cancer as well as a genetic mutation which places her at high risk for breast cancer in the range of 15-45%. We discussed the options including prophylactic mastectomy versus close clinical follow-up. Close observation would include monthly self breast examinations, twice yearly clinical breast examination is, yearly mammograms alternating every 6 months with yearly breast MRI. Mammogram performed on 09/09/2023 revealed no mammographic evidence of malignancy (BI-RADS 1). MRI of 01/08/2024 revealed no MR specific evidence of malignancy (BI-RADS 1). She will continue her annual mammogram and MRI alternating every 6 months and should follow up in 6 months for routine breast examination. She is welcome to call sooner for any new concerns. Coding Level of Care Code Est Pt Level 3 (49843) Complex EM visit Add On G2211 Diagnoses At high risk for breast cancer Z91.89 CHEK2 gene mutation positive Z15.89 Family history of breast cancer in first degree relative Z80.3
[2024-05-03 14:58] VITALS: BP 152/68; PULSE 88
--- OUTSIDE RECORDS SUMMARY | 2024-05-03 15:51 | XMS_ITS | Data Portability ---
Author Organization [facility] Address [address] [place] [address] Assessment No assessment recorded. Plan of Treatment [...] release 24 hr 2018 019 INTERFACE [id number], [address], [place], [address], 9 11:33:37 Patient TargetsNo targets recorded. Patient Instructions Encounter Date Encounter Id Patient Instructions Last Modified By Organization Details Last Modified Time 06/08/2018 [id number] smoking cessatio n counseling, greater than 3 minutes up to 10 minutes* [email or web address] Not available 06/15/2018 08:20:51 Reason for Referral None Reported. Results Created Date Observation Date Name Description Value Unit Range Abnormal Flag Note LastModifiedBy Organization Detail LastModifiedTime 05/27/19 19 05/25/2018 MAMMO , nike yelena, bilat eral No observ ation record ed. [facility] (Medical Records) [address] [place], [address], 06/08/2018 11:03:24 Result Notes None recorded. Problems Name Problem SNOMED Code Status Onset Date Resolution Date Notes Provider Name and Address Organization Details Recorded Time Depressive disorder 68333180 Active 2018 Felicitas carbajal [facility] 9 16:08:22 Anxiety 04737638 Active 2018 Felicitas carbajal [facility] 9 16:08:29 Bladder muscle dysfunction - overactive Active 2018 Felicitas carbajal [facility] 9 16:08:40 [facility] 85506817 [facility] 16:[facility] Chronic obstructive pulmonary disease 66052923 Active 2018 [facility]argo [facility] 9 16:11:28 Problem Notes None recorded. Procedures Surgical History None recorded. Imaging Results Imaging Date Name Status LastModified by Organiz ation Details LastModified Time 05/25/2018 MAMMO, screening, bilateral completed [facility] (Medical Records) [address] [place], [address], 06/08/2018 11:03:24 Procedure Notes None recorded. Medical Equipment None Reported. Allergies Allergen ID Allergen Name Allergen Category Reaction Reaction Severity Criticality Documentation Date Start Date Code Code System Note Provider Name and Address Organization Details Recorded Time 7621 codeine medicatio n Not available Not available Not available 05/18/2018 2670 RxNorm Felicitas carbajal [facility] 9 16:08:14 Medications Name Sig Start [...] Address Organization Details Last Updated DateTime 9 13559.8 3 g 84 /min 94 % 94 % 120 mm[Hg] 78 mm[Hg] [facility] 9 11:00:12 Social History Question Answer Notes LastModified by Organizat ion Details LastModified Time Tobacco Smoking Status Current Every Day Smoker 1 ppd Not Available [facility] 01/17/2020 03:36:24 What Was The Date Of Your Most Recent Tobacco Screening? 06/08/2018 [id number] Information not available 01/17/2020 Sex: Unknown Functional Status None recorded. Mental Status None recorded. Family History Nothing Reported. Medical History No medical history recorded. Gynecological HistoryNo gynecological history recorded. Obstetrics History GPAL:G 0 P 0 0 0 0 Immunizations Vaccine Type Date Status Note Provider Nam e and Address Organization Details Recorded Time Influenza, split virus, quadrivalent, preservative 8 completed Delma carbajal [facility] 06/08/2018 10:59:24 Past Encounters Encounter ID Performer Location Encounter Start Date Encounter Closed Date Diagnosis/Indication Diagnosis SNOMED-CT Code Diagnosis ICD10 Code Diagnosis Note [id number] Shilpa De Los Santos NP, S [facility] [address],[place] [address] 06/08/2018 10:47:08 06/08/2018 11:19:56 Chronic obstructive pulmonary disease 44165318 J44.9 defers inhaler, wants to decrease smoking ( had spiriva in past ) Bladder mu scle dysfunction - overactive 624694501 N32.81 Depressive disorder 3548 9007 F33.8 stable Hypothyroidism 44290616 E03.9 Anxiety 08375838 F41.9 Screening procedure 2012 5006 Z13.9 Tobacco de pendence syndrome 60735180 F17.200 to taper off again Health Concerns Section Related Observation LastModified by Organization Detai ls LastModified Time None Recorded Concern Status LastModified by Organization Details LastModified Time None Recorded Advance Directives Directive None Recorded Payers Encounter Date Sequence Insurance Name Policy Number Policy Bone Covered Member ID Bone Member ID Guarantor Name 06/08/2018 1 [place] [employer] Lela Long [id number] Lela Long 06/08/2018 2 [place] [facility] [address] Lela Long [id number] Lela Long Notes Date Note Type Note Provider Name a nd Address Organization Details Recorded Time 06/08/2018 text/html Here per our request, recent med refill Overall feeling much better, life seems to be going well 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
== END 2024-05-03 15:35 | disposition home or self-care (01) ==
PROVIDERS: PCP Internal Medicine; Visit Provider Surgery
DX: Z91.89 Other specified personal risk factors, not elsewhere classified (principal); Z15.89 Genetic susceptibility to other disease; Z80.3 Family history of malignant neoplasm of breast
CPT/HCPCS: 99213; G2211

== ENCOUNTER → 2024-05-03 14:51 | Outpatient (BNVA) | payer MEDICARE, SELFPAY | PROVIDERS: PCP Internal Medicine; Visit Provider Surgery | DX: Z15.89 Genetic susceptibility to other disease (principal); Z80.3 Family history of malignant neoplasm of breast; Z91.89 Other specified personal risk factors, not elsewhere classified | CPT/HCPCS: 99212 ==

== ENCOUNTER 2024-06-16 10:27 | Outpatient (REF) | payer MEDICARE, SELFPAY | END 2024-06-16 10:28 | disposition home or self-care (01) | LOC: HO.LNP 10:27 | PROVIDERS: PCP Internal Medicine; Visit Provider Urology | DX: R31.29 Other microscopic hematuria (principal); N32.9 Bladder disorder, unspecified; N39.46 Mixed incontinence; Z79.82 Long term (current) use of aspirin; N32.81 Overactive bladder; F17.210 Nicotine dependence, cigarettes, uncomplicated; Z13.9 Encounter for screening, unspecified | CPT/HCPCS: 52000; 81003; 88121; 99212 ==

== ENCOUNTER 2024-06-16 10:27 | Outpatient (AMB) | payer MEDICARE, SELFPAY ==
--- NOTE | 2024-06-16 10:34 | A.OFFVIS_ITS ---
Intake Visit Reasons: Cystoscopy/US Intake Note: Patient presents to office today for a cystoscopy Urology Medications:Solifenacin Blood Thinner: Aspirin Medical Surgical Tech Required: No Accompanied by: Self / Same As Patient Allergies codeine [CODEINE] Allergy (Unknown, Verified 06/16/24 10:40) ITCH epinephrine [EPINEPHRINE] Allergy (Unknown, Verified 06/16/24 10:40) PALPATATIONS FROM DENTAL WORK HPI Comments Details: 06/16/24--64-year-old female presenting for office cysto. Last year?s workup, including a CT urogram, identified bilateral simple renal cysts and bladder wall thickening. Subsequent cystoscopy was negative for suspicious lesions. Current renal ultrasound confirmed stable simple renal cysts with no additional renal abnormalities. The patient is being treated for overactive bladder symptoms with an anticholinergic medication and reports no side effects. A history of nicotine dependence persists with no change reported in smoking behavior. Current UA-trace blood. Plan cont fu with Renetta BAND SAW OPERATOR. Cystoscopy findings: Bladder wall thickening, no suspicious bladder lesions visualized Urinary Symptoms Review - overactive bladder symptoms - Managed with anticholinergic, with no adverse effects reported Results - CT urogram noted bilateral simple renal cysts, bladder wall thickening - Office cystoscopy previously negative for suspicious lesions - Renal Ultrasound (04/19/24): Simple appearing renal cysts, stable - Urine test: Trace blood, otherwise unremarkable [facility] Medical History Fluid in endometrial cavity Homelessness Bladder disorder Rash of foot Tinea pedis COVID-19 Trochanteric bursitis, left hip Snoring Pain of left sacroiliac joint Tendinopathy of left rotator cuff Fatigue Family history of breast cancer in first degree relative Excessive sleep Lumbar pain Chest pain Other specified hypothyroidism Arthralgia Frequency of urination Wheezing Urine incontinence Lower urinary tract symptoms Colon cancer screening At high risk for breast cancer Nicotine dependence, cigarettes, uncomplicated CHEK2 gene mutation positive Tremors of nervous system Bipolar disorder 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 exogenous substances Depression, major, recurrent COPD (chronic obstructive pulmonary disease) Surgical History Hx of tubal ligation Hx of tonsillectomy H/O brain surgery Family History Maternal Grandmother Breast cancer Mother Breast cancer Sister Breast cancer Family/Other Breast cancer Father Bladder cancer Paternal Uncle Prostate CA Family/Other Breast cancer Family/Other Bladder cancer Other Mental health disorder Substance use disorder Social History Household Members: Friend(s) Housing: House Alcohol intake: current Alcohol intake frequency: holidays/special occasions only Patient Tobacco Use Status: Current everyday Tobacco user Tobacco use type: Cigarette Years Smoked: (onset 11yo, 1ppd x 52yrs, 50pyh) e-Cigarette/Vaping Use: Currently Using Second Hand Smoke Exposure: Yes Substance Use Type: Marijuana service: No Current occupational status: disabled Cognitive needs: No Hearing needs: No Vision needs: Yes Female Reproductive History Menstrual Age of Menarche: 8 Review of Systems Const All systems reviewed & are unremarkable except as noted in HPI and below Reports no additional complaints Eyes Reports no additional complaints ENT Reports no additional complaints Card Reports no additional complaints Resp Reports no additional complaints GI Reports no additional complaints Reports as per HPI Musc Reports no additional complaints Skin/Breast Reports system reviewed and no additional complaints, except as documented Neuro Reports no additional complaints Psych Reports no additional complaints Endo Reports no additional complaints Valente/Lymph Reports no additional complaints Aller/Immun Reports no additional complaints Office Procedures Cystoscopy Consent Discussed risk and benefit or proposed procedure with the patient. Information consent for procedure given to the patient. Discussed technical aspects, risks, benefits and alternatives in full. Addressed all of the patient's questions and concerns regarding the procedure. The patient demonstrated knowledge and understanding. They wish to proceed with this procedure. Preparation The patient was prepped in the usual manner. A pantry goods worker was present and in the room. Genitalia was prepped with betadine solution in a sterile manner. Lidocaine Jelly 2% was placed into the urethra and 16Fr flexible Olympus cystoscope was inserted into the meatus after adequate lubrication. Procedure Time out per protocol performed. Speculum used as indicated for adequate visualization of urethra, the flexible cystoscope is passed transurethrally: The bladder was inspected in its entirety with utilization retroflexion displaying: Tumor(s): no suspicious bladder lesions visualized Trabeculation: Mild to Moderate Mucosal Erthema: Orifices: normal shape and position Urethra: normal Cystoscopy findings: Bladder wall thickening, no suspicious bladder lesions visualized [id number] DISPOSABLE SCOPE URO-G FLEXIBLE SCOPE Procedure code (CPT) selection complete Office Meds lidocaine HCl 2 % mucosal jelly in applicator Performing Provider: Betsy Patel MD Performing Location: [facility] Administered by: Gregory Iglesias LPN on 06/16/24 10:54 Dose Route Admin Location Dispensed Lot Number Expiration Date NDC [employer] Instrument Repairer 10 mL intra-urethral 20 mL ciprofloxacin HCl 500 mg tablet Performing Provider: Betsy Patel MD Performing Location: [facility] Administered by: Gregory Iglesias LPN on 06/16/24 10:54 Dose Route Admin Location Dispensed Lot Number Expiration Date NDC [employer]r 500 mg PO 1 tab phenazopyridine 200 mg tablet Performing Provider: Betsy Patle MD Performing Location: [facility] Administered by: Gregory Iglesias LPN on 06/16/24 10:54 Dose Route Admin Location Dispensed Lot Number Expiration Date NDC [employer] Instrument Repairer 200 mg PO 1 tab Results AMB Urinalysis, Automated UA Leukoctes 0 Ruby/uL Last Edit by Sia Barker on 06/16/24 13:19 UA Nitrite Negative Last Edit by Sia Barker on 06/16/24 13:19 UA Urobilinogen 0.2 mg/dL Last Edit by Sia Barker on 06/16/24 13:19 UA Protein 15 mg/dL Last Edit by Sia Barker on 06/16/24 13:19 UA pH 6.0 Last Edit by Sia Barker on 06/16/24 13:19 UA Blood 10 Thierry/uL Last Edit by Sia Barker on 06/16/24 13:19 UA Specific Peridot 1.020 Last Edit by Sia Barker on 06/16/24 13:19 UA Ketone Positive Last Edit by Sia Barker on 06/16/24 13:19 UA Bilirubin 0 mg/dL Last Edit by Sia Barker on 06/16/24 13:19 UA Glucose 0 mg/dL Last Edit by Sia Barker on 06/16/24 13:19 Results Reviewed Results Reviewed: Laboratory Last Values Urine pH (Auto) 6.0 06/16/24 13:17 Specific Peridot (Auto) 1.020 06/16/24 13:17 Urine Protein (Auto) 15 mg/dL 06/16/24 13:17 Glucose (UA)(Auto) 0 mg/dL 06/16/24 13:17 Urine Ketones (Auto) Positive 06/16/24 13:17 Urine Blood (Auto) 10 Thierry/uL 06/16/24 13:17 Urine Nitrite (Auto) Negative 06/16/24 13:17 Urine Bilirubin (Auto) 0 mg/dL 06/16/24 13:17 Urine Urobilinogen (Auto) 0.2 mg/dL 06/16/24 13:17 Leukocyte Esterase (Auto) 0 Ruby/uL 06/16/24 13:17 Date of Service: 04/19/24 US Renal Comparison: None Findings: Right kidney normal size and echotexture, 10.7 cm length. Left kidney normal size and echotexture, 10.9 cm length. No hydronephrosis of either kidney. Small bilateral simple appearing cysts. Normal color Doppler. IMPRESSION: 1. Simple appearing renal cysts. Otherwise unremarkable renal ultrasound. Collected: 01/27/24 Location: [facility] Received: 01/28/24 Diagnosis Urine, cytology: Negative for high-grade urothelial carcinoma. COMMENT: Review of the cytology preparation demonstrates a cellular specimen composed of benign squames and urothelial cells. Red blood cells are noted. There is no significant atypia. Clinical History Other microscopic hematuria Material Received Urine Gross Description Received is 45 cc of cloudy yellow fluid from which a ThinPrep slide is prepared. Date of Service: 03/13/23 EXAMINATION: CT ABDOMEN AND PELVIS WITHOUT AND WITH CONTRAST CLINICAL INFORMATION: Gross hematuria. COMPARISON: Lung cancer screening CT 05/01/2020. DLP: 815 mGy-cm FINDINGS: LUNG BASES: No suspicious lung nodules at the lung bases. Stable micronodules compared to prior lung cancer screening CT scan. These nodules do not require specific follow-up. The patient should be considered for ongoing screening. LIVER, GALLBLADDER, AND BILIARY TREE: The liver is normal in size, shape, and attenuation. No focal hepatic lesion or biliary ductal dilatation is present. The gallbladder is unremarkable with no evidence of radiopaque gallstones, gallbladder wall thickening, or obvious pericholecystic inflammatory changes. PANCREAS: No discrete mass. No ductal dilatation. SPLEEN: Unremarkable. ADRENAL GLANDS: Unremarkable. KIDNEYS AND URETERS: No nephrolithiasis. Symmetric nephrograms. Hyperdense, nonenhancing Bosniak 2 cyst lower pole right kidney. Nonenhancing simple Bosniak 1 mid to lower left kidney. No follow-up imaging is recommended. No hydroureteronephrosis. No discrete ureteral abnormality. BLADDER: The bladder is not distended which limits evaluation. Trabeculated pattern may be related to underdistention. No discrete bladder mass. No bladder calculus. GASTROINTESTINAL TRACT: The small and large bowel are normal in caliber. No discrete bowel mass or focal bowel wall thickening. ABDOMINAL WALL: No significant hernia is appreciated. LYMPH NODES: Normal. VASCULAR: Moderate aortoiliac atherosclerosis. Mild narrowing of the left renal vein as it passes between the aorta and superior mesenteric artery however no collateral vessels or delay in the left nephrogram to suggest that this is hemodynamically significant. PELVIC VISCERA: Unremarkable. OSSEUS STRUCTURES: Sclerotic lesion in the left iliac bone suggestive of a bone island. Degenerative changes in the spine. IMPRESSION: No explanation for hematuria. No nephrolithiasis or suspicious renal mass. The urinary bladder is inadequately distended for evaluation. The bladder wall is mildly trabeculated which may be related to underdistention. No discrete bladder mass. Cystoscopy should be considered as no explanation for hematuria is evident on this study. Assessment & Plan Assessment & Plan (1) Mixed stress and urge urinary incontinence: Code(s): N39.46 - Mixed incontinence Category: Medical (2) Microhematuria: Code(s): R31.29 - Other microscopic hematuria Category: Medical (3) Nicotine dependence: Code(s): F17.200 - Nicotine dependence, unspecified, uncomplicated Category: Medical Qualifiers: Nicotine product type: cigarettes Substance use status: uncomplicated Qualified Code(s): F17.210 - Nicotine dependence, cigarettes, uncomplicated Plan Current renal ultrasound confirmed stable simple renal cysts with no additional renal abnormalities. The patient is being treated for overactive bladder symptoms with an anticholinergic medication and reports no side effects. A history of nicotine dependence persists with no change reported in smoking behavior. Current UA-trace blood. Plan cont fu with Renetta CANNON. Orders: Orders AMB Cystoscopy Today N32.81 - Overactive bladder, N39.46 - Mixed incontinence, R31.29 - Other microscopic hematuria AMB Urinalysis Automated Today Z13.9 - Encounter for screening, unspecified FISH Bladder Cancer Today N32.9 - Bladder disorder, unspecified, R31.29 - Other microscopic hematuria Patient Instructions: The patient had an opportunity to ask questions regarding treatment plan. The patient expressed understanding and agreement with the above treatment plan. The patient is aware they should contact our office by phone for worsening of their current condition or the appearance of new symptoms. Compliance is encouraged with any medications and followup testing that is ordered. It is a privilege to be allowed the opportunity to participate in the urologic care of your patient. If you have any questions or concerns regarding treatment for the above conditions please do not hesitate to contact me. The office telephone contact is [phone]. This note is constructed in part using voice recognition software. While every effort has been made to ensure accuracy tobacco acreage measurer errors may have been included. Yours sincerely, Betsy Patel MD Coding Level of Care Code Procedure Only Diagnoses Mixed stress and urge urinary incontinence N39.46 Microhematuria R31.29 Cigarette nicotine dependence without complication F17.210 Nicotine product type: cigarettes Substance use status: uncomplicated CPT Codes Cystoscopy - CPT: 89606-[id number] ([id number])
--- OUTSIDE RECORDS SUMMARY | 2024-06-16 11:34 | XMS_ITS | Data Portability ---
Author Organization [facility] Service Address [address] [place] [address] Assessment No assessment recorded. Plan of Treatment [...] release 24 hr 2018 019 INTERFACE [id number], [address], [place], [address], 9 11:33:37 Patient TargetsNo targets recorded. Patient Instructions Encounter Date Encounter Id Patient Instructions Last Modified By Organization Details Last Modified Time 06/08/2018 [id number] smoking cessatio n counseling, greater than 3 minutes up to 10 minutes* [email or web address] Not available 06/15/2018 08:20:51 Reason for Referral None Reported. Results Created Date Observation Date Name Description Value Unit Range Abnormal Flag Note LastModifiedBy Organization Detail LastModifiedTime 05/27/19 19 05/25/2018 MAMMO , nike yelena, bilat eral No observ ation record ed. [facility] (Medical Records) [address] [place], [address], 06/08/2018 11:03:24 Result Notes None recorded. Problems Name Problem SNOMED Code Status Onset Date Resolution Date Notes Provider Name and Address Organization Details Recorded Time Depressive disorder 92921444 Active 2018 Felicitas carbajal [facility] 9 16:08:22 Anxiety 98159345 Active 2018 Felicitas carbajal [facility] 9 16:08:29 Bladder muscle dysfunction - overactive Active 2018 Felicitas carbajal [facility] 9 16:08:40 [facility]othy[facility] 14661904 [facility] Chronic obstructive pulmonary disease 99980569 Active 2018 Felicitasmargo [facility] 9 16:11:28 Problem Notes None recorded. Procedures Surgical History None recorded. Imaging Results Imaging Date Name Status LastModified by Organiz ation Details LastModified Time 05/25/2018 MAMMO, screening, bilateral completed [facility] (Medical Records) [address] [place], [address], 06/08/2018 11:03:24 Procedure Notes None recorded. Medical Equipment None Reported. Allergies Allergen ID Allergen Name Allergen Category Reaction Reaction Severity Criticality Documentation Date Start Date Code Code System Note Provider Name and Address Organization Details Recorded Time 7950 codeine medicatio n Not available Not available Not available 05/18/2018 2670 RxNorm Felicitas carbajal [facility] 9 16:08:14 Medications Name Sig Start [...] Address Organization Details Last Updated DateTime 9 96854.8 3 g 84 /min 94 % 94 % 120 mm[Hg] 78 mm[Hg] [facility] 9 11:00:12 Social History Question Answer Notes LastModified by Organizat ion Details LastModified Time Tobacco Smoking Status Current Every Day Smoker 1 ppd Not Available [facility] 03:36:24 What Was The Date Of Your Most Recent Tobacco Screening? 06/08/2018 [id number] Information not available 01/17/2020 Sex: Unknown Functional Status None recorded. Mental Status None recorded. Family History Nothing Reported. Medical History No medical history recorded. Gynecological HistoryNo gynecological history recorded. Obstetrics History GPAL:G 0 P 0 0 0 0 Immunizations Vaccine Type Date Status Note Provider Nam e and Address Organization Details Recorded Time Influenza, split virus, quadrivalent, preservative 8 completed Delma carbajal [facility] 06/08/2018 10:59:24 Past Encounters Encounter ID Performer Location Encounter Start Date Encounter Closed Date Diagnosis/Indication Diagnosis SNOMED-CT Code Diagnosis ICD10 Code Diagnosis Note [id number] Shilpa De Los Santos NP, [facility] [address] [address] 06/08/2018 10:47:08 06/08/2018 11:19:56 Chronic obstructive pulmonary disease 58409936 J44.9 defers inhaler, wants to decrease smoking ( had spiriva in past ) Bladder mu scle dysfunction - overactive 895181958 N32.81 Depressive disorder 3548 9007 F33.8 stable Hypothyroidism 09469272 E03.9 Anxiety 86306914 F41.9 Screening procedure 2012 5006 Z13.9 Tobacco de pendence syndrome 26823176 F17.200 to taper off again Health Concerns Section Related Observation LastModified by Organization Detai ls LastModified Time None Recorded Concern Status LastModified by Organization Details LastModified Time None Recorded Advance Directives Directive None Recorded Payers Encounter Date Sequence Insurance Name Policy Number Policy Bone Covered Member ID Bone Member ID Guarantor Name 06/08/2018 1 [place] [employer] Lela Long [id number] Lela Long 06/08/2018 2 [place] [facility] Lela Long [id number] Lela Long Notes Date Note Type Note Provider Name a nd Address Organization Details Recorded Time 06/08/2018 text/html Here per our request, recent med refill Overall feeling much better, life seems to be going well 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
== END 2024-06-16 13:29 | disposition home or self-care (01) ==
LOC: HO.HUSH 10:28
PROVIDERS: PCP Internal Medicine; Visit Provider Urology
DX: N39.46 Mixed incontinence (principal); R31.29 Other microscopic hematuria; N32.81 Overactive bladder; N28.1 Cyst of kidney, acquired; F17.210 Nicotine dependence, cigarettes, uncomplicated
CPT/HCPCS: 52000; 99213

== ENCOUNTER 2024-06-29 12:57 | Outpatient (AMB) | payer MEDICARE, SELFPAY ==
[2024-06-29 13:02] VITALS: BP 130/66; PULSE 84; O2SAT 95; BMI 29.9
--- NOTE | 2024-06-29 13:02 | A.OFFPC_ITS ---
Vital Signs 06/29/24 13:02 Height 5 ft 2 in Weight 163 lb 6 oz BMI 29.9 BP 130/66 Blood Pressure Location Rt brachial Position Sitting Pulse 84 Pulse Source Pulse Oximeter Pulse Oximetry (%) 95 Oxygen Delivery Method Room Air Intake Visit Reasons: 6m follow up Allergies codeine [CODEINE] Allergy (Unknown, Verified 06/29/24 13:02) ITCH epinephrine [EPINEPHRINE] Allergy (Unknown, Verified 06/29/24 13:02) PALPATATIONS FROM DENTAL WORK Medication List - Last Reconciled 06/29/24 by Brian Zamora MD albuterol sulfate 90 mcg/actuation (Ventolin HFA) 2 inhalations inhalation QID PRN 90 days aspirin (Adult Aspirin Regimen) 81 mg PO DAILY bisacodyl (Dulcolax (bisacodyl)) 10 mg (2 x 5 mg) PO BEDTIME 2 days bupropion HCl XL 150 mg PO QAM citalopram 40 mg PO QAM clonazepam 0.5 mg PO DAILY divalproex ER 500 mg PO TID levothyroxine 50 mcg PO DAILY lisinopril 10 mg PO DAILY melatonin 10 mg PO BEDTIME PRN [Poise Pads # 3 Change pad 3 times a day or as needed for urinary incontinence.] solifenacin 10 mg PO DAILY Tobacco use date assessed: 06/29/24 Fall risk assessment: No Falls in past year Last assessed Fall Risk: 06/29/24 Dental Screening Dental Screen Date: 06/29/24 Did you have a dental visit in the last 12 months?: Yes Did you have a dental problem in the last 6 months where you did not have access to dental care?: No Was dental information given to patient?: Patient has dentist HPI 6m follow up HPI Details History - The patient is a 64-year-old female pr esenting for a six-month follow-up. - Patient reported recent findings of tr georgina fluid within the endometrial cavity observed during an ultrasound performed in February, with an endometrial thickness reported as 3 mm inclusive of fluid. There were no associated symptoms such as bleeding reported by the patient. - Kidney ultrasound performed in y showed simple cysts, reported as asymptomatic at this time. - Current medications include an inhaler , Wellbutrin, citalopram, clonazepam, devalprax, levothyroxine, lisinopril, and a bladder medication. - Patient denies recent psychiatric cons ultations despite ongoing medication refills provided by a psychiatrist. - No current problems or changes were no pro with existing hypertension and thyroid management. - Patient expressed a desire for anesthe alysia during a procedure to collect a sample from the uterus due to recent experiences with painful procedures, including a cystoscopy for bladder examination. Problem List - Fluid in uterine cavity - Simple kidney cysts - Hypertension - Depression - Anxiety - Hypothyroidism - Bladder issues Patient Instructions - Continue taking your current medicatio ns as prescribed. 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 - Monitor kidney cysts; notify a peoples hospital are provider if any abdominal pain or discomfort occurs. - See the doctor again in October as sche duled. Review of Systems - General: No fever no chills - Neurological: No headaches no dizziness - Ear nose throat: No sore throat no hearing difficulty no ear pain - Cardiovascular: No syncope, no chest pain, no palpitations - Gastrointestinal: No nausea vomiting or diarrhea - Endocrine: No polyuria polydipsia no heat intolerance - Genitourinary: No dysuria , no blood in urine Physical Exam - General: No acute distress - HEENT: No acute findings - Neck: Supple - Respiratory system: Able to talk in f ull sentences, no audible wheeze - Cardiovascular: S1-S2 regular in rate and rhythm - Gastrointestinal: No pain - Extremities: No new findings - 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 awake oriented x3 motor se nsory intact - Skin: Normal turgor PFSH Medical History Fluid in endometrial cavity Homelessness Bladder disorder Rash of foot Tinea pedis COVID-19 Trochanteric bursitis, left hip Snoring Pain of left sacroiliac joint Tendinopathy of left rotator cuff Fatigue Family history of breast cancer in first degree relative Excessive sleep Lumbar pain Chest pain Other specified hypothyroidism Arthralgia Frequency of urination Wheezing Urine incontinence Lower urinary tract symptoms Colon cancer screening At high risk for breast cancer Nicotine dependence, cigarettes, uncomplicated CHEK2 gene mutation positive Tremors of nervous system Bipolar disorder 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 exogenous substances Depression, major, recurrent COPD (chronic obstructive pulmonary disease) Surgical History Hx of tubal ligation Hx of tonsillectomy H/O brain surgery Family History Maternal Grandmother Breast cancer Mother Breast cancer Sister Breast cancer Family/Other Breast cancer Father Bladder cancer Paternal Uncle Prostate CA Family/Other Breast cancer Family/Other Bladder cancer Other Mental health disorder Substance use disorder Social History Household Members: Friend(s) Housing: House Alcohol intake: current Alcohol intake frequency: holidays/special occasions only Patient Tobacco Use Status: Current everyday Tobacco user Tobacco use type: Cigarette Years Smoked: (onset 11yo, 1ppd x 52yrs, 50pyh) e-Cigarette/Vaping Use: Currently Using Second Hand Smoke Exposure: Yes Substance Use Type: Marijuana service: No Current occupational status: disabled Cognitive needs: No Hearing needs: No Vision needs: Yes Female Reproductive History Menstrual Age of Menarche: 8 Questionnaire PHQ-9 Over the last 2 weeks, how often have you been bothered by any of the following problems? 1. Little interest or pleasure in doing things: several days 2. Feeling down, depressed, or hopeless: several days 3. Trouble falling or staying asleep, or sleeping too much: more than half the days 4. Feeling tired or having little energy: several days 5. Poor appetite or overeating: not at all 6. Feeling bad about yourself - or that you are a failure or have let yourself or your family down: not at all 7. Trouble concentrating on things, such as reading the newspaper or watching television: not at all 8. Moving or speaking so slowly that other people could have noticed. Or the opposite - being so fidgety or restless that you have been moving around a lot more than usual: not at all 9. Thoughts that you would be better off or of hurting yourself in some way: not at all Total score: 5 Depression Screening Interpretation: Negative Depression Screening Done: Yes 90294 - PHQ-9 Billing: Yes Source: Developed by Drs. Osmel Valdes, Naa Smith, Ze Garner and colleagues, with an educational amanda from [employer]. Thrive Questionnaire Date Thrive assessed: 06/26/24 I am a: Patient What is your living situation today?: I have a place to live, but I am worried about losing it in the future Within the past 12 months, did the food you bought not last and you didn't have the money to get more?: Never true Within the past 12 months, did you worry whether your food would run out before you got money to buy more?: Never true Do you have trouble paying for medicines?: No Do you have trouble getting transportation to medical appointments?: No Do you have trouble paying your heating and electricity bill?: No Do you have trouble taking care of your child, family member or friend?: No Do you have trouble with day-to-day activities such as bathing, preparing meals, shopping, managing finances, etc.?: No Are you currently unemployed and looking for a job?: No Are you interested in more education?: No Please select the resources that you would like help with: None Currently or been in a relationship where the following occur: No concerns reported THRIVE Score: 1 AUDIT C Alcohol Use Questionnaire (AUDIT-C) 1. How often do you have a drink containing alcohol?: Monthly or less 2. How many drinks containing alcohol do you have on a typical day when you are drinking?: 1 or 2 3. How often do you have six or more drinks on one occasion?: Never Total Score: 1 GURWINDER-7 AMB Questionnaire GURWINDER-7 Date GURWINDER - 7 assessed: 09/30/23 Feeling nervous, anxious, or on edge: 1 = Several days Not being able to stop or control worryin = Several days Worrying too much about different things: 1 = Several days Trouble relaxin = Not at all Being so restless that it is hard to sit still: 0 = Not at all Becoming easily annoyed or irritable: 0 = Not at all Feeling afraid as if something awful might happen: 0 = Not at all Total GURWINDER-7 score (0-4 normal; 5-9 mild; 10-14 moderate; 15-21 severe): 3 Source: Developed by Drs. Osmel Valdes, Naa Smith, Ze Garner and colleagues, with an educational amanda from [employer]. Physical exam (Primary Care) Vital Signs: Last Vital Signs Pulse 84 06/29/24 13:02 BP 130/66 06/29/24 13:02 Pulse Ox 95 06/29/24 13:02 Oxygen Delivery Method Room Air 06/29/24 13:02 BMI result Body Mass Index 29.9 Tobacco/Smoking Status: Tobacco use Status Tobacco use date assessed 06/29/24 06/29/24 13:02 Patient Tobacco Use Status Current everyday Tobacco 06/29/24 13:02 Tobacco use type Cigarette 06/29/24 13:02 e-Cigarette/Vaping Use Currently Using 06/29/24 13:02 PHQ-9: PHQ-9 Score PHQ-9: Total score 5 06/29/24 13:02 Depression Screening Interpretation: Negative Thrive Assessment: Date of Thrive Assessment Date Thrive assessed 06/26/24 06/29/24 13:02 Currently or been in a relationship where the following occur: No concerns reported Coding Level of Care Code Est Pt Level 4 (28028) Diagnoses 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 exogenous substances E03.2 Bipolar disorder, in full remission, most recent episode mixed F31.78 Active/Remission status: in full remission Most recent bipolar episode type: mixed 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 Emphysema type: other Hypertension, essential I10 Microhematuria R31.29 OAB (overactive bladder) N32.81 Fluid in endometrial cavity N85.9 Additional Codes PHQ-9 - 20241 - PHQ-9 Billing: Yes ([id number]) Assessment & Plan Assessment & Plan (1) 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 exogenous substances: Code(s): E03.2 - 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 exogenous substances Category: Medical (2) Bipolar disorder: Code(s): F31.9 - Bipolar disorder, unspecified Category: Medical Qualifiers: Active/Remission status: in full remission Most recent bipolar episode type: mixed Qualified Code(s): F31.78 - Bipolar disorder, in full remission, most recent episode mixed (3) COPD (chronic obstructive pulmonary disease): Code(s): J44.9 - Chronic obstructive pulmonary disease, unspecified Category: Medical Qualifiers: COPD type: emphysema Emphysema type: other Qualified Code(s): J43.8 - Other emphysema (4) Hypertension, essential: Code(s): I10 - Essential (primary) hypertension Category: Medical (5) Microhematuria: Code(s): R31.29 - Other microscopic hematuria Category: Medical (6) OAB (overactive bladder): Code(s): N32.81 - Overactive bladder Category: Medical (7) Fluid in endometrial cavity: Code(s): N85.9 - Noninflammatory disorder of uterus, unspecified Category: Medical Plan History - The patient is a 64-year-old female presenting for a six-month follow-up. - Patient reported recent findings of trace fluid within the endometrial cavity observed during an ultrasound performed in February, with an endometrial thickness reported as 3 mm inclusive of fluid. There were no associated symptoms such as bleeding reported by the patient. - Kidney ultrasound performed in April showed simple cysts, reported as asymptomatic at this time. - Current medications include an inhaler, Wellbutrin, citalopram, clonazepam, devalprax, levothyroxine, lisinopril, and a bladder medication. - Patient denies recent psychiatric consultations despite ongoing medication refills provided by a psychiatrist. - No current problems or changes were noted with existing hypertension and thyroid management. - Patient expressed a desire for anesthesia during a procedure to collect a sample from the uterus due to recent experiences with painful procedures, including a cystoscopy for bladder examination. Problem List - Fluid in uterine cavity - Simple kidney cysts - Hypertension - Depression - Anxiety - Hypothyroidism - Bladder issues Patient Instructions - Continue taking your current medications as prescribed. 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 - Monitor kidney cysts; notify a healthcare provider if any abdominal pain or discomfort occurs. - See the doctor again in October as scheduled.
--- OUTSIDE RECORDS SUMMARY | 2024-06-29 15:21 | XMS_ITS | Data Portability ---
Author Organization [facility] Home Service Address [address] [place] [address] Assessment No assessment recorded. Plan of Treatment [...] release 24 hr 2018 019 INTERFACE [id number], [address], [place], [address], 9 11:33:37 Patient TargetsNo targets recorded. Patient Instructions Encounter Date Encounter Id Patient Instructions Last Modified By Organization Details Last Modified Time 06/08/2018 [id number] smoking cessatio n counseling, greater than 3 minutes up to 10 minutes* [email or web address] Not available 06/15/2018 08:20:51 Reason for Referral None Reported. Results Created Date Observation Date Name Description Value Unit Range Abnormal Flag Note LastModifiedBy Organization Detail LastModifiedTime 05/27/19 19 05/25/2018 MAMMO , nike yelena, bilat eral No observ ation record ed. [facility] (Medical Records) [address] [place], [address], 06/08/2018 11:03:24 Result Notes None recorded. Problems Name Problem SNOMED Code Status Onset Date Resolution Date Notes Provider Name and Address Organization Details Recorded Time Depressive disorder 37261609 Active 2018 Felicitas carbajal [facility] 9 16:08:22 Anxiety 06307870 Active 2018 Felicitas carbajal [facility] 9 16:08:29 Bladder muscle dysfunction - overactive Active 2018 Felicitas carbajal [facility] 9 16:08:40 Hypothy[facility] 71714230 [facility] Chronic obstructive pulmonary disease 74732142 Active 2018 Felicitasmargo [facility] 9 16:11:28 Problem Notes None recorded. Procedures Surgical History None recorded. Imaging Results Imaging Date Name Status LastModified by Organiz ation Details LastModified Time 05/25/2018 MAMMO, screening, bilateral completed [facility] (Medical Records) [address] [place], [address], 06/08/2018 11:03:24 Procedure Notes None recorded. Medical Equipment None Reported. Allergies Allergen ID Allergen Name Allergen Category Reaction Reaction Severity Criticality Documentation Date Start Date Code Code System Note Provider Name and Address Organization Details Recorded Time 8874 codeine medicatio n Not available Not available Not available 05/18/2018 2670 RxNorm Felicitas carbajal [facility] 9 16:08:14 Medications Name Sig Start Date [...] Address Organization Details Last Updated DateTime 9 70735.8 3 g 84 /min 94 % 94 % 120 mm[Hg] 78 mm[Hg] [facility] 9 11:00:12 Social History Question Answer Notes LastModified by Organizat ion Details LastModified Time Tobacco Smoking Status Current Every Day Smoker 1 ppd Not Available [facility] 01/17/2020 03:36:24 What Was The Date Of Your Most Recent Tobacco Screening? 06/08/2018 [id number] Information not available 01/17/2020 Sex: Unknown Functional Status None recorded. Mental Status None recorded. Family History Nothing Reported. Medical History No medical history recorded. Gynecological HistoryNo gynecological history recorded. Obstetrics History GPAL:G 0 P 0 0 0 0 Immunizations Vaccine Type Date Status Note Provider Nam e and Address Organization Details Recorded Time Influenza, split virus, quadrivalent, preservative 8 completed Delma carbajal [facility] 06/08/2018 10:59:24 Past Encounters Encounter ID Performer Location Encounter Start Date Encounter Closed Date Diagnosis/Indication Diagnosis SNOMED-CT Code Diagnosis ICD10 Code Diagnosis Note [id number] Shilpa De Los Santos NP, S [facility] [address],[place] [address] 06/08/2018 10:47:08 06/08/2018 11:19:56 Chronic obstructive pulmonary disease 86526544 J44.9 defers inhaler, wants to decrease smoking ( had spiriva in past ) Bladder mu scle dysfunction - overactive 702319250 N32.81 Depressive disorder 3548 9007 F33.8 stable Hypothyroidism 31067547 E03.9 Anxiety 63208220 F41.9 Screening procedure 2012 5006 Z13.9 Tobacco de pendence syndrome 80792573 F17.200 to taper off again Health Concerns Section Related Observation LastModified by Organization Detai ls LastModified Time None Recorded Concern Status LastModified by Organization Details LastModified Time None Recorded Advance Directives Directive None Recorded Payers Encounter Date Sequence Insurance Name Policy Number Policy Bone Covered Member ID Bone Member ID Guarantor Name 06/08/2018 1 [place] [employer] Lela Long [id number] Lela Long 06/08/2018 2 [place] [facility] Lela Long [id number] Lela Long Notes Date Note Type Note Provider Name a nd Address Organization Details Recorded Time 06/08/2018 text/html Here per our request, recent med refill Overall feeling much better, life seems to be going well 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
== END 2024-06-29 13:58 | disposition home or self-care (01) ==
PROVIDERS: PCP Internal Medicine; Visit Provider Internal Medicine
DX: E03.2 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 exogenous substances (principal); F31.78 Bipolar disorder, in full remission, most recent episode mixed; J43.8 Other emphysema; I10 Essential (primary) hypertension; R31.29 Other microscopic hematuria; N32.81 Overactive bladder; N85.9 Noninflammatory disorder of uterus, unspecified

== ENCOUNTER → 2024-06-29 12:57 | Outpatient (BNVA) | payer MEDICARE, SELFPAY | PROVIDERS: PCP Internal Medicine; Visit Provider Internal Medicine | DX: E03.2 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 exogenous substances (principal); F31.78 Bipolar disorder, in full remission, most recent episode mixed; J43.8 Other emphysema; I10 Essential (primary) hypertension; R31.29 Other microscopic hematuria; N32.81 Overactive bladder; N85.9 Noninflammatory disorder of uterus, unspecified | CPT/HCPCS: 96127; 99212 ==

== ENCOUNTER 2024-06-29 14:56 | Outpatient (AMB) | payer MEDICARE, SELFPAY ==
--- NOTE | 2024-06-29 15:23 | MHC.OFFVIS ---
Vital Signs 06/29/24 15:25 Height 5 ft 2 in Weight 163 lb BMI 29.8 BP 104/62 Intake Visit Reasons: Hysteroscopy Consult Telephone Order Clerk Room Service Required: No Information Interpreted: non-clinical & clinical Accompanied by: Self / Same As Patient Allergies codeine [CODEINE] Allergy (Unknown, Verified 06/29/24 15:26) ITCH epinephrine [EPINEPHRINE] Allergy (Unknown, Verified 06/29/24 15:26) PALPATATIONS FROM DENTAL WORK Post menopausal: Yes HPI Comments Details: Presenting referred from Daisha Daniel CNM regarding endometrial fluid by ultrasound. The patient is doing well with no complaints, no pelvic pain and no history of vaginal bleeding. Pelvic ultrasound 03/08 showed the following: The uterus is anteverted and measures 6.3 x 2.1 x 2.3 cm. Endometrial thickness of 3 mm. Redemonstration of small amount of fluid within the endometrial cavity. Right ovary measures 1.3 x 1.0 x 0.9 cm, volume of 0.6 mL. Left ovary not visualized. Limited visualization due to bowel gas. Myometrial echogenic focus characteristic of calcification. 0.7 x 0.6 x 0.7 cm echogenic right uterine mass, previously 1.2 x 1.0 x 0.9 cm. 0.7 x 0.5 x 0.6 cm right uterine mass. 1.1 x 1.0 x 0.9 cm uterine mass on the left, previously 1.0 x 1.0 x 0.8 cm. Nabothian cysts both simple and complex. [facility]05 [facility] Medical History Fluid in endometrial cavity Homelessness Bladder disorder Rash of foot Tinea pedis COVID-19 Trochanteric bursitis, left hip Snoring Pain of left sacroiliac joint Tendinopathy of left rotator cuff Fatigue Family history of breast cancer in first degree relative Excessive sleep Lumbar pain Chest pain Other specified hypothyroidism Arthralgia Frequency of urination Wheezing Urine incontinence Lower urinary tract symptoms Colon cancer screening At high risk for breast cancer Nicotine dependence, cigarettes, uncomplicated CHEK2 gene mutation positive Tremors of nervous system Bipolar disorder 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 exogenous substances Depression, major, recurrent COPD (chronic obstructive pulmonary disease) Surgical History Hx of tubal ligation Hx of tonsillectomy H/O brain surgery Family History Maternal Grandmother Breast cancer Mother Breast cancer Sister Breast cancer Family/Other Breast cancer Father Bladder cancer Paternal Uncle Prostate CA Family/Other Breast cancer Family/Other Bladder cancer Other Mental health disorder Substance use disorder Social History Household Members: Friend(s) Housing: House Alcohol intake: current Alcohol intake frequency: holidays/special occasions only Patient Tobacco Use Status: Current everyday Tobacco user Tobacco use type: Cigarette Years Smoked: (onset 11yo, 1ppd x 52yrs, 50pyh) e-Cigarette/Vaping Use: Currently Using Second Hand Smoke Exposure: Yes Substance Use Type: Marijuana service: No Current occupational status: disabled Cognitive needs: No Hearing needs: No Vision needs: Yes Female Reproductive History Menstrual Age of Menarche: 8 Review of Systems Const All systems reviewed & are unremarkable except as noted in HPI and below Physical Exam Vital Signs: Last Vital Signs BP 104/62 06/29/24 15:25 BMI result Body Mass Index 29.8 Assessment & Plan Assessment & Plan (1) Fluid in endometrial cavity: Code(s): N85.9 - Noninflammatory disorder of uterus, unspecified Category: Medical Plan: Discussed with the patient the finding of fluid in the endometrial cavity, in spite of no vaginal bleeding the concern is the endometrial fluid visualized on ultrasound in case of cervical stenosis might be bleeding into the endometrial cavity and the blood and/or tissue was are unable to pass through the cervical os. Endometrial sampling in postmenopausal bleeding with endometrial fluid is indicated in case endometrial thickness is above 4 mm, however in cases with thin endometrial stripe, 4 mm and below, without any focal lesions, is a reassuring finding with a high negative predictive value for endometrial pathology including endometrial hyperplasia and/or malignancy or polyps. Offered the patient endometrial sampling via endometrial biopsy versus hysteroscopy D&C possible polypectomy to cover the possible false a reassuring rate of a thin endometrium by ultrasound with endometrial fluid. The patient declined. Instructions given to patient to call in case of vaginal bleeding will proceed with endometrial sampling to rule out endometrial pathology. All questions answered, the patient verbalized understanding Coding Level of Care Code Est Pt Level 3 (70178) Diagnoses Fluid in endometrial cavity N85.9
[2024-06-29 15:25] VITALS: BP 104/62; BMI 29.8
== END 2024-06-29 15:58 | disposition home or self-care (01) ==
LOC: HO.HWS 14:57
PROVIDERS: PCP Internal Medicine; Visit Provider Obstetrics & Gynecology
DX: N85.9 Noninflammatory disorder of uterus, unspecified (principal)
CPT/HCPCS: 99213

== ENCOUNTER 2024-08-09 08:41 | Day surgery (SDC) | payer MEDICARE, SELFPAY ==
--- OUTSIDE RECORDS SUMMARY | 2024-07-06 14:55 | XMS_ITS | Data Portability ---
Author Organization [facility] Home Service Address [address] [place] [address] Assessment No assessment recorded. Plan of Treatment [...] release 24 hr 2018 019 INTERFACE [id number], [id number], [place], [address], 9 11:33:37 Patient TargetsNo targets recorded. Patient Instructions Encounter Date Encounter Id Patient Instructions Last Modified By Organization Details Last Modified Time 06/08/2018 [id number] smoking cessatio n counseling, greater than 3 minutes up to 10 minutes* [email or web address] Not available 06/15/2018 08:20:51 Reason for Referral None Reported. Results Created Date Observation Date Name Description Value Unit Range Abnormal Flag Note LastModifiedBy Organization Detail LastModifiedTime 05/27/19 19 05/25/2018 MAMMO , nike yelena, bilat eral No observ ation record ed. [facility] (Medical Records) [address] [place], [address], 06/08/2018 11:03:24 Result Notes None recorded. Problems Name Problem SNOMED Code Status Onset Date Resolution Date Notes Provider Name and Address Organization Details Recorded Time Depressive disorder 37337311 Active 2018 Felicitas carbajal [facility] 9 16:08:22 Anxiety 61206242 Active 2018 Felicitas carbajal [facility] 9 16:08:29 Bladder muscle dysfunction - overactive Active 2018 Felicitas carbajal [facility] 9 16:08:40 Hypothyroidism 99133543 [facility] 16:08:50 Chronic obstructive pulmonary disease 91798839 Active 2018 Felicitasmargo [facility] 9 16:11:28 Problem Notes None recorded. Procedures Surgical History None recorded. Imaging Results Imaging Date Name Status LastModified by Organiz ation Details LastModified Time 05/25/2018 MAMMO, screening, bilateral completed [facility] (Medical Records) [address] [place], [address], 06/08/2018 11:03:24 Procedure Notes None recorded. Medical Equipment None Reported. Allergies Allergen ID Allergen Name Allergen Category Reaction Reaction Severity Criticality Documentation Date Start Date Code Code System Note Provider Name and Address Organization Details Recorded Time 8365 codeine medicatio n Not available Not available Not available 05/18/2018 2670 RxNorm Felicitas carbajal [facility] 9 16:08:14 Medications Name Sig [...] Address Organization Details Last Updated DateTime 9 79736.8 3 g 84 /min 94 % 94 % 120 mm[Hg] 78 mm[Hg] [facility] 9 11:00:12 Social History Question Answer Notes LastModified by Organizat ion Details LastModified Time Tobacco Smoking Status Current Every Day Smoker 1 ppd Not Available [facility] 01/17/2020 03:36:24 What Was The Date Of Your Most Recent Tobacco Screening? 06/08/2018 [id number] Information not available 01/17/2020 Sex: Unknown Functional Status None recorded. Mental Status None recorded. Family History Nothing Reported. Medical History No medical history recorded. Gynecological HistoryNo gynecological history recorded. Obstetrics History GPAL:G 0 P 0 0 0 0 Immunizations Vaccine Type Date Status Note Provider Nam e and Address Organization Details Recorded Time Influenza, split virus, quadrivalent, preservative 8 completed Delma carbajal [facility] 06/08/2018 10:59:24 Past Encounters Encounter ID Performer Location Encounter Start Date Encounter Closed Date Diagnosis/Indication Diagnosis SNOMED-CT Code Diagnosis ICD10 Code Diagnosis Note [id number] Shilpa De Los Santos NP, S [facility] [address] [address] 06/08/2018 10:47:08 06/08/2018 11:19:56 Chronic obstructive pulmonary disease 40801925 J44.9 defers inhaler, wants to decrease smoking ( had spiriva in past ) Bladder mu scle dysfunction - overactive 309919765 N32.81 Depressive disorder 3548 9007 F33.8 stable Hypothyroidism 66605129 E03.9 Anxiety 71645902 F41.9 Screening procedure 2012 5006 Z13.9 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.200 to taper off again Health Concerns Section Related Observation LastModified by Organization Detai ls LastModified Time None Recorded Concern Status LastModified by Organization Details LastModified Time None Recorded Advance Directives Directive None Recorded Payers Encounter Date Sequence Insurance Name Policy Number Policy Bone Covered Member ID Obne Member ID Guarantor Name 06/08/2018 1 [place] [employer] Lela Long [id number] Lela Long 06/08/2018 2 [place] [facility] Lela Long [id number] Lela Long Notes Date Note Type Note Provider Name a nd Address Organization Details Recorded Time 06/08/2018 text/html Here per our request, recent med refill Overall feeling much better, life seems to be going well 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
[2024-08-04 16:19] VITALS: BMI 29.8
--- NOTE | 2024-08-09 09:22 | HO.ANESPROP2 ---
[facility] Active Problems Active Problems: All Active Problems Fluid in endometrial cavity (Acute) Pre-op examination (Acute) Nicotine dependence, cigarettes, uncomplicated (Acute) CHEK2 gene mutation positive (Acute) Fibroid (Acute) Blurring of vision (Acute) Pelvic fullness in female (Acute) OAB (overactive bladder) (Acute) Mixed stress and urge urinary incontinence (Acute) Microhematuria (Acute) Vertigo (Acute) EMELIA (obstructive sleep apnea) (Acute) Hypertension, essential (Acute) COPD (chronic obstructive pulmonary disease) (Acute) Depression, major, recurrent (Acute) 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 exogenous substances (Acute) Bipolar disorder (Acute) Tremors of nervous system (Acute) Bilateral sacroiliitis (Acute) Past Medical History Medical History Fluid in endometrial cavity Homelessness Bladder disorder Rash of foot Tinea pedis COVID-19 Trochanteric bursitis, left hip Snoring Pain of left sacroiliac joint Tendinopathy of left rotator cuff Fatigue Family history of breast cancer in first degree relative Excessive sleep Lumbar pain Chest pain Other specified hypothyroidism Arthralgia Frequency of urination Wheezing Urine incontinence Lower urinary tract symptoms Colon cancer screening At high risk for breast cancer Nicotine dependence, cigarettes, uncomplicated CHEK2 gene mutation positive Tremors of nervous system Bipolar disorder 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 exogenous substances Depression, major, recurrent COPD (chronic obstructive pulmonary disease) Functional capacity: independent ambulation Patient : No Family History Family History Maternal Grandmother Breast cancer Mother Breast cancer Sister Breast cancer Family/Other Breast cancer Father Bladder cancer Paternal Uncle Prostate CA Family/Other Breast cancer Family/Other Bladder cancer Other Mental health disorder Substance use disorder Family history of problems with anesthesia: No Surgical History Surgical History Hx of tubal ligation Hx of tonsillectomy H/O brain surgery History of Problems with Anesthesia: No Social History Social History Household Members: Friend(s) Housing: House Alcohol intake: current Alcohol intake frequency: holidays/special occasions only Patient Tobacco Use Status: Current everyday Tobacco user Tobacco use type: Cigarette Years Smoked: (onset 11yo, 1ppd x 52yrs, 50pyh) e-Cigarette/Vaping Use: Currently Using Second Hand Smoke Exposure: Yes Substance Use Type: Marijuana Advance Directives: No Advance Directives Information Provided: Yes service: No Current occupational status: disabled Cognitive needs: No Hearing needs: No Vision needs: Yes Meds Allergies Allergy/AdvReac Type Severity Reaction Status Date / Time codeine [CODEINE] Allergy Unknown ITCH Verified 06/29/24 15:26 epinephrine [EPINEPHRINE] Allergy Unknown PALPATATIONS Verified 06/29/24 15:26 FROM DENTAL WORK Active Medications: Current Medications Lactated Ringer's (Lr) 1,000 mls @ 100 mls/hr IVCONT .Q10H STEPHANIE Home Medications ?Medication ?Instructions ?Recorded ?Confirmed ?Last Taken ?Type clonazepam 0.5 mg tablet 0.5 mg PO DAILY 03/29/20 06/29/24 Unknown History aspirin 81 mg tablet,delayed 81 mg PO DAILY 05/07/21 06/29/24 Unknown History release (Adult Aspirin Regimen) citalopram 40 mg tablet 40 mg PO QAM 05/07/21 06/29/24 Unknown History melatonin 10 mg tablet 10 mg PO BEDTIME PRN Insomnia 05/07/21 06/29/24 Unknown History divalproex 500 mg tablet,extended 500 mg PO TID 04/28/23 06/29/24 Unknown History release 24 hr bupropion HCl 150 mg 24 hr tablet, 150 mg PO QAM 08/18/23 06/29/24 Unknown History extended release Exam Height,Weight and Vital Signs: Height 5 ft 2 in Weight 73.936 kg Assessment and Plan Final Anesthetic Review Family History of Problems with Anesthesia: No History of Problems with Anesthesia: No
[2024-08-09 09:47] VITALS: BP 127/63; PULSE 73; RESP 16; TEMP 36.4; O2SAT 94
[2024-08-09] MEDS: Lactated Ringers 1,000 ML 100 ML IVCONT (09:53)
--- NOTE | 2024-08-09 10:11 | P.HPSUR_ITS ---
Pre-Procedural Eval Section A - 24 Hr Update-Section A only Date of Service: 08/09/24 Section B - Complete if H&P > 30 days Chief Complaint: screening Relevant Family History (Specify if Yes): No Relevant Social History: Tobacco Use Present Medications: see Short Stay Collaborative assessment Medical History: Significant History ( Fluid in endometrial cavity Homelessness Bladder disorder Rash of foot Tinea pedis COVID-19 Trochanteric bursitis, left hip Snoring Pain of left sacroiliac joint Tendinopathy of left rotator cuff Fatigue Family history of breast cancer in first degree relative Excessive sleep Lumbar pain Chest pain) History of Previous Operations: Relevant previous surgery/procedure and date(s) (Hx of tubal ligation Hx of tonsillectomy H/O brain surgery) Allergies: Allergies Allergy/AdvReac Type Severity Reaction Status Date / Time codeine [CODEINE] Allergy Unknown ITCH Verified 06/29/24 15:26 epinephrine [EPINEPHRINE] Allergy Unknown PALPATATIONS Verified 06/29/24 15:26 FROM DENTAL WORK Review of Systems Sugical H&P ROS: Negative: Constitution, Cardiovascular, Respiratory, Neurological, Psychiatric, Hem-Onc, Allergic/Immunologic, Gastrointestinal, Genitourinary, Musculoskeletal, Integumentary, Endocrine and Eyes/Ea rs/Nose/Throat Exam Surgical H&P Exam: Normal: HEENT, Normal: Heart, Normal: Lungs, Normal: Extremities, Normal: Abdomen, Normal: Skin and Normal: Neurological Plan Diagnosis/Plan: Unchanged I have reviewed the history and physical and performed a pertinent physical examination on my patient. No changes have occurred unless specified. Time Spent With Patient Time: Total time managing care of this patient today ____ minutes.
--- NOTE | 2024-08-09 10:23 | P.CONAN_ITS ---
[facility] Active Problems Active Problems: All Active Problems Fluid in endometrial cavity (Acute) Pre-op examination (Acute) Nicotine dependence, cigarettes, uncomplicated (Acute) CHEK2 gene mutation positive (Acute) Fibroid (Acute) Blurring of vision (Acute) Pelvic fullness in female (Acute) OAB (overactive bladder) (Acute) Mixed stress and urge urinary incontinence (Acute) Microhematuria (Acute) Vertigo (Acute) EMELIA (obstructive sleep apnea) (Acute) Hypertension, essential (Acute) COPD (chronic obstructive pulmonary disease) (Acute) Depression, major, recurrent (Acute) 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 exogenous substances (Acute) Bipolar disorder (Acute) Tremors of nervous system (Acute) Bilateral sacroiliitis (Acute) Past Medical History Medical History Fluid in endometrial cavity Homelessness Bladder disorder Rash of foot Tinea pedis COVID-19 Trochanteric bursitis, left hip Snoring Pain of left sacroiliac joint Tendinopathy of left rotator cuff Fatigue Family history of breast cancer in first degree relative Excessive sleep Lumbar pain Chest pain Other specified hypothyroidism Arthralgia Frequency of urination Wheezing Urine incontinence Lower urinary tract symptoms Colon cancer screening At high risk for breast cancer Nicotine dependence, cigarettes, uncomplicated CHEK2 gene mutation positive Tremors of nervous system Bipolar disorder 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 exogenous substances Depression, major, recurrent COPD (chronic obstructive pulmonary disease) Functional capacity: independent ambulation Family History Family History Maternal Grandmother Breast cancer Mother Breast cancer Sister Breast cancer Family/Other Breast cancer Father Bladder cancer Paternal Uncle Prostate CA Family/Other Breast cancer Family/Other Bladder cancer Other Mental health disorder Substance use disorder Family history of problems with anesthesia: No Surgical History Surgical History Hx of tubal ligation Hx of tonsillectomy H/O brain surgery History of Problems with Anesthesia: No Social History Social History Household Members: Friend(s) Housing: House Alcohol intake: current Alcohol intake frequency: holidays/special occasions only Patient Tobacco Use Status: Current everyday Tobacco user Tobacco use type: Cigarette Years Smoked: (onset 11yo, 1ppd x 52yrs, 50pyh) e-Cigarette/Vaping Use: Currently Using Second Hand Smoke Exposure: Yes Use of substances other than those prescribed or required for medical reasons: No Substance Use Type: Marijuana Advance Directives: No Advance Directives Information Provided: Yes Patient : No service: No Current occupational status: disabled Cognitive needs: No Hearing needs: No Vision needs: Yes Meds Allergies Allergy/AdvReac Type Severity Reaction Status Date / Time codeine [CODEINE] Allergy Unknown ITCH Verified 06/29/24 15:26 epinephrine [EPINEPHRINE] Allergy Unknown PALPATATIONS Verified 06/29/24 15:26 FROM DENTAL WORK Active Medications: Current Medications Lactated Ringer's (Lr) 1,000 mls @ 100 mls/hr IVCONT .Q10H STEPHANIE Last Admin: 08/09/24 09:53 Dose: 100 mls/hr Home Medications ?Medication ?Instructions ?Recorded ?Confirmed ?Last Taken ?Type clonazepam 0.5 mg tablet 0.5 mg PO DAILY 03/29/20 06/29/24 Unknown History aspirin 81 mg tablet,delayed 81 mg PO DAILY 05/07/21 06/29/24 Unknown History release (Adult Aspirin Regimen) citalopram 40 mg tablet 40 mg PO QAM 05/07/21 06/29/24 Unknown History melatonin 10 mg tablet 10 mg PO BEDTIME PRN Insomnia 05/07/21 06/29/24 Unknown History divalproex 500 mg tablet,extended 500 mg PO TID 04/28/23 06/29/24 Unknown History release 24 hr bupropion HCl 150 mg 24 hr tablet, 150 mg PO QAM 08/18/23 06/29/24 Unknown Histo ry extended release Exam Height,Weight and Vital Signs: Height 5 ft 2 in Weight 73.936 kg Last Vital Signs Temp 97.6 F 08/09/24 09:47 Pulse 73 08/09/24 09:47 Resp 16 08/09/24 09:47 BP 127/63 08/09/24 09:47 Pulse Ox 94 08/09/24 09:47 O2 Del Method Room Air 08/09/24 09:47 Airway Mallampati Class: II TM Dist: >3cm Neck ROM: Full Heart: RRR Lungs: CTA Assessment and Plan Assessment Anesthesia Assessment: Anesthesia Plan Discussed Final Anesthetic Review Family History of Problems with Anesthesia: No History of Problems with Anesthesia: No NPO: Yes ASA Class: II Final Preanesthetic Review: Meds/Allgs Chart Reviewed, Consent Obtained/Reviewed and Anes Risks/Benef Reviewed Patient Risk: Low Procedure Risk: Low Anesthetic Plan Anesthetic Plan: MAC: Disposition: Standard PACU
--- NOTE | 2024-08-09 10:39 | P.OPN-COLO_ITS ---
Colonoscopy Operative Note Operative Note Date of Service: 08/09/24 Narrative: Operative Information Procedure Description: Colonoscopy Indication: screening Anesthesia: MAC COLONOSCOPY Instrument: Olympus variable stiffness pediatric scope 190L Colonoscopy Monitoring: Vital signs and clinical assessment, continuous EKG monitoring, Pulse oximetry, Carbon Dioxide monitoring and blood pressure monitoring were done throughout the procedure. Colon withdrawal time was 8 minutes. Procedure: The patient was placed in the left lateral decubitis position and pre-procedure medications were administered. After a digital rectal examination of the ano-rectum, the video colonoscope was inserted into the rectum and advanced through the colon to the cecum/TI. The colonoscope was slowly withdrawn in a retrograde panoramic fashion and the colon mucosa was carefully examined including a retroflexed view of the rectum. Findings and interventions are described below. Procedure Difficulty: easy Findings: Terminal Ileum-normal Cecum:normal right sided retroflexion- normal Ascending Colon: 9-10 mm sessile polyp lifted with eleview and removed with cold snare Transverse Colon -normal Descending Colon:normal Sigmoid Colon: normal Rectum: Retroflexion with small internal hemorrhoids seen, grade I Anorectum - normal Intervention: cold snare and eleview injection Colon preparation: [place] Bowel Preparation Scale Right colon; 2 Transverse colon: 2 Left colon; 2 (0 = Unprepared colon segment with mucosa not seen due to solid stool that cannot be cleared. 1 = Portion of mucosa of the colon segment seen, but other areas of the colon segment not well seen due to staining, residual stool and/or opaque liquid. 2 = Minor amount of residual staining, small fragments of stool and/or opaque liquid, but mucosa of colon segment seen well. 3 = Entire mucosa of colon segment seen well with no residual staining, small fragments of stool or opaque liquid) Impression and Post Procedure Diagnosis: colon polyp internal hemorrhoids Plan: High fiber diet leaflet Avoid straining at stool, epsom salts and sitz bath, anusol supps or cream Repeat Colonoscopy in 5 years due to polyp or earlier if clinically indicated Above findings were reviewed with the patient and relevant handouts were provided if indicated.
[2024-08-09 10:43] VITALS: BP 108/44; PULSE 69; RESP 16; TEMP 36.1; O2SAT 97
[2024-08-09 10:58] VITALS: BP 122/80; PULSE 69; RESP 16; O2SAT 98
--- NOTE | 2024-08-09 12:09 | HO.POSTANES ---
Post Anesthesia Evaluation Post Anesthesia Evaluation Date of Service: 08/09/24 Vital Signs: Vital Signs Temp Pulse Resp BP Pulse Ox O2 Del Method 08/09/24 10:58 69 16 122/80 98 Room Air 08/09/24 10:43 97 F 69 16 108/44 L 97 Room Air 08/09/24 09:47 97.6 F 73 16 127/63 94 Room Air Anesthesia: Monitored Mental Status: Awake Pain Control: Satisfactory Nausea/Vomiting: None Hydration: Adequate Anesthesia-Related Issues: No Anes. Related Issues
== END 2024-08-09 12:17 | disposition home or self-care (01) ==
PROVIDERS: PCP Internal Medicine; Visit Provider Internal Medicine Gastroenterology
PROC: 0DJD8ZZ Inspection of Lower Intestinal Tract, Via Natural or Artificial Opening Endoscopic (ICD-10-PCS; CPT 45378; principal; 2024-08-09 11:30)
DX: Z12.11 Encounter for screening for malignant neoplasm of colon (principal); D12.2 Benign neoplasm of ascending colon; K64.0 First degree hemorrhoids; G47.33 Obstructive sleep apnea (adult) (pediatric); J44.9 Chronic obstructive pulmonary disease, unspecified; I10 Essential (primary) hypertension; F17.210 Nicotine dependence, cigarettes, uncomplicated; F12.90 Cannabis use, unspecified, uncomplicated; Z59.00 Homelessness unspecified; Z79.899 Other long term (current) drug therapy; Z79.82 Long term (current) use of aspirin
CPT/HCPCS: 45385; 45381; 88305; J2704

== ENCOUNTER → 2024-08-09 08:41 | Outpatient (BNV) | payer MEDICARE, SELFPAY | PROVIDERS: PCP Internal Medicine; Visit Provider Internal Medicine Gastroenterology | DX: Z12.11 Encounter for screening for malignant neoplasm of colon (principal); D12.2 Benign neoplasm of ascending colon; K64.0 First degree hemorrhoids | CPT/HCPCS: 45381; 45385 ==

== ENCOUNTER 2024-08-26 12:10 | Outpatient (AMB) | payer MEDICARE, SELFPAY ==
--- NOTE | 2024-08-26 12:33 | MHC.OFFWIV ---
Intake Vital Signs 08/26/24 12:46 Height 5 ft 2 in Weight 160 lb 6 oz BMI 29.3 BP 114/66 Blood Pressure Location Rt brachial Position Standing Pulse 90 Pulse Source Pulse Oximeter Temp 98.4 F Temp Source Oral Pulse Oximetry (%) 93 Oxygen Delivery Method Room Air Intake Visit Reasons: EP-sore throat, cough, rt ear pain Intake Note: Pt presents to the office today for c/o cough,sore throat, fatigue and right ear pain that started 2 weeks ago. Patient Tobacco Use Status: Current everyday Tobacco user Allergies codeine [CODEINE] Allergy (Unknown, Verified 08/26/24 12:48) ITCH epinephrine [EPINEPHRINE] Allergy (Unknown, Verified 08/26/24 12:48) PALPATATIONS FROM DENTAL WORK HPI HPI Comments History of Present Illness Details This is a 64-year-old female with a past medical history of bipolar disorder, hypertension, hypothyroidism and COPD not currently oxygen dependent presenting for evaluation of a cough, fatigue and sore throat that she has had for the past 2 weeks. Patient is also complaining of new right ear pain and a headache. Patient has been taking ibuprofen without relief of her symptoms. Patient states that her cough is worse during the day. [facility] Medical History Fluid in endometrial cavity Homelessness Bladder disorder Rash of foot Tinea pedis COVID-19 Trochanteric bursitis, left hip Snoring Pain of left sacroiliac joint Tendinopathy of left rotator cuff Fatigue Family history of breast cancer in first degree relative Excessive sleep Lumbar pain Chest pain Other specified hypothyroidism Arthralgia Frequency of urination Wheezing Urine incontinence Lower urinary tract symptoms Colon cancer screening At high risk for breast cancer Nicotine dependence, cigarettes, uncomplicated CHEK2 gene mutation positive Tremors of nervous system Bipolar disorder 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 exogenous substances Depression, major, recurrent COPD (chronic obstructive pulmonary disease) Surgical History Hx of tubal ligation Hx of tonsillectomy H/O brain surgery Family History Maternal Grandmother Breast cancer Mother Breast cancer Sister Breast cancer Family/Other Breast cancer Father Bladder cancer Paternal Uncle Prostate CA Family/Other Breast cancer Family/Other Bladder cancer Other Mental health disorder Substance use disorder Social History Household Members: Friend(s) Housing: House Alcohol intake: current Alcohol intake frequency: holidays/special occasions only Patient Tobacco Use Status: Current everyday Tobacco user Tobacco use type: Cigarette Years Smoked: (onset 11yo, 1ppd x 52yrs, 50pyh) e-Cigarette/Vaping Use: Currently Using Second Hand Smoke Exposure: Yes Substance Use Type: Marijuana service: No Current occupational status: disabled Cognitive needs: No Hearing needs: No Vision needs: Yes Female Reproductive History Menstrual Age of Menarche: 8 Review of Systems Const All systems reviewed & are unremarkable except as noted in HPI and below Denies chills, Reports fatigue, Denies fever(s) and Reports headache(s) Eyes Reports no additional complaints ENT Reports no additional complaints, Denies dizziness, Reports otalgia (right), Reports headache(s), Denies sinus pressure and Reports sore throat Card Reports no additional complaints and Denies dyspnea Resp Reports cough and Denies dyspnea GI Reports no additional complaints and Denies abdominal pain Reports no additional complaints Musc Reports no additional complaints Skin/Breast Reports system reviewed and no additional complaints, except as documented Neuro Reports no additional complaints, Denies dizziness and Reports headache(s) Psych Reports no additional complaints Endo Reports no additional complaints and Reports fatigue Valente/Lymph Reports no additional complaints Aller/Immun Reports no additional complaints Physical Exam Vital Signs: Last Vital Signs Temp 98.4 F 08/26/24 12:46 Pulse 90 08/26/24 12:46 BP 114/66 08/26/24 12:46 Pulse Ox 93 08/26/24 12:46 Oxygen Delivery Method Room Air 08/26/24 12:46 BMI result Body Mass Index 29.3 Const General: cooperative, healthy appearing, comfortable, no acute distress, well developed, alert, awake and Physically active Nutritional Appearance: average body habitus Orientation/consciousness: patient oriented x3 Limitations: no limitations HEENT Head: Yes normal to inspection and Yes normocephalic Ears: hearing grossly normal bilaterally, external ears normal, TM's normal bilaterally and EAC's normal General nose exam: Normal external nose present Face and sinus: Yes normal facial exam Mouth: Normal oral and palatal mucosa present and moist mucous membranes Throat: Yes posterior oropharynx normal and No postnasal drainage Eyes General: appearance normal, both eyes and all related structures Neck Lymphatic: no lymphadenopathy noted Resp Effort & Inspection: normal respiratory effort, able to speak in complete sentences, no audible wheezes, Actively coughing and not tachypneic Auscultation: diminished lung sounds on the right in the lower lung de jesus Cardio Rate: regular rate Rhythm: regular rhythm Skin General skin exam: no rashes or lesions noted Neuro General: patient oriented x3 Psych Appearance: grossly normal Mental Status: mental status grossly normal Insight: Good insight present (Psych) Judgement: Good judgement present (Psych) Results AMB Rapid Strep AMB Rapid Strep Negative Last Edit by Lucie Gary CMA on 08/26/24 12:58 Results Reviewed Results Reviewed: Rapid strep is negative; chest x.ray reveals a RML pneumonia. Assessment & Plan Assessment & Plan (1) Pneumonia: Comment: Imaging reveals a right middle lobe pneumonia. Patient will be discharged home with antibiotic therapy. Code(s): J18.9 - Pneumonia, unspecified organism Qualifiers: Pneumonia type: due to unspecified organism Laterality: right Lung location: middle lobe of lung Qualified Code(s): J18.9 - Pneumonia, unspecified organism Plan: Amoxicillin 1 g t.i.d. x7 days. Orders: Orders AMB Rapid Strep Screen Today Damari Castillo PA-C Z13.9 - Encounter for screening, unspecified XR chest 2V Today Thalia Ridley PA-C J43.8 - Other emphysema Medications: New amoxicillin 1,000 mg (2 x 500 mg) PO TID 42 caps 0RF Thalia Ridley PA-C Coding Level of Care Code Est Pt Level 4 (38377) Diagnoses Pneumonia of right middle lobe due to infectious organism J18.9 Pneumonia type: due to unspecified organism Laterality: right Lung location: middle lobe of lung Time Spent (min) 30
[2024-08-26 12:46] VITALS: BP 114/66; PULSE 90; TEMP 36.9; O2SAT 93; BMI 29.3
--- OUTSIDE RECORDS SUMMARY | 2024-08-26 12:53 | XMS_ITS | Data Portability ---
Author Organization [facility] Patient Home Address [address] [place] [address] Assessment No assessment recorded. Plan of Treatment [...] release 24 hr 2018 019 INTERFACE [id number], [address], [place], [address], 9 11:33:37 Patient TargetsNo targets recorded. Patient Instructions Encounter Date Encounter Id Patient Instructions Last Modified By Organization Details Last Modified Time 06/08/2018 [id number] smoking cessatio n counseling, greater than 3 minutes up to 10 minutes* hrubner Not available 06/15/2018 08:20:51 Reason for Referral None Reported. Results Created Date Observation Date Name Description Value Unit Range Abnormal Flag Note LastModifiedBy Organization Detail LastModifiedTime 05/27/19 19 05/25/2018 beau HART bilat eral No observ ation record ed. [facility] (Medical Records) [address] [place], [address], 06/08/2018 11:03:24 Result Notes None recorded. Problems Name Problem SNOMED Code Status Onset Date Resolution Date Notes Provider Name and Address Organization Details Recorded Time Depressive disorder 40919198 Active 2018 Felicitas Ramachandran [facility] 9 16:08:22 Anxiety 91370506 Active 2018 Felicitasmargo Ramachandran [facility] 9 16:08:29 Bladder muscle dysfunction - overactive Active 2018 Felicitas Ramachandran [facility] 9 16:08:40 Hypothyroidism 20070888 Active 2018 Felicitasmargo Ramachandran [facility] 9 16:08:50 Chronic obstructive pulmonary disease 77187555 Active 2018 Felicitasmargo Ramachandran [facility] 9 16:11:28 Problem Notes None recorded. Medical Equipment None Reported. Allergies Allergen ID Allergen Name Allergen Category Reaction Reaction Severity Criticality Documentation Date Start Date Code Code System Note Provider Name and Address Organization Details Recorded Time 2858 codeine medicatio n Not available Not available Not available 05/18/2018 2670 RxNorm [facility] 9 16:08:14 Medications Name Sig Start [...] Address Organization Details Last Updated DateTime 9 92125.8 3 g 84 /min 94 % 94 % 120 mm[Hg] 78 mm[Hg] [facility] 9 11:00:12 Social History Question Answer Notes LastModified by Organizat ion Details LastModified Time Tobacco Smoking Status Current Every Day Smoker 1 ppd Not Available [facility] 01/17/2020 03:36:24 What Was The Date Of Your Most Recent Tobacco Screening? 06/08/2018 [id number] Information not available 01/17/2020 Sex: Unknown Functional Status None recorded. Mental Status None recorded. Family History Nothing Reported. Medical History No medical history recorded. Gynecological HistoryNo gynecological history recorded. Obstetrics History GPAL:G 0 P 0 0 0 0 Immunizations Vaccine Type Date Status Note Provider Nam e and Address Organization Details Recorded Time Influenza, split virus, quadrivalent, preservative 8 completed Delma carbajal [facility] 06/08/2018 10:59:24 Past Encounters Encounter ID Performer Location Encounter Start Date Encounter Closed Date Diagnosis/Indication Diagnosis SNOMED-CT Code Diagnosis ICD10 Code Diagnosis Note [id number] Anupam Esteves DO [facility] Internal Medicine 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 to taper off again Health Concerns Section Related Observation LastModified by Organization Detai ls LastModified Time None Recorded Concern Status LastModified by Organization Details LastModified Time None Recorded Advance Directives Directive None Recorded Payers Insurance Date Sequence Insurance Name Policy Number Policy Bone Covered Member ID Bone Member ID Guarantor Name 06/09/2018 1 [place]IC[place] [employer] Lela Long [id number] Lela Long 06/08/2018 2 [place] [facility] Lela Long [id number] Lela Long Notes Date Note Type Note Provider Name a nd Address Organization Details Recorded Time 06/08/2018 text/html Here per our request, recent med refill Overall feeling much better, life seems to be going well 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 had cortizone inj. right shoulder 1 week ago, much improved ROM, no further pain had MRI-f/u with [facility] next week Had quit smoking, reduced w/vape-then lots life stressors-resta rted-want to quit again Shilpa De Los Santos NP, [address] [facility], [place], [address], [facility] 06/08/2018 11:34:42 OBGyn Episode No OBEpisode recorded.
== END 2024-08-26 13:59 | disposition home or self-care (01) ==
PROVIDERS: PCP Internal Medicine; Visit Provider Physician Assistant
DX: Z13.9 Encounter for screening, unspecified (principal); J18.9 Pneumonia, unspecified organism

== ENCOUNTER 2024-08-26 12:10 | Outpatient (REF) | payer MEDICARE, SELFPAY ==
--- NOTE | ~2024-08-26 | XR_ITS ---
EXAMINATION: XR CHEST 2 VIEWS HISTORY: J43.8 - Other emphysema COMPARISON: Comparison is made with the prior examination dated 08/02/2022. FINDINGS: PA and lateral views of the chest are submitted. There is patchy ill-defined opacity in the right middle lobe, suspicious for pneumonia. The left lung is clear. There is no pleural effusion, pneumothorax, or pulmonary vascular congestion. The heart is normal in size. The bones are intact. XR/XR chest 2V IMPRESSION: Probable right middle lobe pneumonia. Follow-up is recommended to document resolution. Electronically signed by: Osmel Price MD 08/26/2024 01:32 PM EDT
== END 2024-08-26 12:11 | disposition home or self-care (01) ==
LOC: HO.HMGCX 12:10
PROVIDERS: PCP Internal Medicine; Visit Provider Physician Assistant
DX: J43.8 Other emphysema (principal); J18.9 Pneumonia, unspecified organism
CPT/HCPCS: 71046; 87880; 99212

== ENCOUNTER → 2024-08-26 13:20 | Outpatient (BNV) | payer MEDICARE, SELFPAY | PROVIDERS: PCP Internal Medicine; Visit Provider Radiology Diagnostic Radiology | DX: J43.8 Other emphysema (principal) | CPT/HCPCS: 71046 ==

== ENCOUNTER 2024-09-05 10:53 | Outpatient (REF) | payer MEDICARE, SELFPAY ==
--- NOTE | ~2024-09-05 | US_ITS ---
CLINICAL HISTORY: D21.9 - LEIOMYOMA 6 MONTH F U --- Additional Notes or Special Instructions: follow up 6 months for stability US pelvis transabdominal and transvaginal with color Doppler Comparison: Relevant priors studies were not made available at the time of this interpretation. Findings: Transabdominal scanning performed for overall anatomy. Transvaginal performed for greater anatomic detail. LMP: Postmenopausal Anteverted uterus, diminutive in size measuring 4.5 x 2.4 x 4.4 cm. Well defined endometrium, measuring 1.3 mm in thickness. Minimal fluid in the endometrial cavity. Uterine fibroids as follows: Superior fundal subserosal 0.7 x 0.6 x 0.9 cm Left intramural fundal 1.3 x 1.1 x 1.3 cm Right intramural fundal 0.8 x 1.6 x 0.8 cm The right ovary measures, 1.4 x 1.4 x 0.9 cm. Normal sonographic appearance right ovary. Left ovary not identified No adnexal masses or fluid collections. No free fluid Impression: 1. Postmenopausal uterine atrophy withleiomyomas. 2. Normal sonographic appearance right ovary. Left ovary not identified. 3. No adnexal masses or fluid collections. This document has been electronically signed by: Valdez Miller MD on 09/05/2024 18:40:29
--- OUTSIDE RECORDS SUMMARY | 2024-09-05 12:23 | XMS_ITS | Data Portability ---
Author Organization [facility] Patient Home Address [address] [place] [address] Assessment No assessment recorded. Plan of Treatment Reminders Order Date Submit Date Provider Last Modified By Organization Details Last Modified Time Details Appointments None recorded. Lab TSH + free T4, serum 2018 019 STEFAN Not available 9 08:10:37 CMP, serum or plasma 2018 019 STEFAN Not available 9 08:10:36 CBC 2018 [...] release 24 hr 2018 019 [id number], [address], [place], [address], 9 11:33:37 Patient TargetsNo targets recorded. Patient Instructions Encounter Date Encounter Id Patient Instructions Last Modified By Organization Details Last Modified Time 06/08/2018 [id number] smoking cessatio n counseling, greater than 3 minutes up to 10 minutes* hrubner Not available 06/15/2018 08:20:51 Reason for Referral None Reported. Results Created Date Observation Date Name Description Value Unit Range Abnormal Flag Note LastModifiedBy Organization Detail LastModifiedTime 05/27/19 19 05/25/2018 beau HART bilat eral No observ ation record ed. [facility] (Medical Records) [address] [facility], [place], [address], 06/08/2018 11:03:24 Result Notes None recorded. Problems Name Problem SNOMED Code Status Onset Date Resolution Date Notes Provider Name and Address Organization Details Recorded Time Depressive disorder 51047343 [facility] 16:[facility] Anxiety 95273921 Active 2018 Felicitas Ramachandran [facility] 9 16:08:29 Bladder muscle dysfunction - overactive Active 2018 Felicitas Ramachandran [facility] 9 16:08:40 Hypothyroidism 19107115 Active 2018 Felicitasmargo Ramachandran [facility] 9 16:08:50 Chronic obstructive pulmonary disease 44594721 Active 2018 Felicitasmargo Ramachandran [facility] 9 16:11:28 Problem Notes None recorded. Medical Equipment None Reported. Allergies Allergen ID Allergen Name Allergen Category Reaction Reaction Severity Criticality Documentation Date Start Date Code Code System Note Provider Name and Address Organization Details Recorded Time 2858 codeine medicatio n Not available Not available Not available 05/18/2018 2670 RxNorm Felicitasmargo carbajal [facility] 9 16:08:14 Medications Name Sig Start Date [...] Address Organization Details Last Updated DateTime 9 24904.8 3 g 84 /min 94 % 94 % 120 mm[Hg] 78 mm[Hg] [facility] 9 11:00:12 Social History Question Answer Notes LastModified by Organizat ion Details LastModified Time Tobacco Smoking Status Current Every Day Smoker 1 ppd Not Available [facility] 01/17/2020 03:36:24 What Was The Date Of Your Most Recent Tobacco Screening? 06/08/2018 [id number] Information not available 01/17/2020 Sex: Unknown Functional Status None recorded. Mental Status None recorded. Family History Nothing Reported. Medical History No medical history recorded. Gynecological HistoryNo gynecological history recorded. Obstetrics History GPAL:G 0 P 0 0 0 0 Immunizations Vaccine Type Date Status Note Provider Nam e and Address Organization Details Recorded Time Influenza, split virus, quadrivalent, preservative 8 completed Delma carbajal [facility] 06/08/2018 10:59:24 Past Encounters Encounter ID Performer Location Encounter Start Date Encounter Closed Date Diagnosis/Indication Diagnosis SNOMED-CT Code Diagnosis ICD10 Code Diagnosis Note [id number] Anupam Esteves DO [facility] Internal Medicine [address],[place] [address] 06/08/2018 10:47:08 06/08/2018 11:19:56 Chronic obstructive pulmonary disease 18222743 J44.9 defers inhaler, wants to decrease smoking ( had spiriva in past ) Bladder mu scle dysfunction - overactive 440904939 N32.81 Depressive disorder 3548 9007 F33.8 stable Hypothyroidism 67307274 E03.9 Anxiety 35012547 F41.9 Screening procedure 2012 5006 Z13.9 Tobacco de pendence syndrome 21701743 F17.200 to taper off again Health Concerns Section Related Observation LastModified by Organization Detai ls LastModified Time None Recorded Concern Status LastModified by Organization Details LastModified Time None Recorded Advance Directives Directive None Recorded Payers Insurance Date Sequence Insurance Name Policy Number Policy Bone Covered Member ID Bone Member ID Guarantor Name 06/09/2018 1 MEDICARE [place]: [employer] Lela Long [id number] Llea Long 06/08/2018 2 [place] [facility] Lela Long [id number] Lela Long Notes Date Note Type Note Provider Name a nd Address Organization Details Recorded Time 06/08/2018 text/html Here per our request, recent med refill Overall feeling much better, life seems to be going well 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
== END 2024-09-05 10:54 | disposition home or self-care (01) ==
LOC: HO.US 10:53
PROVIDERS: PCP Internal Medicine; Visit Provider Advanced Practice Midwife
DX: D21.9 Benign neoplasm of connective and other soft tissue, unspecified (principal)
CPT/HCPCS: 76830; 76856

== ENCOUNTER → 2024-09-05 11:04 | Outpatient (BNV) | payer MEDICARE, SELFPAY | PROVIDERS: PCP Internal Medicine; Visit Provider Radiology Diagnostic Radiology | DX: D25.9 Leiomyoma of uterus, unspecified (principal); N95.8 Other specified menopausal and perimenopausal disorders | CPT/HCPCS: 76830; 76856 ==

== ENCOUNTER 2024-09-12 13:05 | Outpatient (REF) | payer MEDICARE, SELFPAY ==
--- OUTSIDE RECORDS SUMMARY | 2024-09-12 13:31 | XMS_ITS | Data Portability ---
Author Organization [facility] Tele[facility] Patient Home Address [address] [place] [address] Assessment No assessment recorded. Plan of Treatment [...] release 24 hr 2018 019 INTERFACE [id number], [address] [facility], [place], [address], 9 11:33:37 Patient TargetsNo targets recorded. Patient Instructions Encounter Date Encounter Id Patient Instructions Last Modified By Organization Details Last Modified Time 06/08/2018 [id number] smoking cessatio n counseling, greater than 3 minutes up to 10 minutes* hrubner Not available 06/15/2018 08:20:51 Reason for Referral None Reported. Results Created Date Observation Date Name Description Value Unit Range Abnormal Flag Note LastModifiedBy Organization Detail LastModifiedTime 05/27/19 19 05/25/2018 beau HART bilat eral No observ ation record ed. [facility] (Medical Records) [address], [place], [address], 06/08/2018 11:03:24 Result Notes None recorded. Problems Name Problem SNOMED Code Status Onset Date Resolution Date Notes Provider Name and Address Organization Details Recorded Time Depressive disorder 61877213 [facility] 16:08:22 Anxiety 06491864 Active 2018 Felicitas Ramachandran [facility] 9 16:08:29 Bladder muscle dysfunction - overactive Active 2018 Felicitas Ramachandran [facility] 9 16:08:40 Hypothyroidism 21864148 Active 2018 Felicitasmargo Ramachandran [facility] 9 16:08:50 Chronic obstructive pulmonary disease 04906913 Active 2018 Feilcitasmargo Ramachandran [facility] 9 16:11:28 Problem Notes None recorded. Medical Equipment None Reported. Allergies Allergen ID Allergen Name Allergen Category Reaction Reaction Severity Criticality Documentation Date Start Date Code Code System Note Provider Name and Address Organization Details Recorded Time 2858 codeine medicatio n Not available Not available Not available 05/18/2018 2670 RxNorm Felicitasmargo carbajal [facility] 9 16:08:14 Medications Name Sig [...] Address Organization Details Last Updated DateTime 9 87858.8 3 g 84 /min 94 % 94 % 120 mm[Hg] 78 mm[Hg] [facility] 9 11:00:12 Social History Question Answer Notes LastModified by Organizat ion Details LastModified Time Tobacco Smoking Status Current Every Day Smoker 1 ppd Not Available [facility] 01/17/2020 03:36:24 What Was The Date Of Your Most Recent Tobacco Screening? 06/08/2018 [id number] Information not available 01/17/2020 Sex: Unknown Functional Status None recorded. Mental Status None recorded. Family History Nothing Reported. Medical History No medical history recorded. Gynecological HistoryNo gynecological history recorded. Obstetrics History GPAL:G 0 P 0 0 0 0 Immunizations Vaccine Type Date Status Note Provider Nam e and Address Organization Details Recorded Time Influenza, split virus, quadrivalent, preservative 8 completed Delma carbajal [facility] 06/08/2018 10:59:24 Past Encounters Encounter ID Performer Location Encounter Start Date Encounter Closed Date Diagnosis/Indication Diagnosis SNOMED-CT Code Diagnosis ICD10 Code Diagnosis Note [id number] Anupam Esteves DO [facility] Internal Medicine [address],[place] [address] 06/08/2018 10:47:08 06/08/2018 11:19:56 Chronic obstructive pulmonary disease 39819519 J44.9 defers inhaler, wants to decrease smoking ( had spiriva in past ) Bladder mu scle dysfunction - overactive 147063490 N32.81 Depressive disorder 3548 9007 F33.8 stable Hypothyroidism 79665720 E03.9 Anxiety 34770119 F41.9 Screening procedure 2012 5006 Z13.9 Tobacco de pendence syndrome 24765949 F17.200 to taper off again Health Concerns Section Related Observation LastModified by Organization Detai ls LastModified Time None Recorded Concern Status LastModified by Organization Details LastModified Time None Recorded Advance Directives Directive None Recorded Payers Insurance Date Sequence Insurance Name Policy Number Policy Bone Covered Member ID Bone Member ID Guarantor Name 06/09/2018 1 MEDICARE [place]: [employer] Lela Long [id number] Lela Long 06/08/2018 2 [place] [facility] Lela Long [id number] Lela Long Notes Date Note Type Note Provider Name a nd Address Organization Details Recorded Time 06/08/2018 text/html Here per our request, recent med refill Overall feeling much better, life seems to be going well 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
== END 2024-09-12 13:06 | disposition home or self-care (01) ==
LOC: HO.MAMMO 13:05
PROVIDERS: PCP Internal Medicine; Visit Provider Surgery
DX: Z12.31 Encounter for screening mammogram for malignant neoplasm of breast (principal)
CPT/HCPCS: 77063; 77067

== ENCOUNTER → 2024-09-12 13:15 | Outpatient (BNV) | payer MEDICARE, SELFPAY | PROVIDERS: PCP Internal Medicine; Visit Provider Internal Medicine | DX: Z12.31 Encounter for screening mammogram for malignant neoplasm of breast (principal) | CPT/HCPCS: 77063; 77067 ==

== ENCOUNTER 2024-09-28 11:02 | Outpatient (AMB) | payer MEDICARE, SELFPAY ==
--- NOTE | 2024-09-28 11:02 | A.OFFVIS_ITS ---
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 Time spent included review of pertinent office notes in the electronic health record; review of laboratory and imaging results; review of personal family medical history; discussing diagnosis and plan of care with the patient; documenting the encounter in the EMR. Patient presents to discuss: Ultrasound findings follow up on fibroids, patient denies any pelvic pain, vaginal bleeding, bloating, pressure symptoms. [facility] Medical History Fluid in endometrial cavity Homelessness Bladder disorder Rash of foot Tinea pedis COVID-19 Trochanteric bursitis, left hip Snoring Pain of left sacroiliac joint Tendinopathy of left rotator cuff Fatigue Family history of breast cancer in first degree relative Excessive sleep Lumbar pain Chest pain Other specified hypothyroidism Arthralgia Frequency of urination Wheezing Urine incontinence Lower urinary tract symptoms Colon cancer screening At high risk for breast cancer Nicotine dependence, cigarettes, uncomplicated CHEK2 gene mutation positive Tremors of nervous system Bipolar disorder 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 exogenous substances Depression, major, recurrent COPD (chronic obstructive pulmonary disease) Surgical History Hx of tubal ligation Hx of tonsillectomy H/O brain surgery Family History Maternal Grandmother Breast cancer Mother Breast cancer Sister Breast cancer Family/Other Breast cancer Father Bladder cancer Paternal Uncle Prostate CA Family/Other Breast cancer Family/Other Bladder cancer Other Mental health disorder Substance use disorder Social History Household Members: Friend(s) Housing: House Alcohol intake: current Alcohol intake frequency: holidays/special occasions only Patient Tobacco Use Status: Current everyday Tobacco user Tobacco use type: Cigarette Years Smoked: (onset 11yo, 1ppd x 52yrs, 50pyh) e-Cigarette/Vaping Use: Currently Using Second Hand Smoke Exposure: Yes Substance Use Type: Marijuana service: No Current occupational status: disabled Cognitive needs: No Hearing needs: No Vision needs: Yes Female Reproductive History Menstrual Age of Menarche: 8 Review of Systems Const All systems reviewed & are unremarkable except as noted in HPI and below Endo Reports no additional complaints Physical Exam Const General: cooperative, healthy appearing and no acute distress Psych Appearance: well kempt Attitude: cooperative Thought process: Normal thought process present Telehealth Telehealth Telehealth Platform: [employer] Location of provider rendering services: practice address Location of patient: address on file Patient Identification confirmed using: Name, : Yes Telehealth method: video Patient verbally consented to treatment: Yes Patient verbally consented to billing insurance company: Yes Patient informed of any privacy concerns related to visit: Yes Results Reviewed Results Reviewed: [address] [address] Ultrasound Report Signed Patient: Lela Long MR#: [id number] : 1960 Acct:[id number] Age/Sex: 64 / F ADM Date: 09/05/24 Loc: HO.US Attending Dr: Daisha Daniel CNM Ordering Physician: Daisha Daniel CNM Date of Service: 09/05/24 Procedure(s): US pelvic and transvaginal Accession Number(s): [id number] cc: Brian Zamora MD; Daisha Daniel CNM~ CLINICAL HISTORY: D21.9 - LEIOMYOMA 6 MONTH F U --- Additional Notes or Special Instructions: follow up 6 months for stability US pelvis transabdominal and transvaginal with color Doppler Comparison: Relevant priors studies were not made available at the time of this interpretation. Findings: Transabdominal scanning performed for overall anatomy. Transvaginal performed for greater anatomic detail. LMP: Postmenopausal Anteverted uterus, diminutive in size measuring 4.5 x 2.4 x 4.4 cm. Well defined endometrium, measuring 1.3 mm in thickness. Minimal fluid in the endometrial cavity. Uterine fibroids as follows: Superior fundal subserosal 0.7 x 0.6 x 0.9 cm Left intramural fundal 1.3 x 1.1 x 1.3 cm Right intramural fundal 0.8 x 1.6 x 0.8 cm The right ovary measures, 1.4 x 1.4 x 0.9 cm. Normal sonographic appearance right ovary. Left ovary not identified No adnexal masses or fluid collections. No free fluid Impression: 1. Postmenopausal uterine atrophy withleiomyomas. 2. Normal sonographic appearance right ovary. Left ovary not identified. 3. No adnexal masses or fluid collections. 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 Postmenopausal uterine atrophy withleiomyomas. 2. Normal sonographic appearance right ovary. Left ovary not identified. 3. No adnexal masses or fluid collections. Plan Counseled re: Leiomyoma: common pelvic neoplasm. Differential diagnosis-may include but not limited to- leiomyosarcoma which is a rare uterine sarcoma 3- 7/100,000, difficult to distinguish from fibroids on ultrasound from uterine sarcoma's. Unlikely any single test will have a highly positive predictive value. Hysterectomy is not recommended for sole purpose of excluding malignant neoplasm. Consult for surgical exploration, medical treatment, other treatments, verses expectant management, pros and cons, risks and benefits. Expectant management follow up in 6 months, then yearly for stability. Patient prefers to proceed with expectant management. Referral to MD if indicated for level of care if indicated Report any PMB, pelvic pressure, bloating, or pain. Counseled regarding endometrial biopsy procedure, in office or in the operating room risks benefits, patient opts to have endometrial biopsy with paracervical block in the office with Dr. Pearce. Appointment will be scheduled by staff. Pre procedure planning counseling reviewed with the patient advised to take 3 Advil with food and fluids 1 hour before her procedure appointment time. Insert all questions This note is constructed using voice recognition software. While every effort has been made to ensure accuracy, scaffolder errors may have been included. Orders: Orders US pelvic and transvaginal 6 Months D21.9 - Benign neoplasm of connective and other soft tissue, unspecified Coding Level of Care Code Tele Est Pt Level 3 (57351) Diagnoses Fibroid D21.9
--- OUTSIDE RECORDS SUMMARY | 2024-09-28 11:56 | XMS_ITS | Data Portability ---
Author Organization [facility], Telehealth Patient Home Address [address] [place] [address] Assessment No assessment recorded. Plan of Treatment [...] release 24 hr 2018 019 INTERFACE [id number], [address] [facility], [place], [address], 9 11:33:37 Patient TargetsNo targets recorded. Patient Instructions Encounter Date Encounter Id Patient Instructions Last Modified By Organization Details Last Modified Time 06/08/2018 [id number] smoking cessatio n counseling, greater than 3 minutes up to 10 minutes* [email or web address] Not available 06/15/2018 08:20:51 Reason for Referral None Reported. Results Created Date Observation Date Name Description Value Unit Range Abnormal Flag Note LastModifiedBy Organization Detail LastModifiedTime 05/27/19 19 05/25/2018 beau HART bilat eral No observ ation record ed. [facility] (Medical Records) [address] [facility], [place], [address], 06/08/2018 11:03:24 Result Notes None recorded. Problems Name Problem SNOMED Code Status Onset Date Resolution Date Notes Provider Name and Address Organization Details Recorded Time Depressive disorder 29625429 [facility] Anxiety 99632650 Active 2018 Felicitas Ramachandran [facility] 9 16:08:29 Bladder muscle dysfunction - overactive Active 2018 Felicitas Ramachandran [facility] 9 16:08:40 Hypothyroidism 65165480 Active 2018 Felicitasmargo Ramachandran [facility] 9 16:08:50 Chronic obstructive pulmonary disease 32008607 Active 2018 Felicitasmargo Ramachandran [facility] 9 16:11:28 Problem Notes None recorded. Medical Equipment None Reported. Allergies Allergen ID Allergen Name Allergen Category Reaction Reaction Severity Criticality Documentation Date Start Date Code Code System Note Provider Name and Address Organization Details Recorded Time 2858 codeine medicatio n Not available Not available Not available 05/18/2018 2670 RxNorm Felicitasmargo carbajal [facility] 9 16:08:14 Medications Name Sig Start Date [...] in Arterial blood by Pulse oximetry Systolic And Diastolic Provider Name and Address Organization Details Last Updated DateTime 9 04020.8 3 g 84 /min 94 % 94 % 120/78 mm[Hg] [facility] 9 11:00:12 Social History Question Answer Notes LastModified by Organizat ion Details LastModified Time Tobacco Smoking Status Current Every Day Smoker 1 ppd Not Available [facility] 01/17/2020 03:36:24 What Was The Date Of Your Most Recent Tobacco Screening? 06/08/2018 [id number] Information not available 01/17/2020 Sex: Unknown Functional Status None recorded. Mental Status None recorded. Family History Nothing Reported. Medical History No medical history recorded. Gynecological HistoryNo gynecological history recorded. Obstetrics History GPAL:G 0 P 0 0 0 0 Immunizations Vaccine Type Date Status Note Provider Nam e and Address Organization Details Recorded Time Influenza, split virus, quadrivalent, preservative 8 completed Delma carbajal [facility] 06/08/2018 10:59:24 Past Encounters Encounter ID Performer Location Encounter Start Date Encounter Closed Date Diagnosis/Indication Diagnosis SNOMED-CT Code Diagnosis ICD10 Code Diagnosis Note [id number] Anupam Esteves DO [facility] [address],[place] [address] 06/08/2018 10:47:08 06/08/2018 11:19:56 Chronic obstructive pulmonary disease 85445043 J44.9 defers inhaler, wants to decrease smoking ( had spiriva in past ) Bladder mu scle dysfunction - overactive 912980491 N32.81 Depressive disorder 3548 9007 F33.8 stable Hypothyroidism 67756944 E03.9 Anxiety 83126559 F41.9 Screening procedure 2012 5006 Z13.9 Tobacco de pendence syndrome 23064153 F17.200 to taper off again Health Concerns Section Related Observation LastModified by Organization Detai ls LastModified Time None Recorded Concern Status LastModified by Organization Details LastModified Time None Recorded Advance Directives Directive None Recorded Payers Insurance Date Sequence Insurance Name Policy Number Policy Bone Covered Member ID Bone Member ID Guarantor Name 06/09/2018 1 [id number] Lela Long [id number] Lela Long 06/08/2018 2 [place] [facility] Lela Long [id number] Lela Long Notes Date Note Type Note Provider Name a nd Address Organization Details Recorded Time 06/08/2018 text/html Here per our request, recent med refill Overall feeling much better, life seems to be going well 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
== END 2024-09-28 12:26 | disposition home or self-care (01) ==
LOC: HO.HWS 11:02
PROVIDERS: PCP Internal Medicine; Visit Provider Advanced Practice Midwife
DX: D21.9 Benign neoplasm of connective and other soft tissue, unspecified (principal)
CPT/HCPCS: 99213

== ENCOUNTER 2024-10-13 12:19 | Outpatient (REF) | payer MEDICARE, SELFPAY | END 2024-10-13 12:20 | disposition home or self-care (01) | LOC: HO.LNP 12:19 | PROVIDERS: PCP Internal Medicine; Visit Provider Obstetrics & Gynecology | DX: N85.9 Noninflammatory disorder of uterus, unspecified (principal) | CPT/HCPCS: 58100; 88305 ==

== ENCOUNTER 2024-10-13 12:19 | Outpatient (AMB) | payer MEDICARE, SELFPAY ==
--- NOTE | 2024-10-13 12:45 | MHC.OFFVIS ---
Intake Visit Reasons: EMB with cervical para block Assistant Surveyor: Assistant Surveyor Present (Mirian) Accompanied by: Self / Same As Patient Allergies codeine (CODEINE) Allergy (Unknown, Verified 10/13/24 12:46) ITCH epinephrine (EPINEPHRINE) Allergy (Unknown, Verified 10/13/24 12:46) PALPATATIONS FROM DENTAL WORK HPI Comments Details: Presenting for discussing fluid in the endometrial cavity with a endometrial stripe of 1.3 mm on ultrasound in 09/07. Please see pelvic ultrasound done in 03/08 showed endometrial fluid with a 3 mm endometrial thickness. No history of vaginal bleeding PFSH Medical History Fluid in endometrial cavity Homelessness Bladder disorder Rash of foot Tinea pedis COVID-19 Trochanteric bursitis, left hip Snoring Pain of left sacroiliac joint Tendinopathy of left rotator cuff Fatigue Family history of breast cancer in first degree relative Excessive sleep Lumbar pain Chest pain Other specified hypothyroidism Arthralgia Frequency of urination Wheezing Urine incontinence Lower urinary tract symptoms Colon cancer screening At high risk for breast cancer Nicotine dependence, cigarettes, uncomplicated CHEK2 gene mutation positive Tremors of nervous system Bipolar disorder 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 exogenous substances Depression, major, recurrent COPD (chronic obstructive pulmonary disease) Surgical History Hx of tubal ligation Hx of tonsillectomy H/O brain surgery Family History Maternal Grandmother Breast cancer Mother Breast cancer Sister Breast cancer Family/Other Breast cancer Father Bladder cancer Paternal Uncle Prostate CA Family/Other Breast cancer Family/Other Bladder cancer Other Mental health disorder Substance use disorder Social History Household Members: Friend(s) Housing: House Alcohol intake: current Alcohol intake frequency: holidays/special occasions only Patient Tobacco Use Status: Current everyday Tobacco user Tobacco use type: Cigarette Years Smoked: (onset 11yo, 1ppd x 52yrs, 50pyh) e-Cigarette/Vaping Use: Currently Using Second Hand Smoke Exposure: Yes Substance Use Type: Marijuana service: No Current occupational status: disabled Cognitive needs: No Hearing needs: No Vision needs: Yes Female Reproductive History Menstrual Age of Menarche: 8 Office Procedures Endometrial Biopsy Details: The patient was counseled regarding the indication and benefits of endometrial sampling to rule out endometrial pathology including not limited to endometrial hyperplasia or endometrial cancer and others; The alternatives (Either do nothing vs. hysteroscopy D&C) & the risks were discussed with the patient including but not limited: pain, uterine perforation, bleeding, infection, possible injury to bladder, bowel, ureter, possible need for blood transfusion with all its possible risks. The patient verbalized understanding all questions answered and signed consent. The patient was placed into the dorsal lithotomy position; a speculum was inserted in the vagina. Using aseptic technique for the procedure, the cervix was cleansed with Betadine. 10 cc of xylocaine 1% was injected intra cervically at 2, 4, 8 and 10:00. The anterior lip of the cervix was grasped with a single tooth tenaculum. The uterus was sounded to 6 cm with a 4 mm Pipelle was used. Tissues samples were obtained and placed in formalin, in a patient labeled container and sent to the pathology department. At the end of the procedure, there was minimal bleeding noted The patient tolerated the procedure well and was discharged in good condition with the following instructions: Nothing in the vagina until the bleeding stops. No sex until the bleeding stops, to call if any of the following occurs: fever (>100.4), flu-like symptoms, abdominal pain, heavy bleeding, four smelling vaginal discharge. The patient was instructed to schedule a Follow up appointment in 2 weeks to discuss pathology results of the biopsy and treatment options. This note was generated with a voice recognition program. Some errors may have been overlooked during the review of this note. Sometimes these errors may affect the content or meaning of a given sentence. 10135-Mdqlaqwzwwu Biopsy Assessment & Plan Assessment & Plan (1) Fluid in endometrial cavity: Code(s): N85.9 - Noninflammatory disorder of uterus, unspecified Category: Medical Plan: Discussed with the patient the finding of fluid in the endometrial cavity, in spite of no vaginal bleeding the concern is the endometrial fluid visualized on ultrasound in case of cervical stenosis might be bleeding into the endometrial cavity and the blood and/or tissue was are unable to pass through the cervical os. Endometrial sampling in postmenopausal bleeding with endometrial fluid is indicated in case endometrial thickness is above 4 mm, however in cases with thin endometrial stripe, 4 mm and below, without any focal lesions, is a reassuring finding with a high negative predictive value for endometrial pathology including endometrial hyperplasia and/or malignancy or polyps. The patient is interested in endometrial biopsy for tissue pathology to rule out endometrial pathology Recommended to the patient that the next step is an endometrial sampling via hysteroscopy D&C possible polypectomy versus endometrial biopsy to r/o endometrial pathology including hyperplasia or cancer. All the pros and cons risks and benefits of each approach were discussed with the patient, endometrial biopsy being less invasive, office procedure with less sensitivity and inability diagnose a polyp and removal versus hysteroscopy done under anesthesia more invasive more sensitive to endometrial cancer and possibility of diagnosing and endometrial polyp with the possibility of polypectomy. All questions were answered pt verbalized understanding and decided to proceed with endometrial biopsy with paracervical block. EMB with paracervical block done, see procedure note Orders: Orders AMB Endometrial Biopsy Today N85.9 - Noninflammatory disorder of uterus, unspecified Surgical Today N85.9 - Noninflammatory disorder of uterus, unspecified Coding Level of Care Code Procedure Only Diagnoses Fluid in endometrial cavity N85.9 CPT Codes Endometrial Biopsy - CPT: 58065-Sknwtvsuual Biopsy ([id number])
== END 2024-10-13 13:28 | disposition home or self-care (01) ==
LOC: HO.HWS 12:19
PROVIDERS: PCP Internal Medicine; Visit Provider Obstetrics & Gynecology
DX: N85.9 Noninflammatory disorder of uterus, unspecified (principal)
CPT/HCPCS: 58100

== ENCOUNTER 2024-10-25 10:31 | Outpatient (AMB) | payer MEDICARE, MEDICAID, SELFPAY ==
[2024-10-25 10:34] VITALS: BP 126/80; PULSE 60; O2SAT 97; BMI 29.4
--- NOTE | 2024-10-25 10:34 | A.OFFVIS_ITS ---
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: No Allergies codeine (CODEINE) Allergy (Unknown, Verified 10/25/24 10:34) ITCH epinephrine (EPINEPHRINE) Allergy (Unknown, Verified 10/25/24 10:34) PALPATATIONS FROM DENTAL WORK Medication List - Last Reconciled 10/25/24 by Brian Zamora MD albuterol sulfate 90 mcg/actuation (Ventolin HFA) 2 inhalations inhalation QID PRN 90 days amoxicillin 1,000 mg (2 x 500 mg) PO TID aspirin (Adult Aspirin Regimen) 81 mg PO DAILY bupropion HCl XL 150 mg PO QAM citalopram 40 mg PO QAM clonazepam 0.5 mg PO DAILY divalproex ER 500 mg PO TID levothyroxine 50 mcg PO DAILY lisinopril 10 mg PO DAILY melatonin 10 mg PO BEDTIME PRN [Poise Pads # 3 Change pad 3 times a day or as needed for urinary incontinence.] solifenacin 10 mg PO DAILY Do you need a note to return to daycare/school/sports/work: No HPI [facility] G0439 HPI Details Chief Complaint Routine Medicare wellness visit. History The patient is a 64-year-old female presenting for a Medicare wellness visit. Colonoscopy Follow-Up: - The patient underwent a colonoscopy in July with Dr. Snider, a web services developer. - The patient does not recall the initia l discussion about the procedure. - The procedure was completed with no ad verse events reported. - No significant findings were reported after the procedure. - The patient is scheduled to have a rep eat colonoscopy in 2029. Cervical Stenosis and Endometrial Fluid: - Patient underwent evaluation by an OB- GEAR FINISHER at the [facility] on October 13. - Fluid was noted within the endometrial cavity without accompanying vaginal bleeding. - Discussion included the concern for ce rvical stenosis leading to possible retained bleeding. - Endometrial biopsy was done due to the closed cervix. - Biopsy results confirmed benign pathol ogy with no malignancy detected. Smoking History: - The patient continues to smoke more th an a pack of cigarettes per day. - Suggested diagnostic imaging for an ab dominal aortic aneurysm due to smoking history. Screening and Preventative Health: - Last mammogram conducted on September 12, r esults not detailed by the patient. - Eye examination was completed approxim ately six months ago. - Pneumonia, Tetanus-diphtheria, and Zos ter vaccines are up-to-date. - No recent bone density tests reported. Mental Health and Medications: - The patient is currently taking severa l psychiatric medications and manages conditions with the help of a psychiatrist. - History of bladder biopsy was mentione d, with normal results. Medical History: - Hypertension - Thyroid dysfunction - Previous psychiatric diagnoses (not sp ecified) - Cervical stenosis (relative) - Smoker (greater than a pack per day) - Gastrointestinal evaluation history (c olonoscopy in July) Medications: - Inhaler (unspecified) - Aspirin - Bupropion 150 mg in the morning - Citalopram 40 mg - Clonazepam 0.5 mg as needed - Divalproex 500 mg three times a day - Levothyroxine 50 mcg for thyroid manag ement - Lisinopril 10 mg for hypertension - Bladder-related medication (not specif ied) Social History: - Smoking: Greater than a pack of cigare ttes per day. - Continues smoking despite potential he alth complications. Problem List - Hypertension - Cervical Stenosis - History of Endometrial Fluid Retention - Smoking related health risks - Thyroid dysfunction - Psychiatric disorders (unspecified) - History of bladder biopsies with negat miguel results Diagnostic results - Colonoscopy: Conducted in July, results free of significant findings. - Endometrial biopsy: Results benign, no malignancy. - Mammogram: Up-to-date, last on September 12 . - Pneumonia, T-dap, and Zoster immunizat ions are documented as current. [facility] - OB-GEAR FINISHER at [facility] - Gastroenterology with Dr. Snider Medication Management - Continuation of current regimen for hy pertension and thyroid. - Regular psychiatric medication with in put from the psychiatrist. Patient Instructions - Continue current medications as prescr ibed. - Return in six months for a check-up. - Bring the healthcare proxy form signed by witnesses to the next visit. - Have bone density screening when the n ext mammogram is performed. Review of Systems General: No fever no chills neurological: No headaches no dizziness ear nose throat: No sore throat no hearing difficulty no ear pain cardiovascular: No syncope, no chest pain, no palpitations gastrointestinal: No nausea vomiting or diarrhea endocrine: No polyuria polydipsia no heat intolerance genitourinary: No dysuria skin: No new complaints Physical Exam general: No acute distress HEENT: No acute findings neck: Supple respiratory system: Able to talk in full sentences, no audible wheeze no stridor cardiovascular: S1-S2 RRR gastrointestinal: No pain extremities: No new findings, no swelling of ankles LUMBER INSPECTOR: Alert awake oriented x3 motor sensory intact skin: Normal turgor, no moles, no rashes HPI Comments History of Present Illness Details AWV Medical/social history reviewed Past medical history reviewed [facility] / care team list updated Surgical/ hospitalization history reviewed Current medications including OTC and supplements reviewed Family history reviewed Tobacco controlled form updated Alcohol use form updated Illicit drug use in social history reviewed Current diagnosis of depression ?screening updated Appropriate PHQ 2/PHQ-9 completed . Vital signs reviewed Alcohol tobacco drug use reviewed and discussed . MMSE completed . ? Fall risk: ?Assessed Fall history: ?None Have you had any falls with injury in the past year?? No Have you had 2 or more falls in the past year?? No Fall risk assessment completed Home safety discussed with the patient Functional ability assessed and discussed and documented Activities of daily living reviewed and appropriate actions taken . HRA filled out by the patient and reviewed by provider and scanned . Appropriate written screening schedule established . Any health advise needed provided . Advance care planning discussed with the patient , necessary paperwork filled Examination IPPE/AWE: Balance intact Romberg intact Tandem walk intact walk-in turn intact rise from sit to stand intact . ?Hearing ?whisper test pass . Medication list reviewed, patient is stable on medications All other providers patient is seeing discussed and noted . [facility] Medical History Fluid in endometrial cavity Homelessness Bladder disorder Rash of foot Tinea pedis COVID-19 Trochanteric bursitis, left hip Snoring Pain of left sacroiliac joint Tendinopathy of left rotator cuff Fatigue Family history of breast cancer in first degree relative Excessive sleep Lumbar pain Chest pain Other specified hypothyroidism Arthralgia Frequency of urination Wheezing Urine incontinence Lower urinary tract symptoms Colon cancer screening At high risk for breast cancer Nicotine dependence, cigarettes, uncomplicated CHEK2 gene mutation positive Tremors of nervous system Bipolar disorder 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 exogenous substances Depression, major, recurrent COPD (chronic obstructive pulmonary disease) Surgical History Hx of tubal ligation Hx of tonsillectomy H/O brain surgery Family History Maternal Grandmother Breast cancer Mother Breast cancer Sister Breast cancer Family/Other Breast cancer Father Bladder cancer Paternal Uncle Prostate CA Family/Other Breast cancer Family/Other Bladder cancer Other Mental health disorder Substance use disorder Social History Household Members: Friend(s) Housing: House Alcohol intake: current Alcohol intake frequency: holidays/special occasions only Patient Tobacco Use Status: Current everyday Tobacco user Tobacco use type: Cigarette Years Smoked: (onset 11yo, 1ppd x 52yrs, 50pyh) e-Cigarette/Vaping Use: Currently Using Second Hand Smoke Exposure: Yes Substance Use Type: Marijuana service: No Current occupational status: disabled Cognitive needs: No Hearing needs: No Vision needs: Yes Female Reproductive History Menstrual Age of Menarche: 8 Questionnaire Medicare Wellness Checkup What [age] What gender do you identify with?: female During the past 4 weeks, how much have you been bothered by emotional problems such as feeling anxious, depressed, irritable, sad or downhearted, and blue?: moderately During the past 4 weeks, has your physical & emotional health limited your social activities with family, friends, neighbors, or groups?: moderately During the past 4 weeks, how much bodily pain have you generally had?: mild pain During the past 4 weeks, was someone available to help you if you needed & wanted help?: yes, as much as I wanted During the past 4 weeks, what was the hardest physical activity you could do for at least 2 minutes?: moderate Can you get to places out of walking distance without help? (For eg., can you travel alone on buses, taxis or drive your car?): Yes Can you go shopping for groceries or clothes without someone's help?: Yes Can you prepare your own meals?: Yes Can you do your housework without help?: Yes Because of any health problems, do you need the help of another person with your personal care needs such as eating, bathing, dressing or getting around the house?: No Can you handle your own money without help?: Yes During the past 4 weeks, how would you rate your health in general?: good During the past 4 weeks how have things been going for you?: good & bad parts about equal Are you having difficulties driving your car?: sometimes Do you always fasten your seat belt when you are in a car?: yes, usually During past 4 weeks, have you been bothered by the following: never: Sexual problems?, Teeth or denture problems? and Problems using the telephone?, sometimes: Falling or dizzy when standing up and Trouble eating well? and always: Tiredness or fatigue? Have you fallen 2 or more times in the past year?: Yes Are you afraid of falling?: No Are you a smoker?: yes, and I might quit During the past 4 weeks, how many drinks of wine, beer, or other alcoholic beverages did you have?: 1 drink or less per week Do you exercise for about 20 minutes 3 or more times a week?: no, I usually do not exercise this much Have you been given information to help with the following?: no: Hazards in your house that might hurt you? and no: Keeping track of your medications? How often do you have trouble taking medicines the way you have been told to take them?: I always take medicine as prescribed How confident are you that you can control & manage most of your health problems?: somewhat confident What is your race?: White Mini Mental State Exam (MMSE) Orientation What is the (year) (season) (date) (day) (month)?: year, season, date, day and month Where are we (state) (county) (town or city) (hospital) (floor)?: state, county, town or city, hospital/clinic and floor Score Score: 10 Activity of Daily Living Bathing - sponge bath, tub bath or shower: receives no assistance (gets in/out by self, if usual bathing means Dressing - getting clothes from closets & drawers, including inner/outer garments & fasteners.: gets clothes & gets completely dressed without help Toileting - going to the 'toilet room' for urine/bowel elimination & cleaning self/arranging clothes: goes to toilet room, cleans self, arranges clothes without help Transfer: moves in & out of bed and chair without help (may use support object) Feeding: feeds self without help Total Score: 0 Information obtained from: patient Using telephone: independent Traveling: independent Shopping: independent Preparing meals: independent Housework: independent Taking medicine: independent Managing money: independent PHQ-9 Over the last 2 weeks, how often have you been bothered by any of the following problems? 1. Little interest or pleasure in doing things: several days 2. Feeling down, depressed, or hopeless: several days 3. Trouble falling or staying asleep, or sleeping too much: more than half the days 4. Feeling tired or having little energy: several days 5. Poor appetite or overeating: not at all 6. Feeling bad about yourself - or that you are a failure or have let yourself or your family down: not at all 7. Trouble concentrating on things, such as reading the newspaper or watching television: not at all 8. Moving or speaking so slowly that other people could have noticed. Or the opposite - being so fidgety or restless that you have been moving around a lot more than usual: not at all 9. Thoughts that you would be better off or of hurting yourself in some way: not at all Total score: 5 Depression Screening Interpretation: Negative Depression Screening Done: Yes 34196 - PHQ-9 Billing: Yes Source: Developed by Drs. Osmel Valdes, Naa Smith, Ze Garner and colleagues, with an educational amanda from [employer]. Physical Exam Vital Signs: Last Vital Signs Pulse 60 10/25/24 10:34 BP 126/80 10/25/24 10:34 Pulse Ox 97 10/25/24 10:34 Oxygen Delivery Method Room Air 10/25/24 10:34 BMI result Body Mass Index 29.4 Assessment & Plan Assessment & Plan (1) Medicare annual wellness visit, subsequent: Code(s): Z00.00 - Encounter for general adult medical examination without abnormal findings (2) Nicotine dependence, cigarettes, uncomplicated: Comment: (onset 11yo, 1ppd x 52yrs, 50pyh) Code(s): F17.210 - Nicotine dependence, cigarettes, uncomplicated (3) COPD (chronic obstructive pulmonary disease): Code(s): J44.9 - Chronic obstructive pulmonary disease, unspecified Qualifiers: COPD type: emphysema Emphysema type: other Qualified Code(s): J43.8 - Other emphysema (4) 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 exogenous substances: Code(s): E03.2 - 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 exogenous substances (5) Hypertension, essential: Code(s): I10 - Essential (primary) hypertension Plan Chief Complaint Routine Medicare wellness visit. History The patient is a 64-year-old female presenting for a Medicare wellness visit. Colonoscopy Follow-Up: - The patient underwent a colonoscopy in July with Dr. Snider, a web services developer. - The patient does not recall the initial discussion about the procedure. - The procedure was completed with no adverse events reported. - No significant findings were reported after the procedure. - The patient is scheduled to have a repeat colonoscopy in 2029. Cervical Stenosis and Endometrial Fluid: - Patient underwent evaluation by an OB-GEAR FINISHER at the [facility] on October 13. - Fluid was noted within the endometrial cavity without accompanying vaginal bleeding. - Discussion included the concern for cervical stenosis leading to possible retained bleeding. - Endometrial biopsy was done due to the closed cervix. - Biopsy results confirmed benign pathology with no malignancy detected. Smoking History: - The patient continues to smoke more than a pack of cigarettes per day. - Suggested diagnostic imaging for an abdominal aortic aneurysm due to smoking history. Screening and Preventative Health: - Last mammogram conducted on September 12, results not detailed by the patient. - Eye examination was completed approximately six months ago. - Pneumonia, Tetanus-diphtheria, and Zoster vaccines are up-to-date. - No recent bone density tests reported. Mental Health and Medications: - The patient is currently taking several psychiatric medications and manages conditions with the help of a psychiatrist. - History of bladder biopsy was mentioned, with normal results. Medical History: - Hypertension - Thyroid dysfunction - Previous psychiatric diagnoses (not specified) - Cervical stenosis (relative) - Smoker (greater than a pack per day) - Gastrointestinal evaluation history (colonoscopy in July) Medications: - Inhaler (unspecified) - Aspirin - Bupropion 150 mg in the morning - Citalopram 40 mg - Clonazepam 0.5 mg as needed - Divalproex 500 mg three times a day - Levothyroxine 50 mcg for thyroid management - Lisinopril 10 mg for hypertension - Bladder-related medication (not specified) Social History: - Smoking: Greater than a pack of cigarettes per day. - Continues smoking despite potential health complications. Problem List - Hypertension - Cervical Stenosis - History of Endometrial Fluid Retention - Smoking related health risks - Thyroid dysfunction - Psychiatric disorders (unspecified) - History of bladder biopsies with negative results Diagnostic results - Colonoscopy: Conducted in July, results free of significant findings. - Endometrial biopsy: Results benign, no malignancy. - Mammogram: Up-to-date, last on September 12. - Pneumonia, T-dap, and Zoster immunizations are documented as current. [facility] - OB-GEAR FINISHER at [facility] - Gastroenterology with Dr. Snider Medication Management - Continuation of current regimen for hypertension and thyroid. - Regular psychiatric medication with input from the psychiatrist. Patient Instructions - Continue current medications as prescribed. - Return in six months for a check-up. - Bring the healthcare proxy form signed by witnesses to the next visit. - Have bone density screening when the next mammogram is performed. This note is constructed using voice recognition software. While every effort has been made to ensure accuracy in financial systems analyst, still errors may have been included Sometimes, these errors may affect the content or meaning of the given sentence . Orders: Orders US abdominal aortic aneurysm Today F17.210 - Nicotine dependence, cigarettes, uncomplicated Complete Blood Count Auto Diff Today E03.2 - 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 exogenous substances, I10 - Essential (primary) hypertension, J43.8 - Other emphysema Comprehensive Met. Panel Today E03.2 - 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 exogenous substances, I10 - Essential (primary) hypertension, J43.8 - Other emphysema TSH reflex Free T4 Today E03.2 - 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 exogenous substances, I10 - Essential (primary) hypertension, J43.8 - Other emphysema LDL Cholesterol Direct Today E03.2 - 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 exogenous substances, I10 - Essential (primary) hypertension, J43.8 - Other emphysema Quality Reporting (2019) Depression/Bipolar (159/160/161/177) PHQ-9: Total score: 5 Coding Level of Care Code Medicare Subsequent (G0439) Est Pt Level 3 (06607) Diagnoses Medicare annual wellness visit, subsequent Z00.00 Nicotine dependence, cigarettes, uncomplicated F17.210 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 Emphysema type: other 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 exogenous substances E03.2 Hypertension, essential I10 CPT Codes Advance Care Planning - Time spent: 1-15 minutes, not on file ([id number]) Additional Codes PHQ-9 - 29981 - PHQ-9 Billing: Yes ([id number]) Advance Care Planning Advance Care Planning discussion: Completed/Scanned Forms completed: KATHY Time spent: 1-15 minutes, not on file Actual minutes spent: 10
== END 2024-10-25 11:00 | disposition home or self-care (01) ==
PROVIDERS: PCP Internal Medicine; Visit Provider Internal Medicine
DX: Z00.00 Encounter for general adult medical examination without abnormal findings (principal); J43.8 Other emphysema; F17.210 Nicotine dependence, cigarettes, uncomplicated; E03.2 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 exogenous substances; I10 Essential (primary) hypertension

== ENCOUNTER → 2024-10-25 10:31 | Outpatient (BNVA) | payer MEDICARE, MEDICAID, SELFPAY | PROVIDERS: PCP Internal Medicine; Visit Provider Internal Medicine | DX: Z00.00 Encounter for general adult medical examination without abnormal findings (principal); F17.210 Nicotine dependence, cigarettes, uncomplicated; J43.8 Other emphysema; E03.2 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 exogenous substances; I10 Essential (primary) hypertension | CPT/HCPCS: 96127; 99212 ==

== ENCOUNTER → 2025-01-11 12:58 | Outpatient (BNV) | payer MEDICARE, MEDICAID, SELFPAY | PROVIDERS: PCP Internal Medicine; Visit Provider Radiology Body Imaging | DX: Z15.89 Genetic susceptibility to other disease (principal) | CPT/HCPCS: 77049 ==

== ENCOUNTER 2025-01-11 12:59 | Outpatient (REF) | payer MEDICARE, MEDICAID, SELFPAY ==
--- NOTE | ~2025-01-11 | MR_ITS ---
EXAMINATION: MR BREAST WITHOUT AND WITH CONTRAST, BILATERAL CLINICAL INFORMATION: Z15.89 - Genetic susceptibility to other disease COMPARISON: Screening mammogram on September 12, 2024. Breast MRI on January 08, 2024 TECHNIQUE: MR imaging of the breast was performed using T1, T2 and fat saturated techniques. Dynamic multiphase imaging was also performed after the administration of 7.2 cc of intravenous gadolinium contrast agent Gadavist. Computer generated 3D reconstruction and enhancement kinetic analysis was ulitized by the radiologist in the interpretation of this examination. A skin marker has been placed along the left breast to indicate the corrected laterality. FINDINGS: Breast composition: Scattered fibroglandular tissue. Background parenchymal enhancement: Minimal RIGHT BREAST: No suspicious mass or areas of nonmass enhancement. No architectural distortion. No axillary or internal mammary adenopathy. LEFT BREAST: No suspicious mass or areas of nonmass enhancement. No architectural distortion. No axillary or internal mammary adenopathy. Limited views of the chest and abdomen are unremarkable. MR/MR breast BI wo/w con IMPRESSION: No specific MR evidence of malignancy. ASSESSMENT: BIRADS 1: Negative RECOMMENDATIONS: Yearly screening mammography Yearly Breast MRI screening surveillance. Electronically signed by: Talon Munoz MD 01/11/2025 07:32 PM EDT
--- OUTSIDE RECORDS SUMMARY | 2025-01-11 16:30 | XMS_ITS | Data Portability ---
Author Organization [facility] Tele[facility] Patient Home Address [address] [place] [address] Assessment No assessment recorded. Plan of Treatment [...] release 24 hr 2018 019 INTERFACE [id number], [address], [place], [address], 9 11:33:37 Patient TargetsNo targets recorded. Patient Instructions Encounter Date Encounter Id Patient Instructions Last Modified By Organization Details Last Modified Time 06/08/2018 [id number] smoking cessatio n counseling, greater than 3 minutes up to 10 minutes* [email or web address] Not available 06/15/2018 08:20:51 Reason for Referral None Reported. Results Created Date Observation Date Name Description Value Unit Range Abnormal Flag Note LastModifiedBy Organization Detail LastModifiedTime 05/27/19 19 05/25/2018 beau HART bilat eral No observ ation record ed. [facility] (Medical Records) [address], [place], [address], 06/08/2018 11:03:24 Result Notes None recorded. Problems Name Problem SNOMED Code Status Onset Date Resolution Date Notes Provider Name and Address Organization Details Recorded Time Depressive disorder 49287145 [facility] Anxiety 07235569 Active [address] [facility] 9 16:08:29 Bladder muscle dysfunction - overactive Active [address] [facility] 9 16:08:40 Hypothyroidism 23075531 Active [address] [facility] 9 16:08:50 Chronic obstructive pulmonary disease 47527923 Active [address] [facility] 9 16:11:28 Problem Notes None recorded. Medical Equipment None Reported. Allergies Allergen ID Allergen Name Allergen Category Reaction Reaction Severity Criticality Documentation Date Start Date Code Code System Note Provider Name and Address Organization Details Recorded Time 2858 codeine medicatio n Not available Not available Not available 05/18/2018 2670 RxNorm Felicitasmargo carbajal [facility] 9 16:08:14 Medications Name Sig [...] Address Organization Details Last Updated DateTime 9 77437.8 3 g 84 /min 94 % 94 % 120/78 mm[Hg] [facility] 9 11:00:12 Social History Question Answer Notes LastModified by Organizat ion Details LastModified Time Tobacco Smoking Status Current Every Day Smoker 1 ppd Not Available [facility] 01/17/2020 03:36:24 What Was The Date Of Your Most Recent Tobacco Screening? 06/08/2018 [id number] Information not available 01/17/2020 Sex: Unknown Functional Status None recorded. Mental Status None recorded. Family History Nothing Reported. Medical History No medical history recorded. Gynecological HistoryNo gynecological history recorded. Obstetrics History GPAL:G 0 P 0 0 0 0 Immunizations Vaccine Type Date Status Note Provider Nam e and Address Organization Details Recorded Time Influenza, split virus, quadrivalent, preservative 8 completed Delma carbajal [facility] 06/08/2018 10:59:24 Past Encounters Encounter ID Performer Location Encounter Start Date Encounter Closed Date Diagnosis/Indication Diagnosis SNOMED-CT Code Diagnosis ICD10 Code Diagnosis IMO Codes Diagnosis Note [id number] Anupam Esteves DO [facility] [address],[place] [address] 06/08/2018 10:47:08 06/08/2018 11:19:56 Chronic obstructive pulmonary disease 75791943 J44.9 defers inhaler, wants to decrease smoking ( had spiriva in past ) Bladder mu scle dysfunction - overactive 703423712 N32.81 Depressive disorder 3548 9007 F33.8 stable Hypothyroidism 74142578 E03.9 Anxiety 11851845 F41.9 Screening procedure 2012 5006 Z13.9 Tobacco de pendence syndrome 42180466 F17.200 to taper off again Health Concerns Section Related Observation LastModified by Organization Detai ls LastModified Time None Recorded Concern Status LastModified by Organization Details LastModified Time None Recorded Advance Directives Directive None Recorded Payers Insurance Date Sequence Insurance Name Policy Number Policy Bone Covered Member ID Bone Member ID Guarantor Name 06/09/2018 1 MEDICARE B-[place]: [employer] Lela Long [id number] Lela Long 06/08/2018 2 [place] [facility] Lela Long [id number] Lela Long Notes Date Note Type Note Provider Name a nd Address Organization Details Recorded Time 06/08/2018 text/html Here per our request, recent med refill Overall feeling much better, life seems to be going well 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
== END 2025-01-11 13:00 | disposition home or self-care (01) ==
LOC: HO.MRI 12:59
PROVIDERS: PCP Internal Medicine; Visit Provider Surgery
DX: Z12.39 Encounter for other screening for malignant neoplasm of breast (principal); Z15.89 Genetic susceptibility to other disease
CPT/HCPCS: 77049; A9585

== ENCOUNTER 2025-02-24 12:30 | Outpatient (AMB) | payer MEDICARE, MEDICAID, SELFPAY ==
--- NOTE | 2025-02-24 12:39 | AM.OFFWIN_ITS ---
Intake Vital Signs 02/24/25 12:40 Height 5 ft 2 in Weight 163 lb BMI 29.8 BP 116/64 Blood Pressure Location Lt brachial Position Sitting Pulse 95 Pulse Source Pulse Oximeter Pulse Oximetry (%) 92 Oxygen Delivery Method Room Air Intake Visit Reasons: EP Right shoulder pain, both thumbs sore Intake Note: Patient presents c/o right shoulder pain & cracking x1 1/2 weeks. Patient also mentions bilateral thumb pain for a few months & left arm pain when she lays on it for about a month. Patient Tobacco Use Status: Current everyday Tobacco user Allergies codeine (CODEINE) Allergy (Unknown, Verified 02/24/25 12:42) ITCH epinephrine (EPINEPHRINE) Allergy (Unknown, Verified 02/24/25 12:42) PALPATATIONS FROM DENTAL WORK HPI HPI Comments History of Present Illness Details History of Present Illness - The patient is a 64 year old female pr esenting for evaluation of right shoulder pain. - The pain started approximately one wee k ago after she woke up with it, without any specific inciting injury. - She reports the pain is located on the side of her right shoulder and is associated with a new onset of cracking sounds with movement. she also has pain on her left shoulder but not as bad as the right shoulder. - Symptoms are exacerbated by lying on t he affected side and by certain random movements. It is constant. - She states that her shoulder symptoms have improved somewhat since they began. - She also notes a shooting pain in her right thumb, which was severely painful when her grandson recently hit it. She also has the same pain in her left thumb. - She tried ibuprofen without relief and has not used ice or other topical treatments. - She has no known history of arthritis. [facility] Medical History Fluid in endometrial cavity Homelessness Bladder disorder Rash of foot Tinea pedis COVID-19 Trochanteric bursitis, left hip Snoring Pain of left sacroiliac joint Tendinopathy of left rotator cuff Fatigue Family history of breast cancer in first degree relative Excessive sleep Lumbar pain Chest pain Other specified hypothyroidism Arthralgia Frequency of urination Wheezing Urine incontinence Lower urinary tract symptoms Colon cancer screening At high risk for breast cancer Nicotine dependence, cigarettes, uncomplicated CHEK2 gene mutation positive Tremors of nervous system Bipolar disorder 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 exogenous substances Depression, major, recurrent COPD (chronic obstructive pulmonary disease) Surgical History Hx of tubal ligation Hx of tonsillectomy H/O brain surgery Family History Maternal Grandmother Breast cancer Mother Breast cancer Sister Breast cancer Family/Other Breast cancer Father Bladder cancer Paternal Uncle Prostate CA Family/Other Breast cancer Family/Other Bladder cancer Other Mental health disorder Substance use disorder Social History Household Members: Friend(s) Housing: House Alcohol intake: current Alcohol intake frequency: holidays/special occasions only Patient Tobacco Use Status: Current everyday Tobacco user Tobacco use type: Cigarette Years Smoked: (onset 11yo, 1ppd x 52yrs, 50pyh) e-Cigarette/Vaping Use: Currently Using Second Hand Smoke Exposure: Yes Substance Use Type: Marijuana service: No Current occupational status: disabled Cognitive needs: No Hearing needs: No Vision needs: Yes Female Reproductive History Menstrual Age of Menarche: 8 Review of Systems Narrative Review of Systems - Musculoskeletal: Positive for right shoulder pain of one week duration, located on the lateral aspect and associated with crepitus on movement. Reports a shooting pain in the right thumb. - Neurological: Denies pain in the cervical spine. All systems reviewed and are unremarkable except as noted in HPI Physical Exam Exam Exam: Physical Exam General: Cooperative, healthy appearing, comfortable, no acute distress and well developed Orientation: Patient oriented x3 Limitations: Pain in the right shoulder with certain movements Head: Normal to inspection Ears: Hearing grossly normal bilaterally Nose: Normal External nose present Face and sinus: Normal facial exam Eyes: Appearance normal, both eyes and all related structures Neck: Normal visual inspection and Yes full ROM Respiratory: Normal respiratory effort and able to speak in complete sentences. Skin: No rashes or lesions noted Neuro: Patient oriented x3 Back/Spine: no cervical spine tenderness, full ROM Extremities: Right shoulder no TTP clavical to AC joint, anterior or posterior shoulder, TTP lateral shoulder full ROM, inversion with no pain, + empty can R>L, Full ROM bilateral elbows, negative phalens, negative tinel's, negative Dawson bilaterally. bilateral thumbs full ROM with pain with flexion and radial abduction, remainder of ROM with no pain. bilateral thumbs are NVI, no TTP, no scaphoid tenderness bilaterally. Vital Signs: Last Vital Signs Pulse 95 02/24/25 12:40 BP 116/64 02/24/25 12:40 Pulse Ox 92 02/24/25 12:40 Oxygen Delivery Method Room Air 02/24/25 12:40 BMI result Body Mass Index 29.8 Assessment & Plan Assessment & Plan (1) Right shoulder pain: Code(s): M25.511 - Pain in right shoulder Qualifiers: Chronicity: acute Qualified Code(s): M25.511 - Pain in right shoulder Plan: Patient was informed and verbally consented to the use of an ambient scribe for clinic note documentation during this visit. Right Shoulder Pain - The patient presents with right shoulder pain, with examination findings suggestive of possible bursitis with lateral pain vs rotator cuff sprain with + empty can test vs OA with multiple joints with pain. - An X-ray of the right shoulder will be obtained to evaluate for other pathology. - RICE was recommended, a sling has been provided to facilitate rest. - A prescription for a Meloxicam will be sent to the pharmacy for inflammation and pain management. - If pain continues, follow up with PCP for referral to Orthopedics vs PT - Wean off sling over coming weeks, as tolerated. - She was instructed to perform twice daily ROM for the shoulder so she doesn't end up with frozen shoulder . - My interpretation of XR is no acute fx or dislocation. XR/XR shoulder RT min 2V IMPRESSION: No acute findings Mild acromioclavicular arthritis. Small calcification superior to the greater tuberosity, probable calcific tendinitis, improved from previous. (2) Bilateral thumb pain: Code(s): M79.644 - Pain in right finger(s); M79.645 - Pain in left finger(s) Plan: Bilateral Thumb Pain - The patient reports a shooting pain in both thumbs - Physical examination was negative for carpal tunnel syndrome and de Quervain's tenosynovitis. - Likely OA with multiple joints with pain with no injury. - Can use meloxicam and follow up with PCP if no relief in symptoms with RICE. - If pain continues, follow up with PCP for referral to Hand Ortho. (3) Sprain of shoulder, right: Code(s): S43.401A - Unspecified sprain of right shoulder joint, initial encounter Qualifiers: Encounter type: initial encounter Shoulder sprain type: rotator cuff capsule Qualified Code(s): S43.421A - Sprain of right rotator cuff capsule, initial encounter Plan: as above Orders: Orders XR shoulder RT min 2V Today M25.511 - Pain in right shoulder Medications: New meloxicam 15 mg PO DAILY PRN 15 tabs 0RF pain, moderate Coding Level of Care Code Est Pt Level 4 (27908) Diagnoses Acute pain of right shoulder M25.511 Chronicity: acute Bilateral thumb pain M79.644; M79.645 Sprain of right rotator cuff capsule, initial encounter S43.421A Encounter type: initial encounter Shoulder sprain type: rotator cuff capsule
[2025-02-24 12:40] VITALS: BP 116/64; PULSE 95; O2SAT 92; BMI 29.8
== END 2025-02-24 14:24 | disposition home or self-care (01) ==
PROVIDERS: PCP Internal Medicine; Visit Provider Physician Assistant
DX: M25.511 Pain in right shoulder (principal); M79.644 Pain in right finger(s); M79.645 Pain in left finger(s); S43.421A Sprain of right rotator cuff capsule, initial encounter

== ENCOUNTER 2025-02-24 12:30 | Outpatient (REF) | payer MEDICARE, MEDICAID, SELFPAY ==
--- NOTE | ~2025-02-24 | XR_ITS ---
EXAMINATION: XR SHOULDER, RIGHT CLINICAL INFORMATION: M25.511 - Pain in right shoulder COMPARISON: X-ray 10/07/2016 TECHNIQUE: AP external rotation, Grashey, scapular Y, and axillary views of the right shoulder. FINDINGS: No acute fracture, dislocation or suspicious bony lesion. Mild acromioclavicular arthritis. Prominent subacromial spurring. Small calcification superior to the greater tuberosity, probably calcific tendinitis. This is improved as compared to the prior study. Glenohumeral joint space is preserved. XR/XR shoulder RT min 2V IMPRESSION: No acute findings Mild acromioclavicular arthritis. Small calcification superior to the greater tuberosity, probable calcific tendinitis, improved from previous. Electronically signed by: Roberto Meeks MD 02/24/2025 02:02 PM PIETER GLEZ
--- OUTSIDE RECORDS SUMMARY | 2025-02-24 18:45 | XMS_ITS | Data Portability ---
Author Organization [facility] Telehealth Patient Home Address [address] [place] [address] Assessment No assessment recorded. Plan of Treatment [...] release 24 hr 2018 019 INTERFACE [id number], [address], [place], [address], 9 11:33:37 Patient TargetsNo targets recorded. Patient Instructions Encounter Date Encounter Id Patient Instructions Last Modified By Organization Details Last Modified Time 06/08/2018 [id number] smoking cessatio n counseling, greater than 3 minutes up to 10 minutes* hrubner Not available 06/15/2018 08:20:51 Reason for Referral None Reported. Results Created Date Observation Date Name Description Value Unit Range Abnormal Flag Note LastModifiedBy Organization Detail LastModifiedTime 05/27/19 19 05/25/2018 beau HART bilat eral No observ ation record ed. [facility] (Medical Records) [address], [place], [address], 06/08/2018 11:03:24 Result Notes None recorded. Problems Name Problem SNOMED Code Status Onset Date Resolution Date Notes Provider Name and Address Organization Details Recorded Time Depressive [facility] 07630089 [facility] 16:[facility] Anxiety 39152993 Active 2018 Felicitas Ramachandran [facility] 9 16:08:29 Bladder muscle dysfunction - overactive Active 2018 Felicitas Ramachandran [facility] 9 16:08:40 Hypothyroidism 58644820 Active 2018 Felicitasmargo Ramachandran [facility] 9 16:08:50 Chronic obstructive pulmonary disease 11321778 Active 2018 Felicitasmargo Ramachandran [facility] 9 16:11:28 Problem Notes None recorded. Medical Equipment None Reported. Allergies Allergen ID Allergen Name Allergen Category Reaction Reaction Severity Criticality Documentation Date Start Date Code Code System Note Provider Name and Address Organization Details Recorded Time 2858 codeine medicatio n Not available Not available Not available 05/18/2018 2670 RxNorm Felicitasmargo carbajal [facility] 9 16:08:14 Medications [...] Recorded Body weight Heart rate Oxygen saturation Systolic And Diastolic Provider Name and Address Organization Details Last Updated DateTime 06/08/2018 60457.83 g 84 /min 94 % 120/78 mm[Hg] [facility] 06/08/2018 11:00:12 Social History Question Answer Notes LastModified by Organizat ion Details LastModified Time Tobacco Smoking Status Current Every Day Smoker 1 ppd Not Available [facility] 01/17/2020 03:36:24 What Was The Date Of Your Most Recent Tobacco Screening? 06/08/2018 [id number] Information not available 01/17/2020 Sex: Unknown Functional Status None recorded. Mental Status None recorded. Family History Nothing Reported. Medical History No medical history recorded. Gynecological HistoryNo gynecological history recorded. Obstetrics History GPAL:G 0 P 0 0 0 0 Immunizations Vaccine Type Date Status Note Provider Nam e and Address Organization Details Recorded Time Influenza, split virus, quadrivalent, preservative 8 [facility] 06/08/2018 10:59:24 Past Encounters Encounter ID Performer Location Encounter Start Date Encounter Closed Date Diagnosis/Indication Diagnosis SNOMED-CT Code Diagnosis ICD10 Code Diagnosis IMO Codes Diagnosis Note [id number] Anupam Esteves DO [facility] [address] [address] 06/08/2018 10:47:08 06/08/2018 11:19:56 Chronic obstructive pulmonary disease 80207867 J44.9 defers inhaler, wants to decrease smoking ( had spiriva in past ) Bladder mu scle dysfunction - overactive 688935017 N32.81 Depressive disorder 3548 9007 F33.8 stable Hypothyroidism 85585260 E03.9 Anxiety 18466381 F41.9 Screening procedure 2012 5006 Z13.9 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 F17.200 to taper off again Health Concerns Section Related Observation LastModified by Organization Detai ls LastModified Time None Recorded Concern Status LastModified by Organization Details LastModified Time None Recorded Advance Directives Directive None Recorded Payers Insurance Date Sequence Insurance Name Policy Number Policy Bone Covered Member ID Bone Member ID Guarantor Name 06/09/2018 1 MEDICARE [place]: [employer] Lela Long [id number] Lela Long 06/08/2018 2 MED[place]: [facility] Lela Long [id number] Lela Long Notes Date Note Type Note Provider Name a nd Address Organization Details Recorded Time 06/08/2018 text/html Here per our request, recent med refill Overall feeling much better, life seems to be going well 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
== END 2025-02-24 12:31 | disposition home or self-care (01) ==
LOC: HO.HMGCX 12:30
PROVIDERS: PCP Internal Medicine; Visit Provider Physician Assistant
DX: S43.421A Sprain of right rotator cuff capsule, initial encounter (principal); M79.644 Pain in right finger(s); M79.645 Pain in left finger(s); W50.0XXA Accidental hit or strike by another person, initial encounter; Y92.89 Other specified places as the place of occurrence of the external cause; Y93.9 Activity, unspecified; Y99.9 Unspecified external cause status
CPT/HCPCS: 73030; 99212

== ENCOUNTER → 2025-02-24 13:11 | Outpatient (BNV) | payer MEDICARE, MEDICAID, SELFPAY | PROVIDERS: PCP Internal Medicine; Visit Provider Radiology Diagnostic Ultrasound | DX: M19.011 Primary osteoarthritis, right shoulder (principal); M25.811 Other specified joint disorders, right shoulder | CPT/HCPCS: 73030 ==